=== PATIENT | female | born 1950 | race Asian ===

== ENCOUNTER 2016-03-28 21:19 | Inpatient (IN) | payer OTHER ==
[~2016-03-28] VITALS: Ht 162.6 cm; Wt 64.9 kg
[~2016-03-28 21:19] MED LIST: CIPR1TAB10 PO; LOSA1TAB38 PO; METO25TA3 PO; PHEN-876 PO
--- NOTE | 2016-03-28 23:07 | EMERGENCY ROOM VISIT NOTE ---
History Report prepared by Vasyl: Stefanie Elaine Under the Supervision of: Dr. Vel Bagley M.D. First contact with patient: 22:51 Chief Complaint: GI ASSESSMENT Stated Complaint: VOMITING,DIZZY,FEVER,WEAK,LOSS APPETITE Nursing Triage Summary: Patient with chills, high fever, nausea and vomitting, decreased appetite and dizziness. Patient was given Motrin at 1700. Patient was seen here earlier this week and was unable to get a follow up appointment. History of Present Illness The patient is a 65 year old female who presents to the Emergency Room with complaints of a worsening fever and weakness that started earlier this week.The patient states that her last recorded temperature was "107." Associated symptoms include nausea, vomiting, and a decreased appetite. Per the patient, she was evaluated in this ED a few days ago where she was diagnosed with a kidney infection. She was prescribed Cipro at this time. The patient denies chest pain or any additional associated symptoms. Source of History: patient Onset: Earlier this week Position: other (Global ) Timing: worsening Modifying Factors (Relieving): other (None ) Associated Symptoms: + nausea, + vomiting, No chest pain Review of Systems See HPI for pertinent positives & negatives. A total of 10 systems reviewed and were otherwise negative. Family History Unobtainable Social History Smoking Status: Never Smoker Alcohol Use: none Drug Use: none Marital Status: Housing Status: lives with family Occupation Status: employed Current/Historical Medications Scheduled Ciprofloxacin Hcl (Cipro), 500 MG PO BID Losartan Potassium (Cozaar), 100 MG PO DAILY Metoprolol Succ (Toprol Xl) (Toprol-Xl), 25 MG PO DAILY Allergies Coded Allergies: Enalapril (Unverified Adverse Reaction, Mild, H/A, 03/25/16) Physical Exam Vital Signs Date Time Temp Pulse Resp B/P Pulse Ox O2 Delivery O2 Flow Rate FiO2 03/28/16 23:37 149/86 136/82 135/83 03/28/16 21:26 37.3 87 16 143/82 96 Room Air Physical Exam CONSTITUTIONAL: Mild to moderate distress but non toxic. HEENT: No icterus, moist mucous membranes. TMs clear bilaterally. Oropharynx clear. NECK: No meningismus, trachea is midline. CARDIOVASCULAR: Regular rate, normal perfusion RESPIRATORY: Unlabored breathing. Clear to auscultation. GASTROINTESTINAL: Non-tender GENITOURINARY: No flank tenderness MUSCULOSKELETAL: Full range of motion NEUROLOGIC: No acute gross focal deficits. PSYCHIATRIC: Normal affect SKIN: Normal for ethnicity. Medical Decision & Procedures ER Provider Diagnostic Interpretation: Chest X-Ray as interpreted by me reveals a preliminary read of: no acute disease. Laboratory Results 03/28/16 23:30 Red Blood Count 3.99, Mean Corpuscular Volume 85.0, Mean Corpuscular Hemoglobin 30.6, Mean Corpuscular Hemoglobin Concent 36.0, Mean Platelet Volume 9.4, Neutrophils (%) (Auto) 81.1, Lymphocytes (%) (Auto) 7.0, Monocytes (%) (Auto) 11.0, Eosinophils (%) (Auto) 0.1, Basophils (%) (Auto) 0.1, Neutrophils # (Auto ) 11.74, Lymphocytes # (Auto) 1.02, Monocytes # (Auto) 1.59, Eosinophils # (Auto ) 0.01, Basophils # (Auto) 0.02 03/28/16 23:30 Test 03/28/16 23:30 03/28/16 23:35 03/28/16 23:38 03/28/16 23:45 White Blood Count 14.48 K/uL (4.8-10.8) Red Blood Count 3.99 M/uL (4.2-5.4) Hemoglobin 12.2 g/dL (12.0-16.0) Hematocrit 33.9 % (37-47) Mean Corpuscular Volume 85.0 fL (80-100) Mean Corpuscular Hemoglobin 30.6 pg (25-34) Mean Corpuscular Hemoglobin Concent 36.0 g/dl (32-36) Platelet Count 231 K/uL (130-400) Mean Platelet Volume 9.4 fL (7.4-10.4) Neutrophils (%) (Auto) 81.1 % Lymphocytes (%) (Auto) 7.0 % Monocytes (%) (Auto) 11.0 % Eosinophils (%) (Auto) 0.1 % Basophils (%) (Auto) 0.1 % Neutrophils # (Auto) 11.74 K/uL (1.4-6.5) Lymphocytes # (Auto) 1.02 K/uL (1.2-3.4) Monocytes # (Auto) 1.59 K/uL (0.11-0.59) Eosinophils # (Auto) 0.01 K/uL (0-0.5) Basophils # (Auto) 0.02 K/uL (0-0.2) RDW Standard Deviation 39.7 fL (36.4-46.3) RDW Coefficient of Variation 12.9 % (11.5-14.5) Immature Granulocyte % (Auto) 0.7 % Immature Granulocyte # (Auto) 0.10 K/uL (0.00-0.02) Anion Gap 13.0 mmol/L (3-11) Est Creatinine Clear Calc Drug Dose 27.0 ml/min Estimated GFR () 30.0 Estimated GFR (Non- 25.9 BUN/Creatinine Ratio 10.4 (10-20) Calcium Level 9.0 mg/dl (8.5-10.1) Phosphorus Level 2.3 mg/dl (2.5-4.9) Magnesium Level 2.3 mg/dl (1.8-2.4) Total Bilirubin 2.1 mg/dl (0.2-1) Direct Bilirubin 1.4 mg/dl (0-0.2) Aspartate Amino Transf (AST/SGOT) 85 U/L (15-37) Alanine Aminotransferase (ALT/SGPT) 93 U/L (12-78) Alkaline Phosphatase 184 U/L (45-117) Total Protein 7.9 gm/dl (6.4-8.2) Albumin 2.6 gm/dl (3.4-5.0) Lipase 249 U/L (73-393) Bedside Lactic Acid Venous 0.94 mmol/L (0.90-1.70) Influenza Type A Antigen Neg for Influ A (NEG) Influenza Type B Antigen Neg for Influ B (NEG) Test 03/28/16 23:55 Urine Color DK YELLOW Urine Appearance CLEAR (CLEAR) Urine pH 6.5 (4.5-7.5) Urine Specific [place] 1.003 (1.000-1.030) Urine Protein TRACE (NEG) Urine Glucose (UA) NEG (NEG) Urine Ketones NEG (NEG) Urine Occult Blood 1+ (NEG) Urine Nitrite POS (NEG) Urine Bilirubin NEG (NEG) Urine Urobilinogen NEG (NEG) Urine Leukocyte Esterase MODERATE (NEG) Urine WBC (Auto) 5-10 /hpf (0-5) Urine RBC (Auto) 0-4 /hpf (0-4) Urine Hyaline Casts (Auto) 1-5 /lpf (0-5) Urine Epithelial Cells (Auto) >30 /lpf (0-5) Urine Bacteria (Auto) 1+ (NEG) Urine Renal Epithelial Cells >30 /lpf (0-5) Labs reviewed by ED physician. Medications Administered Medications (Trade) Dose Ordered Sig/Rubio Route Start Time Stop Time Status Last Admin Dose Admin Sodium Chloride (Nss 1000ml) 1,000 ml @ 0 mls/hr Q0M STAT IV 03/28/16 23:10 03/28/16 23:13 DC 03/28/16 23:39 0 MLS/HR Ondansetron HCl (Zofran Inj) 4 mg NOW STAT IV 03/28/16 23:10 03/28/16 23:13 DC 03/28/16 23:40 4 MG Ketorolac Tromethamine (Toradol Inj) 15 mg NOW STAT IV 03/28/16 23:10 03/28/16 23:13 DC 03/28/16 23:39 15 MG Acetaminophen (Tylenol Tab) 1,000 mg NOW STAT PO 03/28/16 23:10 03/28/16 23:13 DC 03/28/16 23:39 1,000 MG Piperacillin Sod/ Tazobactam Sod (Zosyn Iv) 4.5 gm NOW STAT IV 03/28/16 23:10 03/28/16 23:13 DC 03/28/16 23:40 4.5 GM ED Course 2258: Past medical records reviewed. The patient was evaluated in room C9. A complete history and physical examination was performed. 2310: Ordered Zosyn IV 4.5 gm IV, Tylenol Tablet 1,000 mg PO, Toradol Injection 15 mg IV, Zofran Injection 4 mg IV, Sodium Chloride 1,000 ml @ 0 mls/hr Wide Open .Q0M STAT IV. 2315: I reviewed the patient's past CT performed on 03/25/2016. 0055: Ordered Sodium Chloride 1,000 ml @ 0 mls/hr Wide Open IV, Potassium Chloride 20 meq PO, Potassium Chloride 20 meq IV. 0100: Discussed the patient's case with Dr. Perdomo ([facility]). The patient will be evaluated for further management. Medical Decision Differential diagnosis: Etiologies such as viral syndrome, otitis, pharyngitis, pneumonia, influenza, meningitis, urinary tract infection, sepsis, bacteremia, as well as others were entertained. 65-year-old returns to the emergency room for evaluation of generalized weakness and reportedly a temperature of 107 at home. She notes she was recently here treated for a urinary tract infection with Cipro. She denies any flank tenderness nor GI complaints. Zosyn IV and IV fluids ordered. Hypokalemia noted in the context of acute kidney injury. 2 L normal saline ordered as well as potassium supplementation. Case discussed with Dr. Juarez of the [facility] hospitalist service for admission. Consults Time Called: 57 Consulting Physician: Dr. Perdomo ([facility]) Returned Call: 0100 Discussed the patient's case with Dr. Perdomo ([facility]). The patient will be evaluated for further management. Impression Primary Impression: UTI (urinary tract infection) Additional Impressions: Failure of outpatient treatment, Hypokalemia, Acute kidney injury Scribe Attestation The scribe's documentation has been prepared under my direction and personally reviewed by me in its entirety. I confirm that the note above accurately reflects all work, treatment, procedures, and medical decision making performed by me. Departure Information Dispostion Being Evaluated By Hospitalist Referrals Freeman Elena M.D.([facility]) (PCP) Patient Instructions A Signature Page, My [facility]
[2016-03-28] MEDS ORDERED: ONDANSETRON INJ 2 MG/ML 2 ML VIAL IV STA (23:10)
[2016-03-28] MEDS ORDERED: ACETAMINOPHEN 500 MG TAB PO STA (23:10)
[2016-03-28] MEDS ORDERED: PIPERACILLIN/TAZOBACTAM 4.5 GM/100ML D5W IV STA (23:10)
[2016-03-28] MEDS ORDERED: SODIUM CHLORIDE 0.9% 1000ML 1,000 ML IV STA (23:10)
[2016-03-28] MEDS ORDERED: KETOROLAC TROMETHAMINE 30 MG/ML VIAL IV STA (23:10)
[2016-03-28 23:41] LABS: BASO % 0.1 %; BASO ABS # 0.02 K/uL (0-0.2); COMPLETE YES; EOS % 0.1 %; HEMATOCRIT 33.9 % (37-47); IG% 0.7 %; LYMPH ABS # 1.02 K/uL (1.2-3.4); MEAN CORPUSCULAR HEMOGLOBIN 30.6 pg (25-34); MEAN PLATELET VOLUME 9.4 fL (7.4-10.4); NEUT % 81.1 %; PLATELET COUNT 231 K/uL (130-400); RED BLOOD COUNT 3.99 M/uL (4.2-5.4); WHITE BLOOD COUNT 14.48 K/uL (4.8-10.8)
[2016-03-29] VITALS (9 sets, daily range): BP systolic 131–168; BP diastolic 73–96; PULSE 70–83; TEMP 36.7–38; O2SAT 95–98; Ht 162.6 cm; Wt 64.9 kg
[2016-03-29 00:02] LABS: BUN/CREATININE RATIO 10.4 (10-20); POTASSIUM 2.6 mmol/L (3.5-5.1)
[2016-03-29 00:37] LABS: URINE APPEARANCE CLEAR (CLEAR); URINE BILIRUBIN NEG (NEG); URINE COLOR DK YELLOW; URINE EPITHELIAL CELL AUTO >30 /lpf (0-5); URINE NITRITE POS (NEG); URINE PH 6.5 (4.5-7.5); URINE SPECIFIC GRAVITY 1.003 (1.000-1.030); UROBILINOGEN NEG (NEG); ZZUR CULT IF INDIC CLEAN CATCH NO
[2016-03-29 00:41] LABS: MANUAL MICROSCOPIC REQUIRED? NO; REVIEW REQ? YES
[2016-03-29] MEDS ORDERED: POTASSIUM CHLORIDE 10 MEQ / 100ML WTR IV STA (00:55)
[2016-03-29] MEDS ORDERED: SODIUM CHLORIDE 0.9% 1000ML 1,000 ML IV STA (00:55)
[2016-03-29] MEDS ORDERED: POTASSIUM CHLORIDE 10 MEQ TABCR PO STA ×2 (00:55→02:58)
[2016-03-29 01:07] LABS: MAGNESIUM 2.3 mg/dl (1.8-2.4)
[2016-03-29 01:10] LABS: PHOSPHORUS 2.3 mg/dl (2.5-4.9)
[2016-03-29 01:36] LABS: THYROID STIMULATING HORMONE 2.14 uIu/ml (0.300-4.500)
[2016-03-29] MEDS ORDERED: PROMETHAZINE HCL INJ 12.5 MG in SODIUM CHLORIDE 0.9% 50ML 50 ML IV PRN (02:15)
[2016-03-29] MEDS ORDERED: TRAMADOL HCL 50 MG TAB PO PRN (02:15)
[2016-03-29] MEDS ORDERED: NITROGLYCERIN 0.4 MG SL PER TAB CHARGE SL PRN (02:15)
[2016-03-29] MEDS ORDERED: LORAZEPAM 2 MG/ML 1 ML VIAL IV PRN (02:15)
[2016-03-29] MEDS ORDERED: NSS + 20MEQ KCL 1000ML 1,000 ML IV SCH (03:00)
[2016-03-29] MEDS ORDERED: METRONIDAZOLE / NSS 500 MG in PREMIXED NSS 100 ML IV SCH (03:00)
[2016-03-29] MEDS ORDERED: NSS + 20MEQ KCL 1000ML 1,000 ML IV ONE ×2 (03:15→22:30)
--- NOTE | 2016-03-29 03:41 | HISTORY & PHYSICAL EXAMINATION ---
DATE OF ADMISSION: 03/29/2016 PRIMARY CARE DOCTOR: Dr. Elena Hx obtained from px and records. CHIEF COMPLAINT: Abdominal pain, nausea, vomiting and diarrhea. HISTORY OF PRESENT ILLNESS: Medical history is significant for hypertension, chronic LBBB, history of L renal cysts. Five days ago, the patient noted left lower quadrant pain symptoms. Seen at the Emergency Room. CAT scan showed cholelithiasis, complex left kidney cyst, 9.8 x 6.3 x 6.0. UA was nitrite positive. Final cultures, no growth. Patient was discharged on Cipro for possible pyelonephritis. Patient had worsening of abdominal pain, achy, more on the left with diarrhea symptoms. About 6 times a day, nonbloody. Px also had nausea, vomiting and some chills. No chest pain, no shortness of breath. Patient was lightheaded. At the Emergency Room, the patient received Zosyn for possible UTI. MEDICAL HISTORY: As above. 2D echo in December 2015 done as an outpatient for shortness of breath, chest tightness symptoms. Related to reflux as per [facility] (Dr. Keith) (EF 60%, mild AR, LVH) Used to see [facility] (Dr. Galvan) for L kidney cysts. Renal ultrasound 2010 L kidney Two adjacent simple cysts versus one cyst with a thin internal septation measuring 38 x 37 x 61 mm (was 52 x 44 x [address] 01/29/07) slightly larger. No internal vascularity is seen and this is otherwise anechoic with enhanced through transmission. SURGERIES: Hysterectomy, bladder sling procedure. HOME MEDICATIONS: Include; losartan, Toprol-XL. ALLERGIES: TO ENALAPRIL. FAMILY HISTORY: Heart disease. PERSONAL AND SOCIAL HISTORY: Nonsmoker. No chronic intake of alcoholic beverages. custodial employee. originally from the [facility]. REVIEW OF SYSTEMS: As per HPI, all other ROS negative. PHYSICAL EXAMINATION: VITAL SIGNS: Blood pressure was noted to be 140/82, pulse 57, RR 16, temperature 37 O2sats 96 on room air. GENERAL: Noted to be slightly uncomfortable, in no respiratory distress, looks younger for stated age. HEENT: [place] palpebral conjunctivae. Dry mucosa. SKIN: Normal color. NECK: No JVD. Supple. CHEST: Clear to auscultation. HEART: Regular rate and rhythm. ABDOMEN: Minimal epigastric tenderness, some distention. EXTREMITIES: No edema. No tenderness. NEUROLOGIC: No gross focality. LABORATORIES: Hemoglobin was noted to be 12.2, white cell count 14, platelets 231. Sodium 136, K 2.6, chloride 97, CO2 25, BUN 21, creatinine 2, glucose 151. AST 85, ALT 93 and alkaline phosphatase 184. Troponin was 0.046. UA, nitrite positive urine. ASSESSMENT: 1. Abdominal pain multifactorial : UTI, no sepsis, failed outpatient treatment diarrhea rule out Cdif (recent Cipro rx, [place] employment) Ro cholecystitis/cholangitis (abn LFTs, cholelithiasis on recent CT) 2. hypokalemia, acute renal failure secondary illness 3. Hypertension, stable. 4. Chronic LBBB 5. Troponinemia secondary to abnormal kidney function. Doubt acute coronary syndrome. 6. complex L renal cyst, some enlargement from recent outpx imaging 7. hyperglycemia ro DM PLAN: PCU mainly for hypokalemia, troponinemia. baseline EKG Follow urine cultures, IV Cefepime for now. stool dif, Flagyl for presumptive C. dif in light of leukocytosis. dc Flagyl if stool cdif negative (unless gallbladder US shows cholecystitis) Gallbladder ultrasound. Further management pending ultrasound results. Monitor creatinine response to IV fluids. Hold home ARB until creatinine at baseline. Replace potassium. Follow troponin. Outpatient Urology consult RE L renal cysts. check HgA1C DVT prophylaxis. Heparin subQ. Full code. MTDD
[2016-03-29] MEDS ORDERED: CEFEPIME IV 2,000 MG in DEXTROSE 5% 100ML 100 ML IV ONE (04:00)
[2016-03-29] MEDS: METOPROLOL SUCC 25MG EXT REL TAB PO SCH (07:03)
--- NOTE | 2016-03-29 07:03 | DIAGNOSTIC IMAGING REPORT ---
BILIARY ULTRASOUND CLINICAL HISTORY: Right upper quadrant abdominal pain COMPARISON STUDY: CT scan dated 03/25/2016 FINDINGS: The pancreas appears sonographically unremarkable. There is a 39 mm cyst within the left hepatic lobe. There is no ductal dilatation. The common bile duct measures 4 mm. There is no right-sided hydronephrosis. The gallbladder wall is thickened. There is comet tail reverberation artifact consistent with adenomyomatosis. The gallbladder wall measures up to 6 mm in diameter. There is a suspected small gallstone. IMPRESSION: 1. Suspected gallstone 2. Gallbladder wall thickening and areas of reverberation artifact consistent with adenomyomatosis. A masslike appearance of the gallbladder fundus, likely represents more focal adenomyomatosis. No ductal dilatation. Electronically signed by: Tim Elmore M.D. 03/29/2016 7:01 AM
--- NOTE | 2016-03-29 07:07 | DIAGNOSTIC IMAGING REPORT ---
CHEST 2 VIEWS ROUTINE CLINICAL HISTORY: fever VOMITING, DIZZINESS, WEAKNESS, LOSS OF APPETITE. COMPARISON STUDY: No previous studies for comparison. FINDINGS: The heart is mildly enlarged. There is no failure. There is no focal pulmonary consolidation. No pleural effusions are visualized.[ IMPRESSION: No active disease in the chest. Electronically signed by: Tim Elmore M.D. 03/29/2016 7:05 AM
[2016-03-29 07:21] LABS: BASO % 0.2 %; BASO ABS # 0.02 K/uL (0-0.2); COMPLETE YES; EOS % 0.3 %; HEMATOCRIT 30.9 % (37-47); IG% 0.9 %; LYMPH % 7.3 %; LYMPH ABS # 0.94 K/uL (1.2-3.4); MEAN CELL VOLUME 85.4 fL (80-100); MEAN CORPUSCULAR HEMOGLOBIN 30.4 pg (25-34); MEAN CORPUSCULAR HGB CONC 35.6 g/dl (32-36); MEAN PLATELET VOLUME 9.3 fL (7.4-10.4); MONO % 12.5 %; NEUT % 78.8 %; PLATELET COUNT 215 K/uL (130-400); RED BLOOD COUNT 3.62 M/uL (4.2-5.4); WHITE BLOOD COUNT 12.92 K/uL (4.8-10.8)
[2016-03-29 07:35] LABS: PROTHROMBIN TIME (PATIENT) 10.2 SECONDS (9.0-12.0)
[2016-03-29 07:56] LABS: ALB/GLOB RATIO 0.5 (0.9-2); CREATININE 1.9 mg/dl (0.60-1.20); POTASSIUM 3.3 mmol/L (3.5-5.1)
[2016-03-29] MEDS ORDERED: CEFEPIME CONSULT ACTIVE PRN ×2 (08:15)
[2016-03-29] MEDS: HEPARIN SOD 5000 UNIT/0.5 ML CARP SQ SCH ×2 (09:14→14:30)
[2016-03-29 09:18] LABS: ESTIMATED AVERAGE GLUCOSE 117 mg/dl; HA1C FLAG Normal (Normal)
[2016-03-29] MEDS ORDERED: POTASSIUM CHLORIDE 20 MEQ TABCR PO STA (13:56)
--- NOTE | 2016-03-29 15:22 | Progress Note ---
Progress Note ATTENDING NOTE : 65 yo f presented with Nausea , vomiting , diarrhea , abdominal pain , NARCISA hx of recent UTI Stool c diff negative possible viral gastroenteritis clinically improved NARCISA due to above renal function improved with IV hydration Low K : due to GI loss , diarrhea, nausea , vomiting replaced mild elevation of troponin due to NARCISA no complain of chest pain , no EKG change -chronic LBBB at baseline pt is very active , no complain of AARON repeat troponin level normalized ok to D/c tele Complex Left renal cyst follow with Urology as out pt
[2016-03-29] MEDS: NSS + 20MEQ KCL 1000ML 1,000 ML IV SCH (15:44)
[2016-03-29] MEDS: ACETAMINOPHEN 325 MG TAB PO PRN ×2 (15:49→20:55)
--- NOTE | 2016-03-29 17:47 | Discharge Instructions ---
Discharge Instructions Admission Reason for Admission: Elevated Troponin, Hypokalemia Discharge Discharge Diagnosis / Problem: VIRAL GASTROENTERITIS /ACUTE RENAL FAILURE / RENAL CYST Discharge Goals Goal(s): Improve disease control, Diagnostic testing, Therapeutic intervention Activity Recommendations Activity Limitations: per Instructions/Follow-up section . Instructions / Follow-Up Instructions / Follow-Up HOSPITAL FOLLOW UP WITH DR MAY FOLLOW UP WITH UROLOGY DR PRADHAN FOR RT SIDED COMPLEX RENAL CYST , PLEASE CALL OFFICE FOR APPOINTMENT Current Hospital Diet Patient's current hospital diet: AHA Diet (Heart Healthy), Low Lactose Diet Discharge Diet Recommended Diet: Regular Diet Pending Studies Studies pending at discharge: yes List of pending studies: LAB WORK : BASIC METABOLIC PANEL Laboratory Results Hemoglobin A1c Test 03/28/16 23:35 Range/Units Estimated Average Glucose 117 mg/dl Hemoglobin A1c 5.7 H 4.5-5.6 % Medical Emergencies . Who to Call and When: Medical Emergencies: If at any time you feel your situation is an emergency, please call 911 immediately. . Non-Emergent Contact Non-Emergency issues call your: Primary Care Provider . . "Provider Documentation" section prepared by Sylvia Mercer. VTE Core Measure Inpt VTE Proph given/why not?: Odilon Arias, SCD's [place] Drug Monitoring Program Search Results: no issues identified
[2016-03-29] MEDS ORDERED: LOPERAMIDE HCL 2 MG CAP PO PRN (22:30)
[2016-03-29 23:34] LABS: BUN/CREATININE RATIO 9.4 (10-20); CALCIUM 8.3 mg/dl (8.5-10.1); CREATININE 1.8 mg/dl (0.60-1.20); MAGNESIUM 2.1 mg/dl (1.8-2.4); POTASSIUM 3.5 mmol/L (3.5-5.1)
[2016-03-29 23:48] LABS: ALB/GLOB RATIO 0.5 (0.9-2)
[2016-03-30] VITALS (11 sets, daily range): BP systolic 124–160; BP diastolic 70–82; PULSE 71–78; TEMP 36.6–39.1; O2SAT 95–100
[2016-03-30] MEDS: LORAZEPAM INJ 0.5 MG in SYRINGE 0.75 ML IV PRN ×2 (00:10→18:38)
[2016-03-30] MEDS: NSS + 20MEQ KCL 1000ML 1,000 ML IV SCH ×3 (03:26→16:33)
[2016-03-30] MEDS: ACETAMINOPHEN 325 MG TAB PO PRN ×2 (03:33→18:01)
[2016-03-30] MEDS ORDERED: CEFEPIME IV 1,000 MG in DEXTROSE 5% 100ML 100 ML IV SCH (04:00)
[2016-03-30 06:02] LABS: BASO % 0.2 %; BASO ABS # 0.02 K/uL (0-0.2); COMPLETE YES; EOS % 0.1 %; HEMATOCRIT 29.9 % (37-47); IG% 1.2 %; LYMPH % 9.9 %; LYMPH ABS # 1.25 K/uL (1.2-3.4); MEAN CELL VOLUME 87.2 fL (80-100); MEAN CORPUSCULAR HEMOGLOBIN 30.9 pg (25-34); MEAN CORPUSCULAR HGB CONC 35.5 g/dl (32-36); MEAN PLATELET VOLUME 9.2 fL (7.4-10.4); MONO % 9.1 %; NEUT % 79.5 %; PLATELET COUNT 284 K/uL (130-400); RED BLOOD COUNT 3.43 M/uL (4.2-5.4); WHITE BLOOD COUNT 12.65 K/uL (4.8-10.8)
[2016-03-30 06:31] LABS: BUN/CREATININE RATIO 8.2 (10-20); CALCIUM 8.2 mg/dl (8.5-10.1); CREATININE 1.8 mg/dl (0.60-1.20); MAGNESIUM 2.1 mg/dl (1.8-2.4); POTASSIUM 3.4 mmol/L (3.5-5.1)
[2016-03-30] MEDS ORDERED: POTASSIUM CHLORIDE 20 MEQ TABCR PO ONE (08:00)
[2016-03-30] MEDS: METOPROLOL SUCC 25MG EXT REL TAB PO SCH (09:01)
--- NOTE | 2016-03-30 17:52 | Progress Note ---
Internal Med Progress Note Date of Service: Mar 30, 2016. Provider Documentation: SUBJECTIVE: pt continues to spike temp T max 39.1 associated with chills and rigor has ongoing diarrhea associated with nausea , abdominal cramps very worried as still no feeling well multiple family members present at bedside OBJECTIVE: Vital Signs-as noted below Exam: General-no apparent distress , anxious Eyes-sclera non icteric, PERRLA/EOMI ENT-moist oral mucosa, normal lip , normal oropharynx Neck-trachea midline , no thyromegaly Lungs-CTA, no wheeze or rhonchi Heart-regular Abdomen-soft, tenderness on epigastrium , bowel sound active Extremities-no rash or deformity ,no lower ext edema Neuro-no focal neurological deficit Lab data as noted below. ASSESSMENT & PLAN: 65 yo f presented with Nausea , vomiting , diarrhea , abdominal pain , NARCISA hx of recent UTI ABDOMINAL PAIN /NAUSEA /DIARRHEA : Stool c diff negative possible viral gastroenteritis CT abdomen /pelvis done on ER visit : 1. No evidence of bowel obstruction , no evidence of free air, colonic diverticulum , no evidence of acute diverticulitis . normal appendix, cholelithiasis suspected adenomyomatosis pt is continued with bowel rest ordered for stool culture FEVER : due to viral illness ? CT abdomen /pelvis shows no acute inflammation of infection has mild leukocytosis CXray no infiltrate , urine culture negative ( had recent UTI ) ordered for blood culture for repeated Temp spike cont IV hydration pt was started on empiric Abx with Cefepime -will cont till Cultures negative , pt becomes afebrile ID eval requested MILD ELEVATION OF LIVER FUNCTION : due to dehydration /viral illness USG of liver : 1. Suspected gallstone 2. Gallbladder wall thickening and areas of reverberation artifact consistent with adenomyomatosis. A masslike appearance of the gallbladder fundus, likely represents more focal adenomyomatosis. No ductal dilatation. LFT's continues to improve with IV hydration ordered for hepatitis panel NARCISA : due to above diarrhea /fever /dehydration presented with Cr > 2 ( was 1.0 on 03/25/16 ) had CT abdomen with contrast study on 03/25/16 cont IV hydration increased to 150 ml /hr follow PRP avoid NSAID's , nephrotoxins nephrology consult requested Low K : due to GI loss , diarrhea, nausea , vomiting replaced follow PRP mild elevation of troponin due to NARCISA no complain of chest pain , no EKG change -chronic LBBB at baseline pt is very active , no complain of AARON repeat troponin level normalized Complex Left renal cyst follow with Urology as out pt no report of hematuria DVT PROPHYLAXIS low risk scd and teds DISPOSITION Discharge home when medially stable Vital Signs: Date Time Temp Pulse Resp B/P Pulse Ox O2 Delivery O2 Flow Rate FiO2 03/30/16 17:45 38.0 77 20 151/74 97 Room Air 03/30/16 15:24 36.6 77 16 151/82 97 Room Air 03/30/16 07:26 Room Air 03/30/16 07:06 36.7 78 16 124/70 95 Room Air 03/30/16 05:20 36.9 03/30/16 03:58 37.2 03/30/16 03:34 39.1 03/30/16 02:10 37.6 03/29/16 23:39 Room Air 03/29/16 23:02 37.0 74 20 154/81 97 Room Air 03/29/16 19:44 38.0 83 22 148/84 95 Room Air Lab Results: Results Past 24 Hours Test 03/29/16 22:50 03/30/16 05:25 Range/Units Sodium Level 142 141 136-145 mmol/L Potassium Level 3.5 3.4 3.5-5.1 mmol/L Chloride Level 110 112 98-107 mmol/L Carbon Dioxide Level 20 20 21-32 mmol/L Anion Gap 12.0 9.0 3-11 mmol/L Blood Urea Nitrogen 17 15 7-18 mg/dl Creatinine 1.80 1.80 0.60-1.20 mg/dl Est Creatinine Clear Calc Drug Dose 30.3 30.3 ml/min Estimated GFR () 34.1 34.1 Estimated GFR (Non- 29.4 29.4 BUN/Creatinine Ratio 9.4 8.2 10-20 Random Glucose 99 137 70-99 mg/dl Lactic Acid Level 0.7 0.4-2.0 mmol/L Calcium Level 8.3 8.2 8.5-10.1 mg/dl Magnesium Level 2.1 2.1 1.8-2.4 mg/dl Total Bilirubin 0.8 0.8 0.2-1 mg/dl Aspartate Amino Transf (AST/SGOT) 65 41 15-37 U/L Alanine Aminotransferase (ALT/SGPT) 92 77 12-78 U/L Alkaline Phosphatase 178 166 45-117 U/L Total Protein 6.9 6.4 6.4-8.2 gm/dl Albumin 2.2 2.1 3.4-5.0 gm/dl Globulin 4.7 2.5-4.0 gm/dl Albumin/Globulin Ratio 0.5 0.9-2 White Blood Count 12.65 4.8-10.8 K/uL Red Blood Count 3.43 4.2-5.4 M/uL Hemoglobin 10.6 12.0-16.0 g/dL Hematocrit 29.9 37-47 % Mean Corpuscular Volume 87.2 80-100 fL Mean Corpuscular Hemoglobin 30.9 25-34 pg Mean Corpuscular Hemoglobin Concent 35.5 32-36 g/dl Platelet Count 284 130-400 K/uL Mean Platelet Volume 9.2 7.4-10.4 fL Neutrophils (%) (Auto) 79.5 % Lymphocytes (%) (Auto) 9.9 % Monocytes (%) (Auto) 9.1 % Eosinophils (%) (Auto) 0.1 % Basophils (%) (Auto) 0.2 % Neutrophils # (Auto) 10.07 1.4-6.5 K/uL Lymphocytes # (Auto) 1.25 1.2-3.4 K/uL Monocytes # (Auto) 1.15 0.11-0.59 K/uL Eosinophils # (Auto) 0.01 0-0.5 K/uL Basophils # (Auto) 0.02 0-0.2 K/uL RDW Standard Deviation 43.7 36.4-46.3 fL RDW Coefficient of Variation 13.6 11.5-14.5 % Immature Granulocyte % (Auto) 1.2 % Immature Granulocyte # (Auto) 0.15 0.00-0.02 K/uL Direct Bilirubin 0.4 0-0.2 mg/dl Microbiology Results 03/29/16 Blood Culture, Received Pending 03/29/16 Blood Culture, Received Pending
[2016-03-30] MEDS: ONDANSETRON INJ 2 MG/ML 2 ML VIAL IV PRN (18:02)
[2016-03-30] MEDS ORDERED: ACETAMINOPHEN IV 650 MG in EMPTY BAG 0 ML IV PRN (18:15)
[2016-03-30] MEDS ORDERED: NURSING VERBAL MED ORDER ONE (19:00)
--- NOTE | 2016-03-30 19:05 | Progress Note ---
Progress Note ATTENDING NOTE : pt continues to spike temp complains of SOB , difficulty breathing , found to be tachypneic spo2 96 % in room air very anxious Bed side eval : gen; anxious complains of abdominal bloating, feeling like she can not breath no cough HT : regular Tachy Lungs; CTA, no wheeze or rales auscultated Abdomen: soft, mild tenderness on epigastric area , mentions of feeling bloated bowel sound active EXt; no edema noted in lower ext, no calf tenderness -ongoing fever with tachycardia , tachypnea ordered for D dimer ( could be false positive given acute illness ) bilat lower ext Doppler to R/O DVT CTA of chest not ordered for NARCISA ( Cr 1.8 ) transfer pt to PCU for close monitoring of hemodynamics Daughter given update at bedside
--- NOTE | 2016-03-30 19:12 | Progress Note ---
Progress Note ATTENDING NOTE : d DIMER ELEVATED 2560 LOWER EXT DOPPLER ORDERED -WILL FOLLOW REPORT NO CONTRAINDICATION FOR ANTICOAGULATION IN SETTING OF THROMBOTIC EVENT ECHO ORDERED TO ASSESS CARDIAC STRAIN FOR CONCERN FOR PE V /Q SCAN ORDERED CONT TELE MONITORING EKG DAILY LACTIC ACID ELEVATED 2.2 CONT IVF @ 150 ML /HR REPEAT LACTIC ACID IN 4 HRS ( 2200 ) AND IN AM WILL ADD VANCOMYCIN FOR ADDED COVERAGE /ON CEFEPIME ID CONSULT REQUESTED
[2016-03-30] MEDS ORDERED: VANCOMYCIN INJ 1,700 MG in SODIUM CHLORIDE 0.9% 500ML 500 ML IV STA (19:41)
[2016-03-30] MEDS ORDERED: VANCOMYCIN CONSULT ACTIVE PRN (19:45)
--- NOTE | 2016-03-30 20:31 | Pharmacy Progress Note ---
Pharmacy Antibiotic Consult Date of Service: Mar 30, 2016. Pharmacy Dosing Scope Pharmacy is consulted to initiate Vancomycin IV dosing therapy, order appropriate labs and adjust drug dose/frequency. Subjective The patient is a 65 year old female admitted on Mar 29, 2016 at 01:37. Objective Height (Feet): 5 Height (Inches): 4.00 Weight (Kilograms): 67.800 Lab Results (24hrs): Laboratory Tests Test 03/29/16 22:50 03/30/16 05:25 BUN/Creatinine Ratio 9.4 8.2 Blood Urea Nitrogen 17 mg/dl 15 mg/dl Creatinine 1.80 mg/dl 1.80 mg/dl White Blood Count 12.65 K/uL Red Blood Count 3.43 M/uL Hemoglobin 10.6 g/dL Hematocrit 29.9 % Mean Corpuscular Volume 87.2 fL Mean Corpuscular Hemoglobin 30.9 pg Mean Corpuscular Hemoglobin Concent 35.5 g/dl Platelet Count 284 K/uL Mean Platelet Volume 9.2 fL Neutrophils (%) (Auto) 79.5 % Lymphocytes (%) (Auto) 9.9 % Monocytes (%) (Auto) 9.1 % Eosinophils (%) (Auto) 0.1 % Basophils (%) (Auto) 0.2 % Neutrophils # (Auto) 10.07 K/uL Lymphocytes # (Auto) 1.25 K/uL Monocytes # (Auto) 1.15 K/uL Eosinophils # (Auto) 0.01 K/uL Basophils # (Auto) 0.02 K/uL Micro Results: Item Value Date Time Urine Culture - Preliminary Resulted 03/28/16 2355 Urine , Clean Catch NO GROWTH - LESS THAN 1,000 COLONIES/... C.difficile Toxin B Gene (PCR) - Final Complete 03/29/16 0000 Stool No C. difficile toxin B gene detected Blood Culture Received 03/29/16 2250 Blood Pending Blood Culture Received 03/29/16 2300 Blood Pending Shiga Toxin Test Received 03/30/16 1950 Stool Pending Assessment & Plan Assessment * 65 y/o F on empiric IV Vancomycin for UTI. She was already on Cefepime ( Pharmacy also consulted for dosing), but is now febrile with elevated lactic acid, therefore Vancomycin has been added to broaden coverage. ID has been consulted. * Patient is in acute renal failure, but appears to be slowly improving. Her baseline sCr is around 1 mg/dL. Upon admission, sCr = 1.9 mg/dL and is down to 1.8 mg/dL today. Given unstable renal function, cannot safely initiate a maintenance regimen at this time. Will dose patient empirically based on random levels. Plan VANCOMYCIN * Give Vancomycin 1700mg (~25mg/kg) IV x 1 as a loading dose * Goal Vancomycin "trough" level 15-20 mcg/mL * Random level ordered for 1/2 with AM labs * Subsequent dosing to be determined based on levels CEFEPIME * Continue Cefepime 1g IV q24 (adjusted for current renal function) Pharmacy will continue to follow and will adjust dose/frequency as necessary. Thank you
--- NOTE | 2016-03-30 21:16 | DIAGNOSTIC IMAGING REPORT ---
SINGLE VIEW CHEST CLINICAL HISTORY: Dyspnea. FINDINGS: An AP, portable, upright chest radiograph is compared to study dated 03/29/2016. The examination is degraded by portable technique and patient rotation. The heart is mildly enlarged. The pulmonary vasculature is noncongested. There is developing patchy airspace consolidation at the left lung base. A small left pleural effusion is suspected. The right lung appears clear. No pneumothorax is seen. The skeletal structures are osteopenic. The bony thorax is grossly intact. IMPRESSION: 1. Cardiac enlargement. There is no radiographic evidence of congestive failure. 2. There is developed patchy airspace consolidation at the left lung base. A small left pleural effusion is suspected. Correlate clinically for evidence of pneumonia. Electronically signed by: Barney Dover M.D. 03/30/2016 9:15 PM
[2016-03-30] MEDS ORDERED: PIPERACILLIN/TAZOBACTAM 4.5 GM/100ML D5W IV STA (21:53)
--- NOTE | 2016-03-30 21:55 | Progress Note ---
Internal Med Progress Note Date of Service: Mar 30, 2016. Provider Documentation: CXR pneumonia L px admits to cough sx prod of yellow sputum AP Sepsis 2 to HAP/possible aspiration ff emesis episodes at home Change Cefepime to Zosyn Vital Signs: Date Time Temp Pulse Resp B/P Pulse Ox O2 Delivery O2 Flow Rate FiO2 03/31/16 04:00 Nasal Cannula 2.0 03/31/16 03:43 36.6 73 26 147/62 98 Nasal Cannula 2.0 03/31/16 00:01 Nasal Cannula 2.0 03/30/16 23:20 37.2 71 26 160/81 100 Nasal Cannula 2.0 03/30/16 20:00 Nasal Cannula 2.0 03/30/16 19:25 38.3 74 38 145/72 98 Nasal Cannula 2.0 03/30/16 19:00 38.0 77 40 97 03/30/16 17:45 38.0 77 20 151/74 97 Room Air 03/30/16 15:30 97 Room Air 03/30/16 15:24 36.6 77 16 151/82 97 Room Air 03/30/16 07:26 Room Air Lab Results: Results Past 24 Hours Test 03/30/16 18:40 03/31/16 00:15 03/31/16 06:12 Range/Units D-Dimer 2560 0-500 ug/L FEU Lactic Acid Level 2.2 0.8 0.6 0.4-2.0 mmol/L Hepatitis B Surface Antigen NEG NEG Hepatitis C Antibody NEG NEG White Blood Count 14.60 4.8-10.8 K/uL Red Blood Count 3.35 4.2-5.4 M/uL Hemoglobin 10.2 12.0-16.0 g/dL Hematocrit 29.5 37-47 % Mean Corpuscular Volume 88.1 80-100 fL Mean Corpuscular Hemoglobin 30.4 25-34 pg Mean Corpuscular Hemoglobin Concent 34.6 32-36 g/dl Platelet Count 317 130-400 K/uL Mean Platelet Volume 8.9 7.4-10.4 fL Neutrophils (%) (Auto) 78.1 % Lymphocytes (%) (Auto) 13.8 % Monocytes (%) (Auto) 5.6 % Eosinophils (%) (Auto) 0.3 % Basophils (%) (Auto) 0.1 % Neutrophils # (Auto) 11.39 1.4-6.5 K/uL Lymphocytes # (Auto) 2.02 1.2-3.4 K/uL Monocytes # (Auto) 0.82 0.11-0.59 K/uL Eosinophils # (Auto) 0.04 0-0.5 K/uL Basophils # (Auto) 0.02 0-0.2 K/uL RDW Standard Deviation 45.1 36.4-46.3 fL RDW Coefficient of Variation 13.9 11.5-14.5 % Immature Granulocyte % (Auto) 2.1 % Immature Granulocyte # (Auto) 0.31 0.00-0.02 K/uL Sodium Level 141 136-145 mmol/L Potassium Level 4.0 3.5-5.1 mmol/L Chloride Level 112 98-107 mmol/L Carbon Dioxide Level 20 21-32 mmol/L Anion Gap 9.0 3-11 mmol/L Blood Urea Nitrogen 11 7-18 mg/dl Creatinine 1.50 0.60-1.20 mg/dl Est Creatinine Clear Calc Drug Dose 38.1 ml/min Estimated GFR () 42.5 Estimated GFR (Non- 36.7 BUN/Creatinine Ratio 7.0 10-20 Random Glucose 109 70-99 mg/dl Calcium Level 8.3 8.5-10.1 mg/dl Magnesium Level 1.8 1.8-2.4 mg/dl Total Bilirubin 1.2 0.2-1 mg/dl Direct Bilirubin 0.9 0-0.2 mg/dl Aspartate Amino Transf (AST/SGOT) 37 15-37 U/L Alanine Aminotransferase (ALT/SGPT) 65 12-78 U/L Alkaline Phosphatase 161 45-117 U/L Total Protein 6.5 6.4-8.2 gm/dl Albumin 2.0 3.4-5.0 gm/dl Random Vancomycin Level 17.2 mcg/ml Microbiology Results 03/30/16 Shiga Toxin Test, Received Pending 03/30/16 Stool Culture, Received Pending
[2016-03-30] MEDS ORDERED: ALBUT/IPRATROP 3MG/0.5MG NEB 3 ML VIAL INH STA (21:57)
[2016-03-30] MEDS ORDERED: ALBUT/IPRATROP 3MG/0.5MG NEB 3 ML VIAL INH PRN (22:00)
[2016-03-30] MEDS ORDERED: PIPERACILL/TAZOBAC IV 3.375 GM in DEXTROSE 5% 100ML IV ONE (22:00)
--- NOTE | 2016-03-30 22:30 | DIAGNOSTIC IMAGING REPORT ---
NUCLEAR PULMONARY VENTILATION/PERFUSION SCAN CLINICAL HISTORY: Dyspnea. COMPARISON STUDY: Chest x-ray dated 03/30/2016. TECHNIQUE: Initially, ventilation images of both lungs are obtained following the inhalation of 32.8 mCi of aerosolized technetium 99m DTPA. Subsequently, perfusion images of both lungs were obtained following the IV administration of 5.5 mCi of technetium 99m MAA. Ventilation and perfusion images were acquired in the anterior, posterior, and oblique projections. FINDINGS: A chest x-ray performed same-day 03/30/2016 showed cardiomegaly with developing airspace consolidation at the left lung base and a possible left pleural effusion. The ventilation of both lungs is slightly heterogeneous. No significant ventilatory defects are identified. Inhaled tracer is noted in the stomach. No perfusion defects are identified on the perfusion imaging. IMPRESSION: Findings are considered low probability for pulmonary embolus. Electronically signed by: Barney Dover M.D. 03/30/2016 10:28 PM
[2016-03-31] VITALS (7 sets, daily range): BP systolic 132–163; BP diastolic 62–80; PULSE 73–89; TEMP 36.6–39.3; O2SAT 97–99
[2016-03-31] MEDS: NSS + 20MEQ KCL 1000ML 1,000 ML IV SCH ×3 (02:00→19:56)
[2016-03-31] MEDS: HYDROmorphone INJ 1 MG/ML SYR IV PRN ×3 (04:06→11:55)
[2016-03-31] MEDS: PIPERACILL/TAZOBAC IV 3.375 GM in DEXTROSE 5% 100ML IV SCH ×3 (04:06→19:55)
[2016-03-31] MEDS: ONDANSETRON INJ 2 MG/ML 2 ML VIAL IV PRN (04:06)
[2016-03-31 06:23] LABS: HEMATOCRIT 29.5 % (37-47); MEAN CELL VOLUME 88.1 fL (80-100); MEAN CORPUSCULAR HEMOGLOBIN 30.4 pg (25-34); MEAN CORPUSCULAR HGB CONC 34.6 g/dl (32-36); MEAN PLATELET VOLUME 8.9 fL (7.4-10.4); PLATELET COUNT 317 K/uL (130-400); RED BLOOD COUNT 3.35 M/uL (4.2-5.4)
[2016-03-31 06:43] LABS: BASO % 0.1 %; BASO ABS # 0.02 K/uL (0-0.2); COMPLETE YES; EOS % 0.3 %; IG% 2.1 %; LYMPH % 13.8 %; LYMPH ABS # 2.02 K/uL (1.2-3.4); MONO % 5.6 %; NEUT % 78.1 %
[2016-03-31 06:53] LABS: CALCIUM 8.3 mg/dl (8.5-10.1); CREATININE 1.5 mg/dl (0.60-1.20); MAGNESIUM 1.8 mg/dl (1.8-2.4)
--- NOTE | 2016-03-31 07:13 | DIAGNOSTIC IMAGING REPORT ---
BILATERAL LOWER EXTREMITY VENOUS DOPPLER HISTORY: Leg swelling. COMPARISON STUDY: None. FINDINGS: There is normal compressibility, flow, and augmentation within the bilateral lower extremity deep venous systems. IMPRESSION: No DVT within the right or left lower extremity. Electronically signed by: Clarence Disla M.D. 03/31/2016 7:11 AM
[2016-03-31] MEDS: METOPROLOL SUCC 25MG EXT REL TAB PO SCH (08:00)
--- NOTE | 2016-03-31 08:46 | ECHOCARDIOGRAM REPORT ---
*NOTICE TO RECEIVING DEMOCRAT AGENCY This information is strictly Confidential and protected under [place] law. [place] law prohibits you from making any further disclosure of this information unless further disclosure is expressly permitted by the written consent of the person to whom it pertains or is authorized by law. A general authorization for the release of medical or other information is not sufficient for this purpose. Hospital accepts no responsibility if the information is made available to any other person, INCLUDING THE PATIENT. Interpretation Summary * Name: LESLEY GARCIA Study Date: 03/31/2016 07:00 AM BP: 136/72 mmHg * Patient Location: C.2E\S\E205\S\1 HR: 76 * : 1950 (M/d/yyyy) Gender: Female Height: 64 in * Age: 65 yrs Ethnicity: Weight: 149 lb * Ordering Physician: Sylvia Mercer * Referring Physician: Self, Referred * Performed By: Vanessa Sharma RCS * * Reason For Study: Pulm. HTN, Eval for PE/RV Strain * BSA: 1.7 m2 * -- Conclusions -- * Normal LV chamber size with mild concentric LVH. * Normal LV systolic function, EF 55-60%. * Abnormal septal wall motion consistent with LBBB pattern, otherwise, normal wall motion. * Grade I diastolic dysfunction. * The right ventricular cavity size is normal (basal dimension <4.2 cm in right ventricular apical 4-chamber view). * The right ventricular systolic function is normal as assessed by tricuspid annular plane systolic excursion (TAPSE) (normal >1.5 cm). * Grade I diastolic dysfunction. * Mild aortic regurgitation. Procedure Details * A complete two-dimensional transthoracic echocardiogram was performed (2D, M-mode, Doppler and color flow Doppler). Left Ventricle * The left ventricle is normal in size. * There is mild concentric left ventricular hypertrophy. * Ejection Fraction = 55-60%. * The left ventricular wall motion is normal. * Septal motion is consistent with conduction abnormality. Right Ventricle * The right ventricular cavity size is normal (basal dimension <4.2 cm in right ventricular apical 4-chamber view). * The right ventricular systolic function is normal as assessed by tricuspid annular plane systolic excursion (TAPSE) (normal >1.5 cm). Atria * The left atrium is mildly dilated. * Right atrial size is normal. * No ASD detected; PFO is not assessed. Mitral Valve * The mitral valve is normal in structure and function. Tricuspid Valve * The tricuspid valve is normal in structure and function. Aortic Valve * The aortic valve is trileaflet. * No hemodynamically significant valvular aortic stenosis. * Mild aortic regurgitation. Pulmonic Valve * The pulmonary valve is not well seen, but the Doppler examination is normal without significant regurgitation or stenosis. Great Vessels * The aortic root and proximal ascending aorta are normal sized. Pericardium/Pleural * There is no pericardial effusion. Left Ventricular Diastolic Function * Grade I diastolic dysfunction, (abnormal relaxation pattern). MMode 2D Measurements and Calculations IVSd 1.1 cm IVSs 1.6 cm LVIDd 4.9 cm LVIDs 3.3 cm LVPWd 1.1 cm LVPWs 1.7 cm IVS/LVPW 0.98 FS 33.5 % EDV(Teich) 113.4 ml ESV(Teich) 43.0 ml EF(Teich) 62.1 % EDV(cubed) 118.5 ml ESV(cubed) 34.8 ml EF(cubed) 70.6 % % IVS thick 52.0 % % LVPW thick 54.8 % LV mass(C)d 199.4 grams LV mass(C)dI 115.5 grams/m\S\2 LV mass(C)s 212.6 grams LV mass(C)sI 123.1 grams/m\S\2 CO(Teich) 5.3 l/min CI(Teich) 3.1 l/min/m\S\2 SV(Teich) 70.5 ml SI(Teich) 40.8 ml/m\S\2 CO(cubed) 6.3 l/min CI(cubed) 3.6 l/min/m\S\2 SV(cubed) 83.7 ml SI(cubed) 48.5 ml/m\S\2 Ao root diam 3.0 cm Ao root area 7.0 cm\S\2 ACS 1.5 cm LA dimension 4.1 cm LA/Ao 1.4 LVOT diam 1.9 cm LVOT area 2.7 cm\S\2 LVAd ap4 37.5 cm\S\2 LVLd ap4 9.2 cm EDV(MOD-sp4) 127.0 ml LVAs ap4 19.4 cm\S\2 LVLs ap4 7.2 cm ESV(MOD-sp4) 45.0 ml EF(MOD-sp4) 64.6 % LVAd ap2 35.6 cm\S\2 LVLd ap2 9.3 cm EDV(MOD-sp2) 115.0 ml LVAs ap2 15.2 cm\S\2 LVLs ap2 6.8 cm ESV(MOD-sp2) 28.0 ml EF(MOD-sp2) 75.7 % CO(MOD-sp4) 6.2 l/min CI(MOD-sp4) 3.6 l/min/m\S\2 SV(MOD-sp4) 82.0 ml SI(MOD-sp4) 47.5 ml/m\S\2 CO(MOD-sp2) 6.5 l/min CI(MOD-sp2) 3.8 l/min/m\S\2 SV(MOD-sp2) 87.0 ml SI(MOD-sp2) 50.4 ml/m\S\2 Doppler Measurements and Calculations MV E max scooby 131.9 cm/sec MV A max scooby 135.0 cm/sec MV E/A 0.98 MV P1/2t max scooby 173.0 cm/sec MV P1/2t 69.6 msec MVA(P1/2t) 3.2 cm\S\2 MV dec slope 727.6 cm/sec\S\2 MV dec time 0.23 sec Ao V2 max 257.7 cm/sec Ao max PG 26.6 mmHg Ao max PG (full) 17.6 mmHg Ao V2 mean 163.5 cm/sec Ao mean PG 12.7 mmHg Ao mean PG (full) 7.8 mmHg Ao V2 VTI 47.0 cm FERNANDA(I,A) 1.6 cm\S\2 FERNANDA(I,D) 1.6 cm\S\2 FERNANDA(V,A) 1.6 cm\S\2 FERNANDA(V,D) 1.6 cm\S\2 AI max scooby 454.3 cm/sec AI max PG 82.6 mmHg AI dec slope 276.7 cm/sec\S\2 AI P1/2t 481.0 msec LV V1 max PG 9.0 mmHg LV V1 mean PG 4.9 mmHg LV V1 max 149.7 cm/sec LV V1 mean 104.4 cm/sec LV V1 VTI 27.6 cm SV(Ao) 329.1 ml SI(Ao) 190.7 ml/m\S\2 SV(LVOT) 74.2 ml SI(LVOT) 43.0 ml/m\S\2 PA V2 max 163.6 cm/sec PA max PG 10.7 mmHg PI max scooby 194.1 cm/sec PI max PG 15.1 mmHg PI dec slope 179.0 cm/sec\S\2 PI P1/2t 317.6 msec TR max scooby 272.5 cm/sec
[2016-03-31] MEDS ORDERED: PIPERACILL/TAZOBAC CONSULT ACTIVE PRN (09:00)
--- NOTE | 2016-03-31 09:36 | DIAGNOSTIC IMAGING REPORT ---
CT SCAN OF THE ABDOMEN AND PELVIS WITHOUT CONTRAST CLINICAL HISTORY: worsening L sided abd pain COMPARISON STUDY: 03/25/2016 TECHNIQUE: CT scan of the abdomen and pelvis was performed from the lung bases to the proximal femurs. Images are reviewed in the axial, sagittal, and coronal planes. IV contrast was not administered for this examination. CT DOSE: 548.30 mGycm FINDINGS: Lower chest: There are small bilateral pleural effusions with bibasilar atelectasis. Liver: The 5 mm fat-containing nodule within the right hepatic lobe. There is 36 mm left lobe hepatic cyst. Gallbladder: Cholelithiasis. There is a fundal nodule, likely representing adenomyomatosis. Spleen: Normal in size and attenuation. Pancreas: No pancreatic masses are visualized. The duct is at the upper limits of normal in size. Adrenal glands: Unremarkable. 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 There is an 9 cm septated cystic mass within the upper pole the left kidney. This contains foci of increased attenuation consistent with hemorrhage. No renal or ureteral calculi are visualized. Bowel: There are scattered colonic diverticula. There are no transition zones indicate bowel obstruction. There is no evidence of acute diverticulitis. There are no findings to indicate acute appendicitis. Peritoneum: There is trace free fluid in the pelvis. There is no free air. Vasculature: The abdominal aorta is normal in course and caliber. Adenopathy: None. Pelvic viscera: The uterus is surgically absent. Skeletal structures: No destructive osseous lesions are seen. IMPRESSION: 1. Complex 9 cm cystic lesion within the left kidney with areas of acute/subacute hemorrhage. Urological consultation is recommended. 2. Cholelithiasis 3. No evidence of bowel obstruction. No evidence of free air. Electronically signed by: Tim Elmore M.D. 03/31/2016 9:34 AM
--- NOTE | 2016-03-31 09:43 | Pharmacy Progress Note ---
Pharmacy Antibiotic Prog Note Date of Service: Mar 31, 2016. Subjective: The patient received VANCOMYCIN 1700mg IV x 1 dose empirically last evening. The patient is currently on day # 2 of VANCOMYCIN / ZOSYN IV therapy. Objective: Height (Feet): 5 Height (Inches): 4.00 Weight (Kilograms): 75.000 Levels: Item Value Date Time Random Vancomycin Level 17.2 mcg/ml 03/31/16 0612 Lab Results (24hrs): Laboratory Tests Test 03/31/16 06:12 BUN/Creatinine Ratio 7.0 Blood Urea Nitrogen 11 mg/dl Creatinine 1.50 mg/dl White Blood Count 14.60 K/uL Red Blood Count 3.35 M/uL Hemoglobin 10.2 g/dL Hematocrit 29.5 % Mean Corpuscular Volume 88.1 fL Mean Corpuscular Hemoglobin 30.4 pg Mean Corpuscular Hemoglobin Concent 34.6 g/dl Platelet Count 317 K/uL Mean Platelet Volume 8.9 fL Neutrophils (%) (Auto) 78.1 % Lymphocytes (%) (Auto) 13.8 % Monocytes (%) (Auto) 5.6 % Eosinophils (%) (Auto) 0.3 % Basophils (%) (Auto) 0.1 % Neutrophils # (Auto) 11.39 K/uL Lymphocytes # (Auto) 2.02 K/uL Monocytes # (Auto) 0.82 K/uL Eosinophils # (Auto) 0.04 K/uL Basophils # (Auto) 0.02 K/uL Micro Results: see emr Recent Pertinent Medications: Item Value Date Time Piperacillin Sod/ 115 ml @ 28.75 mls/hr 03/31/16 0330 Tazobactam Sod Q8H/IV 03/31/16 0406 3.375 gm/Dextrose Vancomycin HCl 534 ml @ 200 mls/hr 03/30/16 1941 1700 mg/Sodium NOW STAT/IV 03/30/16 202 Chloride one time dose Cefepime HCl 1000 111.3 ml @ 200 mls/hr 03/30/16 0400 mg/Dextrose Q24H/IV DISCONTINUED 03/30/16 0326 Assessment & Plan: 65yo female initially ordered CEFEPIME for sepsis secondary to UTI, therapy changed yesterday to VANCOMYCIN and ZOSYN. Renal function is improving (baseline ~1, was 2.0 -> 1.9 -> 1.8 -> 1.5 today). VANCOMYCIN: * Patient received VANCOMYCIN 1700mg (~23 mg/kg) IV x 1 dose empirically last evening. * Random level drawn this am (~8 hours after dose) = 17.2 mcg/mL. * This drug level is: Therapeutic. * Will start VANCOMYCIN 1100mg (~15mg/kg) IV q18h, based on estimated baseline renal function. * Will hold 0600 dose tomorrow morning until renal function is evaluated to ensure it continues to improve. * Goal trough level estimate: between 15 - 20 mcg/mL. * Trough level has been ordered for: @ 0000, assuming renal function continues to trend down. ZOSYN: * Continue ZOSYN 3.375gm CI IV q8h for CrCl > 20 ml/min. Pharmacy will continue to follow and will adjust dose/frequency as necessary. Thank you
--- NOTE | 2016-03-31 10:18 | Medical Consult ---
Consultation Date of Consultation: Mar 31, 2016. Attending Physician: Sylvia Mercer M.D. Reason for Consultation: viral illness, fever History of Present Illness 65-year-old female with history of hypertension and left bundle-branch block, more than 1 week history abdominal pain, mostly left-sided, associated with nausea, vomiting, and diarrhea. Was seen in the emergency department and found to have complex left renal cyst, and was sent home with a diagnosis pyelonephritis on ciprofloxacin. Cultures from that visit negative. Patient was admitted with progressively worsening abdominal pain. Started initially on vancomycin and and now changed vancomycin and Zosyn because worry of possible aspiration pneumonia. Chest x-ray, read by me, shows possible lower lobe early consolidative changes. Patient has remained febrile, and CT scan today shows probable hemorrhage into the left renal cyst. All cultures from this visit are negative date. Pain still severe mostly left flank. Past Medical/Surgical History Medical Problems: (1) Acute kidney injury Status: Acute (2) Failure of outpatient treatment Status: Acute (3) Hypokalemia Status: Acute (4) Pyelonephritis Status: Acute (5) UTI (urinary tract infection) Status: Acute Medical Problems: (1) Benign neoplasm of colon (2) Elevated troponin (3) HTN (hypertension) (4) LBBB (left bundle branch block) (5) Renal cyst Surgical Problems: (1) H/O colonoscopy (2) H/O esophagogastroduodenoscopy (3) H/O total hysterectomy (4) S/p bladder sling Family History Cardiac disorder FATHER SISTER Diabetes mellitus SISTER FH: cancer SISTER (breast CA) Hypertension FATHER Social History Smoking Status: Unknown if Ever Smoked Drug Use: none Marital Status: Housing Status: lives with family Occupation Status: employed Allergies Coded Allergies: Enalapril (Unverified Adverse Reaction, Mild, H/A, 03/25/16) Current Inpatient Medications Current Inpatient Medications Medications (Trade) Dose Ordered Sig/Rubio Route Start Time Stop Time Status Last Admin Dose Admin Acetaminophen (Tylenol Tab) 325 mg Q6H PRN PO 03/29/16 02:15 04/28/16 02:14 03/30/16 18:01 325 MG Nitroglycerin (Nitrostat Tab) 0.4 mg UD PRN SL 03/29/16 02:15 04/28/16 02:14 Hydromorphone HCl (Dilaudid Inj) 0.5 mg Q3H PRN IV 03/29/16 02:15 04/12/16 02:14 03/31/16 07:59 0.5 MG Tramadol HCl (Ultram Tab) 25 mg Q6H PRN PO 03/29/16 02:15 04/28/16 02:14 03/31/16 03:51 25 MG Ondansetron HCl 4 mg 4 mg Q6H PRN IV 03/29/16 02:15 04/28/16 02:14 03/31/16 04:06 4 MG Promethazine HCl/ Sodium Chloride (Phenergan Inj/ Nss 50ml) 50.5 ml @ 204 mls/hr Q6H PRN IV 03/29/16 02:15 04/28/16 02:14 Lorazepam (Ativan Inj) 0.5 mg Q4H PRN IV 03/29/16 02:15 04/28/16 02:14 Metoprolol Succinate 25 mg 25 mg DAILY PO 03/29/16 09:00 04/28/16 08:59 03/31/16 08:00 25 MG Potassium Chloride/Sodium Chloride 1,000 ml @ 150 mls/hr Q6H40M IV 03/29/16 15:00 04/29/16 14:59 03/31/16 08:00 150 MLS/HR Lorazepam 0.5 mg/ Syringe 1 ml @ 1 mls/min Q4H PRN IV 03/29/16 23:45 04/28/16 23:44 03/30/16 18:38 1 MLS/MIN Acetaminophen/ Empty Bag (Ofirmev IV/ Empty Iv Bag 100ml) 65 ml @ 260 mls/hr Q6H PRN IV 03/30/16 18:15 04/29/16 18:14 Vancomycin HCl (Consult) 1 ea UD PRN N/A 03/30/16 19:45 04/29/16 19:44 Piperacillin Sod/ Tazobactam Sod (Consult) 1 ea UD PRN N/A 03/31/16 09:00 04/30/16 08:59 Albuterol/ Ipratropium 3 ml 3 ml Q2H PRN INH 03/30/16 22:00 04/29/16 21:59 Piperacillin Sod/ Tazobactam Sod 3.375 gm/Dextrose 115 ml @ 28.75 mls/ hr Q8H IV 03/31/16 03:30 04/10/16 03:29 03/31/16 04:06 28.75 MLS/HR Vancomycin HCl/ Sodium Chloride (Vancomycin Inj/ Nss 250ml) 272 ml @ 125 mls/hr Q18H IV 03/31/16 12:00 04/10/16 11:59 Review of Systems Constitutional: + chills, + fatigue, + fever, + sweats, + weakness Eyes: No problem reported ENT: No problem reported Respiratory: + cough, + sputum, No hemoptysis Cardiovascular: No problem reported Abdomen: + diarrhea, + nausea, + pain, + vomiting, No GI bleeding Musculoskeletal: No problem reported Genitourinary - Female: + urinary frequency Neurologic: No problem reported Psychiatric: No problem reported Hematologic / Lymphatic: No problem reported Integumentary: No problem reported Allergic / Immunologic: No problem reported Physical Exam Date Time Temp Pulse Resp B/P Pulse Ox O2 Delivery O2 Flow Rate FiO2 03/31/16 08:00 Nasal Cannula 3.0 03/31/16 07:17 38.0 78 26 136/72 98 Nasal Cannula 3.0 03/31/16 04:00 Nasal Cannula 2.0 03/31/16 03:43 36.6 73 26 147/62 98 Nasal Cannula 2.0 03/31/16 00:01 Nasal Cannula 2.0 03/30/16 23:20 37.2 71 26 160/81 100 Nasal Cannula 2.0 03/30/16 20:00 Nasal Cannula 2.0 03/30/16 19:25 38.3 74 38 145/72 98 Nasal Cannula 2.0 03/30/16 19:00 38.0 77 40 97 03/30/16 17:45 38.0 77 20 151/74 97 Room Air 03/30/16 15:30 97 Room Air 03/30/16 15:24 36.6 77 16 151/82 97 Room Air General Appearance: WD/WN, + mild distress Head: normocephalic, atraumatic Eyes: normal inspection, EOMI, sclerae normal ENT: normal ENT inspection, hearing grossly normal, pharynx normal Neck: supple, no adenopathy, thyroid normal, trachea midline Respiratory/Chest: chest non-tender, no respiratory distress, + rales (Both bases) Cardiovascular: regular rate, rhythm, no gallop, no murmur Abdomen/GI: normal bowel sounds, soft, no organomegaly, + tenderness (Left flank) Back: normal inspection, + left CVA tenderness Extremities/Musculoskelatal: no calf tenderness, non-tender Neurologic/Psych: alert, oriented x 3 Skin: normal color, warm/dry, no rash Lymphatic: no adenopathy Laboratory Results RUN DATE: 03/31/16 [facility] PAGE 1 RUN TIME: 07 Specimen Inquiry PATIENT: LESLEY GARCIA LOC: [place] U # : [id number] AGE/SX: 65/F ROOM: [facility] REG : 03/29/[address]: Sylvia Mercer M.D. : 1950 BED: 1 DIS : STATUS: ADM IN TLOC: SPEC #: [id number] OZZIE: 03/29/16 STATUS: RES REQ #: [id number] RECD: 03/29/[address]: Tristen Perdomo M.D. SOURCE: BLOOD ENTR: 03/29/16 [facility] [place] DR: Sylvia Mercer M.D. [facility]: Freeman Elena M.D.(ADRIANA) ORDERED: BLOOD CULTURE Procedure Result Verified Site BLD CULT Preliminary 03/31/16-702 NO GROWTH TO DATE. Last 24 Hours Test 03/30/16 18:40 03/31/16 00:15 03/31/16 06:12 D-Dimer 2560 ug/L FEU Lactic Acid Level 2.2 mmol/L 0.8 mmol/L 0.6 mmol/L Hepatitis B Surface Antigen NEG Hepatitis C Antibody NEG White Blood Count 14.60 K/uL Red Blood Count 3.35 M/uL Hemoglobin 10.2 g/dL Hematocrit 29.5 % Mean Corpuscular Volume 88.1 fL Mean Corpuscular Hemoglobin 30.4 pg Mean Corpuscular Hemoglobin Concent 34.6 g/dl Platelet Count 317 K/uL Mean Platelet Volume 8.9 fL Neutrophils (%) (Auto) 78.1 % Lymphocytes (%) (Auto) 13.8 % Monocytes (%) (Auto) 5.6 % Eosinophils (%) (Auto) 0.3 % Basophils (%) (Auto) 0.1 % Neutrophils # (Auto) 11.39 K/uL Lymphocytes # (Auto) 2.02 K/uL Monocytes # (Auto) 0.82 K/uL Eosinophils # (Auto) 0.04 K/uL Basophils # (Auto) 0.02 K/uL RDW Standard Deviation 45.1 fL RDW Coefficient of Variation 13.9 % Immature Granulocyte % (Auto) 2.1 % Immature Granulocyte # (Auto) 0.31 K/uL Sodium Level 141 mmol/L Potassium Level 4.0 mmol/L Chloride Level 112 mmol/L Carbon Dioxide Level 20 mmol/L Anion Gap 9.0 mmol/L Blood Urea Nitrogen 11 mg/dl Creatinine 1.50 mg/dl Est Creatinine Clear Calc Drug Dose 38.1 ml/min Estimated GFR () 42.5 Estimated GFR (Non- 36.7 BUN/Creatinine Ratio 7.0 Random Glucose 109 mg/dl Calcium Level 8.3 mg/dl Magnesium Level 1.8 mg/dl Total Bilirubin 1.2 mg/dl Direct Bilirubin 0.9 mg/dl Aspartate Amino Transf (AST/SGOT) 37 U/L Alanine Aminotransferase (ALT/SGPT) 65 U/L Alkaline Phosphatase 161 U/L Total Protein 6.5 gm/dl Albumin 2.0 gm/dl Random Vancomycin Level 17.2 mcg/ml CT SCAN OF THE ABDOMEN AND PELVIS WITHOUT CONTRAST CLINICAL HISTORY: worsening L sided abd pain COMPARISON STUDY: 03/25/2016 TECHNIQUE: CT scan of the abdomen and pelvis was performed from the lung bases to the proximal femurs. Images are reviewed in the axial, sagittal, and coronal planes. IV contrast was not administered for this examination. CT DOSE: 548.30 mGycm FINDINGS: Lower chest: There are small bilateral pleural effusions with bibasilar atelectasis. Liver: The 5 mm fat-containing nodule within the right hepatic lobe. There is 36 mm left lobe hepatic cyst. Gallbladder: Cholelithiasis. There is a fundal nodule, likely representing adenomyomatosis. Spleen: Normal in size and attenuation. Pancreas: No pancreatic masses are visualized. The duct is at the upper limits of normal in size. Adrenal glands: Unremarkable. 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 There is an 9 cm septated cystic mass within the upper pole the left kidney. This contains foci of increased attenuation consistent with hemorrhage. No renal or ureteral calculi are visualized. Bowel: There are scattered colonic diverticula. There are no transition zones indicate bowel obstruction. There is no evidence of acute diverticulitis. There are no findings to indicate acute appendicitis. Peritoneum: There is trace free fluid in the pelvis. There is no free air. Vasculature: The abdominal aorta is normal in course and caliber. Adenopathy: None. Pelvic viscera: The uterus is surgically absent. Skeletal structures: No destructive osseous lesions are seen. IMPRESSION: 1. Complex 9 cm cystic lesion within the left kidney with areas of acute/subacute hemorrhage. Urological consultation is recommended. 2. Cholelithiasis 3. No evidence of bowel obstruction. No evidence of free air. Electronically signed by: Tim Elmore M.D. 03/31/2016 9:34 AM The status of this report is Signed. Draft = Not yet reviewed or approved by Radiologist. Signed = Reviewed and approved by Radiologist. <AttendingPhy>Sylvia Mercer M.D.</AttendingPhy> <FamilyPhy>Freeman Elena M.D.(ADRIANA)</FamilyPhy> <PrimaryPhy>Freeman Elena M.D.(ADRIANA)</ PrimaryPhy> <UnitNumber>[id number]</UnitNumber> <VisitNumber>[id number]</ VisitNumber> <PatientName>LESLEY GARCIA</PatientName> <DateOfBirth>1950 Assessment & Plan Fever and abdominal pain in 65-year-old female, with what appears to be possible lower lobe pneumonia as well complex left renal cyst with probable hemorrhage, which could also explain persistent fever. For now, vancomycin and Zosyn will provide adequate coverage with length to be determined by clinical response. Recommend urologic consultation regarding the left renal cyst. Will follow.
--- NOTE | 2016-03-31 11:12 | Progress Note ---
Progress Note ATTENDING NOTE : CT ABDOMEN /PELVIS SHOWS : IMPRESSION: 1. Complex 9 cm cystic lesion within the left kidney with areas of acute/subacute hemorrhage. Urological consultation is recommended. 2. Cholelithiasis 3. No evidence of bowel obstruction. No evidence of free air. Hb 12-> 10 ; pt received IVF Coags wnl follow H&H q 12 hrs cont pain management ordered for diet avoid all antiplatelets , anticoagulation renal USG ordered Urology consulted with dr pritchard , case D/w her recommends supportive care with pain control monitor H&H avoid anticoagulants pt will be evaluated by Urology today
[2016-03-31] MEDS ORDERED: VANCOMYCIN INJ 1,100 MG in SODIUM CHLORIDE 0.9% 250ML 250 ML IV SCH (12:00)
--- NOTE | 2016-03-31 13:45 | DIAGNOSTIC IMAGING REPORT ---
RENAL ULTRASOUND CLINICAL HISTORY: Complex 9 cm left sided renal cyst with hemorrhage COMPARISON STUDY: CT of the abdomen and pelvis May 09, 2010, March 25, 2016 and March 31, 2016. TECHNIQUE: Sonography of the kidneys and the urinary bladder was performed. FINDINGS: The right kidney measures 13.5 x 5.9 x 5.7 cm and the left kidney measures 13.6 x 7.5 x 6.3 cm. There is no hydronephrosis. Note is again made of a complex cystic lesion with several thin septations arising from the mid to upper pole of the left kidney, involving the renal sinus that measures 9.4 x 7.6 x 9 cm. Material within this lesion may reflect blood clot as shown on CT. This contains no color flow. Both ureteral jets were identified. IMPRESSION: 1. Redemonstration of the 9.4 cm complex cystic lesion within the mid to upper pole of the left kidney which extends into the renal sinus. This contains several thin septations and suspected blood clot, as shown on prior CT. The imaging appearance favors a benign lesion but imaging follow up is recommended. 2. No hydronephrosis. Electronically signed by: Roosevelt Munoz M.D. 03/31/2016 1:43 PM
--- NOTE | 2016-03-31 13:48 | DIAGNOSTIC IMAGING REPORT ---
SINGLE VIEW CHEST CLINICAL HISTORY: Pneumonia. FINDINGS: An AP, portable, upright chest radiograph is compared to study dated 03/30/2016. Correlation is made with abdominal CT dated 03/31/2016. The examination is degraded by portable technique and patient rotation. The heart is mildly enlarged. There is mild pulmonary vascular congestion. There are small pleural effusions and bibasilar airspace opacities. There is improved aeration at the left lung base as compared to yesterday. No pneumothorax is seen. The skeletal structures are osteopenic. The bony thorax is grossly intact. IMPRESSION: 1. Cardiac enlargement with mild pulmonary vascular congestion. 2. There are small pleural effusions and bibasilar airspace opacities. There is improved aeration at the left base as compared to yesterday. Electronically signed by: Barney Dover M.D. 03/31/2016 1:46 PM
--- NOTE | 2016-03-31 13:52 | NEPHROLOGY CONSULTATION ---
DATE OF CONSULTATION: 03/31/2016 REASON FOR CONSULT: Acute renal failure and hypokalemia. HISTORY OF PRESENT ILLNESS: The patient is a 65-year-old female who was admitted 2 days ago with a chief complaint of abdominal pain, nausea, vomiting and diarrhea. The symptoms have been there for almost a week now. She was having as many as 7 episodes of diarrhea per day. It also appears she was not taking any of her blood pressure medications because of the nausea. She has been progressively weak. Her appetite has been very poor. As an outpatient, she does take losartan and Toprol-XL for her blood pressure. At the time of her admission, her blood pressure was 143/82 and it is still reasonably well. She is making urine. She is getting IV fluid. She was found to have a renal mass which appears a complex cyst for which urology has been consulted. Creatinine at the time of admission was 2.0. It has come down since admission and is down to 1.50 now with the use of IV fluid. At baseline, she has normal kidney function. PAST MEDICAL AND SURGICAL HISTORY: Hypertension, chronic left bundle branch block, history of left renal cyst for which she was seen by Dr. Galvan in the past, hysterectomy and bladder sling procedure. HOME MEDICATIONS: Included losartan and Toprol-XL. ALLERGIES: ENALAPRIL. FAMILY HISTORY: Positive for heart disease. No renal disease or dialysis in the family. PERSONAL AND SOCIAL HISTORY: Nonsmoker. No alcoholic beverage. She is an employee of a [employer] and originally from the [facility]. REVIEW OF SYSTEMS: As per the HPI. All the pertinent positives and negatives has been detailed in HPI, total of 12 systems reviewed. PHYSICAL EXAMINATION: GENERAL: Middle-aged female who appears very sleepy and weak. She could barely keep her eyes open. VITAL SIGNS: Most recent vital signs show a blood pressure 151/77, 99% on 2 liter nasal cannula, temperature 37.5, pulse 77 per minute. HEENT: Mucous membrane is moist. NECK: Supple. No jugular venous distention. CHEST: Bilateral clear to auscultation. CARDIOVASCULAR: Regular rate and rhythm. ABDOMEN: Soft, nontender. EXTREMITIES: Shows no edema, no tenderness. NEUROLOGIC: She is awake, alert, oriented x3, but she is very sleepy, moving all 4 extremities. Normal speech. LABORATORY TESTS: From this morning shows sodium 141, potassium 4.0, chloride 112, carbon dioxide 20, BUN 11, creatinine 1.5. At the time of her admission, her blood work was significantly worse. She had sodium 135, potassium was very low at 2.6, creatinine was 2.0, and BUN 20. ASSESSMENT AND PLAN: All the labs are significantly improved since admission with the current management. 1. Acute renal failure. This was prerenal in etiology secondary to nausea, vomiting, diarrhea, poor appetite for almost a week. Creatinine is coming down nicely. She has a good urine output. Continue with IV fluid as she still has very poor appetite. Currently getting normal saline with potassium at 150 mL per hour. That can be continued. 2. Hypokalemia. This has already been corrected. Hypokalemia was from a true gastrointestinal loss and at this time it is normal. Continue with the normal saline with potassium containing fluid. No further workup is needed. 3. Renal mass. Urology was following the patient a while ago. She would benefit with the urology consult again as an inpatient. MARCELL
--- NOTE | 2016-03-31 14:10 | Urology Consultation ---
History General Date of Service: Mar 31, 2016. Chief Complaint: left renal cyst with hemorhage Primary Care Physician: Freeman Elena M.D.(ADRIANA) Pt seen a urologist before?: Yes If yes, why?: left renal cyst History of Present Illness I am asked by Dr Mercer to evaluate and treat patient for left renal cyst with hemorrhage. She has known about the cyst for several years. It was simple on multiple imaging episodes. She presented to ER 03/25/16 with left LOWER abdominal pain and was found to be afebrile but with a high white count. Her urine was not suggestive of infection with no white cells. She had no Left FLANK pain. SHe had a CT showing the simple cyst with no inflammation of either kidney. She was given a diagnosis of pyelonephritis and sent home on cipro. At home she developed nausea emesis and diarrhea which she blamed on the cipro. Of note she works at an [employer] and has many sick contacts. She is readmitted with weakness chest pain, dehydration and severe abdominal pain. Her new CT done this admission shows the large left central renal cyst has bled. Her hemoglobin is safe so far. SHe has also been diagnosed with a pneumonia. She is fevering to 38 daily. Her pain is well managed with iv pain meds. Imaging Imaging: CT Laboratory Results Past 24 Hours Test 03/30/16 18:40 03/31/16 00:15 03/31/16 06:12 Range/Units D-Dimer 2560 0-500 ug/L FEU Lactic Acid Level 2.2 0.8 0.6 0.4-2.0 mmol/L Hepatitis B Surface Antigen NEG NEG Hepatitis C Antibody NEG NEG White Blood Count 14.60 4.8-10.8 K/uL Red Blood Count 3.35 4.2-5.4 M/uL Hemoglobin 10.2 12.0-16.0 g/dL Hematocrit 29.5 37-47 % Mean Corpuscular Volume 88.1 80-100 fL Mean Corpuscular Hemoglobin 30.4 25-34 pg Mean Corpuscular Hemoglobin Concent 34.6 32-36 g/dl Platelet Count 317 130-400 K/uL Mean Platelet Volume 8.9 7.4-10.4 fL Neutrophils (%) (Auto) 78.1 % Lymphocytes (%) (Auto) 13.8 % Monocytes (%) (Auto) 5.6 % Eosinophils (%) (Auto) 0.3 % Basophils (%) (Auto) 0.1 % Neutrophils # (Auto) 11.39 1.4-6.5 K/uL Lymphocytes # (Auto) 2.02 1.2-3.4 K/uL Monocytes # (Auto) 0.82 0.11-0.59 K/uL Eosinophils # (Auto) 0.04 0-0.5 K/uL Basophils # (Auto) 0.02 0-0.2 K/uL RDW Standard Deviation 45.1 36.4-46.3 fL RDW Coefficient of Variation 13.9 11.5-14.5 % Immature Granulocyte % (Auto) 2.1 % Immature Granulocyte # (Auto) 0.31 0.00-0.02 K/uL Sodium Level 141 136-145 mmol/L Potassium Level 4.0 3.5-5.1 mmol/L Chloride Level 112 98-107 mmol/L Carbon Dioxide Level 20 21-32 mmol/L Anion Gap 9.0 3-11 mmol/L Blood Urea Nitrogen 11 7-18 mg/dl Creatinine 1.50 0.60-1.20 mg/dl Est Creatinine Clear Calc Drug Dose 38.1 ml/min Estimated GFR () 42.5 Estimated GFR (Non- 36.7 BUN/Creatinine Ratio 7.0 10-20 Random Glucose 109 70-99 mg/dl Calcium Level 8.3 8.5-10.1 mg/dl Magnesium Level 1.8 1.8-2.4 mg/dl Total Bilirubin 1.2 0.2-1 mg/dl Direct Bilirubin 0.9 0-0.2 mg/dl Aspartate Amino Transf (AST/SGOT) 37 15-37 U/L Alanine Aminotransferase (ALT/SGPT) 65 12-78 U/L Alkaline Phosphatase 161 45-117 U/L Total Protein 6.5 6.4-8.2 gm/dl Albumin 2.0 3.4-5.0 gm/dl Random Vancomycin Level 17.2 mcg/ml Microbiology Results 03/30/16 Shiga Toxin Test - Preliminary, Resulted 03/30/16 Stool Culture - Preliminary, Resulted NO SALMONELLA ISOLATED TO DATE,... Labs were reviewed and are within normal limits unless listed below. Labs are available in the chart and at [facility] Problem List Medical Problems: (1) Acute kidney injury Status: Acute (2) Failure of outpatient treatment Status: Acute (3) Hypokalemia Status: Acute (4) Pyelonephritis Status: Acute (5) UTI (urinary tract infection) Status: Acute Past History pneumonia, renal disease Family History Cardiac disorder FATHER SISTER Diabetes mellitus SISTER FH: cancer SISTER (breast CA) Hypertension FATHER Social History Hx Tobacco Use In Past Year?: No Smoking: non-smoker Alcohol: never Drug use: none Marital status: Occupation status: employed History of MDRO No Allergies Coded Allergies: Enalapril (Unverified Adverse Reaction, Mild, H/A, 03/25/16) Medications Home Medications: Home Meds and Scripts Medications Dose Route/Sig Max Daily Dose Days Date Category Cipro (Ciprofloxacin Hcl) 500 Mg Tab 500 Mg PO BID 6 03/25/16 Rx Toprol-Xl (Metoprolol Succinate) 25 Mg Tabcr 25 Mg PO DAILY 03/25/16 Reported Cozaar (Losartan Potassium) 100 Mg Tab 100 Mg PO DAILY 03/25/16 Reported Inpatient Medications: Current Inpatient Medications Medications (Trade) Dose Ordered Sig/Rubio Route Start Time Stop Time Status Last Admin Dose Admin Acetaminophen (Tylenol Tab) 325 mg Q6H PRN PO 03/29/16 02:15 04/28/16 02:14 03/30/16 18:01 325 MG Nitroglycerin (Nitrostat Tab) 0.4 mg UD PRN SL 03/29/16 02:15 04/28/16 02:14 Ondansetron HCl 4 mg 4 mg Q6H PRN IV 03/29/16 02:15 04/28/16 02:14 03/31/16 04:06 4 MG Promethazine HCl/ Sodium Chloride (Phenergan Inj/ Nss 50ml) 50.5 ml @ 204 mls/hr Q6H PRN IV 03/29/16 02:15 04/28/16 02:14 Lorazepam (Ativan Inj) 0.5 mg Q4H PRN IV 03/29/16 02:15 04/28/16 02:14 Metoprolol Succinate 25 mg 25 mg DAILY PO 03/29/16 09:00 04/28/16 08:59 03/31/16 08:00 25 MG Potassium Chloride/Sodium Chloride 1,000 ml @ 150 mls/hr Q6H40M IV 03/29/16 15:00 04/29/16 14:59 03/31/16 08:00 150 MLS/HR Lorazepam 0.5 mg/ Syringe 1 ml @ 1 mls/min Q4H PRN IV 03/29/16 23:45 04/28/16 23:44 03/30/16 18:38 1 MLS/MIN Acetaminophen/ Empty Bag (Ofirmev IV/ Empty Iv Bag 100ml) 65 ml @ 260 mls/hr Q6H PRN IV 03/30/16 18:15 04/29/16 18:14 Vancomycin HCl (Consult) 1 ea UD PRN N/A 03/30/16 19:45 04/29/16 19:44 Piperacillin Sod/ Tazobactam Sod (Consult) 1 ea UD PRN N/A 03/31/16 09:00 04/30/16 08:59 Albuterol/ Ipratropium 3 ml 3 ml Q2H PRN INH 03/30/16 22:00 04/29/16 21:59 Piperacillin Sod/ Tazobactam Sod 3.375 gm/Dextrose 115 ml @ 28.75 mls/ hr Q8H IV 03/31/16 03:30 04/10/16 03:29 03/31/16 11:49 28.75 MLS/HR Vancomycin HCl/ Sodium Chloride (Vancomycin Inj/ Nss 250ml) 272 ml @ 125 mls/hr Q18H IV 03/31/16 12:00 04/10/16 11:59 Future Hold 03/31/16 12:50 125 MLS/HR Hydromorphone HCl (Dilaudid Inj) 1 mg Q3H PRN IV 03/31/16 11:15 04/14/16 11:14 03/31/16 11:55 1 MG Tramadol HCl (Ultram Tab) 50 mg Q6H PRN PO 03/31/16 14:15 04/30/16 14:14 Review of Systems Review of Systems Constitutional: + fever, No chills Neurological: + dizzy, No passing out Gastrointestinal: + abdominal pain, + diarrhea, + nausea, + vomiting Cardiovascular: + chest pain, No angina, No irregular heartbeat, No palpitations, No swelling ankles/feet Respiratory: No chronic cough, No shortness of breath Female : No blood in urine, No frequent urination, No infections, No painful urination, No urinary retention Physical Exam Vital Signs: Vital Signs Past 12 Hours Date Time Temp Pulse Resp B/P Pulse Ox O2 Delivery O2 Flow Rate FiO2 03/31/16 12:00 Nasal Cannula 2.0 03/31/16 11:48 37.5 77 16 151/77 99 Nasal Cannula 2.0 03/31/16 08:00 Nasal Cannula 3.0 03/31/16 07:17 38.0 78 26 136/72 98 Nasal Cannula 3.0 03/31/16 04:00 Nasal Cannula 2.0 03/31/16 03:43 36.6 73 26 147/62 98 Nasal Cannula 2.0 Physical Exam: General Appearance: WD/WN, no apparent distress, + mild distress, + obese Eyes: bilateral eyes normal inspection ENT: hearing grossly normal Neck: no adenopathy, no JVD, trachea midline Respiratory/Chest: no respiratory distress, no accessory muscle use Gastrointestinal: Abdomen: normal abdomen Bladder: normal bladder Renal: pertinent finding (tender in the left lower and upper quadrants anteriorly) Hernia: absent hernia Liver: normal liver Spleen: normal spleen Extremities: non-tender, normal inspection, no pedal edema, no calf tenderness Neurologic/Psychiatric: alert, normal mood/affect, oriented x 3, + pertinent finding (looks fatigued) Skin: normal color, warm/dry, no rash Assessment & Plan Assessment & Plan left simple central renal cyst with spontaneous hemorrhage. I suspect it bled due to severe vomiting I believe this renal bleed can be managed with conservative measures. check h /h daily and in addition for any hemodynamic instability If needed transfuse if hgb approaches 8. I plan to re-image in about 6 weeks to monitor the resorption of the bleed. I do not think this is a cancerous process in the left kidney. I do not think she had a cystitis or a pyelonephritis on 03/25/16. SHe seems to have had a GI type illness in 03/25 and most of her current issues stem from it. She seems to be improving.
[2016-03-31] MEDS ORDERED: POLYETHYLENE (MIRALAX) 17 GM PACK PO PRN (17:45)
[2016-03-31] MEDS ORDERED: DOCUSATE SODIUM 100 MG CAP PO PRN (17:45)
[2016-03-31 19:39] LABS: HEMATOCRIT 29.7 % (37-47)
[2016-03-31] MEDS: ACETAMINOPHEN 325 MG TAB PO PRN (19:55)
[2016-03-31] MEDS ORDERED: VANCOMYCIN INJ 800 MG in SODIUM CHLORIDE 0.9% 250ML 250 ML IV SCH (20:00)
--- NOTE | 2016-03-31 20:23 | Progress Note ---
Internal Med Progress Note Date of Service: Mar 31, 2016. Provider Documentation: SUBJECTIVE: feels very uncomfortable for ongoing pain in left flank spiking temp denies of SOB , appetite remains very poor , no diarrhea OBJECTIVE: Vital Signs-as noted below Exam: General-ill appearing Eyes-sclera non icteric, PERRLA/EOMI ENT-moist oral mucosa, normal lip , normal oropharynx Neck-trachea midline , no thyromegaly Lungs-CTA, no wheeze or rhonchi Heart-regular Abdomen-+ tenderness in left lower quadrant , no rebound Extremities-no rash or deformity ,no lower ext edema Neuro-no focal neurological deficit Lab data as noted below. ASSESSMENT & PLAN: 65 yo f presented with Nausea , vomiting , diarrhea , abdominal pain , NARCISA hx of recent UTI BLEEDING IN RENAL CYST spontaneous bleed in left renal cyst continues to have pain in left lower quadrant with radiation to back CT abdomen /pelvis done on ER visit : 1. No evidence of bowel obstruction , no evidence of free air, colonic diverticulum , no evidence of acute diverticulitis . normal appendix, cholelithiasis suspected adenomyomatosis repeat CT ABDOMEN /PELVIS yesterday for ongoing abdominal pain - IMPRESSION: 1. Complex 9 cm cystic lesion within the left kidney with areas of acute/subacute hemorrhage. Urological consultation is recommended. 2. Cholelithiasis 3. No evidence of bowel obstruction. No evidence of free air. Hb 12-> 10 ; pt received IVF Coags wnl follow H&H q 12 hrs ; transfuse for Hb < 8 or any symptom of hemodynamic instability cont pain management avoid all antiplatelets , anticoagulation renal USG ordered : 1. Re demonstration of the 9.4 cm complex cystic lesion within the mid to upper pole of the left kidney which extends into the renal sinus. This contains several thin septations and suspected blood clot, as shown on prior CT. The imaging appearance favors a benign lesion but imaging follow up is recommended. 2. No hydronephrosis. Urology consulted with dr Gordon appreciate input conservative management , no Urologic intervention needed avoid Aspirin antiplatelets out pt follow up with Urology re-image in about 6 weeks to monitor the resorption of the bleed. FEVER : possible due to above ? CXray shows new left lower lobe infiltrate Abx changed to Zosyn , vanco blood /urine culture negative Stool C diff negative ID eval requested -appreciate input will cont Abx till febrile episode subsides MILD ELEVATION OF LIVER FUNCTION : due to dehydration /viral illness USG of liver : 1. Suspected gallstone 2. Gallbladder wall thickening and areas of reverberation artifact consistent with adenomyomatosis. A masslike appearance of the gallbladder fundus, likely represents more focal adenomyomatosis. No ductal dilatation. LFT's continues to improve with IV hydration hepatitis panel -negative NARCISA : due to above diarrhea /fever /dehydration presented with Cr > 2 ( was 1.0 on 03/25/16 ) improved Cr 1.[address] abdomen with contrast study on 03/25/16 cont IV hydration increased to 150 ml /hr follow PRP avoid NSAID's , nephrotoxins nephrology consulted appreciate input Low K : due to GI loss , diarrhea, nausea , vomiting replaced follow PRP mild elevation of troponin due to NARCISA no complain of chest pain , no EKG change -chronic LBBB at baseline pt is very active , no complain of AARON repeat troponin level normalized ECHO: Normal LV chamber size with mild concentric LVH. * Normal LV systolic function, EF 55-60%. * Abnormal septal wall motion consistent with LBBB pattern, otherwise, normal wall motion. * Grade I diastolic dysfunction. * The right ventricular cavity size is normal (basal dimension <4.2 cm in right ventricular apical 4-chamber view). * The right ventricular systolic function is normal as assessed by tricuspid annular plane systolic excursion (TAPSE) (normal >1.5 cm). * Grade I diastolic dysfunction. * Mild aortic regurgitation. v/q scan shows no evidence of PE lower ext Doppler negative for DVT DVT PROPHYLAXIS low risk scd and teds avoid anticoagulation due to bleeding in left renal cyst DISPOSITION Discharge home when medially stable Medicine follow up with Dr Elena will need out pt follow up with Urology Dr Gordon Vital Signs: Date Time Temp Pulse Resp B/P Pulse Ox O2 Delivery O2 Flow Rate FiO2 03/31/16 19:26 39.3 89 24 153/75 97 Nasal Cannula 2.0 03/31/16 16:07 37.0 89 28 163/80 99 Nasal Cannula 2.0 03/31/16 16:00 Nasal Cannula 2.0 03/31/16 12:00 Nasal Cannula 2.0 03/31/16 11:48 37.5 77 16 151/77 99 Nasal Cannula 2.0 03/31/16 08:00 Nasal Cannula 3.0 03/31/16 07:17 38.0 78 26 136/72 98 Nasal Cannula 3.0 03/31/16 04:00 Nasal Cannula 2.0 03/31/16 03:43 36.6 73 26 147/62 98 Nasal Cannula 2.0 03/31/16 00:01 Nasal Cannula 2.0 03/30/16 23:20 37.2 71 26 160/81 100 Nasal Cannula 2.0 Lab Results: Results Past 24 Hours Test 03/31/16 00:15 03/31/16 06:12 03/31/16 19:11 Range/Units Lactic Acid Level 0.8 0.6 0.4-2.0 mmol/L White Blood Count 14.60 4.8-10.8 K/uL Red Blood Count 3.35 4.2-5.4 M/uL Hemoglobin 10.2 10.5 12.0-16.0 g/dL Hematocrit 29.5 29.7 37-47 % Mean Corpuscular Volume 88.1 80-100 fL Mean Corpuscular Hemoglobin 30.4 25-34 pg Mean Corpuscular Hemoglobin Concent 34.6 32-36 g/dl Platelet Count 317 130-400 K/uL Mean Platelet Volume 8.9 7.4-10.4 fL Neutrophils (%) (Auto) 78.1 % Lymphocytes (%) (Auto) 13.8 % Monocytes (%) (Auto) 5.6 % Eosinophils (%) (Auto) 0.3 % Basophils (%) (Auto) 0.1 % Neutrophils # (Auto) 11.39 1.4-6.5 K/uL Lymphocytes # (Auto) 2.02 1.2-3.4 K/uL Monocytes # (Auto) 0.82 0.11-0.59 K/uL Eosinophils # (Auto) 0.04 0-0.5 K/uL Basophils # (Auto) 0.02 0-0.2 K/uL RDW Standard Deviation 45.1 36.4-46.3 fL RDW Coefficient of Variation 13.9 11.5-14.5 % Immature Granulocyte % (Auto) 2.1 % Immature Granulocyte # (Auto) 0.31 0.00-0.02 K/uL Sodium Level 141 136-145 mmol/L Potassium Level 4.0 3.5-5.1 mmol/L Chloride Level 112 98-107 mmol/L Carbon Dioxide Level 20 21-32 mmol/L Anion Gap 9.0 3-11 mmol/L Blood Urea Nitrogen 11 7-18 mg/dl Creatinine 1.50 0.60-1.20 mg/dl Est Creatinine Clear Calc Drug Dose 38.1 ml/min Estimated GFR () 42.5 Estimated GFR (Non- 36.7 BUN/Creatinine Ratio 7.0 10-20 Random Glucose 109 70-99 mg/dl Calcium Level 8.3 8.5-10.1 mg/dl Magnesium Level 1.8 1.8-2.4 mg/dl Total Bilirubin 1.2 0.2-1 mg/dl Direct Bilirubin 0.9 0-0.2 mg/dl Aspartate Amino Transf (AST/SGOT) 37 15-37 U/L Alanine Aminotransferase (ALT/SGPT) 65 12-78 U/L Alkaline Phosphatase 161 45-117 U/L Total Protein 6.5 6.4-8.2 gm/dl Albumin 2.0 3.4-5.0 gm/dl Random Vancomycin Level 17.2 mcg/ml
[2016-03-31] MEDS ORDERED: ACETAMINOPHEN 325 MG TAB PO SCH (21:30)
[2016-04-01] VITALS (8 sets, daily range): BP systolic 125–160; BP diastolic 65–71; PULSE 66–79; TEMP 36.8–38.4; O2SAT 97–99
[2016-04-01] MEDS: PIPERACILL/TAZOBAC IV 3.375 GM in DEXTROSE 5% 100ML IV SCH ×3 (03:50→19:32)
[2016-04-01] MEDS: ACETAMINOPHEN 325 MG TAB PO PRN ×3 (03:57→23:22)
[2016-04-01 07:01] LABS: HEMATOCRIT 29.2 % (37-47); MEAN CELL VOLUME 87.2 fL (80-100); MEAN CORPUSCULAR HEMOGLOBIN 30.4 pg (25-34); MEAN CORPUSCULAR HGB CONC 34.9 g/dl (32-36); MEAN PLATELET VOLUME 8.7 fL (7.4-10.4); PLATELET COUNT 352 K/uL (130-400); RED BLOOD COUNT 3.35 M/uL (4.2-5.4); WHITE BLOOD COUNT 15.83 K/uL (4.8-10.8)
[2016-04-01] MEDS: METOPROLOL SUCC 25MG EXT REL TAB PO SCH (07:36)
[2016-04-01 07:39] LABS: BUN/CREATININE RATIO 7.6 (10-20); CALCIUM 8.1 mg/dl (8.5-10.1); CREATININE 1.3 mg/dl (0.60-1.20); MAGNESIUM 1.8 mg/dl (1.8-2.4); POTASSIUM 3.7 mmol/L (3.5-5.1)
[2016-04-01 07:46] LABS: BASO % 0.1 %; BASO ABS # 0.02 K/uL (0-0.2); COMPLETE YES; EOS % 0.3 %; LYMPH % 16.1 %; LYMPH ABS # 2.55 K/uL (1.2-3.4); MONO % 6.3 %; NEUT % 75.2 %
[2016-04-01] MEDS: VANCOMYCIN INJ 1,100 MG in SODIUM CHLORIDE 0.9% 250ML 250 ML IV SCH (09:04)
[2016-04-01] MEDS ORDERED: ALUMINUM/MAGNESIUM SUSP 30 ML UDC PO PRN (12:30)
--- NOTE | 2016-04-01 12:40 | Progress Note ---
Medicine Progress Note Date & Time of Visit: Apr 01, 2016 at 12:27. Subjective seen resting in bed, alert states she still feels weak no dyspnea, (+) occasional productive cough still has diarrhea- non bloody, with bloating; no pain left flank pain better, no dysuria, hematuria denies RUQ pain no other symptoms Objective Last 8 Hrs Date Time Temp Pulse Resp B/P Pulse Ox O2 Delivery O2 Flow Rate FiO2 04/01/16 12:00 Room Air 04/01/16 11:53 37.0 76 18 125/66 99 04/01/16 08:47 36.9 72 16 130/67 98 04/01/16 08:00 Nasal Cannula 2.0 04/01/16 05:33 36.9 04/01/16 04:55 38.4 Physical Exam: General- oriented x 3, not in distress, speaks in sentences with no effort Head- atraumatic Eyes- EOMI, anicteric ENT- oropharynx clear Neck- supple, no JVD, no adenopathy Lungs- clear to auscultation bilaterally Heart- normal rate, regular rhythm; no murmur, no gallop, no rub appreciated Abdomen- normal bowel sounds, soft, mild LLQ tenderness, no masses or hepatosplenomegaly, no Decker's sign Extremities- no pretibial edema, no calf tenderness; peripheral pulses intact Neuro- alert, oriented x 3; no gross focal deficits Skin- warm & dry Laboratory Results: Last 24 Hours Test 03/31/16 19:11 04/01/16 06:51 Hemoglobin 10.5 g/dL 10.2 g/dL Hematocrit 29.7 % 29.2 % White Blood Count 15.83 K/uL Red Blood Count 3.35 M/uL Mean Corpuscular Volume 87.2 fL Mean Corpuscular Hemoglobin 30.4 pg Mean Corpuscular Hemoglobin Concent 34.9 g/dl Platelet Count 352 K/uL Mean Platelet Volume 8.7 fL Neutrophils (%) (Auto) 75.2 % Lymphocytes (%) (Auto) 16.1 % Monocytes (%) (Auto) 6.3 % Eosinophils (%) (Auto) 0.3 % Basophils (%) (Auto) 0.1 % Neutrophils # (Auto) 11.91 K/uL Lymphocytes # (Auto) 2.55 K/uL Monocytes # (Auto) 0.99 K/uL Eosinophils # (Auto) 0.05 K/uL Basophils # (Auto) 0.02 K/uL RDW Standard Deviation 43.4 fL RDW Coefficient of Variation 13.5 % Immature Granulocyte % (Auto) 2.0 % Immature Granulocyte # (Auto) 0.31 K/uL Sodium Level 139 mmol/L Potassium Level 3.7 mmol/L Chloride Level 107 mmol/L Carbon Dioxide Level 23 mmol/L Anion Gap 9.0 mmol/L Blood Urea Nitrogen 10 mg/dl Creatinine 1.30 mg/dl Est Creatinine Clear Calc Drug Dose 42.3 ml/min Estimated GFR () 50.6 Estimated GFR (Non- 43.6 BUN/Creatinine Ratio 7.6 Random Glucose 112 mg/dl Calcium Level 8.1 mg/dl Magnesium Level 1.8 mg/dl Total Bilirubin 1.3 mg/dl Direct Bilirubin 0.8 mg/dl Aspartate Amino Transf (AST/SGOT) 33 U/L Alanine Aminotransferase (ALT/SGPT) 55 U/L Alkaline Phosphatase 171 U/L Total Protein 6.4 gm/dl Albumin 1.9 gm/dl Assessment & Plan 65 yo female with history of hypertension, chronic LBBB, Renal cysts presented with Nausea , vomiting , diarrhea , abdominal pain LEFT KIDNEY CYST WITH BLEEDING - CT abdomen /pelvis done on ER visit : No evidence of bowel obstruction , no evidence of free air, colonic diverticulum , no evidence of acute diverticulitis . normal appendix, cholelithiasis suspected adenomyomatosis - repeat CT ABDOMEN /PELVIS for ongoing abdominal pain - IMPRESSION: 1. Complex 9 cm cystic lesion within the left kidney with areas of acute/subacute hemorrhage. Urological consultation is recommended. 2. Cholelithiasis 3. No evidence of bowel obstruction. No evidence of free air. renal USG ordered : 1. Re demonstration of the 9.4 cm complex cystic lesion within the mid to upper pole of the left kidney which extends into the renal sinus. This contains several thin septations and suspected blood clot, as shown on prior CT. The imaging appearance favors a benign lesion but imaging follow up is recommended. 2. No hydronephrosis. Urology consulted with dr Gordon appreciate input - evaluated by Dr. Gordon conservative management, repeat imaging in 6 weeks - no antiplatelets, NSAIDs, anticoagulants Hg stable FEVER from Aspiration Pneumonia? CXray shows new left lower lobe infiltrate check sputum culture blood cultures negative continue Vanco and Zosyn Partially Treated UTI? urine cultures negative Dehydration from Diarrhea? C diff and Stool cultures negative Loperamide PRN continue IV fluids Influenza? check Flu PCR MILD DIRECT BILIRUBINEMIA, ELEVATED ALK PHOS due to dehydration /viral illness USG of liver : 1. Suspected gallstone 2. Gallbladder wall thickening and areas of reverberation artifact consistent with adenomyomatosis. A masslike appearance of the gallbladder fundus, likely epresents more focal adenomyomatosis. No ductal dilatation. - improving hepatitis panel -negative - monitor, if persistent, work up for choledocholithiasis ACUTE RENAL FAILURE due to above diarrhea /fever /dehydration presented with Cr > 2 ( was 1.0 on 03/25/16 ) had CT abdomen with contrast study on 03/25/16 - crea improved to 1.3 - continue D5 NSS appreciate Nephro consult HYPOKALEMIA due to GI loss , diarrhea, nausea , vomiting replaced follow PRP mild elevation of troponin due to NARCISA no complain of chest pain , no EKG change -chronic LBBB at baseline pt is very active , no complain of AARON repeat troponin level normalized ECHO: Normal LV chamber size with mild concentric LVH. * Normal LV systolic function, EF 55-60%. * Abnormal septal wall motion consistent with LBBB pattern, otherwise, normal wall motion. * Grade I diastolic dysfunction. * The right ventricular cavity size is normal (basal dimension <4.2 cm in right ventricular apical 4-chamber view). * The right ventricular systolic function is normal as assessed by tricuspid annular plane systolic excursion (TAPSE) (normal >1.5 cm). * Grade I diastolic dysfunction. * Mild aortic regurgitation. v/q scan shows no evidence of PE lower ext Doppler negative for DVT DVT PROPHYLAXIS low risk scd and teds avoid anticoagulation due to bleeding in left renal cyst DISPOSITION Discharge home when medially stable Medicine follow up with Dr Elena will need out pt follow up with Urology Dr Gordno Current Inpatient Medications: Current Inpatient Medications Medications (Trade) Dose Ordered Sig/Rubio Route Start Time Stop Time Status Last Admin Dose Admin Nitroglycerin (Nitrostat Tab) 0.4 mg UD PRN SL 03/29/16 02:15 04/28/16 02:14 Ondansetron HCl 4 mg 4 mg Q6H PRN IV 03/29/16 02:15 04/28/16 02:14 1/2/17 04:06 4 MG Promethazine HCl/ Sodium Chloride (Phenergan Inj/ Nss 50ml) 50.5 ml @ 204 mls/hr Q6H PRN IV 03/29/16 02:15 04/28/16 02:14 Lorazepam (Ativan Inj) 0.5 mg Q4H PRN IV 03/29/16 02:15 04/28/16 02:14 Metoprolol Succinate 25 mg 25 mg DAILY PO 03/29/16 09:00 04/28/16 08:59 04/01/16 07:36 25 MG Lorazepam 0.5 mg/ Syringe 1 ml @ 1 mls/min Q4H PRN IV 03/29/16 23:45 04/28/16 23:44 03/30/16 18:38 1 MLS/MIN Acetaminophen/ Empty Bag (Ofirmev IV/ Empty Iv Bag 100ml) 65 ml @ 260 mls/hr Q6H PRN IV 03/30/16 18:15 04/29/16 18:14 Vancomycin HCl (Consult) 1 ea UD PRN N/A 03/30/16 19:45 04/29/16 19:44 Piperacillin Sod/ Tazobactam Sod (Consult) 1 ea UD PRN N/A 03/31/16 09:00 04/30/16 08:59 Albuterol/ Ipratropium 3 ml 3 ml Q2H PRN INH 03/30/16 22:00 04/29/16 21:59 Piperacillin Sod/ Tazobactam Sod/ Dextrose (Zosyn Iv/D5 100ml) 115 ml @ 28.75 mls/ hr Q8H IV 03/31/16 03:30 04/10/16 03:29 04/01/16 11:15 28.75 MLS/HR Hydromorphone HCl (Dilaudid Inj) 1 mg Q3H PRN IV 03/31/16 11:15 04/14/16 11:14 03/31/16 11:55 1 MG Tramadol HCl (Ultram Tab) 50 mg Q6H PRN PO 03/31/16 14:15 04/30/16 14:14 Hydralazine HCl (HydrALAZINE INJ) 10 mg Q8H PRN IV. 03/31/16 17:45 04/30/16 17:44 Docusate Sodium (coLACE CAP) 100 mg BID PRN PO 03/31/16 17:45 04/30/16 17:44 Polyethylene (Miralax Powder Packet) 17 gm DAILY PRN PO 03/31/16 17:45 04/30/16 17:44 Acetaminophen 650 mg 650 mg Q6H PRN PO 04/01/16 02:15 05/01/16 02:14 04/01/16 03:57 650 MG Vancomycin HCl/ Sodium Chloride (Vancomycin Inj/ Nss 250ml) 272 ml @ 125 mls/hr Q18H IV 04/01/16 08:00 04/10/16 11:59 04/01/16 09:04 125 MLS/HR
[2016-04-01] MEDS ORDERED: PANTOprazole INJ 40 MG in SYRINGE 0 ML IV ONE (12:45)
[2016-04-01] MEDS: D5W AND NSS 1,000 ML IV SCH ×2 (13:52→20:36)
--- NOTE | 2016-04-01 14:50 | Infectious Disease Progress Nt ---
Progress Note Date of Service Apr 01, 2016. Subjective Pt evaluation today including: conversation w/ patient, conversation w/ family , physical exam, chart review, lab review, review of studies, conversation w/ law firm consultant, review of inpatient medication list Slight improvement in left-sided abdominal pain. had fever at 4 a.m., none since. Urology consult noted. Cultures remain negative to date. All Other Systems: Reviewed and Negative Medications Current Inpatient Medications Medications (Trade) Dose Ordered Sig/Rubio Route Start Time Stop Time Status Last Admin Dose Admin Nitroglycerin (Nitrostat Tab) 0.4 mg UD PRN SL 03/29/16 02:15 04/28/16 02:14 Ondansetron HCl 4 mg 4 mg Q6H PRN IV 03/29/16 02:15 04/28/16 02:14 03/31/16 04:06 4 MG Promethazine HCl/ Sodium Chloride (Phenergan Inj/ Nss 50ml) 50.5 ml @ 204 mls/hr Q6H PRN IV 03/29/16 02:15 04/28/16 02:14 Lorazepam (Ativan Inj) 0.5 mg Q4H PRN IV 03/29/16 02:15 04/28/16 02:14 Metoprolol Succinate 25 mg 25 mg DAILY PO 03/29/16 09:00 04/28/16 08:59 04/01/16 07:36 25 MG Lorazepam 0.5 mg/ Syringe 1 ml @ 1 mls/min Q4H PRN IV 03/29/16 23:45 04/28/16 23:44 03/30/16 18:38 1 MLS/MIN Acetaminophen/ Empty Bag (Ofirmev IV/ Empty Iv Bag 100ml) 65 ml @ 260 mls/hr Q6H PRN IV 03/30/16 18:15 04/29/16 18:14 Vancomycin HCl (Consult) 1 ea UD PRN N/A 03/30/16 19:45 04/29/16 19:44 Piperacillin Sod/ Tazobactam Sod (Consult) 1 ea UD PRN N/A 03/31/16 09:00 04/30/16 08:59 Albuterol/ Ipratropium 3 ml 3 ml Q2H PRN INH 03/30/16 22:00 04/29/16 21:59 Piperacillin Sod/ Tazobactam Sod/ Dextrose (Zosyn Iv/D5 100ml) 115 ml @ 28.75 mls/ hr Q8H IV 03/31/16 03:30 04/10/16 03:29 04/01/16 11:15 28.75 MLS/HR Hydromorphone HCl (Dilaudid Inj) 1 mg Q3H PRN IV 03/31/16 11:15 04/14/16 11:14 03/31/16 11:55 1 MG Tramadol HCl (Ultram Tab) 50 mg Q6H PRN PO 03/31/16 14:15 04/30/16 14:14 Hydralazine HCl (HydrALAZINE INJ) 10 mg Q8H PRN IV. 03/31/16 17:45 04/30/16 17:44 Docusate Sodium (coLACE CAP) 100 mg BID PRN PO 03/31/16 17:45 04/30/16 17:44 Polyethylene (Miralax Powder Packet) 17 gm DAILY PRN PO 03/31/16 17:45 04/30/16 17:44 Acetaminophen 650 mg 650 mg Q6H PRN PO 04/01/16 02:15 05/01/16 02:14 04/01/16 03:57 650 MG Vancomycin HCl/ Sodium Chloride (Vancomycin Inj/ Nss 250ml) 272 ml @ 125 mls/hr Q18H IV 04/01/16 08:00 04/10/16 11:59 04/01/16 09:04 125 MLS/HR Loperamide HCl 2 mg 2 mg UD PRN PO 04/01/16 12:30 05/01/16 12:29 Pantoprazole Sodium/Syringe (Protonix Inj/ Syringe) 10 ml @ 5 mls/min DAILY@11 IV 04/02/16 11:00 05/02/16 10:59 Al Hydroxide/Mg Hydroxide 30 ml 30 ml Q6H PRN PO 04/01/16 12:30 05/01/16 12:29 Dextrose/Sodium Chloride (D5W And Nss) 1,000 ml @ 125 mls/hr Q8H IV 04/01/16 12:30 05/01/16 12:29 04/01/16 13:52 125 MLS/HR Objective Vital Signs Date Time Temp Pulse Resp B/P Pulse Ox O2 Delivery O2 Flow Rate FiO2 04/01/16 12:00 Room Air 04/01/16 11:53 37.0 76 18 125/66 99 04/01/16 08:47 36.9 72 16 130/67 98 04/01/16 08:00 Nasal Cannula 2.0 04/01/16 05:33 36.9 04/01/16 04:55 38.4 04/01/16 04:00 Nasal Cannula 2.0 04/01/16 03:52 38.1 79 18 151/65 99 Nasal Cannula 2.0 04/01/16 00:00 Nasal Cannula 2.0 03/31/16 22:49 37.9 79 18 132/77 98 Nasal Cannula 2.0 03/31/16 21:06 39.3 03/31/16 20:00 Nasal Cannula 2.0 03/31/16 19:26 39.3 89 24 153/75 97 Nasal Cannula 2.0 03/31/16 16:07 37.0 89 28 163/80 99 Nasal Cannula 2.0 03/31/16 16:00 Nasal Cannula 2.0 Physical Exam General Appearance: WD/WN, no apparent distress Eyes: normal inspection, sclerae normal ENT: normal ENT inspection, pharynx normal Neck: supple, no adenopathy, trachea midline Respiratory/Chest: chest non-tender, no respiratory distress, + rales (At bases ) Cardiovascular: regular rate, rhythm, no gallop, no murmur Abdomen: normal bowel sounds, soft, no organomegaly, + tenderness (Left-sided) Extremities: non-tender, no calf tenderness Neurologic/Psychiatric: alert, oriented x 3 Skin: normal color, no rash Lymphatic: no adenopathy Laboratory Results Last 24 Hours Test 03/31/16 19:11 04/01/16 00:00 04/01/16 06:51 Hemoglobin 10.5 g/dL 10.2 g/dL Hematocrit 29.7 % 29.2 % White Blood Count 15.83 K/uL Red Blood Count 3.35 M/uL Mean Corpuscular Volume 87.2 fL Mean Corpuscular Hemoglobin 30.4 pg Mean Corpuscular Hemoglobin Concent 34.9 g/dl Platelet Count 352 K/uL Mean Platelet Volume 8.7 fL Neutrophils (%) (Auto) 75.2 % Lymphocytes (%) (Auto) 16.1 % Monocytes (%) (Auto) 6.3 % Eosinophils (%) (Auto) 0.3 % Basophils (%) (Auto) 0.1 % Neutrophils # (Auto) 11.91 K/uL Lymphocytes # (Auto) 2.55 K/uL Monocytes # (Auto) 0.99 K/uL Eosinophils # (Auto) 0.05 K/uL Basophils # (Auto) 0.02 K/uL RDW Standard Deviation 43.4 fL RDW Coefficient of Variation 13.5 % Immature Granulocyte % (Auto) 2.0 % Immature Granulocyte # (Auto) 0.31 K/uL Sodium Level 139 mmol/L Potassium Level 3.7 mmol/L Chloride Level 107 mmol/L Carbon Dioxide Level 23 mmol/L Anion Gap 9.0 mmol/L Blood Urea Nitrogen 10 mg/dl Creatinine 1.30 mg/dl Est Creatinine Clear Calc Drug Dose 42.3 ml/min Estimated GFR () 50.6 Estimated GFR (Non- 43.6 BUN/Creatinine Ratio 7.6 Random Glucose 112 mg/dl Calcium Level 8.1 mg/dl Magnesium Level 1.8 mg/dl Total Bilirubin 1.3 mg/dl Direct Bilirubin 0.8 mg/dl Aspartate Amino Transf (AST/SGOT) 33 U/L Alanine Aminotransferase (ALT/SGPT) 55 U/L Alkaline Phosphatase 171 U/L Total Protein 6.4 gm/dl Albumin 1.9 gm/dl Assessment and Plan Fever and abdominal pain in 65-year-old female, with what appears to be possible lower lobe pneumonia as well complex left renal cyst with probable hemorrhage, which could also explain persistent fever. For now, vancomycin and Zosyn will provide adequate coverage with length to be determined by clinical response. We will continue to follow patient.
[2016-04-01 17:42] LABS: INFLUENZA A PCR Neg for Influ A (NEG); INFLUENZA B PCR Neg for Influ B (NEG)
[2016-04-01 19:00] LABS: HEMATOCRIT 27.2 % (37-47)
[2016-04-01] MEDS ORDERED: VANCOMYCIN TROUGH ONE (19:30)
[2016-04-02] MEDS: VANCOMYCIN INJ 1,100 MG in SODIUM CHLORIDE 0.9% 250ML 250 ML IV SCH ×2 (01:41→20:26)
[2016-04-02 04:02] VITALS: BP 136/64; PULSE 69; TEMP 36.9; O2SAT 96
[2016-04-02] MEDS: PIPERACILL/TAZOBAC IV 3.375 GM in DEXTROSE 5% 100ML IV SCH ×3 (04:04→20:25)
[2016-04-02] MEDS: D5W AND NSS 1,000 ML IV SCH ×2 (04:08→11:36)
[2016-04-02 05:56] LABS: BASO % 0.2 %; BASO ABS # 0.02 K/uL (0-0.2); COMPLETE YES; EOS % 0.7 %; HEMATOCRIT 28.2 % (37-47); LYMPH % 12.1 %; LYMPH ABS # 1.47 K/uL (1.2-3.4); MEAN CELL VOLUME 88.1 fL (80-100); MEAN CORPUSCULAR HEMOGLOBIN 30.3 pg (25-34); MEAN CORPUSCULAR HGB CONC 34.4 g/dl (32-36); MEAN PLATELET VOLUME 8.8 fL (7.4-10.4); MONO % 11.6 %; NEUT % 71.4 %; PLATELET COUNT 442 K/uL (130-400); WHITE BLOOD COUNT 12.12 K/uL (4.8-10.8)
[2016-04-02 06:32] LABS: BUN/CREATININE RATIO 5.2 (10-20); CALCIUM 7.9 mg/dl (8.5-10.1); CREATININE 1.2 mg/dl (0.60-1.20); MAGNESIUM 1.7 mg/dl (1.8-2.4); POTASSIUM 3.2 mmol/L (3.5-5.1)
[2016-04-02 07:35] VITALS: BP 170/79; PULSE 70; TEMP 38.1; O2SAT 97
[2016-04-02] MEDS: POTASSIUM CHLORIDE 20 MEQ TABCR PO SCH ×3 (09:00→19:39)
[2016-04-02] MEDS: MAGNESIUM OXIDE 400 MG TAB PO SCH ×2 (09:09→19:38)
[2016-04-02] MEDS: METOPROLOL SUCC 25MG EXT REL TAB PO SCH (09:10)
[2016-04-02] MEDS: PANTOprazole INJ 40 MG in SYRINGE 0 ML IV SCH (09:10)
[2016-04-02 12:07] VITALS: BP 175/86; PULSE 70; TEMP 37; O2SAT 99
[2016-04-02] MEDS: LOPERAMIDE HCL 2 MG CAP PO PRN ×2 (13:37→19:38)
[2016-04-02] MEDS: TRAMADOL HCL 50 MG TAB PO PRN (14:27)
--- NOTE | 2016-04-02 14:30 | Progress Note ---
Medicine Progress Note Date & Time of Visit: Apr 02, 2016 at 14:22. Subjective patient seen resting in bed, and sons at the bedside states she feels about the same left flank pain is about 6/10, no hematuria has occasional cough, no dyspnea still has diarrhea, loose, non bloody, some abdominal bloating, requesting diet to be advanced Objective Last 8 Hrs Date Time Temp Pulse Resp B/P Pulse Ox O2 Delivery O2 Flow Rate FiO2 04/02/16 12:07 37.0 70 16 175/86 99 Room Air 04/02/16 12:00 Room Air 04/02/16 08:00 Room Air 04/02/16 07:35 38.1 70 20 170/79 97 Room Air Physical Exam: General- oriented x 3, not in distress, speaks in sentences with no effort Eyes- anicteric Neck- no JVD Lungs- clear breath sounds bilaterally, no rales/wheezes Heart- normal rate, regular rhythm; no murmurs Abdomen- normal bowel sounds, soft, mild LLQ tenderness, no masses , no Decker' s sign Extremities- no pretibial edema, no calf tenderness; peripheral pulses intact Neuro- alert, oriented x 3; no gross focal deficits Skin- warm & dry Laboratory Results: Last 24 Hours Test 04/01/16 18:52 04/02/16 05:11 Hemoglobin 9.3 g/dL 9.7 g/dL Hematocrit 27.2 % 28.2 % White Blood Count 12.12 K/uL Red Blood Count 3.20 M/uL Mean Corpuscular Volume 88.1 fL Mean Corpuscular Hemoglobin 30.3 pg Mean Corpuscular Hemoglobin Concent 34.4 g/dl Platelet Count 442 K/uL Mean Platelet Volume 8.8 fL Neutrophils (%) (Auto) 71.4 % Lymphocytes (%) (Auto) 12.1 % Monocytes (%) (Auto) 11.6 % Eosinophils (%) (Auto) 0.7 % Basophils (%) (Auto) 0.2 % Neutrophils # (Auto) 8.66 K/uL Lymphocytes # (Auto) 1.47 K/uL Monocytes # (Auto) 1.40 K/uL Eosinophils # (Auto) 0.08 K/uL Basophils # (Auto) 0.02 K/uL RDW Standard Deviation 44.2 fL RDW Coefficient of Variation 13.6 % Immature Granulocyte % (Auto) 4.0 % Immature Granulocyte # (Auto) 0.49 K/uL Sodium Level 146 mmol/L Potassium Level 3.2 mmol/L Chloride Level 111 mmol/L Carbon Dioxide Level 24 mmol/L Anion Gap 11.0 mmol/L Blood Urea Nitrogen 6 mg/dl Creatinine 1.20 mg/dl Est Creatinine Clear Calc Drug Dose 47.0 ml/min Estimated GFR () 55.7 Estimated GFR (Non- 48.1 BUN/Creatinine Ratio 5.2 Random Glucose 97 mg/dl Calcium Level 7.9 mg/dl Magnesium Level 1.7 mg/dl Total Bilirubin 0.7 mg/dl Direct Bilirubin 0.3 mg/dl Aspartate Amino Transf (AST/SGOT) 21 U/L Alanine Aminotransferase (ALT/SGPT) 42 U/L Alkaline Phosphatase 138 U/L Total Protein 6.3 gm/dl Albumin 1.9 gm/dl Assessment & Plan 65 yo female with history of hypertension, chronic LBBB, Renal cysts presented with Nausea , vomiting , diarrhea , abdominal pain LEFT KIDNEY CYST WITH BLEEDING - CT abdomen /pelvis done on ER visit : No evidence of bowel obstruction , no evidence of free air, colonic diverticulum , no evidence of acute diverticulitis . normal appendix, cholelithiasis suspected adenomyomatosis - repeat CT ABDOMEN /PELVIS for ongoing abdominal pain - IMPRESSION: 1. Complex 9 cm cystic lesion within the left kidney with areas of acute/subacute hemorrhage. Urological consultation is recommended. 2. Cholelithiasis 3. No evidence of bowel obstruction. No evidence of free air. renal USG ordered : 1. Re demonstration of the 9.4 cm complex cystic lesion within the mid to upper pole of the left kidney which extends into the renal sinus. This contains several thin septations and suspected blood clot, as shown on prior CT. The imaging appearance favors a benign lesion but imaging follow up is recommended. 2. No hydronephrosis. Urology consulted with dr Gordon appreciate input - evaluated by Dr. Gordon conservative management, repeat imaging in 6 weeks - no antiplatelets, NSAIDs, anticoagulants Hg stable -- still has 6/10 left flank pain discussed with Dr. Gordon since Hg remains stable, no indication to repeat imaging at this time repeat imaging in 6 weeks FEVER -- had a fever spike this morning with recurrence of fever spike, will re-order blood, urine cultures, C diff from Hemorrhagic renal cyst? Partially Treated UTI? initial urine cultures negative repeat urine cultures from Aspiration Pneumonia? CXray shows new left lower lobe infiltrate sputum culture: normal sudhir initial blood cultures negative continue Vanco and Zosyn Day 6 Dehydration from Diarrhea? initial C diff and Stool cultures negative repeat C diff Loperamide PRN continue IV fluids MILD DIRECT BILIRUBINEMIA, ELEVATED ALK PHOS due to dehydration /viral illness USG of liver : 1. Suspected gallstone 2. Gallbladder wall thickening and areas of reverberation artifact consistent with adenomyomatosis. A masslike appearance of the gallbladder fundus, likely epresents more focal adenomyomatosis. No ductal dilatation. - improving hepatitis panel -negative ACUTE RENAL FAILURE due to above diarrhea /fever /dehydration presented with Cr > 2 ( was 1.0 on 03/25/16 ) had CT abdomen with contrast study on 03/25/16 - crea improved to 1.2 - continue D5 NSS appreciate Nephro consult HYPOKALEMIA, HYPOMAGNESEMIA due to GI loss , diarrhea, nausea , vomiting -- replace and monitor HYPERTENSION -- continue Metoprolol hold Losartan PRN Clonidine mild elevation of troponin due to NARCISA no complain of chest pain , no EKG change -chronic LBBB at baseline pt is very active , no complain of AARON repeat troponin level normalized ECHO: Normal LV chamber size with mild concentric LVH. * Normal LV systolic function, EF 55-60%. * Abnormal septal wall motion consistent with LBBB pattern, otherwise, normal wall motion. * Grade I diastolic dysfunction. * The right ventricular cavity size is normal (basal dimension <4.2 cm in right ventricular apical 4-chamber view). * The right ventricular systolic function is normal as assessed by tricuspid annular plane systolic excursion (TAPSE) (normal >1.5 cm). * Grade I diastolic dysfunction. * Mild aortic regurgitation. v/q scan shows no evidence of PE lower ext Doppler negative for DVT DVT PROPHYLAXIS low risk scd and teds avoid anticoagulation due to bleeding in left renal cyst DISPOSITION Discharge home when medically stable Medicine follow up with Dr Elena will need out pt follow up with Urology Dr Gordon Current Inpatient Medications: Current Inpatient Medications Medications (Trade) Dose Ordered Sig/Rubio Route Start Time Stop Time Status Last Admin Dose Admin Nitroglycerin (Nitrostat Tab) 0.4 mg UD PRN SL 03/29/16 02:15 04/28/16 02:14 Ondansetron HCl 4 mg 4 mg Q6H PRN IV 03/29/16 02:15 04/28/16 02:14 03/31/16 04:06 4 MG Promethazine HCl/ Sodium Chloride (Phenergan Inj/ Nss 50ml) 50.5 ml @ 204 mls/hr Q6H PRN IV 03/29/16 02:15 04/28/16 02:14 Lorazepam (Ativan Inj) 0.5 mg Q4H PRN IV 03/29/16 02:15 04/28/16 02:14 04/02/16 04:04 0.5 MG Metoprolol Succinate 25 mg 25 mg DAILY PO 03/29/16 09:00 04/28/16 08:59 04/02/16 09:10 25 MG Lorazepam 0.5 mg/ Syringe 1 ml @ 1 mls/min Q4H PRN IV 03/29/16 23:45 04/28/16 23:44 03/30/16 18:38 1 MLS/MIN Acetaminophen/ Empty Bag (Ofirmev IV/ Empty Iv Bag 100ml) 65 ml @ 260 mls/hr Q6H PRN IV 03/30/16 18:15 04/29/16 18:14 Vancomycin HCl (Consult) 1 ea UD PRN N/A 03/30/16 19:45 04/29/16 19:44 Piperacillin Sod/ Tazobactam Sod (Consult) 1 ea UD PRN N/A 03/31/16 09:00 04/30/16 08:59 Albuterol/ Ipratropium 3 ml 3 ml Q2H PRN INH 03/30/16 22:00 04/29/16 21:59 Piperacillin Sod/ Tazobactam Sod/ Dextrose (Zosyn Iv/D5 100ml) 115 ml @ 28.75 mls/ hr Q8H IV 03/31/16 03:30 04/10/16 03:29 04/02/16 11:35 28.75 MLS/HR Hydromorphone HCl (Dilaudid Inj) 1 mg Q3H PRN IV 03/31/16 11:15 04/14/16 11:14 03/31/16 11:55 1 MG Tramadol HCl (Ultram Tab) 50 mg Q6H PRN PO 03/31/16 14:15 2/1/17 14:14 Hydralazine HCl (HydrALAZINE INJ) 10 mg Q8H PRN IV. 03/31/16 17:45 04/30/16 17:44 Docusate Sodium (coLACE CAP) 100 mg BID PRN PO 03/31/16 17:45 04/30/16 17:44 Polyethylene (Miralax Powder Packet) 17 gm DAILY PRN PO 03/31/16 17:45 04/30/16 17:44 Acetaminophen 650 mg 650 mg Q6H PRN PO 04/01/16 02:15 05/01/16 02:14 04/01/16 23:22 650 MG Vancomycin HCl/ Sodium Chloride (Vancomycin Inj/ Nss 250ml) 272 ml @ 125 mls/hr Q18H IV 04/01/16 08:00 04/10/16 11:59 04/02/16 01:41 125 MLS/HR Loperamide HCl 2 mg 2 mg UD PRN PO 04/01/16 12:30 05/01/16 12:29 04/02/16 13:37 2 MG Pantoprazole Sodium/Syringe (Protonix Inj/ Syringe) 10 ml @ 5 mls/min DAILY@11 IV 04/02/16 11:00 05/02/16 10:59 04/02/16 09:10 5 MLS/MIN Al Hydroxide/Mg Hydroxide 30 ml 30 ml Q6H PRN PO 04/01/16 12:30 05/01/16 12:29 Dextrose/Sodium Chloride (D5W And Nss) 1,000 ml @ 125 mls/hr Q8H IV 04/01/16 12:30 05/01/16 12:29 04/02/16 11:36 125 MLS/HR Potassium Chloride (Klor-Con Tab) 40 meq BID PO 04/02/16 08:00 05/02/16 07:59 04/02/16 09:10 40 MEQ Magnesium Oxide (Mag-Ox Tab) 400 mg BID PO 04/02/16 09:00 05/02/16 08:59 04/02/16 09:09 400 MG
[2016-04-02] MEDS ORDERED: CLONIDINE HCL 0.1 MG TAB PO PRN (14:45)
[2016-04-02] MEDS: D5NSS + 20MEQ KCL 1,000 ML IV SCH (15:36)
[2016-04-02 16:22] VITALS: BP 143/83; PULSE 70; TEMP 37; O2SAT 98
[2016-04-02 16:35] LABS: BUN/CREATININE RATIO 4.5 (10-20); CALCIUM 8.3 mg/dl (8.5-10.1); CREATININE 1.2 mg/dl (0.60-1.20); MAGNESIUM 1.7 mg/dl (1.8-2.4); POTASSIUM 3.4 mmol/L (3.5-5.1)
[2016-04-02] MEDS ORDERED: VANCOMYCIN TROUGH SCH ×2 (17:30)
--- NOTE | 2016-04-02 19:54 | Infectious Disease Progress Nt ---
Progress Note Date of Service Apr 02, 2016. Subjective Pt evaluation today including: conversation w/ patient, physical exam, chart review, lab review, review of studies, conversation w/ information technology consultant, review of inpatient medication list Patient still with severe left-sided pain, currently 5 to 6/10 in intensity. Intermittent fever persist. Cultures remain negative to date. All Other Systems: Reviewed and Negative Medications Current Inpatient Medications Medications (Trade) Dose Ordered Sig/Rubio Route Start Time Stop Time Status Last Admin Dose Admin Nitroglycerin (Nitrostat Tab) 0.4 mg UD PRN SL 03/29/16 02:15 04/28/16 02:14 Ondansetron HCl 4 mg 4 mg Q6H PRN IV 03/29/16 02:15 04/28/16 02:14 03/31/16 04:06 4 MG Promethazine HCl/ Sodium Chloride (Phenergan Inj/ Nss 50ml) 50.5 ml @ 204 mls/hr Q6H PRN IV 03/29/16 02:15 04/28/16 02:14 Lorazepam (Ativan Inj) 0.5 mg Q4H PRN IV 03/29/16 02:15 04/28/16 02:14 04/02/16 04:04 0.5 MG Metoprolol Succinate 25 mg 25 mg DAILY PO 03/29/16 09:00 04/28/16 08:59 04/02/16 09:10 25 MG Lorazepam 0.5 mg/ Syringe 1 ml @ 1 mls/min Q4H PRN IV 03/29/16 23:45 04/28/16 23:44 03/30/16 18:38 1 MLS/MIN Acetaminophen/ Empty Bag (Ofirmev IV/ Empty Iv Bag 100ml) 65 ml @ 260 mls/hr Q6H PRN IV 03/30/16 18:15 04/29/16 18:14 Vancomycin HCl (Consult) 1 ea UD PRN N/A 03/30/16 19:45 04/29/16 19:44 Piperacillin Sod/ Tazobactam Sod (Consult) 1 ea UD PRN N/A 03/31/16 09:00 04/30/16 08:59 Albuterol/ Ipratropium 3 ml 3 ml Q2H PRN INH 03/30/16 22:00 04/29/16 21:59 Piperacillin Sod/ Tazobactam Sod/ Dextrose (Zosyn Iv/D5 100ml) 115 ml @ 28.75 mls/ hr Q8H IV 03/31/16 03:30 04/10/16 03:29 04/02/16 11:35 28.75 MLS/HR Hydromorphone HCl (Dilaudid Inj) 1 mg Q3H PRN IV 03/31/16 11:15 04/14/16 11:14 03/31/16 11:55 1 MG Tramadol HCl (Ultram Tab) 50 mg Q6H PRN PO 03/31/16 14:15 04/30/16 14:14 04/02/16 14:27 50 MG Hydralazine HCl (HydrALAZINE INJ) 10 mg Q8H PRN IV. 03/31/16 17:45 04/30/16 17:44 Docusate Sodium (coLACE CAP) 100 mg BID PRN PO 03/31/16 17:45 04/30/16 17:44 Polyethylene (Miralax Powder Packet) 17 gm DAILY PRN PO 03/31/16 17:45 04/30/16 17:44 Acetaminophen 650 mg 650 mg Q6H PRN PO 04/01/16 02:15 05/01/16 02:14 04/01/16 23:22 650 MG Vancomycin HCl/ Sodium Chloride (Vancomycin Inj/ Nss 250ml) 272 ml @ 125 mls/hr Q18H IV 04/01/16 08:00 04/10/16 11:59 04/02/16 01:41 125 MLS/HR Loperamide HCl 2 mg 2 mg UD PRN PO 04/01/16 12:30 05/01/16 12:29 04/02/16 19:38 2 MG Pantoprazole Sodium/Syringe (Protonix Inj/ Syringe) 10 ml @ 5 mls/min DAILY@11 IV 04/02/16 11:00 05/02/16 10:59 04/02/16 09:10 5 MLS/MIN Al Hydroxide/Mg Hydroxide (Maalox Susp) 30 ml Q6H PRN PO 04/01/16 12:30 05/01/16 12:29 Potassium Chloride (Klor-Con Tab) 40 meq BID PO 04/02/16 08:00 05/02/16 07:59 04/02/16 19:39 40 MEQ Magnesium Oxide 400 mg 400 mg BID PO 04/02/16 09:00 05/02/16 08:59 04/02/16 19:38 400 MG Potassium Chloride/Dextrose/ Sod Cl (D5nss + 20meq KCl) 1,000 ml @ 100 mls/hr Q10H IV 04/02/16 15:00 05/02/16 14:59 04/02/16 15:36 100 MLS/HR Clonidine HCl (Catapres Tab) 0.1 mg Q6H PRN PO 04/02/16 14:45 05/02/16 14:44 Objective Vital Signs Date Time Temp Pulse Resp B/P Pulse Ox O2 Delivery O2 Flow Rate FiO2 04/02/16 16:22 37.0 70 16 143/83 98 Room Air 04/02/16 16:00 Room Air 04/02/16 12:07 37.0 70 16 175/86 99 Room Air 04/02/16 12:00 Room Air 04/02/16 08:00 Room Air 04/02/16 07:35 38.1 70 20 170/79 97 Room Air 04/02/16 04:05 Room Air 04/02/16 04:02 36.9 69 16 136/64 96 Room Air 04/02/16 00:00 Room Air 04/01/16 23:17 37.6 69 16 160/66 97 Room Air 04/01/16 20:00 Room Air Physical Exam General Appearance: WD/WN, + mild distress Eyes: normal inspection, sclerae normal ENT: normal ENT inspection, pharynx normal Neck: supple, no adenopathy, trachea midline Respiratory/Chest: chest non-tender, lungs clear, normal breath sounds, no respiratory distress Cardiovascular: regular rate, rhythm, no gallop, no murmur Abdomen: normal bowel sounds, soft, no organomegaly, + tenderness Extremities: non-tender, no calf tenderness Neurologic/Psychiatric: alert, oriented x 3 Skin: normal color, no rash Lymphatic: no adenopathy Laboratory Results Last 24 Hours Test 04/02/16 05:11 04/02/16 15:37 04/02/16 17:43 White Blood Count 12.12 K/uL Red Blood Count 3.20 M/uL Hemoglobin 9.7 g/dL Hematocrit 28.2 % Mean Corpuscular Volume 88.1 fL Mean Corpuscular Hemoglobin 30.3 pg Mean Corpuscular Hemoglobin Concent 34.4 g/dl Platelet Count 442 K/uL Mean Platelet Volume 8.8 fL Neutrophils (%) (Auto) 71.4 % Lymphocytes (%) (Auto) 12.1 % Monocytes (%) (Auto) 11.6 % Eosinophils (%) (Auto) 0.7 % Basophils (%) (Auto) 0.2 % Neutrophils # (Auto) 8.66 K/uL Lymphocytes # (Auto) 1.47 K/uL Monocytes # (Auto) 1.40 K/uL Eosinophils # (Auto) 0.08 K/uL Basophils # (Auto) 0.02 K/uL RDW Standard Deviation 44.2 fL RDW Coefficient of Variation 13.6 % Immature Granulocyte % (Auto) 4.0 % Immature Granulocyte # (Auto) 0.49 K/uL Sodium Level 146 mmol/L 140 mmol/L Potassium Level 3.2 mmol/L 3.4 mmol/L Chloride Level 111 mmol/L 107 mmol/L Carbon Dioxide Level 24 mmol/L 23 mmol/L Anion Gap 11.0 mmol/L 10.0 mmol/L Blood Urea Nitrogen 6 mg/dl 5 mg/dl Creatinine 1.20 mg/dl 1.20 mg/dl Est Creatinine Clear Calc Drug Dose 47.0 ml/min 47.0 ml/min Estimated GFR () 55.7 55.7 Estimated GFR (Non- 48.1 48.1 BUN/Creatinine Ratio 5.2 4.5 Random Glucose 97 mg/dl 110 mg/dl Calcium Level 7.9 mg/dl 8.3 mg/dl Magnesium Level 1.7 mg/dl 1.7 mg/dl Total Bilirubin 0.7 mg/dl Direct Bilirubin 0.3 mg/dl Aspartate Amino Transf (AST/SGOT) 21 U/L Alanine Aminotransferase (ALT/SGPT) 42 U/L Alkaline Phosphatase 138 U/L Total Protein 6.3 gm/dl Albumin 1.9 gm/dl Vancomycin Level Trough 9.6 mcg/ml Assessment and Plan Fever and abdominal pain in 65-year-old female, with what appears to be possible lower lobe pneumonia as well complex left renal cyst with probable hemorrhage, which could also explain persistent fever. For now, vancomycin and Zosyn will provide adequate coverage with length to be determined by clinical response. We will continue to follow patient.
[2016-04-02 20:00] VITALS: BP 154/78; PULSE 72; TEMP 36.7; O2SAT 97
--- NOTE | 2016-04-02 20:58 | Pharmacy Progress Note ---
Pharmacy Antibiotic Prog Note Date of Service: Apr 02, 2016. Subjective: The patient is currently receiving VANC 1100mg (15mg/kg) IV every 18 hours. * The patient is currently on day # 4 of IV therapy for sepsis/LLL PNX. The patient is currently receiving ZOSYN 3.375 grams IV CI every 8 hours. * The patient is currently on day # 3 of IV therapy for sepsis/LLL PNX. Objective: Height (Feet): 5 Height (Inches): 4.00 Weight (Kilograms): 73.000 Levels: Item Value Date Time Vancomycin Level Trough 9.6 mcg/ml 04/02/16 1743 Lab Results (24hrs): Laboratory Tests Test 04/02/16 05:11 04/02/16 15:37 BUN/Creatinine Ratio 5.2 4.5 Blood Urea Nitrogen 6 mg/dl 5 mg/dl Creatinine 1.20 mg/dl 1.20 mg/dl White Blood Count 12.12 K/uL Red Blood Count 3.20 M/uL Hemoglobin 9.7 g/dL Hematocrit 28.2 % Mean Corpuscular Volume 88.1 fL Mean Corpuscular Hemoglobin 30.3 pg Mean Corpuscular Hemoglobin Concent 34.4 g/dl Platelet Count 442 K/uL Mean Platelet Volume 8.8 fL Neutrophils (%) (Auto) 71.4 % Lymphocytes (%) (Auto) 12.1 % Monocytes (%) (Auto) 11.6 % Eosinophils (%) (Auto) 0.7 % Basophils (%) (Auto) 0.2 % Neutrophils # (Auto) 8.66 K/uL Lymphocytes # (Auto) 1.47 K/uL Monocytes # (Auto) 1.40 K/uL Eosinophils # (Auto) 0.08 K/uL Basophils # (Auto) 0.02 K/uL Item Value Date Time Creatinine 1.20 mg/dl 04/02/16 1537 Creatinine 1.20 mg/dl 04/02/16 0511 Creatinine 1.30 mg/dl H 04/01/16 0651 Creatinine 1.50 mg/dl H 03/31/16 0612 Creatinine 1.80 mg/dl H 03/30/16 0525 Assessment & Plan: PLAN: patient's renal function continues to improve from admission, increasing the drug elimination of Vanc. Will maintain dose BUT shorten dosing interval. Will also continue to monitor renal function closely on Zosyn/Vanc combo. VANC-IV: * This drug level is: Subtherapeutic. * Change to VANC 1100 mg (~15mg/kg) IV every 12 hours. * Goal trough level estimate: between 15 - 20 mcg/mL. * VANC trough level has been ordered @ [facility] prior to 04/04/16 0800 dose. ZOSYN-IV: COntinue 3.375 grams IV CI every 8 hours Pharmacy will continue to follow and will adjust dose/frequency as necessary. Thank you
[2016-04-02] MEDS: ACETAMINOPHEN 325 MG TAB PO PRN (23:04)
[2016-04-02 23:50] VITALS: BP 168/76; PULSE 75; TEMP 37.5; O2SAT 95
[2016-04-03] VITALS (11 sets, daily range): BP systolic 140–172; BP diastolic 65–90; PULSE 65–73; TEMP 36.5–37; O2SAT 95–98
[2016-04-03] MEDS: D5NSS + 20MEQ KCL 1,000 ML IV SCH ×3 (01:00→21:29)
[2016-04-03] MEDS: PIPERACILL/TAZOBAC IV 3.375 GM in DEXTROSE 5% 100ML IV SCH ×3 (03:47→20:36)
[2016-04-03 06:18] LABS: BASO % 0.2 %; BASO ABS # 0.02 K/uL (0-0.2); COMPLETE YES; EOS % 0.4 %; HEMATOCRIT 28.6 % (37-47); IG% 3.8 %; LYMPH % 12.7 %; LYMPH ABS # 1.42 K/uL (1.2-3.4); MEAN CELL VOLUME 88.5 fL (80-100); MEAN CORPUSCULAR HGB CONC 33.9 g/dl (32-36); MEAN PLATELET VOLUME 8.5 fL (7.4-10.4); MONO % 8.9 %; PLATELET COUNT 513 K/uL (130-400); RED BLOOD COUNT 3.23 M/uL (4.2-5.4)
[2016-04-03 06:47] LABS: CREATININE 1.2 mg/dl (0.60-1.20)
[2016-04-03] MEDS: VANCOMYCIN INJ 1,100 MG in SODIUM CHLORIDE 0.9% 250ML 250 ML IV SCH ×2 (08:38→20:15)
[2016-04-03] MEDS: METOPROLOL SUCC 25MG EXT REL TAB PO SCH (08:39)
[2016-04-03] MEDS: MAGNESIUM OXIDE 400 MG TAB PO SCH (08:39)
[2016-04-03] MEDS: POTASSIUM CHLORIDE 20 MEQ TABCR PO SCH ×2 (08:39→20:44)
[2016-04-03] MEDS: PANTOprazole INJ 40 MG in SYRINGE 0 ML IV SCH (11:25)
[2016-04-03] MEDS ORDERED: DIPHENOXYLATE/ATROPINE 2.5/0.025MG TAB PO PRN (11:45)
--- NOTE | 2016-04-03 11:46 | Progress Note ---
Medicine Progress Note Date & Time of Visit: Apr 03, 2016 at 11:42. Subjective patient states she feels slightly better today her diarrhea is about the same left flank pain slightly better denies other symptoms Objective Last 8 Hrs Date Time Temp Pulse Resp B/P Pulse Ox O2 Delivery O2 Flow Rate FiO2 04/03/16 08:28 36.7 72 18 154/65 96 04/03/16 08:00 97 Room Air 04/03/16 04:06 36.5 65 16 140/69 97 Room Air 04/03/16 04:00 Room Air Physical Exam: General- oriented x 3, not in distress, speaks in sentences with no effort Eyes- anicteric Neck- no JVD Lungs- clear bs, bl,. no rales/wheezes Heart- normal rate, regular rhythm; no murmurs Abdomen- normal bowel sounds, soft, mild LLQ tenderness, no masses , no Decker' s sign Extremities- no pretibial edema, no calf tenderness Neuro- alert, oriented x 3; no gross focal deficits Skin- warm & dry Laboratory Results: Last 24 Hours Test 04/02/16 15:37 04/02/16 17:43 04/03/16 05:34 04/03/16 10:52 Sodium Level 140 mmol/L Potassium Level 3.4 mmol/L Chloride Level 107 mmol/L Carbon Dioxide Level 23 mmol/L Anion Gap 10.0 mmol/L Blood Urea Nitrogen 5 mg/dl Creatinine 1.20 mg/dl 1.20 mg/dl Est Creatinine Clear Calc Drug Dose 47.0 ml/min 46.1 ml/min Estimated GFR () 55.7 55.7 Estimated GFR (Non- 48.1 48.1 BUN/Creatinine Ratio 4.5 Random Glucose 110 mg/dl Calcium Level 8.3 mg/dl Magnesium Level 1.7 mg/dl Vancomycin Level Trough 9.6 mcg/ml White Blood Count 11.20 K/uL Red Blood Count 3.23 M/uL Hemoglobin 9.7 g/dL Hematocrit 28.6 % Mean Corpuscular Volume 88.5 fL Mean Corpuscular Hemoglobin 30.0 pg Mean Corpuscular Hemoglobin Concent 33.9 g/dl Platelet Count 513 K/uL Mean Platelet Volume 8.5 fL Neutrophils (%) (Auto) 74.0 % Lymphocytes (%) (Auto) 12.7 % Monocytes (%) (Auto) 8.9 % Eosinophils (%) (Auto) 0.4 % Basophils (%) (Auto) 0.2 % Neutrophils # (Auto) 8.29 K/uL Lymphocytes # (Auto) 1.42 K/uL Monocytes # (Auto) 1.00 K/uL Eosinophils # (Auto) 0.04 K/uL Basophils # (Auto) 0.02 K/uL RDW Standard Deviation 44.0 fL RDW Coefficient of Variation 13.5 % Immature Granulocyte % (Auto) 3.8 % Immature Granulocyte # (Auto) 0.43 K/uL Total Bilirubin 0.6 mg/dl Direct Bilirubin 0.3 mg/dl Aspartate Amino Transf (AST/SGOT) 27 U/L Alanine Aminotransferase (ALT/SGPT) 44 U/L Alkaline Phosphatase 148 U/L Total Protein 6.4 gm/dl Albumin 1.9 gm/dl Date/Time Source Procedure Growth Status 04/02/16 15:37 Blood Blood Culture Pending Received 04/02/16 15:30 Blood Blood Culture Pending Received 04/03/16 00:00 Stool C.difficile Toxin B Gene (PCR) Pending Received 04/02/16 23:00 Urine , Clean Catch Urine Culture Pending Received Assessment & Plan 65 yo female with history of hypertension, chronic LBBB, Renal cysts presented with Nausea , vomiting , diarrhea , abdominal pain LEFT KIDNEY CYST WITH BLEEDING - CT abdomen /pelvis done on ER visit : No evidence of bowel obstruction , no evidence of free air, colonic diverticulum , no evidence of acute diverticulitis . normal appendix, cholelithiasis suspected adenomyomatosis - repeat CT ABDOMEN /PELVIS for ongoing abdominal pain - IMPRESSION: 1. Complex 9 cm cystic lesion within the left kidney with areas of acute/subacute hemorrhage. Urological consultation is recommended. 2. Cholelithiasis 3. No evidence of bowel obstruction. No evidence of free air. renal USG ordered : 1. Re demonstration of the 9.4 cm complex cystic lesion within the mid to upper pole of the left kidney which extends into the renal sinus. This contains several thin septations and suspected blood clot, as shown on prior CT. The imaging appearance favors a benign lesion but imaging follow up is recommended. 2. No hydronephrosis. Urology consulted with dr Gordon appreciate input - evaluated by Dr. Gordon conservative management, repeat imaging in 6 weeks - no antiplatelets, NSAIDs, anticoagulants Hg stable -- still has 6/10 left flank pain discussed with Dr. Gordon since Hg remains stable, no indication to repeat imaging at this time repeat imaging in 6 weeks -- improving, Hg stable FEVER -- no fever since last night repeat blood, urine cultures, C diff pending from Hemorrhagic renal cyst? Partially Treated UTI? initial urine cultures negative repeat urine cultures pending from Aspiration Pneumonia? CXray shows new left lower lobe infiltrate sputum culture: normal sudhir initial blood cultures negative continue Vanco and Zosyn Day 7 Dehydration from Diarrhea? initial C diff and Stool cultures negative repeat C diff Loperamide PRN, added Lomotil continue IV fluids mechanical soft diet MILD DIRECT BILIRUBINEMIA, ELEVATED ALK PHOS due to dehydration /viral illness USG of liver : 1. Suspected gallstone 2. Gallbladder wall thickening and areas of reverberation artifact consistent with adenomyomatosis. A masslike appearance of the gallbladder fundus, likely epresents more focal adenomyomatosis. No ductal dilatation. - improving hepatitis panel -negative ACUTE RENAL FAILURE due to above diarrhea /fever /dehydration presented with Cr > 2 ( was 1.0 on 03/25/16 ) had CT abdomen with contrast study on 03/25/16 - crea improved to 1.2 - continue D5 NSS appreciate Nephro consult HYPOKALEMIA, HYPOMAGNESEMIA due to GI loss , diarrhea, nausea , vomiting -- replace and monitor HYPERTENSION -- continue Metoprolol hold Losartan PRN Clonidine mild elevation of troponin due to NARCISA no complain of chest pain , no EKG change -chronic LBBB at baseline pt is very active , no complain of AARON repeat troponin level normalized ECHO: Normal LV chamber size with mild concentric LVH. * Normal LV systolic function, EF 55-60%. * Abnormal septal wall motion consistent with LBBB pattern, otherwise, normal wall motion. * Grade I diastolic dysfunction. * The right ventricular cavity size is normal (basal dimension <4.2 cm in right ventricular apical 4-chamber view). * The right ventricular systolic function is normal as assessed by tricuspid annular plane systolic excursion (TAPSE) (normal >1.5 cm). * Grade I diastolic dysfunction. * Mild aortic regurgitation. v/q scan shows no evidence of PE lower ext Doppler negative for DVT DVT PROPHYLAXIS low risk scd and teds avoid anticoagulation due to bleeding in left renal cyst ambulation DISPOSITION Discharge home when medically stable Medicine follow up with Dr Elena will need out pt follow up with Urology Dr Gordon Current Inpatient Medications: Current Inpatient Medications Medications (Trade) Dose Ordered Sig/Rubio Route Start Time Stop Time Status Last Admin Dose Admin Nitroglycerin (Nitrostat Tab) 0.4 mg UD PRN SL 03/29/16 02:15 04/28/16 02:14 Ondansetron HCl 4 mg 4 mg Q6H PRN IV 03/29/16 02:15 04/28/16 02:14 03/31/16 04:06 4 MG Promethazine HCl/ Sodium Chloride (Phenergan Inj/ Nss 50ml) 50.5 ml @ 204 mls/hr Q6H PRN IV 03/29/16 02:15 04/28/16 02:14 Lorazepam (Ativan Inj) 0.5 mg Q4H PRN IV 03/29/16 02:15 04/28/16 02:14 04/02/16 04:04 0.5 MG Metoprolol Succinate 25 mg 25 mg DAILY PO 03/29/16 09:00 04/28/16 08:59 04/03/16 08:39 25 MG Lorazepam 0.5 mg/ Syringe 1 ml @ 1 mls/min Q4H PRN IV 03/29/16 23:45 04/28/16 23:44 03/30/16 18:38 1 MLS/MIN Acetaminophen/ Empty Bag (Ofirmev IV/ Empty Iv Bag 100ml) 65 ml @ 260 mls/hr Q6H PRN IV 03/30/16 18:15 04/29/16 18:14 Vancomycin HCl (Consult) 1 ea UD PRN N/A 03/30/16 19:45 04/29/16 19:44 Piperacillin Sod/ Tazobactam Sod (Consult) 1 ea UD PRN N/A 03/31/16 09:00 04/30/16 08:59 Albuterol/ Ipratropium 3 ml 3 ml Q2H PRN INH 03/30/16 22:00 04/29/16 21:59 Piperacillin Sod/ Tazobactam Sod/ Dextrose (Zosyn Iv/D5 100ml) 115 ml @ 28.75 mls/ hr Q8H IV 03/31/16 03:30 04/10/16 03:29 04/03/16 11:24 28.75 MLS/HR Hydromorphone HCl (Dilaudid Inj) 1 mg Q3H PRN IV 03/31/16 11:15 04/14/16 11:14 03/31/16 11:55 1 MG Tramadol HCl (Ultram Tab) 50 mg Q6H PRN PO 03/31/16 14:15 04/30/16 14:14 04/02/16 14:27 50 MG Hydralazine HCl (HydrALAZINE INJ) 10 mg Q8H PRN IV. 03/31/16 17:45 04/30/16 17:44 Docusate Sodium (coLACE CAP) 100 mg BID PRN PO 03/31/16 17:45 04/30/16 17:44 Polyethylene (Miralax Powder Packet) 17 gm DAILY PRN PO 03/31/16 17:45 04/30/16 17:44 Acetaminophen (Tylenol Tab) 650 mg Q6H PRN PO 04/01/16 02:15 05/01/16 02:14 04/02/16 23:04 650 MG Loperamide HCl 2 mg 2 mg UD PRN PO 04/01/16 12:30 05/01/16 12:29 04/02/16 19:38 2 MG Pantoprazole Sodium/Syringe (Protonix Inj/ Syringe) 10 ml @ 5 mls/min DAILY@11 IV 04/02/16 11:00 05/02/16 10:59 04/03/16 11:25 5 MLS/MIN Al Hydroxide/Mg Hydroxide (Maalox Susp) 30 ml Q6H PRN PO 04/01/16 12:30 05/01/16 12:29 Potassium Chloride (Klor-Con Tab) 40 meq BID PO 04/02/16 08:00 05/02/16 07:59 04/03/16 08:39 40 MEQ Magnesium Oxide 400 mg 400 mg BID PO 04/02/16 09:00 05/02/16 08:59 04/03/16 08:39 400 MG Potassium Chloride/Dextrose/ Sod Cl (D5nss + 20meq KCl) 1,000 ml @ 100 mls/hr Q10H IV 04/02/16 15:00 05/02/16 14:59 04/03/16 11:25 100 MLS/HR Clonidine HCl 0.1 mg 0.1 mg Q6H PRN PO 04/02/16 14:45 05/02/16 14:44 Vancomycin HCl/ Sodium Chloride (Vancomycin Inj/ Nss 250ml) 272 ml @ 125 mls/hr Q12@0800,1999 IV 04/03/16 08:00 04/08/16 23:59 04/03/16 08:38 125 MLS/HR
[2016-04-03 11:57] LABS: BUN/CREATININE RATIO 4.3 (10-20); CALCIUM 8.3 mg/dl (8.5-10.1); CREATININE 1.2 mg/dl (0.60-1.20); MAGNESIUM 1.6 mg/dl (1.8-2.4); POTASSIUM 3.5 mmol/L (3.5-5.1)
[2016-04-03 11:58] LABS: PHOSPHORUS 2.9 mg/dl (2.5-4.9)
[2016-04-03] MEDS: LOPERAMIDE HCL 2 MG CAP PO PRN ×2 (17:05→19:54)
[2016-04-03] MEDS ORDERED: CLONIDINE HCL 0.1 MG TAB PO PRN (17:15)
[2016-04-03] MEDS: HydrALAZINE HCL 20 MG/ML VIAL IV. PRN (17:57)
[2016-04-03] MEDS: ACETAMINOPHEN 325 MG TAB PO PRN (19:19)
[2016-04-03] MEDS ORDERED: MAGNESIUM SULFATE 1GM / D5W 1 GM in PREMIXED IN D5W 100 ML IV ONE (23:00)
[2016-04-04 00:21] VITALS: BP 161/85; PULSE 64; TEMP 36.6; O2SAT 98
[2016-04-04] MEDS: PIPERACILL/TAZOBAC IV 3.375 GM in DEXTROSE 5% 100ML IV SCH ×3 (03:46→21:15)
[2016-04-04] MEDS ORDERED: VANCOMYCIN TROUGH ONE (07:30)
[2016-04-04] MEDS: VANCOMYCIN INJ 1,100 MG in SODIUM CHLORIDE 0.9% 250ML 250 ML IV SCH ×2 (07:41→21:15)
[2016-04-04] MEDS: POTASSIUM CHLORIDE 20 MEQ TABCR PO SCH ×2 (07:43→21:14)
[2016-04-04] MEDS: METOPROLOL SUCC 25MG EXT REL TAB PO SCH (07:43)
[2016-04-04 07:47] VITALS: BP 149/69; PULSE 62; TEMP 37.1; O2SAT 96
[2016-04-04 07:59] LABS: BASO % 0.2 %; BASO ABS # 0.02 K/uL (0-0.2); COMPLETE YES; EOS % 0.2 %; HEMATOCRIT 27.3 % (37-47); IG% 2.1 %; LYMPH % 10.6 %; MEAN CELL VOLUME 88.6 fL (80-100); MEAN CORPUSCULAR HEMOGLOBIN 30.5 pg (25-34); MEAN CORPUSCULAR HGB CONC 34.4 g/dl (32-36); MEAN PLATELET VOLUME 8.3 fL (7.4-10.4); MONO % 5.5 %; NEUT % 81.4 %; PLATELET COUNT 556 K/uL (130-400); RED BLOOD COUNT 3.08 M/uL (4.2-5.4); WHITE BLOOD COUNT 11.36 K/uL (4.8-10.8)
[2016-04-04] MEDS: D5NSS + 20MEQ KCL 1,000 ML IV SCH ×2 (07:59→17:26)
[2016-04-04 08:24] LABS: BUN/CREATININE RATIO 3.8 (10-20); CALCIUM 8.7 mg/dl (8.5-10.1); CREATININE 1.3 mg/dl (0.60-1.20); MAGNESIUM 1.8 mg/dl (1.8-2.4); POTASSIUM 3.8 mmol/L (3.5-5.1)
[2016-04-04 08:26] LABS: PHOSPHORUS 2.9 mg/dl (2.5-4.9)
--- NOTE | 2016-04-04 09:23 | Pharmacy Progress Note ---
Pharmacy Antibiotic Prog Note Date of Service: Apr 04, 2016. Subjective: The patient is currently receiving vancomycin 1100mg IV q12h and pip/tazo 3.375g IV q8h. The patient is currently on day #6 of vancomycin IV and pip/tazo IV therapies. Objective: Height (Feet): 5 Height (Inches): 4.00 Weight (Kilograms): 70.000 Levels: Item Value Date Time Random Vancomycin Level 17.2 mcg/ml 03/31/16 0612 Vancomycin Level Trough 9.6 mcg/ml 04/02/16 1743 Vancomycin Level Trough 16.7 mcg/ml 04/04/16 0735 Lab Results (24hrs): Laboratory Tests Test 04/04/16 07:35 BUN/Creatinine Ratio 3.8 Blood Urea Nitrogen 5 mg/dl Creatinine 1.30 mg/dl White Blood Count 11.36 K/uL Red Blood Count 3.08 M/uL Hemoglobin 9.4 g/dL Hematocrit 27.3 % Mean Corpuscular Volume 88.6 fL Mean Corpuscular Hemoglobin 30.5 pg Mean Corpuscular Hemoglobin Concent 34.4 g/dl Platelet Count 556 K/uL Mean Platelet Volume 8.3 fL Neutrophils (%) (Auto) 81.4 % Lymphocytes (%) (Auto) 10.6 % Monocytes (%) (Auto) 5.5 % Eosinophils (%) (Auto) 0.2 % Basophils (%) (Auto) 0.2 % Neutrophils # (Auto) 9.26 K/uL Lymphocytes # (Auto) 1.20 K/uL Monocytes # (Auto) 0.62 K/uL Eosinophils # (Auto) 0.02 K/uL Basophils # (Auto) 0.02 K/uL Micro Results: Item Value Date Time Urine Culture - Final Complete 03/28/16 2355 Urine , Clean Catch NO GROWTH - LESS THAN 1,000 COLONIES/ML C.difficile Toxin B Gene (PCR) - Final Complete 03/29/16 0000 Stool No C. difficile toxin B gene detected Blood Culture - Final Complete 03/29/16 2250 Blood NO GROWTH Blood Culture - Final Complete 03/29/16 2300 Blood NO GROWTH Shiga Toxin Test - Final Complete 03/30/16 1950 Stool Gram Stain - Final Complete 04/01/16 0000 Sputum Expectorated Sputum Blood Culture - Preliminary Resulted 04/02/16 1530 Blood NO GROWTH TO DATE. Blood Culture - Preliminary Resulted 04/02/16 1537 Blood NO GROWTH TO DATE. Urine Culture Received 04/02/16 2300 Urine , Clean Catch Pending C.difficile Toxin B Gene (PCR) - Final Complete 04/03/16 0000 Stool No C. difficile toxin B gene detected Assessment & Plan: ASSESSMENT: * Patient is a 65 year-old female admitted with possible LLL pneumonia, sepsis, and UTI. * Noted patient has a left renal cyst and a slight increase in SCr noted today. * Pharmacy was consulted to dose the vancomycin IV and pip/tazo IV therapy. * Patient is on vancomycin 1100mg IV q12h. * Goal trough of 15-20mcg/ml. * Trough level came back at 16.7mcg/ml, which is therapeutic. * ID was consulted on the patient. * Cultures did not reveal any growing organisms thus far. PLAN: * Will continue patient on vancomycin 1100mg IV q12h and on pip/tazo 3.375g IV q8h. * Will watch for trend in renal function in patient. Thus will order another vancomcyin trough level on 04/05 @0730. Pharmacy will continue to follow and will adjust dose/frequency as necessary. Thank you
[2016-04-04] MEDS: PANTOprazole INJ 40 MG in SYRINGE 0 ML IV SCH (11:20)
[2016-04-04 15:21] VITALS: BP 138/70; PULSE 69; TEMP 37.4; O2SAT 100
[2016-04-04] MEDS ORDERED: AMLODIPINE BESYLATE 5 MG TAB PO ONE (15:45)
--- NOTE | 2016-04-04 18:49 | Infectious Disease Progress Nt ---
Progress Note Date of Service Apr 04, 2016. Subjective patient continues with mild left-sided abdominal pain. hemodynamically stable overnight. No further fever. No new systemic complaints. All Other Systems: Reviewed and Negative Medications Current Inpatient Medications Medications (Trade) Dose Ordered Sig/Rubio Route Start Time Stop Time Status Last Admin Dose Admin Nitroglycerin (Nitrostat Tab) 0.4 mg UD PRN SL 03/29/16 02:15 04/28/16 02:14 Ondansetron HCl 4 mg 4 mg Q6H PRN IV 03/29/16 02:15 04/28/16 02:14 03/31/16 04:06 4 MG Promethazine HCl/ Sodium Chloride (Phenergan Inj/ Nss 50ml) 50.5 ml @ 204 mls/hr Q6H PRN IV 03/29/16 02:15 04/28/16 02:14 Lorazepam (Ativan Inj) 0.5 mg Q4H PRN IV 03/29/16 02:15 04/28/16 02:14 04/02/16 04:04 0.5 MG Metoprolol Succinate 25 mg 25 mg DAILY PO 03/29/16 09:00 04/28/16 08:59 04/04/16 07:43 25 MG Lorazepam 0.5 mg/ Syringe 1 ml @ 1 mls/min Q4H PRN IV 03/29/16 23:45 04/28/16 23:44 03/30/16 18:38 1 MLS/MIN Acetaminophen/ Empty Bag (Ofirmev IV/ Empty Iv Bag 100ml) 65 ml @ 260 mls/hr Q6H PRN IV 03/30/16 18:15 04/29/16 18:14 Vancomycin HCl (Consult) 1 ea UD PRN N/A 03/30/16 19:45 04/29/16 19:44 Piperacillin Sod/ Tazobactam Sod (Consult) 1 ea UD PRN N/A 03/31/16 09:00 04/30/16 08:59 Albuterol/ Ipratropium 3 ml 3 ml Q2H PRN INH 03/30/16 22:00 04/29/16 21:59 Piperacillin Sod/ Tazobactam Sod/ Dextrose (Zosyn Iv/D5 100ml) 115 ml @ 28.75 mls/ hr Q8H IV 03/31/16 03:30 04/10/16 03:29 04/04/16 11:21 28.75 MLS/HR Hydromorphone HCl (Dilaudid Inj) 1 mg Q3H PRN IV 03/31/16 11:15 04/14/16 11:14 03/31/16 11:55 1 MG Tramadol HCl (Ultram Tab) 50 mg Q6H PRN PO 03/31/16 14:15 04/30/16 14:14 04/02/16 14:27 50 MG Hydralazine HCl (HydrALAZINE INJ) 10 mg Q8H PRN IV. 03/31/16 17:45 04/30/16 17:44 04/03/16 17:57 10 MG Polyethylene (Miralax Powder Packet) 17 gm DAILY PRN PO 03/31/16 17:45 04/30/16 17:44 Acetaminophen (Tylenol Tab) 650 mg Q6H PRN PO 04/01/16 02:15 05/01/16 02:14 04/03/16 19:19 650 MG Loperamide HCl (Imodium Cap) 2 mg UD PRN PO 04/01/16 12:30 05/01/16 12:29 04/03/16 19:54 2 MG Al Hydroxide/Mg Hydroxide (Maalox Susp) 30 ml Q6H PRN PO 04/01/16 12:30 05/01/16 12:29 Potassium Chloride 40 meq 40 meq BID PO 04/02/16 08:00 05/02/16 07:59 04/04/16 07:43 40 MEQ Potassium Chloride/Dextrose/ Sod Cl 1,000 ml @ 100 mls/hr Q10H IV 04/02/16 15:00 05/02/16 14:59 04/04/16 17:26 100 MLS/HR Vancomycin HCl/ Sodium Chloride (Vancomycin Inj/ Nss 250ml) 272 ml @ 125 mls/hr Q12@0800,2000 IV 04/03/16 08:00 04/08/16 23:59 04/04/16 07:41 125 MLS/HR Diphenoxylate HCl/ Atropine (Lomotil Tab) 1 tab QID PRN PO 04/03/16 11:45 05/03/16 11:44 Clonidine HCl (Catapres Tab) 0.1 mg Q6 PRN PO 04/03/16 17:15 05/03/16 17:14 04/03/16 23:13 0.1 MG Amlodipine Besylate (Norvasc Tab) 5 mg QAM PO 04/05/16 09:00 05/05/16 08:59 Pantoprazole Sodium (Protonix Tab) 40 mg QAM PO 04/05/16 09:00 05/05/16 08:59 Objective Vital Signs Date Time Temp Pulse Resp B/P Pulse Ox O2 Delivery O2 Flow Rate FiO2 04/04/16 15:25 Room Air 04/04/16 15:21 37.4 69 18 138/70 100 04/04/16 08:00 Room Air 04/04/16 07:47 37.1 62 20 149/69 96 Room Air 04/04/16 00:21 36.6 64 18 161/85 98 Room Air 04/04/16 00:00 Room Air 04/03/16 23:13 67 161/86 04/03/16 20:00 Room Air 04/03/16 19:01 157/70 Physical Exam General Appearance: WD/WN, no apparent distress Eyes: normal inspection, sclerae normal ENT: normal ENT inspection, pharynx normal Neck: supple, no adenopathy, trachea midline Respiratory/Chest: chest non-tender, lungs clear, normal breath sounds, no respiratory distress Cardiovascular: regular rate, rhythm, no gallop, no murmur Abdomen: normal bowel sounds, soft, no organomegaly, + tenderness ( Left side) Extremities: non-tender, no calf tenderness Neurologic/Psychiatric: alert, oriented x 3 Skin: normal color, warm/dry, no rash Lymphatic: no adenopathy Laboratory Results Last 24 Hours Test 04/04/16 07:35 04/04/16 15:37 White Blood Count 11.36 K/uL Red Blood Count 3.08 M/uL Hemoglobin 9.4 g/dL Hematocrit 27.3 % Mean Corpuscular Volume 88.6 fL Mean Corpuscular Hemoglobin 30.5 pg Mean Corpuscular Hemoglobin Concent 34.4 g/dl Platelet Count 556 K/uL Mean Platelet Volume 8.3 fL Neutrophils (%) (Auto) 81.4 % Lymphocytes (%) (Auto) 10.6 % Monocytes (%) (Auto) 5.5 % Eosinophils (%) (Auto) 0.2 % Basophils (%) (Auto) 0.2 % Neutrophils # (Auto) 9.26 K/uL Lymphocytes # (Auto) 1.20 K/uL Monocytes # (Auto) 0.62 K/uL Eosinophils # (Auto) 0.02 K/uL Basophils # (Auto) 0.02 K/uL RDW Standard Deviation 43.8 fL RDW Coefficient of Variation 13.6 % Immature Granulocyte % (Auto) 2.1 % Immature Granulocyte # (Auto) 0.24 K/uL Sodium Level 142 mmol/L Potassium Level 3.8 mmol/L Chloride Level 109 mmol/L Carbon Dioxide Level 21 mmol/L Anion Gap 12.0 mmol/L Blood Urea Nitrogen 5 mg/dl Creatinine 1.30 mg/dl Est Creatinine Clear Calc Drug Dose 42.5 ml/min Estimated GFR () 50.6 Estimated GFR (Non- 43.6 BUN/Creatinine Ratio 3.8 Random Glucose 146 mg/dl Calcium Level 8.7 mg/dl Phosphorus Level 2.9 mg/dl Magnesium Level 1.8 mg/dl Vancomycin Level Trough 16.7 mcg/ml Procalcitonin 0.13 ng/mL Assessment and Plan Fever and abdominal pain in 65-year-old female, with what appears to be possible lower lobe pneumonia as well complex left renal cyst with probable hemorrhage, which could also explain persistent fever. For now, vancomycin and Zosyn will provide adequate coverage, hopefully to transition to oral Rx in next day or so.
--- NOTE | 2016-04-04 21:26 | Progress Note ---
Medicine Progress Note Date & Time of Visit: Apr 04, 2016 at 21:20. Subjective patient evaluated with her at the bedside states she is feeling somewhat better today appetite improving, less weak less diarrhea less left flank pain denies other symptoms Objective Last 8 Hrs Date Time Temp Pulse Resp B/P Pulse Ox O2 Delivery O2 Flow Rate FiO2 04/04/16 15:25 Room Air 04/04/16 15:21 37.4 69 18 138/70 100 Physical Exam: General- oriented x 3, not in distress, speaks in sentences with no effort Eyes- anicteric Neck- no JVD Lungs- no rales/wheezes; clear breath sounds bilaterally Heart- normal rate, regular rhythm; no murmurs Abdomen- normal bowel sounds, soft, mild LUQ tenderness, no masses , no Decker' s sign Extremities- no pretibial edema, no calf tenderness Neuro- alert, oriented x 3; no gross focal deficits Skin- warm & dry Laboratory Results: Last 24 Hours Test 04/04/16 07:35 04/04/16 15:37 White Blood Count 11.36 K/uL Red Blood Count 3.08 M/uL Hemoglobin 9.4 g/dL Hematocrit 27.3 % Mean Corpuscular Volume 88.6 fL Mean Corpuscular Hemoglobin 30.5 pg Mean Corpuscular Hemoglobin Concent 34.4 g/dl Platelet Count 556 K/uL Mean Platelet Volume 8.3 fL Neutrophils (%) (Auto) 81.4 % Lymphocytes (%) (Auto) 10.6 % Monocytes (%) (Auto) 5.5 % Eosinophils (%) (Auto) 0.2 % Basophils (%) (Auto) 0.2 % Neutrophils # (Auto) 9.26 K/uL Lymphocytes # (Auto) 1.20 K/uL Monocytes # (Auto) 0.62 K/uL Eosinophils # (Auto) 0.02 K/uL Basophils # (Auto) 0.02 K/uL RDW Standard Deviation 43.8 fL RDW Coefficient of Variation 13.6 % Immature Granulocyte % (Auto) 2.1 % Immature Granulocyte # (Auto) 0.24 K/uL Sodium Level 142 mmol/L Potassium Level 3.8 mmol/L Chloride Level 109 mmol/L Carbon Dioxide Level 21 mmol/L Anion Gap 12.0 mmol/L Blood Urea Nitrogen 5 mg/dl Creatinine 1.30 mg/dl Est Creatinine Clear Calc Drug Dose 42.5 ml/min Estimated GFR () 50.6 Estimated GFR (Non- 43.6 BUN/Creatinine Ratio 3.8 Random Glucose 146 mg/dl Calcium Level 8.7 mg/dl Phosphorus Level 2.9 mg/dl Magnesium Level 1.8 mg/dl Vancomycin Level Trough 16.7 mcg/ml Procalcitonin 0.13 ng/mL Assessment & Plan 65 yo female with history of hypertension, chronic LBBB, Renal cysts presented with Nausea , vomiting , diarrhea , abdominal pain LEFT KIDNEY CYST WITH BLEEDING - CT abdomen /pelvis done on ER visit : No evidence of bowel obstruction , no evidence of free air, colonic diverticulum , no evidence of acute diverticulitis . normal appendix, cholelithiasis suspected adenomyomatosis - repeat CT ABDOMEN /PELVIS for ongoing abdominal pain - IMPRESSION: 1. Complex 9 cm cystic lesion within the left kidney with areas of acute/subacute hemorrhage. Urological consultation is recommended. 2. Cholelithiasis 3. No evidence of bowel obstruction. No evidence of free air. renal USG ordered : 1. Re demonstration of the 9.4 cm complex cystic lesion within the mid to upper pole of the left kidney which extends into the renal sinus. This contains several thin septations and suspected blood clot, as shown on prior CT. The imaging appearance favors a benign lesion but imaging follow up is recommended. 2. No hydronephrosis. Urology consulted with dr Gordon appreciate input - evaluated by Dr. Gordon conservative management, repeat imaging in 6 weeks - no antiplatelets, NSAIDs, anticoagulants Hg stable -- left flank pain improving, Hg stable repeat imaging in 6 weeks FEVER -- no fever x 2 days repeat blood, urine cultures, C diff: negative from Hemorrhagic renal cyst? Partially Treated UTI? initial urine cultures negative repeat urine cultures negative on Zosyn from Aspiration Pneumonia? CXray shows new left lower lobe infiltrate sputum culture: normal sudhir initial blood cultures negative continue Vanco and Zosyn Dehydration from Diarrhea? initial C diff and Stool cultures negative repeat C diff: negative Loperamide PRN, added Lomotil continue IV fluids mechanical soft diet MILD DIRECT BILIRUBINEMIA, ELEVATED ALK PHOS due to dehydration /viral illness USG of liver : 1. Suspected gallstone 2. Gallbladder wall thickening and areas of reverberation artifact consistent with adenomyomatosis. A masslike appearance of the gallbladder fundus, likely epresents more focal adenomyomatosis. No ductal dilatation. - improving hepatitis panel -negative ACUTE RENAL FAILURE due to above diarrhea /fever /dehydration presented with Cr > 2 ( was 1.0 on 03/25/16 ) had CT abdomen with contrast study on 03/25/16 - crea improved to 1.3 - continue D5 NSS appreciate Nephro consult HYPOKALEMIA, HYPOMAGNESEMIA due to GI loss , diarrhea, nausea , vomiting -- replace and monitor HYPERTENSION -- continue Metoprolol hold Losartan add Amlodipine PRN Clonidine mild elevation of troponin due to NARCISA no complain of chest pain , no EKG change -chronic LBBB at baseline pt is very active , no complain of AARON repeat troponin level normalized ECHO: Normal LV chamber size with mild concentric LVH. * Normal LV systolic function, EF 55-60%. * Abnormal septal wall motion consistent with LBBB pattern, otherwise, normal wall motion. * Grade I diastolic dysfunction. * The right ventricular cavity size is normal (basal dimension <4.2 cm in right ventricular apical 4-chamber view). * The right ventricular systolic function is normal as assessed by tricuspid annular plane systolic excursion (TAPSE) (normal >1.5 cm). * Grade I diastolic dysfunction. * Mild aortic regurgitation. v/q scan shows no evidence of PE lower ext Doppler negative for DVT DVT PROPHYLAXIS low risk scd and teds avoid anticoagulation due to bleeding in left renal cyst ambulation DISPOSITION possible d/c home tomorrow Medicine follow up with Dr Elena will need out pt follow up with Urology Dr Gordon Current Inpatient Medications: Current Inpatient Medications Medications (Trade) Dose Ordered Sig/Rubio Route Start Time Stop Time Status Last Admin Dose Admin Nitroglycerin (Nitrostat Tab) 0.4 mg UD PRN SL 03/29/16 02:15 04/28/16 02:14 Ondansetron HCl 4 mg 4 mg Q6H PRN IV 03/29/16 02:15 04/28/16 02:14 03/31/16 04:06 4 MG Promethazine HCl/ Sodium Chloride (Phenergan Inj/ Nss 50ml) 50.5 ml @ 204 mls/hr Q6H PRN IV 03/29/16 02:15 04/28/16 02:14 Lorazepam (Ativan Inj) 0.5 mg Q4H PRN IV 03/29/16 02:15 04/28/16 02:14 04/02/16 04:04 0.5 MG Metoprolol Succinate 25 mg 25 mg DAILY PO 03/29/16 09:00 04/28/16 08:59 04/04/16 07:43 25 MG Lorazepam 0.5 mg/ Syringe 1 ml @ 1 mls/min Q4H PRN IV 03/29/16 23:45 04/28/16 23:44 03/30/16 18:38 1 MLS/MIN Acetaminophen/ Empty Bag (Ofirmev IV/ Empty Iv Bag 100ml) 65 ml @ 260 mls/hr Q6H PRN IV 03/30/16 18:15 04/29/16 18:14 Vancomycin HCl (Consult) 1 ea UD PRN N/A 03/30/16 19:45 04/29/16 19:44 Piperacillin Sod/ Tazobactam Sod (Consult) 1 ea UD PRN N/A 03/31/16 09:00 04/30/16 08:59 Albuterol/ Ipratropium 3 ml 3 ml Q2H PRN INH 03/30/16 22:00 04/29/16 21:59 Piperacillin Sod/ Tazobactam Sod/ Dextrose (Zosyn Iv/D5 100ml) 115 ml @ 28.75 mls/ hr Q8H IV 03/31/16 03:30 04/10/16 03:29 04/04/16 21:15 28.75 MLS/HR Hydromorphone HCl (Dilaudid Inj) 1 mg Q3H PRN IV 03/31/16 11:15 04/14/16 11:14 03/31/16 11:55 1 MG Tramadol HCl (Ultram Tab) 50 mg Q6H PRN PO 03/31/16 14:15 04/30/16 14:14 04/02/16 14:27 50 MG Hydralazine HCl (HydrALAZINE INJ) 10 mg Q8H PRN IV. 03/31/16 17:45 04/30/16 17:44 04/03/16 17:57 10 MG Polyethylene (Miralax Powder Packet) 17 gm DAILY PRN PO 03/31/16 17:45 04/30/16 17:44 Acetaminophen (Tylenol Tab) 650 mg Q6H PRN PO 04/01/16 02:15 05/01/16 02:14 04/03/16 19:19 650 MG Loperamide HCl (Imodium Cap) 2 mg UD PRN PO 04/01/16 12:30 05/01/16 12:29 04/03/16 19:54 2 MG Al Hydroxide/Mg Hydroxide (Maalox Susp) 30 ml Q6H PRN PO 04/01/16 12:30 05/01/16 12:29 Potassium Chloride 40 meq 40 meq BID PO 04/02/16 08:00 05/02/16 07:59 04/04/16 21:14 40 MEQ Potassium Chloride/Dextrose/ Sod Cl 1,000 ml @ 100 mls/hr Q10H IV 04/02/16 15:00 05/02/16 14:59 04/04/16 17:26 100 MLS/HR Vancomycin HCl/ Sodium Chloride (Vancomycin Inj/ Nss 250ml) 272 ml @ 125 mls/hr Q12@0800,2000 IV 04/03/16 08:00 04/08/16 23:59 04/04/16 21:15 125 MLS/HR Diphenoxylate HCl/ Atropine (Lomotil Tab) 1 tab QID PRN PO 04/03/16 11:45 05/03/16 11:44 Clonidine HCl (Catapres Tab) 0.1 mg Q6 PRN PO 04/03/16 17:15 05/03/16 17:14 04/03/16 23:13 0.1 MG Amlodipine Besylate (Norvasc Tab) 5 mg QAM PO 04/05/16 09:00 05/05/16 08:59 Pantoprazole Sodium (Protonix Tab) 40 mg QAM PO 04/05/16 09:00 05/05/16 08:59
[2016-04-04 23:58] VITALS: BP 154/75; PULSE 76; TEMP 37.8; O2SAT 96
[2016-04-05] MEDS: ACETAMINOPHEN 325 MG TAB PO PRN (00:23)
[2016-04-05] MEDS: D5NSS + 20MEQ KCL 1,000 ML IV SCH ×2 (04:04→22:24)
[2016-04-05 04:53] VITALS: BP 163/84; PULSE 64
[2016-04-05] MEDS: PIPERACILL/TAZOBAC IV 3.375 GM in DEXTROSE 5% 100ML IV SCH ×2 (05:07→11:02)
[2016-04-05] MEDS: HydrALAZINE HCL 20 MG/ML VIAL IV. PRN (05:08)
[2016-04-05 06:42] VITALS: BP 140/69; PULSE 72; TEMP 36.5; O2SAT 97
[2016-04-05] MEDS ORDERED: VANCOMYCIN TROUGH ONE (07:30)
[2016-04-05 07:36] LABS: BASO % 0.2 %; BASO ABS # 0.02 K/uL (0-0.2); COMPLETE YES; EOS % 0.2 %; HEMATOCRIT 31.5 % (37-47); IG% 1.5 %; LYMPH % 12.2 %; MEAN CELL VOLUME 88.5 fL (80-100); MEAN CORPUSCULAR HEMOGLOBIN 30.1 pg (25-34); MEAN PLATELET VOLUME 8.4 fL (7.4-10.4); MONO % 4.6 %; NEUT % 81.3 %; PLATELET COUNT 629 K/uL (130-400); RED BLOOD COUNT 3.56 M/uL (4.2-5.4); WHITE BLOOD COUNT 12.34 K/uL (4.8-10.8)
[2016-04-05] MEDS: TRAMADOL HCL 50 MG TAB PO PRN (07:55)
[2016-04-05] MEDS: VANCOMYCIN INJ 1,100 MG in SODIUM CHLORIDE 0.9% 250ML 250 ML IV SCH (07:55)
[2016-04-05] MEDS: POTASSIUM CHLORIDE 20 MEQ TABCR PO SCH ×2 (07:56→21:12)
[2016-04-05] MEDS: PANTOprazole SOD 40 MG TAB PO SCH (07:56)
[2016-04-05] MEDS: AMLODIPINE BESYLATE 5 MG TAB PO SCH (07:56)
[2016-04-05] MEDS: METOPROLOL SUCC 25MG EXT REL TAB PO SCH (07:57)
[2016-04-05 08:12] LABS: BUN/CREATININE RATIO 3.7 (10-20); CALCIUM 9.5 mg/dl (8.5-10.1); CREATININE 1.2 mg/dl (0.60-1.20); POTASSIUM 3.6 mmol/L (3.5-5.1)
[2016-04-05 08:13] LABS: MAGNESIUM 1.8 mg/dl (1.8-2.4); PHOSPHORUS 3.4 mg/dl (2.5-4.9)
[2016-04-05] MEDS ORDERED: MoRPHine SULFATE 4 MG/ML 1 ML CARP\\VIAL IV STA (10:18)
[2016-04-05] MEDS ORDERED: IBUPROFEN 200 MG TAB PO PRN (13:30)
[2016-04-05] MEDS ORDERED: CYCLOBENZAPRINE HCL 5 MG TAB PO ONE (13:34)
[2016-04-05] MEDS ORDERED: AMLODIPINE BESYLATE 5 MG TAB PO PRN (13:45)
[2016-04-05] MEDS ORDERED: CYCLOBENZAPRINE HCL 5 MG TAB PO PRN (13:45)
--- NOTE | 2016-04-05 13:50 | Progress Note ---
Medicine Progress Note Date & Time of Visit: Apr 05, 2016 at 13:38. Subjective since last night, has been having headache- pounding, neck pain worse with movement patient states she was not able to sleep well last night appetite fair no fever/chills denies cough, dyspnea no abdominal pain, diarrhea has resolved hoping to go home soon Objective Last 8 Hrs Date Time Temp Pulse Resp B/P Pulse Ox O2 Delivery O2 Flow Rate FiO2 04/05/16 07:40 Room Air 04/05/16 06:42 36.5 72 18 140/69 97 Room Air Physical Exam: General- oriented x 3, mildly uncomfortable due to pain, speaks in sentences with no effort Eyes- anicteric Neck- no JVD Lungs- clear breath sounds bilaterally Heart- normal rate, regular rhythm; no murmurs Abdomen- normal bowel sounds, soft, no tenderness, no masses , no Decker's sign Extremities- no pretibial edema, no calf tenderness Neuro- alert, oriented x 3; no gross focal deficits Skin- warm & dry Laboratory Results: Last 24 Hours Test 04/04/16 15:37 04/05/16 07:21 Procalcitonin 0.13 ng/mL White Blood Count 12.34 K/uL Red Blood Count 3.56 M/uL Hemoglobin 10.7 g/dL Hematocrit 31.5 % Mean Corpuscular Volume 88.5 fL Mean Corpuscular Hemoglobin 30.1 pg Mean Corpuscular Hemoglobin Concent 34.0 g/dl Platelet Count 629 K/uL Mean Platelet Volume 8.4 fL Neutrophils (%) (Auto) 81.3 % Lymphocytes (%) (Auto) 12.2 % Monocytes (%) (Auto) 4.6 % Eosinophils (%) (Auto) 0.2 % Basophils (%) (Auto) 0.2 % Neutrophils # (Auto) 10.04 K/uL Lymphocytes # (Auto) 1.50 K/uL Monocytes # (Auto) 0.57 K/uL Eosinophils # (Auto) 0.02 K/uL Basophils # (Auto) 0.02 K/uL RDW Standard Deviation 43.1 fL RDW Coefficient of Variation 13.4 % Immature Granulocyte % (Auto) 1.5 % Immature Granulocyte # (Auto) 0.19 K/uL Sodium Level 144 mmol/L Potassium Level 3.6 mmol/L Chloride Level 110 mmol/L Carbon Dioxide Level 23 mmol/L Anion Gap 11.0 mmol/L Blood Urea Nitrogen 4 mg/dl Creatinine 1.20 mg/dl Est Creatinine Clear Calc Drug Dose 45.5 ml/min Estimated GFR () 55.7 Estimated GFR (Non- 48.1 BUN/Creatinine Ratio 3.7 Random Glucose 112 mg/dl Calcium Level 9.5 mg/dl Phosphorus Level 3.4 mg/dl Magnesium Level 1.8 mg/dl Vancomycin Level Trough 20.6 mcg/ml Assessment & Plan 65 yo female with history of hypertension, chronic LBBB, Renal cysts presented with Nausea , vomiting , diarrhea , abdominal pain LEFT KIDNEY CYST WITH BLEEDING - CT abdomen /pelvis done on ER visit : No evidence of bowel obstruction , no evidence of free air, colonic diverticulum , no evidence of acute diverticulitis . normal appendix, cholelithiasis suspected adenomyomatosis - repeat CT ABDOMEN /PELVIS for ongoing abdominal pain - IMPRESSION: 1. Complex 9 cm cystic lesion within the left kidney with areas of acute/subacute hemorrhage. Urological consultation is recommended. 2. Cholelithiasis 3. No evidence of bowel obstruction. No evidence of free air. renal USG ordered : 1. Re demonstration of the 9.4 cm complex cystic lesion within the mid to upper pole of the left kidney which extends into the renal sinus. This contains several thin septations and suspected blood clot, as shown on prior CT. The imaging appearance favors a benign lesion but imaging follow up is recommended. 2. No hydronephrosis. Urology consulted with dr Gordon appreciate input - evaluated by Dr. Gordon conservative management, repeat imaging in 6 weeks - no antiplatelets, NSAIDs, anticoagulants Hg stable -- left flank pain improving, Hg stable repeat imaging in 6 weeks FEVER -- no fever x 3 days repeat blood, urine cultures, C diff: negative from Hemorrhagic renal cyst? Partially Treated UTI? initial urine cultures negative repeat urine cultures negative on Zosyn from Aspiration Pneumonia? CXray shows new left lower lobe infiltrate sputum culture: normal sudhir initial blood cultures negative continue Vanco and Zosyn Dehydration from Diarrhea? Diarrhea RESOLVED initial C diff and Stool cultures negative repeat C diff: negative Loperamide PRN, added Lomotil continue IV fluids mechanical soft diet MILD DIRECT BILIRUBINEMIA, ELEVATED ALK PHOS due to dehydration /viral illness USG of liver : 1. Suspected gallstone 2. Gallbladder wall thickening and areas of reverberation artifact consistent with adenomyomatosis. A masslike appearance of the gallbladder fundus, likely epresents more focal adenomyomatosis. No ductal dilatation. - improving hepatitis panel -negative ACUTE RENAL FAILURE due to above diarrhea /fever /dehydration presented with Cr > 2 ( was 1.0 on 03/25/16 ) had CT abdomen with contrast study on 03/25/16 - crea improved to 1.2 - continue D5 NSS appreciate Nephro consult HYPOKALEMIA, HYPOMAGNESEMIA due to GI loss , diarrhea, nausea , vomiting -- replace and monitor HYPERTENSION -- continue Metoprolol hold Losartan add Amlodipine PRN Clonidine -- improving mild elevation of troponin due to NARCISA no complain of chest pain , no EKG change -chronic LBBB at baseline pt is very active , no complain of AARON repeat troponin level normalized ECHO: Normal LV chamber size with mild concentric LVH. * Normal LV systolic function, EF 55-60%. * Abnormal septal wall motion consistent with LBBB pattern, otherwise, normal wall motion. * Grade I diastolic dysfunction. * The right ventricular cavity size is normal (basal dimension <4.2 cm in right ventricular apical 4-chamber view). * The right ventricular systolic function is normal as assessed by tricuspid annular plane systolic excursion (TAPSE) (normal >1.5 cm). * Grade I diastolic dysfunction. * Mild aortic regurgitation. - v/q scan shows no evidence of PE lower ext Doppler negative for DVT DVT PROPHYLAXIS low risk scd and teds avoid anticoagulation due to bleeding in left renal cyst ambulation DISPOSITION possible d/c home tomorrow Medicine follow up with Dr Elena will need out pt follow up with Urology Dr Gordon Current Inpatient Medications: Current Inpatient Medications Medications (Trade) Dose Ordered Sig/Rubio Route Start Time Stop Time Status Last Admin Dose Admin Nitroglycerin (Nitrostat Tab) 0.4 mg UD PRN SL 03/29/16 02:15 04/28/16 02:14 Ondansetron HCl 4 mg 4 mg Q6H PRN IV 03/29/16 02:15 04/28/16 02:14 03/31/16 04:06 4 MG Promethazine HCl/ Sodium Chloride (Phenergan Inj/ Nss 50ml) 50.5 ml @ 204 mls/hr Q6H PRN IV 03/29/16 02:15 04/28/16 02:14 Lorazepam (Ativan Inj) 0.5 mg Q4H PRN IV 03/29/16 02:15 04/28/16 02:14 04/02/16 04:04 0.5 MG Metoprolol Succinate 25 mg 25 mg DAILY PO 03/29/16 09:00 04/28/16 08:59 04/05/16 07:57 25 MG Lorazepam 0.5 mg/ Syringe 1 ml @ 1 mls/min Q4H PRN IV 03/29/16 23:45 04/28/16 23:44 03/30/16 18:38 1 MLS/MIN Acetaminophen/ Empty Bag (Ofirmev IV/ Empty Iv Bag 100ml) 65 ml @ 260 mls/hr Q6H PRN IV 03/30/16 18:15 04/29/16 18:14 Vancomycin HCl (Consult) 1 ea UD PRN N/A 03/30/16 19:45 04/29/16 19:44 Piperacillin Sod/ Tazobactam Sod (Consult) 1 ea UD PRN N/A 03/31/16 09:00 04/30/16 08:59 Albuterol/ Ipratropium 3 ml 3 ml Q2H PRN INH 03/30/16 22:00 04/29/16 21:59 Piperacillin Sod/ Tazobactam Sod/ Dextrose (Zosyn Iv/D5 100ml) 115 ml @ 28.75 mls/ hr Q8H IV 03/31/16 03:30 04/10/16 03:29 04/05/16 11:02 28.75 MLS/HR Hydromorphone HCl (Dilaudid Inj) 1 mg Q3H PRN IV 03/31/16 11:15 04/14/16 11:14 03/31/16 11:55 1 MG Tramadol HCl (Ultram Tab) 50 mg Q6H PRN PO 03/31/16 14:15 04/30/16 14:14 04/05/16 07:55 50 MG Hydralazine HCl (HydrALAZINE INJ) 10 mg Q8H PRN IV. 03/31/16 17:45 04/30/16 17:44 04/05/16 05:08 10 MG Polyethylene (Miralax Powder Packet) 17 gm DAILY PRN PO 03/31/16 17:45 2/1/17 17:44 Acetaminophen (Tylenol Tab) 650 mg Q6H PRN PO 04/01/16 02:15 05/01/16 02:14 04/05/16 00:23 650 MG Al Hydroxide/Mg Hydroxide (Maalox Susp) 30 ml Q6H PRN PO 04/01/16 12:30 05/01/16 12:29 Potassium Chloride 40 meq 40 meq BID PO 04/02/16 08:00 05/02/16 07:59 04/05/16 07:56 40 MEQ Potassium Chloride/Dextrose/ Sod Cl 1,000 ml @ 60 mls/hr [id number] IV 04/02/16 15:00 05/02/16 14:59 04/05/16 04:04 60 MLS/HR Vancomycin HCl/ Sodium Chloride (Vancomycin Inj/ Nss 250ml) 272 ml @ 125 mls/hr Q12@0800,2000 IV 04/03/16 08:00 04/08/16 23:59 04/05/16 07:55 125 MLS/HR Diphenoxylate HCl/ Atropine (Lomotil Tab) 1 tab QID PRN PO 04/03/16 11:45 05/03/16 11:44 Clonidine HCl (Catapres Tab) 0.1 mg Q6 PRN PO 04/03/16 17:15 05/03/16 17:14 04/03/16 23:13 0.1 MG Amlodipine Besylate (Norvasc Tab) 5 mg QAM PO 04/05/16 09:00 05/05/16 08:59 04/05/16 07:56 5 MG Pantoprazole Sodium (Protonix Tab) 40 mg QAM PO 04/05/16 09:00 05/05/16 08:59 04/05/16 07:56 40 MG Ibuprofen (Advil Tab) 400 mg QID PRN PO 04/05/16 13:30 05/05/16 13:29
[2016-04-05] MEDS: HYDROmorphone INJ 1 MG/ML SYR IV PRN (13:55)
[2016-04-05 14:36] VITALS: BP 138/73; PULSE 73; TEMP 36.8; O2SAT 95
[2016-04-05] MEDS: BOOST VANILLA PO SCH ×4 (15:04→21:00)
[2016-04-05] MEDS: ONDANSETRON INJ 2 MG/ML 2 ML VIAL IV PRN (15:31)
--- NOTE | 2016-04-05 16:35 | Infectious Disease Progress Nt ---
Progress Note Date of Service Apr 05, 2016. Subjective Pt evaluation today including: conversation w/ patient, physical exam, chart review, lab review, review of studies, conversation w/ bi consultant, review of inpatient medication list abdominal pain has improved. Has some headache and neck stiffness. Procalcitonin not significantly elevated. Cultures remain negative. Patient remains afebrile. All Other Systems: Reviewed and Negative Medications Current Inpatient Medications Medications (Trade) Dose Ordered Sig/Rubio Route Start Time Stop Time Status Last Admin Dose Admin Nitroglycerin (Nitrostat Tab) 0.4 mg UD PRN SL 03/29/16 02:15 04/28/16 02:14 Ondansetron HCl 4 mg 4 mg Q6H PRN IV 03/29/16 02:15 04/28/16 02:14 04/05/16 15:31 4 MG Promethazine HCl/ Sodium Chloride (Phenergan Inj/ Nss 50ml) 50.5 ml @ 204 mls/hr Q6H PRN IV 03/29/16 02:15 04/28/16 02:14 Lorazepam (Ativan Inj) 0.5 mg Q4H PRN IV 03/29/16 02:15 04/28/16 02:14 04/02/16 04:04 0.5 MG Metoprolol Succinate 25 mg 25 mg DAILY PO 03/29/16 09:00 04/28/16 08:59 04/05/16 07:57 25 MG Lorazepam 0.5 mg/ Syringe 1 ml @ 1 mls/min Q4H PRN IV 03/29/16 23:45 04/28/16 23:44 03/30/16 18:38 1 MLS/MIN Acetaminophen/ Empty Bag (Ofirmev IV/ Empty Iv Bag 100ml) 65 ml @ 260 mls/hr Q6H PRN IV 03/30/16 18:15 04/29/16 18:14 Albuterol/ Ipratropium (Duoneb) 3 ml Q2H PRN INH 03/30/16 22:00 04/29/16 21:59 Hydromorphone HCl (Dilaudid Inj) 1 mg Q3H PRN IV 03/31/16 11:15 04/14/16 11:14 04/05/16 13:55 1 MG Tramadol HCl (Ultram Tab) 50 mg Q6H PRN PO 03/31/16 14:15 04/30/16 14:14 04/05/16 07:55 50 MG Polyethylene (Miralax Powder Packet) 17 gm DAILY PRN PO 03/31/16 17:45 04/30/16 17:44 Acetaminophen (Tylenol Tab) 650 mg Q6H PRN PO 04/01/16 02:15 05/01/16 02:14 04/05/16 00:23 650 MG Al Hydroxide/Mg Hydroxide (Maalox Susp) 30 ml Q6H PRN PO 04/01/16 12:30 05/01/16 12:29 Potassium Chloride 40 meq 40 meq BID PO 04/02/16 08:00 05/02/16 07:59 04/05/16 07:56 40 MEQ Potassium Chloride/Dextrose/ Sod Cl (D5nss + 20meq KCl) 1,000 ml @ 75 mls/hr [id number] IV 04/02/16 15:00 05/02/16 14:59 04/05/16 04:04 60 MLS/HR Diphenoxylate HCl/ Atropine (Lomotil Tab) 1 tab QID PRN PO 04/03/16 11:45 05/03/16 11:44 Amlodipine Besylate (Norvasc Tab) 5 mg QAM PO 04/05/16 09:00 05/05/16 08:59 04/05/16 07:56 5 MG Pantoprazole Sodium (Protonix Tab) 40 mg QAM PO 04/05/16 09:00 05/05/16 08:59 04/05/16 07:56 40 MG Cyclobenzaprine HCl (Flexeril Tab) 5 mg TID PRN PO 04/05/16 13:45 05/05/16 13:44 Enteral Nutritional Formula (Boost) 1 can TID PO 04/05/16 14:00 05/05/16 13:59 04/05/16 15:04 1 CAN Amlodipine Besylate (Norvasc Tab) 2.5 mg BID PRN PO 04/05/16 13:45 05/05/16 13:44 Objective Vital Signs Date Time Temp Pulse Resp B/P Pulse Ox O2 Delivery O2 Flow Rate FiO2 04/05/16 15:30 Room Air 04/05/16 14:36 36.8 73 18 138/73 95 04/05/16 07:40 Room Air 04/05/16 06:42 36.5 72 18 140/69 97 Room Air 04/05/16 04:53 64 163/84 04/05/16 00:00 Room Air 04/04/16 23:58 37.8 76 18 154/75 96 Room Air Physical Exam General Appearance: WD/WN, no apparent distress Eyes: normal inspection, sclerae normal ENT: normal ENT inspection, pharynx normal Neck: supple, no adenopathy, trachea midline Respiratory/Chest: chest non-tender, lungs clear, normal breath sounds, no respiratory distress Cardiovascular: regular rate, rhythm, no gallop, no murmur Abdomen: normal bowel sounds, soft, no organomegaly, + tenderness ( Mild left- sided) Extremities: non-tender, no calf tenderness Neurologic/Psychiatric: alert, oriented x 3 Skin: normal color, warm/dry, no rash Lymphatic: no adenopathy Laboratory Results Last 24 Hours Test 04/05/16 07:21 White Blood Count 12.34 K/uL Red Blood Count 3.56 M/uL Hemoglobin 10.7 g/dL Hematocrit 31.5 % Mean Corpuscular Volume 88.5 fL Mean Corpuscular Hemoglobin 30.1 pg Mean Corpuscular Hemoglobin Concent 34.0 g/dl Platelet Count 629 K/uL Mean Platelet Volume 8.4 fL Neutrophils (%) (Auto) 81.3 % Lymphocytes (%) (Auto) 12.2 % Monocytes (%) (Auto) 4.6 % Eosinophils (%) (Auto) 0.2 % Basophils (%) (Auto) 0.2 % Neutrophils # (Auto) 10.04 K/uL Lymphocytes # (Auto) 1.50 K/uL Monocytes # (Auto) 0.57 K/uL Eosinophils # (Auto) 0.02 K/uL Basophils # (Auto) 0.02 K/uL RDW Standard Deviation 43.1 fL RDW Coefficient of Variation 13.4 % Immature Granulocyte % (Auto) 1.5 % Immature Granulocyte # (Auto) 0.19 K/uL Sodium Level 144 mmol/L Potassium Level 3.6 mmol/L Chloride Level 110 mmol/L Carbon Dioxide Level 23 mmol/L Anion Gap 11.0 mmol/L Blood Urea Nitrogen 4 mg/dl Creatinine 1.20 mg/dl Est Creatinine Clear Calc Drug Dose 45.5 ml/min Estimated GFR () 55.7 Estimated GFR (Non- 48.1 BUN/Creatinine Ratio 3.7 Random Glucose 112 mg/dl Calcium Level 9.5 mg/dl Phosphorus Level 3.4 mg/dl Magnesium Level 1.8 mg/dl Vancomycin Level Trough 20.6 mcg/ml Assessment and Plan Fever and abdominal pain in 65-year-old female, admitted with fever and signs of sepsis, with negative cultures, and evidence of hemorrhage into complex left renal cyst. Also with question of possible developing left lower lobe pneumonia. Patient has remained afebrile, cultures are negative, and procalcitonin low. Would recommend discontinuation of antibiotics and follow clinical response. Discussed with hospitalist service.
[2016-04-05 23:57] VITALS: BP 149/80; PULSE 72; TEMP 37.2; O2SAT 98
[2016-04-06] MEDS ORDERED: METOPROLOL SUCC 25MG EXT REL TAB PO SCH
[2016-04-06 06:59] LABS: BUN/CREATININE RATIO 3.1 (10-20); CALCIUM 9.2 mg/dl (8.5-10.1); CREATININE 1.2 mg/dl (0.60-1.20); MAGNESIUM 1.9 mg/dl (1.8-2.4); PHOSPHORUS 3.6 mg/dl (2.5-4.9); POTASSIUM 4.1 mmol/L (3.5-5.1)
[2016-04-06 07:20] VITALS: BP 157/83; PULSE 69; TEMP 36.7; O2SAT 96
[2016-04-06] MEDS: AMLODIPINE BESYLATE 5 MG TAB PO SCH (07:47)
[2016-04-06] MEDS: POTASSIUM CHLORIDE 20 MEQ TABCR PO SCH (07:47)
[2016-04-06] MEDS: PANTOprazole SOD 40 MG TAB PO SCH (07:47)
[2016-04-06] MEDS: BOOST VANILLA PO SCH ×2 (07:48)
[2016-04-06] MEDS: METOPROLOL SUCC 25MG EXT REL TAB PO SCH (07:48)
[2016-04-06 08:15] LABS: BASO % 0.2 %; BASO ABS # 0.03 K/uL (0-0.2); COMPLETE YES; EOS % 0.1 %; IG% 1.4 %; LYMPH % 12.1 %; MEAN CELL VOLUME 88.8 fL (80-100); MEAN CORPUSCULAR HEMOGLOBIN 29.8 pg (25-34); MEAN CORPUSCULAR HGB CONC 33.5 g/dl (32-36); MEAN PLATELET VOLUME 8.6 fL (7.4-10.4); MONO % 6.2 %; PLATELET COUNT 758 K/uL (130-400); RED BLOOD COUNT 3.49 M/uL (4.2-5.4); WHITE BLOOD COUNT 13.17 K/uL (4.8-10.8)
[2016-04-06] MEDS: D5NSS + 20MEQ KCL 1,000 ML IV SCH (10:38)
[2016-04-06 14:36] VITALS: BP 149/81; PULSE 70; TEMP 36.6; O2SAT 99
--- NOTE | 2016-04-06 16:03 | Progress Note ---
Medicine Progress Note Date & Time of Visit: Apr 06, 2016 at 15:59. Subjective patient states she feels much better today feels stronger, ambulating better appetite also improved denies flank pain, hematuria no chills states she is ready and would like to be discharged today Objective Last 8 Hrs Date Time Temp Pulse Resp B/P Pulse Ox O2 Delivery O2 Flow Rate FiO2 04/06/16 14:36 36.6 70 18 149/81 99 04/06/16 08:00 Room Air Physical Exam: General- oriented x 3, mildly uncomfortable due to pain, speaks in sentences with no effort Eyes- anicteric Neck- no JVD Lungs- clear breath sounds bilaterally, no rales Heart- normal rate, regular rhythm; no murmurs Abdomen- normal bowel sounds, soft, no tenderness Extremities- no pretibial edema, no calf tenderness Neuro- alert, oriented x 3; no gross focal deficits Skin- warm & dry Laboratory Results: Last 24 Hours Test 04/06/16 06:04 White Blood Count 13.17 K/uL Red Blood Count 3.49 M/uL Hemoglobin 10.4 g/dL Hematocrit 31.0 % Mean Corpuscular Volume 88.8 fL Mean Corpuscular Hemoglobin 29.8 pg Mean Corpuscular Hemoglobin Concent 33.5 g/dl Platelet Count 758 K/uL Mean Platelet Volume 8.6 fL Neutrophils (%) (Auto) 80.0 % Lymphocytes (%) (Auto) 12.1 % Monocytes (%) (Auto) 6.2 % Eosinophils (%) (Auto) 0.1 % Basophils (%) (Auto) 0.2 % Neutrophils # (Auto) 10.53 K/uL Lymphocytes # (Auto) 1.60 K/uL Monocytes # (Auto) 0.82 K/uL Eosinophils # (Auto) 0.01 K/uL Basophils # (Auto) 0.03 K/uL RDW Standard Deviation 43.9 fL RDW Coefficient of Variation 13.5 % Immature Granulocyte % (Auto) 1.4 % Immature Granulocyte # (Auto) 0.18 K/uL Sodium Level 141 mmol/L Potassium Level 4.1 mmol/L Chloride Level 107 mmol/L Carbon Dioxide Level 24 mmol/L Anion Gap 10.0 mmol/L Blood Urea Nitrogen 4 mg/dl Creatinine 1.20 mg/dl Est Creatinine Clear Calc Drug Dose 41.5 ml/min Estimated GFR () 55.7 Estimated GFR (Non- 48.1 BUN/Creatinine Ratio 3.1 Random Glucose 100 mg/dl Calcium Level 9.2 mg/dl Phosphorus Level 3.6 mg/dl Magnesium Level 1.9 mg/dl Assessment & Plan 65 yo female with history of hypertension, chronic LBBB, Renal cysts presented with Nausea , vomiting , diarrhea , abdominal pain LEFT KIDNEY CYST WITH BLEEDING - CT abdomen /pelvis done on ER visit : No evidence of bowel obstruction , no evidence of free air, colonic diverticulum , no evidence of acute diverticulitis . normal appendix, cholelithiasis suspected adenomyomatosis - repeat CT ABDOMEN /PELVIS for ongoing abdominal pain - IMPRESSION: 1. Complex 9 cm cystic lesion within the left kidney with areas of acute/subacute hemorrhage. Urological consultation is recommended. 2. Cholelithiasis 3. No evidence of bowel obstruction. No evidence of free air. renal USG ordered : 1. Re demonstration of the 9.4 cm complex cystic lesion within the mid to upper pole of the left kidney which extends into the renal sinus. This contains several thin septations and suspected blood clot, as shown on prior CT. The imaging appearance favors a benign lesion but imaging follow up is recommended. 2. No hydronephrosis. Urology consulted with dr Gordon appreciate input - evaluated by Dr. Gordon conservative management, repeat imaging in 6 weeks - no antiplatelets, NSAIDs, anticoagulants Hg stable -- left flank pain improving, Hg stable repeat imaging in 6 weeks FEVER -- no fever x 3 days repeat blood, urine cultures, C diff: negative from Hemorrhagic renal cyst? Partially Treated UTI? initial urine cultures negative repeat urine cultures negative was given Zosyn from Aspiration Pneumonia? CXray shows new left lower lobe infiltrate sputum culture: normal sudhir initial blood cultures negative given Vanco and Zosyn Dehydration from Diarrhea? Diarrhea RESOLVED initial C diff and Stool cultures negative repeat C diff: negative Loperamide PRN, added Lomotil continue IV fluids mechanical soft diet MILD DIRECT BILIRUBINEMIA, ELEVATED ALK PHOS due to dehydration /viral illness USG of liver : 1. Suspected gallstone 2. Gallbladder wall thickening and areas of reverberation artifact consistent with adenomyomatosis. A masslike appearance of the gallbladder fundus, likely epresents more focal adenomyomatosis. No ductal dilatation. - improving hepatitis panel -negative ACUTE RENAL FAILURE due to above diarrhea /fever /dehydration presented with Cr > 2 ( was 1.0 on 03/25/16 ) had CT abdomen with contrast study on 03/25/16 - crea improved to 1.2 -given D5 NSS appreciate Nephro consult HYPOKALEMIA, HYPOMAGNESEMIA due to GI loss , diarrhea, nausea , vomiting -- replaced -- monitor HYPERTENSION -- continue Metoprolol hold Losartan/HCTZ until renal function stable resume Amlodipine PRN Clonidine -- improved mild elevation of troponin due to NARCISA no complain of chest pain , no EKG change -chronic LBBB at baseline pt is very active , no complain of AARON repeat troponin level normalized ECHO: Normal LV chamber size with mild concentric LVH. * Normal LV systolic function, EF 55-60%. * Abnormal septal wall motion consistent with LBBB pattern, otherwise, normal wall motion. * Grade I diastolic dysfunction. * The right ventricular cavity size is normal (basal dimension <4.2 cm in right ventricular apical 4-chamber view). * The right ventricular systolic function is normal as assessed by tricuspid annular plane systolic excursion (TAPSE) (normal >1.5 cm). * Grade I diastolic dysfunction. * Mild aortic regurgitation. - v/q scan shows no evidence of PE lower ext Doppler negative for DVT DVT PROPHYLAXIS low risk scd and teds avoided anticoagulation due to bleeding in left renal cyst ambulation DISPOSITION d/c home today ff up with PCP in 3-5 days ff up with Dr. Gordon in 1-2 weeks Current Inpatient Medications: Current Inpatient Medications Medications (Trade) Dose Ordered Sig/Rubio Route Start Time Stop Time Status Last Admin Dose Admin Nitroglycerin (Nitrostat Tab) 0.4 mg UD PRN SL 03/29/16 02:15 04/28/16 02:14 Ondansetron HCl 4 mg 4 mg Q6H PRN IV 03/29/16 02:15 04/28/16 02:14 04/05/16 15:31 4 MG Promethazine HCl/ Sodium Chloride (Phenergan Inj/ Nss 50ml) 50.5 ml @ 204 mls/hr Q6H PRN IV 03/29/16 02:15 04/28/16 02:14 Lorazepam (Ativan Inj) 0.5 mg Q4H PRN IV 03/29/16 02:15 04/28/16 02:14 04/02/16 04:04 0.5 MG Metoprolol Succinate 25 mg 25 mg DAILY PO 03/29/16 09:00 04/28/16 08:59 04/06/16 07:48 25 MG Lorazepam 0.5 mg/ Syringe 1 ml @ 1 mls/min Q4H PRN IV 03/29/16 23:45 04/28/16 23:44 03/30/16 18:38 1 MLS/MIN Acetaminophen/ Empty Bag (Ofirmev IV/ Empty Iv Bag 100ml) 65 ml @ 260 mls/hr Q6H PRN IV 03/30/16 18:15 04/29/16 18:14 Albuterol/ Ipratropium (Duoneb) 3 ml Q2H PRN INH 03/30/16 22:00 04/29/16 21:59 Hydromorphone HCl (Dilaudid Inj) 1 mg Q3H PRN IV 03/31/16 11:15 04/14/16 11:14 04/05/16 13:55 1 MG Tramadol HCl (Ultram Tab) 50 mg Q6H PRN PO 03/31/16 14:15 04/30/16 14:14 04/05/16 07:55 50 MG Polyethylene (Miralax Powder Packet) 17 gm DAILY PRN PO 03/31/16 17:45 04/30/16 17:44 Acetaminophen (Tylenol Tab) 650 mg Q6H PRN PO 04/01/16 02:15 05/01/16 02:14 04/05/16 00:23 650 MG Al Hydroxide/Mg Hydroxide (Maalox Susp) 30 ml Q6H PRN PO 04/01/16 12:30 05/01/16 12:29 Potassium Chloride 40 meq 40 meq BID PO 04/02/16 08:00 05/02/16 07:59 04/06/16 07:47 40 MEQ Potassium Chloride/Dextrose/ Sod Cl (D5nss + 20meq KCl) 1,000 ml @ 75 mls/hr [id number] IV 04/02/16 15:00 05/02/16 14:59 04/06/16 10:38 75 MLS/HR Diphenoxylate HCl/ Atropine (Lomotil Tab) 1 tab QID PRN PO 04/03/16 11:45 05/03/16 11:44 Amlodipine Besylate (Norvasc Tab) 5 mg QAM PO 04/05/16 09:00 05/05/16 08:59 04/06/16 07:47 5 MG Pantoprazole Sodium (Protonix Tab) 40 mg QAM PO 04/05/16 09:00 05/05/16 08:59 04/06/16 07:47 40 MG Cyclobenzaprine HCl (Flexeril Tab) 5 mg TID PRN PO 04/05/16 13:45 05/05/16 13:44 Amlodipine Besylate (Norvasc Tab) 2.5 mg BID PRN PO 04/05/16 13:45 05/05/16 13:44 Enteral Nutritional Formula (Boost Breeze Nutritional Drink) 1 box BID PO 04/06/16 21:00 05/06/16 20:59
[2016-04-06] MEDS ORDERED: METO25TA3 PO (16:05)
[2016-04-06 16:08] VITALS: BP 149/81; PULSE 70; TEMP 36.6; O2SAT 99
[2016-04-06] MEDS ORDERED: NRV5 PO (16:09)
[2016-04-06] MEDS ORDERED: ULT50X PO (16:09)
[2016-04-06] MEDS ORDERED: LMTHP PO (16:09)
--- NOTE | 2016-04-06 16:18 | Discharge Instructions ---
Discharge Instructions Admission Reason for Admission: Elevated Troponin, Hypokalemia Discharge Discharge Diagnosis / Problem: Hemorrhagic Renal Cyst Discharge Goals Goal(s): Diagnostic testing, Therapeutic intervention Activity Recommendations Activity Limitations: as noted below (no heavy exertion until re-evaluated by Primary Care Physician) No driving while taking Tramadol. . Instructions / Follow-Up Instructions / Follow-Up PLEASE CALL PRIMARY CARE PHYSICIAN OR RETURN TO ER IMMEDIATELY IF WITH RECURRENCE OF SYMPTOMS, INCREASING FLANK PAIN, PERSISTENT BLOOD IN THE URINE, FEVER/CHILLS, NAUSEA/VOMITING. DRINK PLENTY OF FLUIDS. FOLLOW UP WITH PRIMARY CARE PHYSICIAN IN 3-5 DAYS (CLINIC TO CALL PATIENT WITH THE APPOINTMENT). FOLLOW UP WITH DR. PRADHAN (UROLOGIST) IN 1-2 WEEKS. TEL.NO. Current Hospital Diet Patient's current hospital diet: AHA Diet (Heart Healthy) Discharge Diet Recommended Diet: AHA Diet (Heart Healthy), Low Sodium Diet (2gm Na), Low Fiber Diet, Low Fat Diet Pending Studies Studies pending at discharge: yes List of pending studies: Blood work - CBC and PRP on follow up with Primary Care Physician. Repeat Ultrasound of the Kidneys in 5 weeks. Laboratory Results Hemoglobin A1c Test 03/28/16 23:35 Range/Units Estimated Average Glucose 117 mg/dl Hemoglobin A1c 5.7 H 4.5-5.6 % Medical Emergencies . Who to Call and When: Medical Emergencies: If at any time you feel your situation is an emergency, please call 911 immediately. . Non-Emergent Contact Non-Emergency issues call your: Primary Care Provider Call Non-Emergent contact if: you have a fever, your pain is not controlled, your pain is worsening, your pain is unusual for you . Past History Medical & Surgical History: (1) Renal cyst (2) LBBB (left bundle branch block) (3) HTN (hypertension) (4) Benign neoplasm of colon (5) H/O total hysterectomy (6) H/O colonoscopy (7) H/O esophagogastroduodenoscopy (8) S/p bladder sling . "Provider Documentation" section prepared by Elbert Man. VTE Core Measure Inpt VTE Proph given/why not?: TDenia Stockings, SCD's
--- NOTE | 2016-04-06 16:38 | Discharge Summary ---
Discharge Summary Admission Date: Mar 29, 2016 at 01:37 Discharge Date: Apr 06, 2016 Discharge Disposition: Home Principal Diagnosis: LEFT KIDNEY CYST WITH BLEEDING Secondary Diagnoses/Problems: Please refer to hospital course below. Procedures: Ct abdomen/pelvis 03/31/16: 1. Complex 9 cm cystic lesion within the left kidney with areas of acute/subacute hemorrhage. 2. Cholelithiasis 3. No evidence of bowel obstruction. No evidence of free air. Renal US: 1. Redemonstration of the 9.4 cm complex cystic lesion within the mid to upper pole of the left kidney which extends into the renal sinus. This contains several thin septations and suspected blood clot, as shown on prior CT. The imaging appearance favors a benign lesion but imaging follow up is recommended. 2. No hydronephrosis. Consultations: Urologist Dr. Pradhan, [place] [employer] Dr. Tejeda, [place] Dr. Kelly Pending Studies/Follow-Up: Repeat CBC and PRP, Mg on follow up with PCP; Repeat US of the kidneys in 5 weeks; Follow up with Dr. Pradhan in 1-2 weeks Medication Reconciliation New Medications: Amlodipine Besylate (Amlodipine Besylate) 5 Mg Tab 5 MG PO QAM for 30 Days, #30 TAB 2 Refills Diphenoxylate/Atropine (Diphenoxylate/Atropine 2.5-0.025 mg) 1 Tab Tab 1 TAB PO QID PRN for Diarrhea, #20 TAB 1 Refill Tramadol HCl (Tramadol HCl) 50 Mg Tab 50 MG PO Q6H PRN for Pain, #10 TAB 0 Refills Continued Medications: Metoprolol Succ (Toprol Xl) (Toprol-Xl) 25 Mg Tabcr 25 MG PO DAILY for 30 Days, #30 TABS 2 Refills (This prescription has been renewed) Discontinued Medications: Ciprofloxacin Hcl (Cipro) 500 Mg Tab 500 MG PO BID for 6 Days, #12 TAB Losartan Potassium (Cozaar) 100 Mg Tab 100 MG PO DAILY Admission Information HPI (per Admitting provider): PRIMARY CARE DOCTOR: Dr. Elena Hx obtained from px and records. CHIEF COMPLAINT: Abdominal pain, nausea, vomiting and diarrhea. HISTORY OF PRESENT ILLNESS: Medical history is significant for hypertension, chronic LBBB, history of L renal cysts. Five days ago, the patient noted left lower quadrant pain symptoms. Seen at the Emergency Room. CAT scan showed cholelithiasis, complex left kidney cyst, 9.8 x 6.3 x 6.0. UA was nitrite positive. Final cultures, no growth. Patient was discharged on Cipro for possible pyelonephritis. Patient had worsening of abdominal pain, achy, more on the left with diarrhea symptoms. About 6 times a day, nonbloody. Px also had nausea, vomiting and some chills. No chest pain, no shortness of breath. Patient was lightheaded. At the Emergency Room, the patient received Zosyn for possible UTI. Physical Exam (per Admitting): VITAL SIGNS: Blood pressure was noted to be 140/82, pulse 57, RR 16, temperature 37 O2sats 96 on room air. GENERAL: Noted to be slightly uncomfortable, in no respiratory distress, looks younger for stated age. HEENT: [place] Clear palpebral conjunctivae. Dry mucosa. SKIN: Normal color. NECK: No JVD. Supple. CHEST: Clear to auscultation. HEART: Regular rate and rhythm. ABDOMEN: Minimal epigastric tenderness, some distention. EXTREMITIES: No edema. No tenderness. NEUROLOGIC: No gross focality. Hospital Course 65 yo female with history of hypertension, chronic LBBB, Renal cysts presented with Nausea , vomiting , diarrhea , abdominal pain LEFT KIDNEY CYST WITH BLEEDING - CT abdomen /pelvis done on ER visit : No evidence of bowel obstruction , no evidence of free air, colonic diverticulum , no evidence of acute diverticulitis . normal appendix, cholelithiasis suspected adenomyomatosis - then, patient presented again to the ER for worsening abdominal pain - repeat CT ABDOMEN /PELVIS IMPRESSION: 1. Complex 9 cm cystic lesion within the left kidney with areas of acute/subacute hemorrhage. Urological consultation is recommended. 2. Cholelithiasis 3. No evidence of bowel obstruction. No evidence of free air. Renal US: 1. Re demonstration of the 9.4 cm complex cystic lesion within the mid to upper pole of the left kidney which extends into the renal sinus. This contains several thin septations and suspected blood clot, as shown on prior CT. The imaging appearance favors a benign lesion but imaging follow up is recommended. 2. No hydronephrosis. Urology consulted with dr Pradhan appreciate input - evaluated by Dr. Pradhan conservative management, no Aspirin, NSAIDs, etc, repeat imaging in 6 weeks - pain improved gradually had 1 episode of mild hematuria 04/05/15, none since discussed with Dr. Pradhan, patient may experience intermittent hematuria at this time patient advised to return to ER if with worsening flank pain, hematuria repeat Renal US in ~5 weeks FEVER - patient developed fever spikes during admission ID consulted- Dr. Kelly was placed on Vanco + Zosyn IV x 7 days, IV fluids fever improved blood, urine and stool cultures: negative x 2 C diff: negative x 2 - possible etiologies of fever include: from Hemorrhagic renal cyst Partially Treated UTI from Aspiration Pneumonia CXray shows new left lower lobe infiltrate Dehydration from Profuse Diarrhea DIARRHEA, Resolved - C diff and cultures negative - given supportive care ACUTE RENAL FAILURE, Resolved due to above diarrhea /fever /dehydration presented with Cr > [address] abdomen with contrast study on 03/25/16 - crea improved to 1.2 after IV fluids was given - Losartan and HCTZ held for now monitor crea HYPOKALEMIA, HYPOMAGNESEMIA, Resolved due to GI loss , diarrhea, nausea , vomiting -- replaced -- monitor HYPERTENSION hold Losartan/HCTZ until renal function stable started on Metoprolol 25mg daily resumed Amlodipine PRN Clonidine -- improved -- monitor MILD DIRECT BILIRUBINEMIA, ELEVATED ALK PHOS likely due to dehydration /viral illness USG of liver : 1. Suspected gallstone 2. Gallbladder wall thickening and areas of reverberation artifact consistent with adenomyomatosis. A masslike appearance of the gallbladder fundus, likely epresents more focal adenomyomatosis. No ductal dilatation. hepatitis panel -negative - improved Mild elevation of Troponin due to NARCISA no complain of chest pain , no EKG change -chronic LBBB at baseline pt is very active , no complain of AARON repeat troponin level normalized ECHO: Normal LV chamber size with mild concentric LVH. * Normal LV systolic function, EF 55-60%. * Abnormal septal wall motion consistent with LBBB pattern, otherwise, normal wall motion. * Grade I diastolic dysfunction. * The right ventricular cavity size is normal (basal dimension <4.2 cm in right ventricular apical 4-chamber view). * The right ventricular systolic function is normal as assessed by tricuspid annular plane systolic excursion (TAPSE) (normal >1.5 cm). * Grade I diastolic dysfunction. * Mild aortic regurgitation. - V/Q scan shows no evidence of PE Lower ext Doppler negative for DVT DISPOSITION d/c home ff up with PCP in 3-5 days ff up with Dr. Pradhan in 1-2 weeks Total time spent on discharge = 45 minutes This includes examination of the patient, discharge planning, medication reconciliation, and communication with other providers. Discharge Instructions Discharge Instructions Admission Reason for Admission: Elevated Troponin, Hypokalemia Discharge Discharge Diagnosis / Problem: Hemorrhagic Renal Cyst Discharge Goals Goal(s): Diagnostic testing, Therapeutic intervention Activity Recommendations Activity Limitations: as noted below (no heavy exertion until re-evaluated by Primary Care Physician) No driving while taking Tramadol. . Instructions / Follow-Up Instructions / Follow-Up PLEASE CALL PRIMARY CARE PHYSICIAN OR RETURN TO ER IMMEDIATELY IF WITH RECURRENCE OF SYMPTOMS, INCREASING FLANK PAIN, PERSISTENT BLOOD IN THE URINE, FEVER/CHILLS, NAUSEA/VOMITING. DRINK PLENTY OF FLUIDS. FOLLOW UP WITH PRIMARY CARE PHYSICIAN IN 3-5 DAYS (CLINIC TO CALL PATIENT WITH THE APPOINTMENT). FOLLOW UP WITH DR. PRADHAN (UROLOGIST) IN 1-2 WEEKS. TEL.NO. Current Hospital Diet Patient's current hospital diet: AHA Diet (Heart Healthy) Discharge Diet Recommended Diet: AHA Diet (Heart Healthy), Low Sodium Diet (2gm Na), Low Fiber Diet, Low Fat Diet Pending Studies Studies pending at discharge: yes List of pending studies: Blood work - CBC and PRP on follow up with Primary Care Physician. Repeat Ultrasound of the Kidneys in 5 weeks. Laboratory Results Hemoglobin A1c Test 03/28/16 23:35 Range/Units Estimated Average Glucose 117 mg/dl Hemoglobin A1c 5.7 H 4.5-5.6 % Medical Emergencies . Who to Call and When: Medical Emergencies: If at any time you feel your situation is an emergency, please call 911 immediately. . Non-Emergent Contact Non-Emergency issues call your: Primary Care Provider Call Non-Emergent contact if: you have a fever, your pain is not controlled, your pain is worsening, your pain is unusual for you . Past History Medical & Surgical History: (1) Renal cyst (2) LBBB (left bundle branch block) (3) HTN (hypertension) (4) Benign neoplasm of colon (5) H/O total hysterectomy (6) H/O colonoscopy (7) H/O esophagogastroduodenoscopy (8) S/p bladder sling . "Provider Documentation" section prepared by Elbert Man. VTE Core Measure Inpt VTE Proph given/why not?: Odilon Arias, BRIANA's
[2016-04-06] MEDS ORDERED: BOOST BREEZE NUTRITION DRINK 1 BOX PO SCH (21:00)
[2016-12-25] MEDS ORDERED: AMLO10TA2 PO (12:36)
[2016-12-25] MEDS ORDERED: CEFD300C2 PO (12:36)
[2016-12-25] MEDS ORDERED: VNCS125 PO (12:36)
== END 2016-04-06 17:40 | disposition home or self-care (01) | DRG 698 ==
LOC: ENRESERVTM → ENRESERVDT → C.EDB 21:20 → C.2T 03-29 01:37 → C.MSW 03-29 15:01 → C.2E 03-30 18:24 → C.MS2W 04-03 13:49
PROVIDERS: ADMIT Internal Medicine; ATTEND Internal Medicine
DX: N28.1 Cyst of kidney, acquired (principal); D30.02 Benign neoplasm of left kidney; J69.0 Pneumonitis due to inhalation of food and vomit; N17.9 Acute kidney failure, unspecified; K57.31 Diverticulosis of large intestine without perforation or abscess with bleeding; N39.0 Urinary tract infection, site not specified; E87.6 Hypokalemia; I10 Essential (primary) hypertension; K80.20 Calculus of gallbladder without cholecystitis without obstruction; I44.7 Left bundle-branch block, unspecified; N28.89 Other specified disorders of kidney and ureter; E86.0 Dehydration; B34.9 Viral infection, unspecified; R19.7 Diarrhea, unspecified

== ENCOUNTER → 2016-05-28 | Outpatient (CLI) | payer OTHER ==
[~2016-05-28] MED LIST changes: +ACET-1256 PO; +AMLO10TA2 PO; +CEFD300C2 PO; +CHOL1000 PO; -CIPR1TAB10 PO; +COEN30CA8 PO; +FERR1TAB13 PO; +FEXO1TAB49 PO; +FLUT0.15 NAE; +FRRS300 PO; +GLUCTAB7 PO; +HYZ/50125 PO; +LEVO-459 PO; +LMTHP PO; -LOSA1TAB38 PO; +MULT-513 PO; +NRV5 PO; +OLOP0.1S2 OP; +OMEG10007 PO; +OMEP40CA41 PO; +ONDA4TAB65 PO; +POTA1TAB PO; +SULF800T23 PO; +ULT50X PO; +VNCS125 PO
--- NOTE | 2016-05-28 13:21 | DIAGNOSTIC IMAGING REPORT ---
ULTRASOUND KIDNEYS AND BLADDER CLINICAL HISTORY: Left renal hematoma. COMPARISON STUDY: Renal ultrasound dated 03/31/[address] dated 03/31/2016. TECHNIQUE: Real-time, grayscale, and color flow sonography of the kidneys and bladder is performed. Images are reviewed in the transverse and longitudinal planes. FINDINGS: Kidneys: The kidneys demonstrate mild cortical atrophy and are normal in echotexture. The right kidney measures left 0.7 x 4.5 x 5.3 cm and the left kidney measures 10.4 x 4.8 x 5.3 cm. There is no hydronephrosis. No shadowing renal calculi are identified. A complex fluid collection is again seen involving the left upper pole. This measures approximately 4.5 x 3 x 3 cm, and likely corresponds to the hematoma seen on 03/31/2016. This is decreased in size from previous when it measured approximately 9.5 x 7.5 x 9.0 cm. No perinephric fluid is identified. Bladder: The bladder is normal in appearance. Bilateral ureteral jets were seen. Upper abdomen: The liver appears steatotic. IMPRESSION: 1. The kidneys demonstrate mild cortical atrophy and are without hydronephrosis. 2. A complex collection involving the upper pole of left kidney has decreased in size when compared to 03/31/2016 as detailed above. The appearance is typical for a renal hematoma. Continued follow-up to complete resolution is recommended. 3. Hepatic steatosis. 4. The bladder is normal as visualized. Electronically signed by: Barney Dover M.D. 05/28/2016 1:19 PM Dictated Date/Time: 05/28/2016 1:16 PM
== END | disposition home or self-care (01) ==
LOC: C.ULTR 12:31
PROVIDERS: ATTEND Urology
DX: N28.89 Other specified disorders of kidney and ureter (principal); N28.1 Cyst of kidney, acquired; K76.0 Fatty (change of) liver, not elsewhere classified

== ENCOUNTER 2016-12-13 21:04 | Emergency (ER) | payer OTHER ==
[~2016-12-13] VITALS: Ht 163.8 cm; Wt 73.7 kg
[~2016-12-13 21:04] MED LIST changes: -ACET-1256 PO; -AMLO10TA2 PO; -CEFD300C2 PO; -CHOL1000 PO; -COEN30CA8 PO; -FERR1TAB13 PO; -FEXO1TAB49 PO; -FLUT0.15 NAE; -FRRS300 PO; -GLUCTAB7 PO; -HYZ/50125 PO; -LEVO-459 PO; -MULT-513 PO; -OLOP0.1S2 OP; -OMEG10007 PO; -OMEP40CA41 PO; -ONDA4TAB65 PO; -PHEN-876 PO; -POTA1TAB PO; -SULF800T23 PO; -VNCS125 PO
[2016-12-13 21:06] VITALS: TEMP 37.1; Ht 163.8 cm; Wt 73.7 kg
[2016-12-13] MEDS ORDERED: ONDANSETRON INJ 2 MG/ML 2 ML VIAL IV STA (21:33)
[2016-12-13] MEDS ORDERED: SODIUM CHLORIDE 0.9% 500ML 500 ML IV STA (21:33)
[2016-12-13] MEDS ORDERED: SODIUM CHLORIDE 0.9% 1000ML 1,000 ML IV STA (21:33)
[2016-12-13 21:44] LABS: BASO % 0.2 %; BASO ABS # 0.02 K/uL (0-0.2); COMPLETE YES; EOS % 0.5 %; HEMATOCRIT 41.9 % (37-47); IG% 0.4 %; LYMPH % 17.8 %; LYMPH ABS # 2.35 K/uL (1.2-3.4); MEAN CELL VOLUME 89.7 fL (80-100); MEAN CORPUSCULAR HEMOGLOBIN 30.4 pg (25-34); MEAN CORPUSCULAR HGB CONC 33.9 g/dl (32-36); MEAN PLATELET VOLUME 9.4 fL (7.4-10.4); MONO % 8.5 %; NEUT % 72.6 %; PLATELET COUNT 274 K/uL (130-400); RED BLOOD COUNT 4.67 M/uL (4.2-5.4); WHITE BLOOD COUNT 13.21 K/uL (4.8-10.8)
[2016-12-13 22:01] LABS: URINE APPEARANCE CLEAR (CLEAR); URINE BILIRUBIN NEG (NEG); URINE COLOR YELLOW; URINE NITRITE NEG (NEG); URINE PH 6.5 (4.5-7.5); URINE SPECIFIC GRAVITY 1.007 (1.000-1.030); UROBILINOGEN NEG (NEG)
--- NOTE | 2016-12-13 22:01 | DIAGNOSTIC IMAGING REPORT ---
CHEST ONE VIEW PORTABLE CLINICAL HISTORY: Fever, chest pain, headache. COMPARISON STUDY: March 31, 2016 FINDINGS: The heart is the upper limits of normal in size. There is mild central vascular prominence without evidence of overt failure. There is no focal pulmonary consolidation. There are no pleural effusions.[ IMPRESSION: AP portable study. No acute findings. Electronically signed by: Tim Elmore M.D. 12/13/2016 10:00 PM Dictated Date/Time: 12/13/2016 9:59 PM
[2016-12-13 22:02] LABS: MANUAL MICROSCOPIC REQUIRED? YES; REVIEW REQ? NO
[2016-12-13] MEDS ORDERED: FERR1TAB13 PO (22:17)
[2016-12-13 22:18] LABS: URINE BACTERIA 3+ (NEG); URINE RBC 0-4 /hpf (0-4); URINE WBC >30 /hpf (0-5)
[2016-12-13 22:19] LABS: ZZUR CULT IF INDIC CLEAN CATCH YES
[2016-12-13] MEDS ORDERED: CEFTRIAXONE SOD INJ 1 GM ADDVIAL IV STA (22:27)
[2016-12-13 22:30] LABS: INR 0.9 (0.9-1.1); PARTIAL THROMBOPLASTIN RATIO 0.9; PROTHROMBIN TIME (PATIENT) 9.7 SECONDS (9.0-12.0)
[2016-12-13 22:31] LABS: ALB/GLOB RATIO 0.7 (0.9-2); BUN/CREATININE RATIO 25.1 (10-20); CALCIUM 9.3 mg/dl (8.5-10.1)
[2016-12-13 22:42] LABS: CKMB/CK RATIO 0.7 (0-3.0)
[2016-12-13] MEDS ORDERED: POTASSIUM CHLORIDE 10 MEQ TABCR PO STA (22:58)
[2016-12-14] MEDS ORDERED: PHEN-876 PO (00:42)
[2016-12-14] MEDS ORDERED: SULF800T23 PO (00:42)
[2016-12-14] MEDS ORDERED: ONDANSETRON HOME PACK 4MG OD TAB PO ONE (00:45)
[2016-12-14] MEDS ORDERED: PHENAZOPYRIDINE HOME PACK 200 MG VIAL PO ONE (00:45)
[2016-12-14] MEDS ORDERED: SEPTRA DS HOME PACK 1 EA VIAL PO ONE (00:45)
--- NOTE | 2016-12-14 01:07 | EMERGENCY ROOM VISIT NOTE ---
History First contact with patient: 21:23 Chief Complaint: FLANK PAIN Stated Complaint: HEADACHE,FEVER,SEVERE BACK PAIN History of Present Illness The patient is a 66 year old female who presents to the Emergency Room with complaints of fever, chills, right flank pain, urinary symptoms with nausea and vomiting for the past several days. Tmax 100.3. Patient states she's had bladder infections before and this feels worse. No recent antibiotics. Patient also complains of some chest discomfort for the past day and a half. No prior heart disease. Patient denies dyspnea, neck stiffness, lethargy. She is tolerate by mouth fluids and food. Review of Systems See HPI for pertinent positives & negatives. A total of 10 systems reviewed and were otherwise negative. Past Medical/Surgical History Medical Problems: (1) Benign neoplasm of colon (2) Elevated troponin (3) HTN (hypertension) (4) LBBB (left bundle branch block) (5) Renal cyst Surgical Problems: (1) H/O colonoscopy (2) H/O esophagogastroduodenoscopy (3) H/O total hysterectomy (4) S/p bladder sling Family History Cardiac disorder FATHER SISTER Diabetes mellitus SISTER FH: cancer SISTER (breast CA) Hypertension FATHER Social History Smoking Status: Never Smoker Alcohol Use: none Drug Use: none Marital Status: Housing Status: lives with family Occupation Status: employed Current/Historical Medications Scheduled Acetaminophen (Tylenol), 1,000 MG PO PRN UD Cholecalciferol (Vitamin D3), 1 TAB PO DAILY Coenzyme Q10 (Ubidecarenone) (Coq-10), 1 MG PO DAILY Fish Oil ([place]-3), 1 CAP PO DAILY Fluticasone Propionate (Nasal) (Flonase Allergy Relief), 2 SPRAYS RAJESH DAILY Hctz/Losartan (Hyzaar 12.5MG/50MG), 1 TAB PO DAILY Metoprolol Succinate (Toprol Xl), 25 MG PO DAILY Multivitamins/Minerals (Mvi With Minerals), 1 TAB PO DAILY Omeprazole (Prilosec), 40 MG PO DAILY Phenazopyridine HCl (Pyridium), 200 MG PO TID Potassium Gluconate (Potassium Gluconate), 1 TAB PO DAILY Sulfa/Trimethoprim (Bactrim Ds 800MG/160MG), 1 TAB PO BID Scheduled PRN Fexofenadine Hcl (Rosa Allergy), 1 TAB PO DAILY PRN for Seasonal Allergies Physical Exam Vital Signs Date Time Temp Pulse Resp B/P (MAP) Pulse Ox O2 Delivery O2 Flow Rate FiO2 12/14/16 00:39 77 24 153/74 96 Room Air 12/13/16 22:52 75 18 166/87 97 Room Air 12/13/16 22:04 79 12/13/16 21:06 37.1 82 18 159/83 97 Room Air Physical Exam VITALS: Vitals are noted on the nurse's note and reviewed by myself. Vital signs hypertensive GENERAL: Pleasant female, in no acute distress, nondiaphoretic, well-developed well-nourished. SKIN: The skin was without rashes, erythema, edema, or bruising. There is no tenting of the skin. Capillary reflex less than 2 seconds. HEAD: Normocephalic atraumatic. EARS: External auditory canals clear, tympanic membranes pearly chamberlain without erythema or effusion bilaterally. EYES: Pupils equal round and reactive to light and accommodation. Conjunctivae without injection, sclerae without icterus. Extraocular movements intact. NOSE: Patent, turbinates without inflammation or discharge. No sinus tenderness. MOUTH: Mucous membranes moist. Pharynx without erythema or exudate. Uvula midline. Airway patent. Tongue does not deviate. NECK: Supple without nuchal rigidity. No lymphadenopathy. No thyromegaly. Cervical spine is nontender. No JVD. HEART: Regular rate and rhythm LUNGS: Clear to auscultation bilaterally without wheezes, rales or rhonchi. No dullness to percussion. No retractions or accessory muscle use. ABDOMEN: Positive bowel sounds x 4. Normal tympanic percussion. Soft, nontender, without masses or organomegaly. Decker sign negative. No guarding or rebound tenderness. Right CVA tenderness MUSCULOSKELETAL: No muscle atrophy, erythema, or edema noted. NEURO: Patient was alert and oriented to person place and time. Normal sensation to light and sharp touch. No focal neurological deficits. Medical Decision & Procedures Laboratory Results 12/13/16 21:25 Red Blood Count 4.67, Mean Corpuscular Volume 89.7, Mean Corpuscular Hemoglobin 30.4, Mean Corpuscular Hemoglobin Concent 33.9, Mean Platelet Volume 9.4, Neutrophils (%) (Auto) 72.6, Lymphocytes (%) (Auto) 17.8, Monocytes (%) (Auto) 8.5, Eosinophils (%) (Auto) 0.5, Basophils (%) (Auto) 0.2, Neutrophils # (Auto) 9.61, Lymphocytes # (Auto) 2.35, Monocytes # (Auto) 1.12, Eosinophils # (Auto) 0.06, Basophils # (Auto) 0.02 12/13/16 21:25 Test 12/13/16 21:25 12/13/16 21:35 12/13/16 21:55 12/13/16 22:09 White Blood Count 13.21 K/uL (4.8-10.8) Red Blood Count 4.67 M/uL (4.2-5.4) Hemoglobin 14.2 g/dL (12.0-16.0) Hematocrit 41.9 % (37-47) Mean Corpuscular Volume 89.7 fL (80-100) Mean Corpuscular Hemoglobin 30.4 pg (25-34) Mean Corpuscular Hemoglobin Concent 33.9 g/dl (32-36) Platelet Count 274 K/uL (130-400) Mean Platelet Volume 9.4 fL (7.4-10.4) Neutrophils (%) (Auto) 72.6 % Lymphocytes (%) (Auto) 17.8 % Monocytes (%) (Auto) 8.5 % Eosinophils (%) (Auto) 0.5 % Basophils (%) (Auto) 0.2 % Neutrophils # (Auto) 9.61 K/uL (1.4-6.5) Lymphocytes # (Auto) 2.35 K/uL (1.2-3.4) Monocytes # (Auto) 1.12 K/uL (0.11-0.59) Eosinophils # (Auto) 0.06 K/uL (0-0.5) Basophils # (Auto) 0.02 K/uL (0-0.2) RDW Standard Deviation 40.8 fL (36.4-46.3) RDW Coefficient of Variation 12.6 % (11.5-14.5) Immature Granulocyte % (Auto) 0.4 % Immature Granulocyte # (Auto) 0.05 K/uL (0.00-0.02) Anion Gap 12.0 mmol/L (3-11) Est Creatinine Clear Calc Drug Dose 56.5 ml/min Estimated GFR () 69.0 Estimated GFR (Non- 59.5 BUN/Creatinine Ratio 25.1 (10-20) Calcium Level 9.3 mg/dl (8.5-10.1) Total Bilirubin 0.6 mg/dl (0.2-1) Aspartate Amino Transf (AST/SGOT) 42 U/L (15-37) Alanine Aminotransferase (ALT/SGPT) 75 U/L (12-78) Alkaline Phosphatase 84 U/L (45-117) Total Creatine Kinase 90 U/L (26-192) Creatine Kinase MB 0.6 ng/ml (0.5-3.6) Creatine Kinase MB Ratio 0.7 (0-3.0) Total Protein 8.7 gm/dl (6.4-8.2) Albumin 3.6 gm/dl (3.4-5.0) Globulin 5.1 gm/dl (2.5-4.0) Albumin/Globulin Ratio 0.7 (0.9-2) Urine Color YELLOW Urine Appearance CLEAR (CLEAR) Urine pH 6.5 (4.5-7.5) Urine Specific [place] 1.007 (1.000-1.030) Urine Protein NEG (NEG) Urine Glucose (UA) NEG (NEG) Urine Ketones NEG (NEG) Urine Occult Blood 1+ (NEG) Urine Nitrite NEG (NEG) Urine Bilirubin NEG (NEG) Urine Urobilinogen NEG (NEG) Urine Leukocyte Esterase LARGE (NEG) Urine WBC (Auto) /hpf (0-5) Urine RBC (Auto) /hpf (0-4) Urine Hyaline Casts (Auto) /lpf (0-5) Urine Epithelial Cells (Auto) /lpf (0-5) Urine Bacteria (Auto) (NEG) Urine RBC 0-4 /hpf (0-4) Urine WBC >30 /hpf (0-5) Urine Epithelial Cells >30 /lpf (0-5) Urine Bacteria 3+ (NEG) Prothrombin Time 9.7 SECONDS (9.0-12.0) Prothromb Time International Ratio 0.9 (0.9-1.1) Activated Partial Thromboplast Time 23.7 SECONDS (21.0-31.0) Partial Thromboplastin Ratio 0.9 Bedside Lactic Acid Venous 0.82 mmol/L (0.90-1.70) Test 12/14/16 00:29 Bedside Troponin I < 0.030 ng/ml (0-0.045) Medications Administered Medications (Trade) Dose Ordered Sig/Rubio Route Start Time Stop Time Status Last Admin Dose Admin Sodium Chloride 1,000 ml @ 125 mls/hr Q8H STAT IV 12/13/16 21:33 12/14/16 05:32 12/13/16 22:12 125 MLS/HR Sodium Chloride 500 ml @ 999 mls/hr Q31M STAT IV 12/13/16 21:33 12/13/16 22:03 DC 12/13/16 21:33 999 MLS/HR Ondansetron HCl (Zofran Inj) 4 mg NOW STAT IV 12/13/16 21:33 12/13/16 21:35 DC 12/13/16 21:33 4 MG Ceftriaxone Sodium (Rocephin Inj) 1 gm NOW STAT IV 12/13/16 22:27 12/13/16 22:28 DC 12/13/16 22:42 1 GM Potassium Chloride (Klor-Con M10) 40 meq NOW STAT PO 12/13/16 22:58 12/13/16 22:59 DC 12/13/16 23:23 40 MEQ Trimethoprim/ Sulfamethoxazole (Sulfameth/ Trimeth Ds 800/ 160MG Home Pack) 1 homepack UD ONCE PO 12/14/16 00:45 12/14/16 00:46 DC 12/14/16 01:04 1 HOMEPACK Ondansetron HCl (ZOFRAN ODT 4MG Home Pack) 1 homepack UD ONCE PO 12/14/16 00:45 12/14/16 00:46 DC 12/14/16 01:04 1 HOMEPACK Phenazopyridine HCl (Phenazopyridine HCl 200MG Home Pack) 1 homepack UD ONCE PO 12/14/16 00:45 12/14/16 00:46 DC 12/14/16 01:05 1 HOMEPACK ED Course Prior records/ancillary studies reviewed and summarized above. Nursing notes reviewed. Additional history obtained from family. The patient's history was concerning for fever, flank pain, urinary symptoms, chest pain Differential diagnosis: Etiologies such as metabolic, infection, hypo/hyperglycemia, electrolyte abnormalities, cardiac sources, intracerebral event, toxicologic, neurologic, as well as others were entertained. Physical examination: As above. ER treatment provided: IV Lock Rocephin, IV fluids On reassessment the patient felt better. Diagnostics interpretation by me: ECG: Left bundle-branch block unchanged from prior, no acute ST-T wave changes. Impression chronic left bundle branch block interpreted by myself The labs revealed urine concerning for infection and sent for culture. Leukocytosis. Negative troponin. Negative lactic acid Imaging studies: CHEST ONE VIEW PORTABLE CLINICAL HISTORY: Fever, chest pain, headache. COMPARISON STUDY: March 31, 2016 FINDINGS: The heart is the upper limits of normal in size. There is mild central vascular prominence without evidence of overt failure. There is no focal pulmonary consolidation. There are no pleural effusions.[ IMPRESSION: AP portable study. No acute findings. Electronically signed by: Tim Elmore M.D. Exam and history seem consistent with pyelonephritis. Patient felt better after she was medicated as above. Negative lactic acid. Blood cultures are pending. Urine cultures pending. She is tolerating fluids. She is advised to take medications as directed and to follow-up with family care in a few days or here in the ER sooner for high fevers, lethargy, vomiting, worsening signs or symptoms or as needed. By the evaluation outlined above emergent etiologies such as electrolyte abnormalities, cardiac sources, intracerebral event, toxologic, neurologic, abnormalities blood glucose, metabolic, as well as others were deemed relatively unlikely. The pt informed about the findings as listed above. All questions were answered and pleased with the treatment. Return instructions were outlined and the patient was discharged in stable condition. Outpatient prescription management: Bactrim, Pyridium, Zofran Referral: The patient was referred back to primary care physician for follow-up in 2 to 3 days for a recheck of the current condition. Case reviewed with my attending. Medical Decision As above Medication Reconcilliation Current Medication List: was personally reviewed by me Blood Pressure Screening Blood pressure disposition: Elevated BP felt to be situational Impression Primary Impression: Pyelonephritis Departure Information Prescriptions Phenazopyridine HCl (Pyridium) 200 Mg Tab 200 MG PO TID for 2 Days, #6 TAB Prov: Tonya Robb .JAYA 12/14/16 Sulfa/Trimethoprim (Bactrim Ds 800MG/160MG) Tab 1 TAB PO BID for 6 Days, #12 TAB Prov: Tonya Robb PA-C 12/14/16 Referrals Freeman Elena M.D.(ADRIANA) (PCP) Patient Instructions [facility]
[2016-12-14 01:18] VITALS: BP 159/84; PULSE 71; O2SAT 95
[2016-12-15] MEDS ORDERED: METO25TA3 PO (22:17)
[2016-12-15] MEDS ORDERED: FLUT0.15 NAE (22:17)
[2016-12-15] MEDS ORDERED: FEXO1TAB49 PO (22:17)
[2016-12-15] MEDS ORDERED: ACET-1256 PO (22:17)
[2016-12-15] MEDS ORDERED: POTA1TAB PO (22:17)
[2016-12-15] MEDS ORDERED: HYZ/50125 PO (22:17)
[2016-12-15] MEDS ORDERED: CHOL1000 PO (22:17)
[2016-12-15] MEDS ORDERED: MULT-513 PO (22:17)
[2016-12-15] MEDS ORDERED: OMEG10007 PO (22:17)
[2016-12-15] MEDS ORDERED: OMEP40CA41 PO (22:17)
[2016-12-15] MEDS ORDERED: ONDA4TAB65 PO (22:51)
[2016-12-15] MEDS ORDERED: SULF800T23 PO (22:51)
[2016-12-15] MEDS ORDERED: COEN30CA8 PO (22:53)
[2016-12-25] MEDS ORDERED: VNCS125 PO (12:36)
[2016-12-25] MEDS ORDERED: CEFD300C2 PO (12:36)
[2016-12-25] MEDS ORDERED: AMLO10TA2 PO (12:36)
== END 2016-12-14 01:20 | disposition home or self-care (01) ==
LOC: C.EDB 21:05
DX: N12 Tubulo-interstitial nephritis, not specified as acute or chronic (principal); C18.9 Malignant neoplasm of colon, unspecified; I10 Essential (primary) hypertension; I44.7 Left bundle-branch block, unspecified; Z83.3 Family history of diabetes mellitus; Z82.49 Family history of ischemic heart disease and other diseases of the circulatory system

== ENCOUNTER 2016-12-15 17:58 | Emergency (ER) | payer OTHER ==
[~2016-12-15] VITALS: Ht 162.6 cm; Wt 72.6 kg
[~2016-12-15 17:58] MED LIST changes: -LMTHP PO; -METO25TA3 PO; -NRV5 PO; +PHEN-876 PO; +SULF800T23 PO; -ULT50X PO
[2016-12-15 18:20] VITALS: TEMP 37.8; Ht 162.6 cm; Wt 72.6 kg
[2016-12-15] MEDS ORDERED: ACETAMINOPHEN 500 MG TAB PO STA (18:40)
[2016-12-15] MEDS ORDERED: SODIUM CHLORIDE 0.9% 1000ML 1,000 ML IV STA (18:40)
[2016-12-15] MEDS ORDERED: CEFTRIAXONE SOD INJ 1 GM ADDVIAL IV STA (18:40)
--- NOTE | 2016-12-15 18:49 | EMERGENCY ROOM VISIT NOTE ---
History Report prepared by Matibe: Bonnie Laurent Under the Supervision of: Dr. Rosie Moeller D.O. First contact with patient: 18:29 Chief Complaint: FEVER Stated Complaint: FEVER,R EAR TINNITIS, KIDNEYS, BLADDER INFEC History of Present Illness The patient is a 66 year old female who presents to the Emergency Room with complaints of a constant fever starting a week ago. The patient was seen in the ED Thursday and was discharged with pyelonephritis. She notes lower abdominal pain, ear pain, and flank pain beginning . She denies having any discharge from her ears. Pt denies headache, change in vision, chest pain, shortness of breath, nausea, vomiting, diarrhea, pain with urination, and melena. The patient has a history of bladder and kidney infections. Source of History: patient Onset: a week ago Position: other (generalized) Timing: constant Associated Symptoms: + fevers, + abdominal pain, No chest pain, No SOB, No nausea, No vomiting, No urinary symptoms Note: Pt notes ear and flank pain. Review of Systems See HPI for pertinent positives & negatives. A total of 10 systems reviewed and were otherwise negative. Past Medical & Surgical Medical Problems: (1) Benign neoplasm of colon (2) Elevated troponin (3) HTN (hypertension) (4) LBBB (left bundle branch block) (5) Renal cyst Surgical Problems: (1) H/O colonoscopy (2) H/O esophagogastroduodenoscopy (3) H/O total hysterectomy (4) S/p bladder sling Family History Cardiac disorder FATHER SISTER Diabetes mellitus SISTER FH: cancer SISTER (breast CA) Hypertension FATHER Social History Smoking Status: Former Smoker Alcohol Use: none Drug Use: none Marital Status: Housing Status: lives with family Occupation Status: employed Current/Historical Medications Scheduled Cholecalciferol (Vitamin D3), 1,000 INTER.UNIT PO DAILY Coenzyme Q10 (Ubidecarenone) (Coq-10), 1 DOSE PO DAILY Fish Oil ([place]-3), 1 CAP PO DAILY Fluticasone Propionate (Nasal) (Flonase Allergy Relief), 2 SPRAYS RAJESH DAILY Hctz/Losartan (Hyzaar 12.5MG/50MG), 1 TAB PO DAILY Metoprolol Succinate (Toprol Xl), 25 MG PO DAILY Multivitamins/Minerals (Mvi With Minerals), 1 TAB PO DAILY Omeprazole (Prilosec), 40 MG PO DAILY Phenazopyridine HCl (Pyridium), 200 MG PO TID Potassium Gluconate (Potassium Gluconate), 1,595 MG PO DAILY Sulfa/Trimethoprim (Bactrim Ds 800MG/160MG), 1 TAB PO BID Sulfa/Trimethoprim (Bactrim Ds 800MG/160MG), 1 TAB PO BID Scheduled PRN Acetaminophen (Tylenol), 1,000 MG PO UD PRN for Pain or Fever Fexofenadine Hcl (Rosa Allergy), 180 MG PO DAILY PRN for Seasonal Allergies Ondansetron Hcl (Zofran), 4 MG PO TID PRN for Nausea Allergies Coded Allergies: Enalapril (Unverified Adverse Reaction, Mild, H/A, 03/25/16) Physical Exam Vital Signs Date Time Temp Pulse Resp B/P (MAP) Pulse Ox O2 Delivery O2 Flow Rate FiO2 12/15/16 23:05 64 18 144/78 96 12/15/16 21:59 65 18 136/67 96 Room Air 12/15/16 19:55 70 18 146/82 96 Room Air 12/15/16 18:20 37.8 87 20 127/89 96 Room Air Physical Exam GENERAL: Sitting up in bed, alert, well appearing, well nourished, no distress, non-toxic EYE EXAM: normal conjunctiva OROPHARYNX: no exudate, no erythema, lips, buccal mucosa, and tongue normal and mucous membranes are moist NECK: supple, no nuchal rigidity, no adenopathy, non-tender LUNGS: Clear to auscultation. Normal chest wall mechanics HEART: no murmurs, S1 normal and S2 normal ABDOMEN: abdomen soft, minimal tenderness in suprapubic area, normo-active bowel sounds, no masses, no rebound or guarding. BACK: Back is symmetrical on inspection and there is no deformity, no midline tenderness, no CVA tenderness. SKIN: no rashes and no bruising UPPER EXTREMITIES: upper extremities are grossly normal. LOWER EXTREMITIES: No pitting edema. NEURO EXAM: Normal sensorium, cranial nerves II-XII intact, normal speech, no weakness of arms, no weakness of legs. Medical Decision & Procedures ER Provider Diagnostic Interpretation: Radiology results as stated below per my review and the radiologist's interpretation: CT SCAN OF THE ABDOMEN AND PELVIS WITH IV CONTRAST FINDINGS: Lung bases: The heart is top normal in size and without pericardial effusion. The lung bases are clear noting dependent atelectasis. There is a tiny hiatal hernia. Liver: The contrast-enhanced liver is enlarged, measuring 22 cm in length. The liver demonstrates diffusely diminished attenuation consistent with severe hepatic steatosis. Fatty sparing is seen adjacent to gallbladder fossa. A 2.8 cm hypodensity in the left lobe likely represent cysts cyst and is been present dating back to 2010. There is no intrahepatic biliary ductal dilatation. The hepatic veins and portal veins are patent. Gallbladder: Adenomyomatosis is suggested in the fundal region and unchanged from 2011. No acute abnormality is seen. Spleen: Normal in size and attenuation. Pancreas: Unremarkable. Adrenal glands: Unremarkable. Kidneys: The contrast enhanced kidneys demonstrate mild cortical atrophy. The kidneys enhance symmetrically. There are multiple foci of cortical scarring identified in both kidneys. There is an approximate 6 x 5 x 5 complex cystic lesion in the upper pole of the left kidney. This has decreased in size from 03/31/2016. Additional subcentimeter cortical hypodensities in both kidneys likely represent cysts but are too small for definitive characterization. Abdominal vasculature: The abdominal aorta is normal in course and caliber noting moderate atherosclerotic calcification. Collateral vessels are noted in the left lateral abdomen. Bowel: The small bowel and colon are normal in course and caliber. There is mild to moderate diverticulosis of left colon without CT evidence of acute diverticulitis. The appendix is well-visualized and normal. Peritoneum: There is no intraperitoneal free air or abdominal ascites. Lymphadenopathy: None. Pelvic viscera: The bladder is normal as visualized. The uterus is surgically absent. No adnexal lesion is seen. Skeletal structures: The skeletal structures are osteopenic. No lytic or blastic lesions are seen. IMPRESSION: 1. No acute abnormality is clearly identified. 2. A complex cystic lesion is again seen in the left kidney. This has decreased in size as compared to 03/31/2016. Although there is no associated inflammatory change, superimposed infection would be impossible to exclude by imaging. Correlation with clinical findings and urinalysis will be required. Continued urological follow-up is recommended. 3. Foci of cortical scarring are again seen in both kidneys. 4. Hepatomegaly and severe hepatic steatosis. 5. Colonic diverticulosis without CT evidence of acute diverticulitis. 6. Additional findings as above. Electronically signed by: Barney Dover M.D. Laboratory Results 12/15/16 19:57 Red Blood Count 4.12, Mean Corpuscular Volume 89.8, Mean Corpuscular Hemoglobin 31.1, Mean Corpuscular Hemoglobin Concent 34.6, Mean Platelet Volume 9.0, Neutrophils (%) (Auto) 76.4, Lymphocytes (%) (Auto) 12.3, Monocytes (%) (Auto) 10.8, Eosinophils (%) (Auto) 0.0, Basophils (%) (Auto) 0.1, Neutrophils # (Auto ) 8.07, Lymphocytes # (Auto) 1.30, Monocytes # (Auto) 1.14, Eosinophils # (Auto ) 0.00, Basophils # (Auto) 0.01 12/15/16 19:57 Test 12/15/16 19:30 12/15/16 19:57 Urine Color ORANGE Urine Appearance CLOUDY (CLEAR) Urine pH (4.5-7.5) Urine Specific [place] 1.008 (1.000-1.030) Urine Protein NEG (NEG) Urine Glucose (UA) (NEG) Urine Ketones (NEG) Urine Occult Blood (NEG) Urine Nitrite (NEG) Urine Bilirubin (NEG) Urine Urobilinogen (NEG) Urine Leukocyte Esterase (NEG) Urine WBC (Auto) >30 /hpf (0-5) Urine RBC (Auto) 0-4 /hpf (0-4) Urine Hyaline Casts (Auto) 0 /lpf (0-5) Urine Epithelial Cells (Auto) 10-20 /lpf (0-5) Urine Bacteria (Auto) NEG (NEG) Urine Test NEG (NEG) White Blood Count 10.56 K/uL (4.8-10.8) Red Blood Count 4.12 M/uL (4.2-5.4) Hemoglobin 12.8 g/dL (12.0-16.0) Hematocrit 37.0 % (37-47) Mean Corpuscular Volume 89.8 fL (80-100) Mean Corpuscular Hemoglobin 31.1 pg (25-34) Mean Corpuscular Hemoglobin Concent 34.6 g/dl (32-36) Platelet Count 260 K/uL (130-400) Mean Platelet Volume 9.0 fL (7.4-10.4) Neutrophils (%) (Auto) 76.4 % Lymphocytes (%) (Auto) 12.3 % Monocytes (%) (Auto) 10.8 % Eosinophils (%) (Auto) 0.0 % Basophils (%) (Auto) 0.1 % Neutrophils # (Auto) 8.07 K/uL (1.4-6.5) Lymphocytes # (Auto) 1.30 K/uL (1.2-3.4) Monocytes # (Auto) 1.14 K/uL (0.11-0.59) Eosinophils # (Auto) 0.00 K/uL (0-0.5) Basophils # (Auto) 0.01 K/uL (0-0.2) RDW Standard Deviation 39.7 fL (36.4-46.3) RDW Coefficient of Variation 12.2 % (11.5-14.5) Immature Granulocyte % (Auto) 0.4 % Immature Granulocyte # (Auto) 0.04 K/uL (0.00-0.02) Anion Gap 9.0 mmol/L (3-11) Est Creatinine Clear Calc Drug Dose 50.5 ml/min Estimated GFR () 61.4 Estimated GFR (Non- 53.0 BUN/Creatinine Ratio 10.6 (10-20) Calcium Level 8.4 mg/dl (8.5-10.1) Total Bilirubin 0.4 mg/dl (0.2-1) Direct Bilirubin 0.2 mg/dl (0-0.2) Aspartate Amino Transf (AST/SGOT) 53 U/L (15-37) Alanine Aminotransferase (ALT/SGPT) 79 U/L (12-78) Alkaline Phosphatase 79 U/L (45-117) Total Protein 7.1 gm/dl (6.4-8.2) Albumin 2.9 gm/dl (3.4-5.0) Lipase 204 U/L (73-393) Laboratory results per my review. Medications Administered Medications (Trade) Dose Ordered Sig/Rubio Route Start Time Stop Time Status Last Admin Dose Admin Sodium Chloride 1,000 ml @ 999 mls/hr Q1H1M STAT IV 12/15/16 18:40 12/15/16 19:40 DC 12/15/16 18:40 999 MLS/HR Ceftriaxone Sodium (Rocephin Inj) 1 gm NOW STAT IV 12/15/16 18:40 12/15/16 18:42 DC 12/15/16 19:26 1 GM Acetaminophen (Tylenol Tab) 1,000 mg NOW STAT PO 12/15/16 18:40 12/15/16 18:42 DC 12/15/16 19:26 1,000 MG ED Course ED COURSE: Vital signs were reviewed and showed febrile and hypertensive The patients medical record was reviewed The above diagnostic studies were performed and reviewed. ED treatments and interventions as stated above. 1831: The patient was evaluated in room B6. A complete history and physical examination was performed. 1840: Tylenol Tab 1,000 mg PO, Rocephin Inj 1 gm IV, Sodium Chloride 1000 ml @ 999 mls/hr IV. 0: Ioversol 100 ml IV. 2057: The patient is on her way to CT, and is resting comfortably. 2221: I reevaluated the patient she ready to be discharged 2252: Upon reevaluation, the patient is resting.I discussed my findings with the patient and she understands and agrees with the treatment plan. Based on the patients age, coexisting illnesses, exam and lab findings the decision to treat as an outpatient was made. The patient remained stable while under my care. The patient appeared well at the time of discharge. Medical Decision Differential diagnoses includes but is not limited to gastritis, peptic ulcer disease, GERD, gallbladder disease, pancreatitis, small bowel obstruction, acute coronary syndrome, pericarditis, ischemic bowel, irritable bowel disease, irritable bowel syndrome, appendicitis, diverticulitis, malignancy, hernia, urinary tract infection, torsion, /ectopic , perforation, trauma, infectious. Patient is a 66-year-old female that presents to ER for fever associated with right flank pain which has been improving. She notes on her symptoms started this past Thursday with lower abdominal pain which radiated into the flank. Leukocytosis improved. CBC is otherwise unremarkable. BMP all with Bilirubin and lipase is negative. Mild transaminitis. was negative. CT abdomen and pelvis was benign without. Previous urine culture has greater than 100,000 Escherichia coli. No previous resistance on review. She was given another dose of IV Rocephin. She was feeling better. She was discharged with Zofran and an extra prescription for Bactrim for a total of 10 days. She was not tachycardic throughout her stay and is otherwise well appearing. Discussed with Pt concerning signs and symptoms to watch out for. Pt was instructed to follow up with their PCP and discussed with the patient their option to return to the ED at anytime for persistent or worsening symptoms. The appropriate anticipatory guidance and out-patient management, including indications for return to the emergency department, were explained at length to the patient and understood. Medication Reconcilliation Current Medication List: was personally reviewed by me Blood Pressure Screening Patient's blood pressure: Elevated blood pressure Blood pressure disposition: Elevated BP felt to be situational Impression Primary Impression: UTI (urinary tract infection) Additional Impression: Fever Scribe Attestation The scribe's documentation has been prepared under my direction and personally reviewed by me in its entirety. I confirm that the note above accurately reflects all work, treatment, procedures, and medical decision making performed by me. Departure Information Dispostion Home / Self-Care Prescriptions Ondansetron Hcl (ZOFRAN) 4 Mg Tab 4 MG PO TID Y for Nausea, #15 TAB Prov: Anish Byrne, DO 12/15/16 Sulfa/Trimethoprim (Bactrim Ds 800MG/160MG) Tab 1 TAB PO BID, #6 TAB Prov: Anish Byrne, DO 12/15/16 Referrals Freeman Elena M.D.([facility]) (PCP) Forms HOME CARE DOCUMENTATION FORM, IMPORTANT VISIT INFORMATION Patient Instructions ED UTI Cystitis Female, My [facility] Additional Instructions Please follow up with your primary care doctor with in the next 24 hours. Any worsening of your symptoms, please return to the ED immediately. This includes any fevers greater than 100.4, worsening pain, chest pain, shortness breath, persistent nausea, vomiting, unable to eat or drink, or any other concerning signs or symptoms from your standpoint. Please take Zofran as needed for nausea. Please take all your Bactrim for your urinary tract infection. Problem Qualifiers Primary Impression: UTI (urinary tract infection) Urinary tract infection type: site unspecified Hematuria presence: with hematuria Qualified Codes: N39.0 - Urinary tract infection, site not specified ; R31.9 - Hematuria, unspecified Additional Impression: Fever Fever type: unspecified Qualified Codes: R50.9 - Fever, unspecified
[2016-12-15] MEDS ORDERED: OPTIRAY 320 IV PRN (19:00)
[2016-12-15 20:00] LABS: MANUAL MICROSCOPIC REQUIRED? NO; REVIEW REQ? YES
[2016-12-15 20:01] LABS: URINE APPEARANCE CLOUDY (CLEAR); URINE COLOR ORANGE; URINE SPECIFIC GRAVITY 1.008 (1.000-1.030)
[2016-12-15 20:04] LABS: SULFASALICYLIC ACID NEG (NEG)
[2016-12-15 20:06] LABS: BASO % 0.1 %; BASO ABS # 0.01 K/uL (0-0.2); COMPLETE YES; IG% 0.4 %; LYMPH % 12.3 %; MEAN CELL VOLUME 89.8 fL (80-100); MEAN CORPUSCULAR HEMOGLOBIN 31.1 pg (25-34); MEAN CORPUSCULAR HGB CONC 34.6 g/dl (32-36); MONO % 10.8 %; NEUT % 76.4 %; PLATELET COUNT 260 K/uL (130-400); RED BLOOD COUNT 4.12 M/uL (4.2-5.4); WHITE BLOOD COUNT 10.56 K/uL (4.8-10.8)
[2016-12-15 20:25] LABS: BUN/CREATININE RATIO 10.6 (10-20); CALCIUM 8.4 mg/dl (8.5-10.1); CREATININE 1.1 mg/dl (0.60-1.20); POTASSIUM 3.3 mmol/L (3.5-5.1)
[2016-12-15 20:27] LABS: ZZUR CULT IF INDIC CLEAN CATCH YES
--- NOTE | 2016-12-15 21:55 | DIAGNOSTIC IMAGING REPORT ---
CT SCAN OF THE ABDOMEN AND PELVIS WITH IV CONTRAST CLINICAL HISTORY: Fever. Bladder infection. Right flank pain. COMPARISON STUDY: Abdominal CT scan dated 03/31/2016, 03/25/2016, and 05/09/2010. Renal ultrasound dated 05/28/2016. TECHNIQUE: Following the IV administration of 120 cc of Optiray 320, CT scan of the abdomen and pelvis is performed from the lung bases to the proximal femora. Images are reviewed in the axial, sagittal, and coronal planes. IV contrast was administered without complication. A dose lowering technique was utilized adhering to the principles of ALARA. CT DOSE: 421.30 mGy.cm FINDINGS: Lung bases: The heart is top normal in size and without pericardial effusion. The lung bases are clear noting dependent atelectasis. There is a tiny hiatal hernia. Liver: The contrast-enhanced liver is enlarged, measuring 22 cm in length. The liver demonstrates diffusely diminished attenuation consistent with severe hepatic steatosis. Fatty sparing is seen adjacent to gallbladder fossa. A 2.8 cm hypodensity in the left lobe likely represent cysts cyst and is been present dating back to 2010. There is no intrahepatic biliary ductal dilatation. The hepatic veins and portal veins are patent. Gallbladder: Adenomyomatosis is suggested in the fundal region and unchanged from 2010. No acute abnormality is seen. Spleen: Normal in size and attenuation. Pancreas: Unremarkable. Adrenal glands: Unremarkable. Kidneys: The contrast enhanced kidneys demonstrate mild cortical atrophy. The kidneys enhance symmetrically. There are multiple foci of cortical scarring identified in both kidneys. There is an approximate 6 x 5 x 5 complex cystic lesion in the upper pole of the left kidney. This has decreased in size from 03/31/2016. Additional subcentimeter cortical hypodensities in both kidneys likely represent cysts but are too small for definitive characterization. Abdominal vasculature: The abdominal aorta is normal in course and caliber noting moderate atherosclerotic calcification. Collateral vessels are noted in the left lateral abdomen. Bowel: The small bowel and colon are normal in course and caliber. There is mild to moderate diverticulosis of left colon without CT evidence of acute diverticulitis. The appendix is well-visualized and normal. Peritoneum: There is no intraperitoneal free air or abdominal ascites. Lymphadenopathy: None. Pelvic viscera: The bladder is normal as visualized. The uterus is surgically absent. No adnexal lesion is seen. Skeletal structures: The skeletal structures are osteopenic. No lytic or blastic lesions are seen. IMPRESSION: 1. No acute abnormality is clearly identified. 2. A complex cystic lesion is again seen in the left kidney. This has decreased in size as compared to 03/31/2016. Although there is no associated inflammatory change, superimposed infection would be impossible to exclude by imaging. Correlation with clinical findings and urinalysis will be required. Continued urological follow-up is recommended. 3. Foci of cortical scarring are again seen in both kidneys. 4. Hepatomegaly and severe hepatic steatosis. 5. Colonic diverticulosis without CT evidence of acute diverticulitis. 6. Additional findings as above. Electronically signed by: Barney Dover M.D. 12/15/2016 9:53 PM Dictated Date/Time: 12/15/2016 9:41 PM
[2016-12-15] MEDS ORDERED: CHOL1000 PO (22:17)
[2016-12-15] MEDS ORDERED: OMEG10007 PO (22:17)
[2016-12-15] MEDS ORDERED: FEXO1TAB49 PO (22:17)
[2016-12-15] MEDS ORDERED: METO25TA3 PO (22:17)
[2016-12-15] MEDS ORDERED: FLUT0.15 NAE (22:17)
[2016-12-15] MEDS ORDERED: ACET-1256 PO (22:17)
[2016-12-15] MEDS ORDERED: POTA1TAB PO (22:17)
[2016-12-15] MEDS ORDERED: MULT-513 PO (22:17)
[2016-12-15] MEDS ORDERED: HYZ/50125 PO (22:17)
[2016-12-15] MEDS ORDERED: OMEP40CA41 PO (22:17)
[2016-12-15] MEDS ORDERED: SULF800T23 PO (22:51)
[2016-12-15] MEDS ORDERED: ONDA4TAB65 PO (22:51)
[2016-12-15] MEDS ORDERED: COEN30CA8 PO (22:53)
[2016-12-15 23:05] VITALS: BP 144/78; PULSE 64; O2SAT 96
[2016-12-25] MEDS ORDERED: VNCS125 PO (12:36)
[2016-12-25] MEDS ORDERED: CEFD300C2 PO (12:36)
[2016-12-25] MEDS ORDERED: AMLO10TA2 PO (12:36)
== END 2016-12-15 23:06 | disposition home or self-care (01) ==
LOC: C.EDB 17:59
DX: N39.0 Urinary tract infection, site not specified (principal); I10 Essential (primary) hypertension; Z86.010 Personal history of colon polyps; Z90.710 Acquired absence of both cervix and uterus; Z98.890 Other specified postprocedural states; Z87.891 Personal history of nicotine dependence; Z79.899 Other long term (current) drug therapy; Z88.8 Allergy status to other drugs, medicaments and biological substances; Z82.49 Family history of ischemic heart disease and other diseases of the circulatory system; Z83.3 Family history of diabetes mellitus

== ENCOUNTER 2016-12-19 12:11 | Inpatient (IN) | payer OTHER ==
[~2016-12-19] VITALS: Ht 162.6 cm; Wt 72.0 kg
[~2016-12-19 12:11] MED LIST changes: +ACET-1256 PO; +CHOL1000 PO; +COEN30CA8 PO; +FEXO1TAB49 PO; +FLUT0.15 NAE; +HYZ/50125 PO; +METO25TA3 PO; +MULT-513 PO; +OMEG10007 PO; +OMEP40CA41 PO; +ONDA4TAB65 PO; -PHEN-876 PO; +POTA1TAB PO
[2016-12-19] MEDS ORDERED: CEFTRIAXONE SOD INJ 1 GM ADDVIAL IV STA (12:48)
--- NOTE | 2016-12-19 13:13 | EMERGENCY ROOM VISIT NOTE ---
History First contact with patient: 12:37 Chief Complaint: URINARY SYMPTOMS Stated Complaint: UTI/ANTIBIOTICS NOT WORKING Nursing Triage Summary: Pt was sent here by her PCP. Pt has been treated recently twice in the ED for UTI. Pt is now on her second antibiotic and states that she is not feeling any better. Pt states that she is having fevers, nausea and vomiting still. History of Present Illness The patient is a 66 year old female who presents to the Emergency Room via private vehicle referred by Dr. Walter with complaints of "UTI/antibiotics not working". The patient states that 8 days ago she developed vomiting, fever 103 F orally, and dysuria. She has decreased appetite. She notes she feels very weak. She also feels dizzy. She's also been coughing a lot. She states that the symptoms have persisted, despite her being on Bactrim, as well as starting a new antibiotic with the family doctor which was believed to be Levaquin. The patient states that she was seen here on the and 15 of December. She has had CT scan of the abdomen and pelvis as well as a chest x-ray. No acute processes were identified. She notes that her symptoms persist, and while at the clinic today she was found to have a tympanic membrane temperature of 37.8 C. This prompted then her to be sent here for further evaluation and management. Review of Systems A complete 10-point Review of Systems was discussed with the patient, with pertinent positives and negatives listed in the History of Present Illness. All remaining Review of Systems questions can be considered negative unless otherwise specified. Past Medical/Surgical History Medical Problems: (1) Benign neoplasm of colon (2) Elevated troponin (3) HTN (hypertension) (4) LBBB (left bundle branch block) (5) Renal cyst Surgical Problems: (1) H/O colonoscopy (2) H/O esophagogastroduodenoscopy (3) H/O total hysterectomy (4) S/p bladder sling Family History Cardiac disorder FATHER SISTER Diabetes mellitus SISTER FH: cancer SISTER (breast CA) Hypertension FATHER Social History Smoking Status: Never Smoker Alcohol Use: none Drug Use: none Marital Status: Housing Status: lives with family Occupation Status: employed Current/Historical Medications Scheduled Cholecalciferol (Vitamin D3), 1,000 INTER.UNIT PO DAILY Coenzyme Q10 (Ubidecarenone) (Coq-10), 1 DOSE PO DAILY Fish Oil ([place]-3), 1 CAP PO DAILY Fluticasone Propionate (Nasal) (Flonase Allergy Relief), 2 SPRAYS RAJESH DAILY Hctz/Losartan (Hyzaar 12.5MG/50MG), 1 TAB PO DAILY Metoprolol Succinate (Toprol Xl), 25 MG PO DAILY Multivitamins/Minerals (Mvi With Minerals), 1 TAB PO DAILY Omeprazole (Prilosec), 40 MG PO DAILY Potassium Gluconate (Potassium Gluconate), 1 TAB PO DAILY Sulfa/Trimethoprim (Bactrim Ds 800MG/160MG), 1 TAB PO BID Scheduled PRN Fexofenadine Hcl (Rosa Allergy), 180 MG PO DAILY PRN for Seasonal Allergies Ondansetron Hcl (Zofran), 4 MG PO TID PRN for Nausea Physical Exam Vital Signs Date Time Temp Pulse Resp B/P (MAP) Pulse Ox O2 Delivery O2 Flow Rate FiO2 12/19/16 12:13 37.3 77 16 158/99 97 Room Air Physical Exam VITAL SIGNS - Vital signs and nursing notes were reviewed. Stable. GENERAL - 66-year-old female appearing his stated age who is in no acute distress. Communicates well with provider and answers questions appropriately. SKIN - Without rashes. HEAD - NC/AT. EYES - PERRL with EOMI bilaterally. Sclera anicteric. EARS - No deformities of external structures noted on gross examination bilaterally. NOSE - Midline and without cyanosis. No epistaxis or purulent drainage noted. MOUTH/OROPHARYNX - Without perioral cyanosis. Buccal mucosa pink and moist and without leukoplakia. Tongue midline with equal elevation of palate bilaterally. No tonsillar hypertrophy, erythema, or exudates noted. NECK - No meningismus. LUNGS - Chest wall symmetric without accessory muscle use, intercostals retractions, or central cyanosis. Normal vesicular breath sounds CTA B/L. No wheezes, rales, or rhonchi appreciated. CARDIAC - RRR with S1/S2. No murmur, rubs, or gallops appreciated. ABDOMEN - Abdominal contour normal without pulsations or visible masses. BS normoactive all four quadrants. Right flank tenderness. No palpable masses, hepatosplenomegaly, or ascites noted. EXTREMITIES - No clubbing or peripheral cyanosis. No pretibial edema present. + 5/5 strength noted in UE/LE bilaterally. NEUROLOGIC - Cranial nerves II through XII grossly intact. Sensory intact to light touch throughout. PSYCH - A&O, and cooperates fully with examiner. Pt is very pleasant and interacts well with examiner. Medical Decision & Procedures Laboratory Results 12/19/16 12:58 Red Blood Count 4.09, Mean Corpuscular Volume 88.0, Mean Corpuscular Hemoglobin 31.8, Mean Corpuscular Hemoglobin Concent 36.1, Mean Platelet Volume 8.6, Neutrophils (%) (Auto) 73.5, Lymphocytes (%) (Auto) 15.2, Monocytes (%) (Auto) 10.1, Eosinophils (%) (Auto) 0.3, Basophils (%) (Auto) 0.2, Neutrophils # (Auto ) 9.06, Lymphocytes # (Auto) 1.88, Monocytes # (Auto) 1.24, Eosinophils # (Auto ) 0.04, Basophils # (Auto) 0.02 12/19/16 12:58 Test 12/19/16 12:29 12/19/16 12:58 Urine Color DK YELLOW Urine Appearance TURBID (CLEAR) Urine pH 6.5 (4.5-7.5) Urine Specific [place] 1.012 (1.000-1.030) Urine Protein 2+ (NEG) Urine Glucose (UA) NEG (NEG) Urine Ketones NEG (NEG) Urine Occult Blood 2+ (NEG) Urine Nitrite NEG (NEG) Urine Bilirubin NEG (NEG) Urine Urobilinogen NEG (NEG) Urine Leukocyte Esterase LARGE (NEG) Urine WBC (Auto) >30 /hpf (0-5) Urine RBC (Auto) 0-4 /hpf (0-4) Urine Hyaline Casts (Auto) 0 /lpf (0-5) Urine Epithelial Cells (Auto) 5-10 /lpf (0-5) Urine Bacteria (Auto) NEG (NEG) White Blood Count 12.33 K/uL (4.8-10.8) Red Blood Count 4.09 M/uL (4.2-5.4) Hemoglobin 13.0 g/dL (12.0-16.0) Hematocrit 36.0 % (37-47) Mean Corpuscular Volume 88.0 fL (80-100) Mean Corpuscular Hemoglobin 31.8 pg (25-34) Mean Corpuscular Hemoglobin Concent 36.1 g/dl (32-36) Platelet Count 370 K/uL (130-400) Mean Platelet Volume 8.6 fL (7.4-10.4) Neutrophils (%) (Auto) 73.5 % Lymphocytes (%) (Auto) 15.2 % Monocytes (%) (Auto) 10.1 % Eosinophils (%) (Auto) 0.3 % Basophils (%) (Auto) 0.2 % Neutrophils # (Auto) 9.06 K/uL (1.4-6.5) Lymphocytes # (Auto) 1.88 K/uL (1.2-3.4) Monocytes # (Auto) 1.24 K/uL (0.11-0.59) Eosinophils # (Auto) 0.04 K/uL (0-0.5) Basophils # (Auto) 0.02 K/uL (0-0.2) RDW Standard Deviation 39.6 fL (36.4-46.3) RDW Coefficient of Variation 12.4 % (11.5-14.5) Immature Granulocyte % (Auto) 0.7 % Immature Granulocyte # (Auto) 0.09 K/uL (0.00-0.02) Anion Gap 11.0 mmol/L (3-11) Est Creatinine Clear Calc Drug Dose 60.8 ml/min Estimated GFR () 77.3 Estimated GFR (Non- 66.7 BUN/Creatinine Ratio 10.4 (10-20) Lactic Acid Level 0.7 mmol/L (0.4-2.0) Calcium Level 9.1 mg/dl (8.5-10.1) Total Bilirubin 0.7 mg/dl (0.2-1) Aspartate Amino Transf (AST/SGOT) 30 U/L (15-37) Alanine Aminotransferase (ALT/SGPT) 68 U/L (12-78) Alkaline Phosphatase 112 U/L (45-117) Total Protein 8.3 gm/dl (6.4-8.2) Albumin 3.0 gm/dl (3.4-5.0) Globulin 5.3 gm/dl (2.5-4.0) Albumin/Globulin Ratio 0.6 (0.9-2) Medications Administered Medications (Trade) Dose Ordered Sig/Rubio Route Start Time Stop Time Status Last Admin Dose Admin Ceftriaxone Sodium (Rocephin Inj) 1 gm NOW STAT IV 12/19/16 12:48 12/19/16 12:50 DC 12/19/16 13:25 1 GM Medical Decision Patient was seen and evaluated as above. She presents to us today referred by her family doctor over concern for persistent fever, and urinary tract infection symptoms. Clinically there is concern for pyelonephritis. Vital signs are stable. There is slight leukocytosis, around 12,000. No significant anemia. No evidence of kidney or liver failure. Lactic is within normal limits. Despite her courses of Bactrim, and Levaquin I believe that perhaps inpatient management with IV antibiotics would be best as she is not been doing well in the outpatient setting with the 2 antibiotics. Case was discussed with the attending physician, who is in agreement. These were discussed with the hospitalist team, who will provide further evaluation and management. Please refer to further documentation regarding her stay. In evaluation treatment this patient following differential diagnoses were entertained: Pyelonephritis, UTI, sepsis, among others. Impression Primary Impression: Pyelonephritis Departure Information Dispostion Still a Patient Condition FAIR Referrals Amy WALTER M.D. (PCP) Patient Instructions My [facility]
[2016-12-19 13:27] LABS: URINE APPEARANCE TURBID (CLEAR); URINE BILIRUBIN NEG (NEG); URINE COLOR DK YELLOW; URINE NITRITE NEG (NEG); URINE PH 6.5 (4.5-7.5); URINE SPECIFIC GRAVITY 1.012 (1.000-1.030); UROBILINOGEN NEG (NEG); ZZUR CULT IF INDIC CLEAN CATCH YES
[2016-12-19 13:28] LABS: BASO % 0.2 %; BASO ABS # 0.02 K/uL (0-0.2); COMPLETE YES; EOS % 0.3 %; IG% 0.7 %; LYMPH % 15.2 %; LYMPH ABS # 1.88 K/uL (1.2-3.4); MEAN CORPUSCULAR HEMOGLOBIN 31.8 pg (25-34); MEAN CORPUSCULAR HGB CONC 36.1 g/dl (32-36); MEAN PLATELET VOLUME 8.6 fL (7.4-10.4); MONO % 10.1 %; NEUT % 73.5 %; PLATELET COUNT 370 K/uL (130-400); RED BLOOD COUNT 4.09 M/uL (4.2-5.4); WHITE BLOOD COUNT 12.33 K/uL (4.8-10.8)
[2016-12-19 13:35] LABS: MANUAL MICROSCOPIC REQUIRED? NO; REVIEW REQ? NO
[2016-12-19 13:51] LABS: BUN/CREATININE RATIO 10.4 (10-20); CALCIUM 9.1 mg/dl (8.5-10.1); CREATININE 0.91 mg/dl (0.60-1.20); POTASSIUM 3.5 mmol/L (3.5-5.1)
[2016-12-19 13:53] LABS: ALB/GLOB RATIO 0.6 (0.9-2)
[2016-12-19] MEDS ORDERED: ONDANSETRON INJ 2 MG/ML 2 ML VIAL IV PRN (15:00)
[2016-12-19] MEDS ORDERED: FRRS300 PO (15:06)
[2016-12-19] MEDS ORDERED: LEVO-459 PO (15:06)
[2016-12-19] MEDS ORDERED: POTA1TAB PO (15:06)
[2016-12-19] MEDS ORDERED: OLOP0.1S2 OP (15:06)
[2016-12-19] MEDS ORDERED: GLUCTAB7 PO (15:06)
[2016-12-19] MEDS ORDERED: PANTOprazole SOD 40 MG TAB PO PRN (15:15)
[2016-12-19] MEDS ORDERED: PHENAZOPYRIDINE HCL 200 MG TAB PO PRN (15:15)
[2016-12-19] MEDS ORDERED: FLUTICASONE PROPIONATE NA SPR 16 GM BTL NAE PRN (15:15)
--- NOTE | 2016-12-19 15:38 | DIAGNOSTIC IMAGING REPORT ---
CHEST ONE VIEW PORTABLE CLINICAL HISTORY: 66 years-old Female presenting with cough. TECHNIQUE: Portable upright AP view of the chest was obtained. COMPARISON: 12/13/2016. FINDINGS: Mild prominence of the cardiac silhouette, unchanged. Lungs and pleural spaces clear. Osseous structures normal. Upper abdomen normal. IMPRESSION: 1. No acute cardiopulmonary disease. Electronically signed by: Eugene Cardenas M.D. 12/19/2016 3:36 PM Dictated Date/Time: 12/19/2016 3:36 PM
[2016-12-19 15:52] VITALS: BP 142/81; PULSE 73; TEMP 37.9; O2SAT 95; Ht 162.6 cm; Wt 72.0 kg
[2016-12-19] MEDS: SODIUM CHLORIDE 0.9% 1000ML 1,000 ML IV SCH (16:26)
[2016-12-19] MEDS ORDERED: INFLUENZA VIRUS QUAD VACCINE 0.5 ML SYR IM. ONE (17:45)
[2016-12-19] MEDS ORDERED: INFLUENZA ADMINISTRATION CHARGE ONE (17:45)
[2016-12-19] MEDS: PANTOprazole SOD 40 MG TAB PO SCH (19:02)
--- NOTE | 2016-12-19 20:54 | History and Physical ---
History & Physical Date & Time of Service: Dec 19, 2016 at 15:18 Chief Complaint: Uti/Antibiotics Not Working Primary Care Physician: Amy MCCORMICK M.D. History of Present Illness Source: patient, clinic records, hospital records This is a 66 y/o female with PMH of hypertension, left renal cyst with spontaneous hemorrhage March [address] Gordon, history of bladder sling, asthma, allergic rhinitis, laryngopharyngeal reflux disease, and other problems listed below who was sent to the ED by Dr. Mccormick for pyelonephritis which failed outpatient treatment. Patient was initially seen in ER 12/13/16, diagnosed with pyelonephritis, treated with IV Rocephin and discharged on Bactrim. Urine culture from 12/13/16 grew howard sensitive E. coli. Blood cultures were negative. Seen in ER again on 12/15/17, CT a/p with contrast showed complex cystic lesion decreased in size from 03/31/16, foci of cortical scarring again seen in both kidneys, hepatomegaly and severe hepatic steatosis, colonic diverticulosis without diverticulitis. IV Rocephin was given and Bactrim was continued. Seen in clinic 12/17 by Tabitha Espinosa PA-C at which time antibiotics were changed to Levaquin. Seen today by Dr. Mccormick for persistent symptoms, was febrile to 100.1 F in clinic, and was sent to ER for further evaluation. Patient reports fever (Tmax approx 103- 104F at home per patient), chills, rigors at times, dysuria, suprapubic pressure, right sided flank pain, N/V, appetite loss, fatigue, generalized weakness, lightheadedness with standing. Ate minimal food yesterday. Has been drinking water and juice which she intermittently keeps down. Did not take meds this morning as she was vomiting. Took Zofran STRIPE MATCHER which relieved the nausea. Pain is controlled at present. She reports cough with white sputum which is intermittent for at least months which she attributes to allergic rhinitis. Has posttussive vomiting at times in addition to vomiting from nausea. Has not been on an inhaler recently. She denies chest pain, SOB/ wheezing, diarrhea, increased urinary frequency, hematuria, vaginal bleeding. Past Medical/Surgical History Medical Problems: (1) Benign neoplasm of colon Permanent Comment: hyperplastic polyps in 2007 Status: Chronic (2) Cyst of left kidney Status: Chronic (3) HTN (hypertension) Status: Chronic (4) LBBB (left bundle branch block) Status: Chronic Surgical Problems: (1) H/O colonoscopy Status: Chronic (2) H/O esophagogastroduodenoscopy Status: Chronic (3) H/O total hysterectomy Status: Chronic (4) S/p bladder sling Status: Chronic Family History Cardiac disorder FATHER SISTER Diabetes mellitus SISTER FH: cancer SISTER (breast CA) Hypertension FATHER Social History Smoking Status: Never Smoker Alcohol Use: none Marital Status: Housing status: lives with significant other Multi-Drug Resistant Organisms History of MDRO: No Allergies Coded Allergies: Enalapril (Unverified Adverse Reaction, Mild, H/A, 03/25/16) Home Medications Scheduled Cholecalciferol (Vitamin D3), 1,000 INTER.UNIT PO DAILY Coenzyme Q10 (Ubidecarenone) (Coq-10), 1 DOSE PO DAILY Ferrous Sulfate (Ferrous Sulfate), 325 MG PO BID Fish Oil ([place]-3), 1 CAP PO DAILY Tzijmgvfnde-Rpkejlurbfk-Cyq C- (Glucosamine Chondroitin), 1 TAB PO DAILY Hctz/Losartan (Hyzaar 12.5MG/50MG), 1 TAB PO HS Levofloxacin (Levaquin), 500 MG PO DAILY Metoprolol Succinate (Toprol Xl), 25 MG PO DAILY Multivitamins/Minerals (Mvi With Minerals), 1 TAB PO DAILY Potassium Gluconate (Potassium Gluconate), 1 TAB PO DAILY Scheduled PRN Fluticasone Propionate (Nasal) (Flonase Allergy Relief), 2 SPRAYS RAJESH DAILY PRN for ALLERGIES Olopatadine Hcl (Patanol 0.1% Oph), 1 DROP OP BID PRN for itching/ allergies Omeprazole (Prilosec), 40 MG PO DAILY PRN for reflux Ondansetron Hcl (Zofran), 4 MG PO TID PRN for Nausea Review of Systems Ten systems reviewed and negative except as noted in HPI. Physical Exam Vital Signs Date Time Temp Pulse Resp B/P (MAP) Pulse Ox O2 Delivery O2 Flow Rate FiO2 12/19/16 15:08 71 16 140/84 96 Room Air 12/19/16 12:13 37.3 77 16 158/99 97 Room Air General Appearance: WD/WN, no apparent distress Head: normocephalic, atraumatic Eyes: PERRL ENT: hearing grossly normal, pharynx normal Neck: supple, trachea midline Respiratory/Chest: lungs clear, normal breath sounds, no respiratory distress, no accessory muscle use Cardiovascular: regular rate, rhythm, no murmur Abdomen/GI: normal bowel sounds, soft, + pertinent finding (tender in suprapubic area and with deep palpation of right upper and lower quadrants. no guarding. no rebound tenderness. ) Back: no CVA tenderness Extremities/Musculoskelatal: no calf tenderness, no pedal edema Neurologic/Psych: alert, normal mood/affect, oriented x 3 Skin: normal color, warm/dry Diagnostics Laboratory Results Results Past 24 Hours Test 12/19/16 12:29 12/19/16 12:58 Range/Units Urine Color DK YELLOW Urine Appearance TURBID CLEAR Urine pH 6.5 4.5-7.5 Urine Specific [place] 1.012 1.000-1.030 Urine Protein 2+ NEG Urine Glucose (UA) NEG NEG Urine Ketones NEG NEG Urine Occult Blood 2+ NEG Urine Nitrite NEG NEG Urine Bilirubin NEG NEG Urine Urobilinogen NEG NEG Urine Leukocyte Esterase LARGE NEG Urine WBC (Auto) >30 0-5 /hpf Urine RBC (Auto) 0-4 0-4 /hpf Urine Hyaline Casts (Auto) 0 0-5 /lpf Urine Epithelial Cells (Auto) 5-10 0-5 /lpf Urine Bacteria (Auto) NEG NEG White Blood Count 12.33 4.8-10.8 K/uL Red Blood Count 4.09 4.2-5.4 M/uL Hemoglobin 13.0 12.0-16.0 g/dL Hematocrit 36.0 37-47 % Mean Corpuscular Volume 88.0 80-100 fL Mean Corpuscular Hemoglobin 31.8 25-34 pg Mean Corpuscular Hemoglobin Concent 36.1 32-36 g/dl Platelet Count 370 130-400 K/uL Mean Platelet Volume 8.6 7.4-10.4 fL Neutrophils (%) (Auto) 73.5 % Lymphocytes (%) (Auto) 15.2 % Monocytes (%) (Auto) 10.1 % Eosinophils (%) (Auto) 0.3 % Basophils (%) (Auto) 0.2 % Neutrophils # (Auto) 9.06 1.4-6.5 K/uL Lymphocytes # (Auto) 1.88 1.2-3.4 K/uL Monocytes # (Auto) 1.24 0.11-0.59 K/uL Eosinophils # (Auto) 0.04 0-0.5 K/uL Basophils # (Auto) 0.02 0-0.2 K/uL RDW Standard Deviation 39.6 36.4-46.3 fL RDW Coefficient of Variation 12.4 11.5-14.5 % Immature Granulocyte % (Auto) 0.7 % Immature Granulocyte # (Auto) 0.09 0.00-0.02 K/uL Sodium Level 136 136-145 mmol/L Potassium Level 3.5 3.5-5.1 mmol/L Chloride Level 103 98-107 mmol/L Carbon Dioxide Level 22 21-32 mmol/L Anion Gap 11.0 3-11 mmol/L Blood Urea Nitrogen 9 7-18 mg/dl Creatinine 0.91 0.60-1.20 mg/dl Est Creatinine Clear Calc Drug Dose 60.8 ml/min Estimated GFR () 77.3 Estimated GFR (Non- 66.7 BUN/Creatinine Ratio 10.4 10-20 Random Glucose 92 70-99 mg/dl Lactic Acid Level 0.7 0.4-2.0 mmol/L Calcium Level 9.1 8.5-10.1 mg/dl Total Bilirubin 0.7 0.2-1 mg/dl Aspartate Amino Transf (AST/SGOT) 30 15-37 U/L Alanine Aminotransferase (ALT/SGPT) 68 12-78 U/L Alkaline Phosphatase 112 45-117 U/L Total Protein 8.3 6.4-8.2 gm/dl Albumin 3.0 3.4-5.0 gm/dl Globulin 5.3 2.5-4.0 gm/dl Albumin/Globulin Ratio 0.6 0.9-2 Microbiology Results 12/19/16 Urine Culture, Received Pending Diagnostic Radiology CT SCAN OF THE ABDOMEN AND PELVIS WITH IV CONTRAST (Done in ER 12/15/16) IMPRESSION: 1. No acute abnormality is clearly identified. 2. A complex cystic lesion is again seen in the left kidney. This has decreased in size as compared to 03/31/2016. Although there is no associated inflammatory change, superimposed infection would be impossible to exclude by imaging. Correlation with clinical findings and urinalysis will be required. Continued urological follow-up is recommended. 3. Foci of cortical scarring are again seen in both kidneys. 4. Hepatomegaly and severe hepatic steatosis. 5. Colonic diverticulosis without CT evidence of acute diverticulitis. 6. Additional findings as above. CHEST ONE VIEW PORTABLE IMPRESSION: 1. No acute cardiopulmonary disease. EKG sinus rhythm with 1st degree AV block (present on prior EKG), 71 bpm, LBBB ( present on prior EKG) Impression Assessment and Plan RIGHT PYELONEPHRITIS Failed outpatient treatment with Bactrim and Levaquin Urine culture from 12/13/16 grew howard sensitive E. coli; blood cultures from neg x 2 CT a/p showed known left kidney cystic lesion which has decreased in size from (see full impression above) Has leukocytosis (WBC 12.3K with left shift), but no sepsis, mildly febrile to 37.9 after admission IV Rocephin given in ER Continue empiric Rocephin, repeat urine culture pending IVF's, clear liquid diet (with crackers OK), Pyridium TID, PRN antiemetics, pain control with Toradol Follows with Dr. Gordon for the left kidney cyst HYPERTENSION BP is stable Continue losartan and metoprolol Held HCTZ for dehydration CHRONIC COUGH CXR negative; likely secondary to laryngopharyngeal reflux disease vs allergic rhinitis Increased her PPI to daily rather than PRN Continue Flonase DVT PROPHYLAXIS Lovenox SQ FULL CODE DISPOSITION Med/ surg PCP is Dr. Elena Patient seen in collaboration with Dr. Squires. Please see her addendum. ADDENDUM: Record reviewed. Patient interviewed and examined. Care coordinated with Ana María Shipman PA-C. I agree with assessment and plan as stated above. Shaw, DO VTE Prophylaxis VTE Risk Assessment Done? Y/N: Yes Risk Level: Moderate Given or contraindicated: Enoxaparin (Lovenox)SQ
[2016-12-19] MEDS: ENOXAPARIN 40 MG/0.4 ML SYR SQ SCH (21:31)
[2016-12-19] MEDS: KETOROLAC TROMETHAMINE 30 MG/ML VIAL IV SCH (21:31)
[2016-12-20] VITALS: O2SAT 97
[2016-12-20] MEDS: SODIUM CHLORIDE 0.9% 1000ML 1,000 ML IV SCH (00:08)
[2016-12-20 00:10] VITALS: BP 130/85; PULSE 67; TEMP 36.5; O2SAT 97
[2016-12-20] MEDS: KETOROLAC TROMETHAMINE 30 MG/ML VIAL IV SCH ×2 (05:44→13:09)
[2016-12-20 05:57] VITALS: BP 155/92; PULSE 64; TEMP 36.8; O2SAT 92
[2016-12-20 06:26] LABS: HEMATOCRIT 32.9 % (37-47); MEAN CELL VOLUME 90.4 fL (80-100); MEAN CORPUSCULAR HEMOGLOBIN 31.9 pg (25-34); MEAN CORPUSCULAR HGB CONC 35.3 g/dl (32-36); MEAN PLATELET VOLUME 8.6 fL (7.4-10.4); PLATELET COUNT 345 K/uL (130-400); RED BLOOD COUNT 3.64 M/uL (4.2-5.4)
[2016-12-20 07:03] LABS: BUN/CREATININE RATIO 9.4 (10-20); CALCIUM 8.7 mg/dl (8.5-10.1); CREATININE 0.86 mg/dl (0.60-1.20); MAGNESIUM 2.2 mg/dl (1.8-2.4); POTASSIUM 3.5 mmol/L (3.5-5.1)
[2016-12-20] MEDS: METOPROLOL SUCC 25MG EXT REL TAB PO SCH (07:58)
[2016-12-20] MEDS: LOSARTAN POTASSIUM 50 MG TAB PO SCH (07:59)
[2016-12-20] MEDS ORDERED: NON-FORMULARY MEDICATION (Potassium Gluconate 1 TAB) PO SCH (08:00)
[2016-12-20] MEDS: PANTOprazole SOD 40 MG TAB PO SCH (08:16)
[2016-12-20] MEDS ORDERED: ALUMINUM/MAGNESIUM SUSP 30 ML UDC PO PRN (12:15)
[2016-12-20] MEDS ORDERED: ALUMINUM/MAGNESIUM SUSP 30 ML UDC ONE (12:27)
[2016-12-20] MEDS ORDERED: CEFTRIAXONE SOD INJ 1 GM in DEXTROSE 5% ADD-VANTAGE 50ML 50 ML IV SCH (13:00)
[2016-12-20] MEDS ORDERED: SIMETHICONE 80 MG CHEW PO PRN (14:30)
--- NOTE | 2016-12-20 14:54 | Progress Note ---
Medicine Progress Note Date & Time of Visit: Dec 20, 2016 at 14:49. Subjective patient seen resting in bed, sitting up states she feels somewhat better today less chills no abdominal pain, nausea, but reports bloating no flatus or BMs yet denies other symptoms Objective Last 8 Hrs Date Time Temp Pulse Resp B/P (MAP) Pulse Ox O2 Delivery O2 Flow Rate FiO2 12/20/16 08:00 Room Air Physical Exam: General- oriented x 3, not in distress, speaks in sentences with no effort Head- atraumatic Eyes- EOMI, anicteric ENT- oropharynx clear Neck- supple, no JVD, no adenopathy, no thyromegaly Lungs- clear breath sounds bilaterally Heart- regular rhythm; no murmur, normal rate Abdomen- normal bowel sounds, mild distention, tympanitic, soft, nontender Extremities- no pretibial edema, no calf tenderness; peripheral pulses intact Neuro- alert, oriented x 3; no gross focal deficits Skin- warm & dry Laboratory Results: Last 24 Hours Test 12/20/16 05:38 White Blood Count 8.00 K/uL Red Blood Count 3.64 M/uL Hemoglobin 11.6 g/dL Hematocrit 32.9 % Mean Corpuscular Volume 90.4 fL Mean Corpuscular Hemoglobin 31.9 pg Mean Corpuscular Hemoglobin Concent 35.3 g/dl RDW Standard Deviation 40.9 fL RDW Coefficient of Variation 12.3 % Platelet Count 345 K/uL Mean Platelet Volume 8.6 fL Sodium Level 140 mmol/L Potassium Level 3.5 mmol/L Chloride Level 107 mmol/L Carbon Dioxide Level 23 mmol/L Anion Gap 10.0 mmol/L Blood Urea Nitrogen 8 mg/dl Creatinine 0.86 mg/dl Est Creatinine Clear Calc Drug Dose 64.3 ml/min Estimated GFR () 82.7 Estimated GFR (Non- 71.4 BUN/Creatinine Ratio 9.4 Random Glucose 101 mg/dl Calcium Level 8.7 mg/dl Magnesium Level 2.2 mg/dl Assessment & Plan RIGHT PYELONEPHRITIS Failed outpatient treatment with Bactrim and Levaquin Urine culture from 12/13/16 grew howard sensitive E. coli; blood cultures from neg x 2 CT a/p showed known left kidney cystic lesion which has decreased in size from (see full impression above) on admission, Has leukocytosis (WBC 12.3K with left shift), but no sepsis, mildly febrile to 37.9 after admission repeat urine cultures: pending ff up blood and urine cultures from outpatient -- afebrile, WBC normalized -- continue Ceftriaxone 1g IV Day 2 start IV fluids advance diet BLOATING -- check KUB -- PRN Simethicone, and Maalox Protonix daily HYPERTENSION BP is stable Continue losartan and metoprolol Held HCTZ for dehydration CHRONIC COUGH CXR negative; likely secondary to laryngopharyngeal reflux disease vs allergic rhinitis Increased her PPI to daily rather than PRN Continue Flonase DVT PROPHYLAXIS Lovenox SQ FULL CODE DISPOSITION Med/ surg PCP is Dr. Elena Current Inpatient Medications: Current Inpatient Medications Medications (Trade) Dose Ordered Sig/Rubio Route Start Time Stop Time Status Last Admin Dose Admin Enoxaparin Sodium (Lovenox Inj) 40 mg Q24H SQ 12/19/16 21:00 01/18/17 20:59 12/19/16 21:31 40 MG Acetaminophen (Tylenol Tab) 650 mg Q4H PRN PO 12/19/16 15:00 01/18/17 14:59 Ondansetron HCl (Zofran Inj) 4 mg Q6H PRN IV 12/19/16 15:00 01/18/17 14:59 Ceftriaxone Sodium 1 gm/ Dextrose 50 ml @ 100 mls/hr DAILY@1300 IV 12/20/16 13:00 12/28/16 13:29 12/20/16 13:04 100 MLS/HR Fluticasone Propionate (Flonase Nasal [place]) 2 sprays DAILY PRN RAJESH 12/19/16 15:15 01/18/17 15:14 Metoprolol Succinate (Toprol Xl Tab) 25 mg DAILY PO 12/20/16 08:00 01/19/17 08:59 12/20/16 07:58 25 MG Miscellaneous Information (Order Awaiting Action) 1 ea QS N/A 12/19/16 16:00 01/18/17 15:59 Losartan Potassium (coZAAR TAB) 50 mg QAM PO 12/20/16 08:00 01/19/17 08:59 12/20/16 07:59 50 MG Phenazopyridine HCl (Pyridium Tab) 200 mg TID PRN PO 12/19/16 15:15 01/18/17 15:14 Pantoprazole Sodium (Protonix Tab) 40 mg DAILY PO 12/19/16 18:00 01/18/17 17:59 12/20/16 08:16 40 MG Al Hydroxide/Mg Hydroxide (Maalox Susp) 30 ml Q6H PRN PO 12/20/16 12:15 01/19/17 12:14
[2016-12-20] MEDS: NSS + 20MEQ KCL 1000ML 1,000 ML IV SCH (15:28)
[2016-12-20 15:51] VITALS: BP 162/83; PULSE 64; TEMP 36.7; O2SAT 98
--- NOTE | 2016-12-20 19:33 | DIAGNOSTIC IMAGING REPORT ---
KUB HISTORY: r/o ileus, obstruction COMPARISON: Abdomen and pelvis CT 12/15/2016. FINDINGS: A few mildly distended gas-filled loops of small bowel within the right side the abdomen. There is gas within the colon. No renal calculi. No ureteral calculi. No pneumoperitoneum or pneumatosis. IMPRESSION: A few mildly distended gas-filled loops of small bowel within the right side the abdomen. There remains gas within the nondistended colon. These findings favor mild ileus. A partial small bowel obstruction could also have a similar appearance. Electronically signed by: Clarence Disla M.D. 12/20/2016 7:32 PM Dictated Date/Time: 12/20/2016 7:30 PM
[2016-12-20] MEDS: ENOXAPARIN 40 MG/0.4 ML SYR SQ SCH (21:08)
[2016-12-20 23:05] VITALS: BP 169/83; PULSE 72; TEMP 37.9; O2SAT 100
[2016-12-20] MEDS: ACETAMINOPHEN 325 MG TAB PO PRN (23:19)
[2016-12-21] VITALS: O2SAT 97
[2016-12-21] MEDS: NSS + 20MEQ KCL 1000ML 1,000 ML IV SCH ×2 (04:35→17:48)
[2016-12-21 05:59] LABS: BASO % 0.1 %; BASO ABS # 0.01 K/uL (0-0.2); COMPLETE YES; EOS % 1.6 %; HEMATOCRIT 34.1 % (37-47); IG% 0.6 %; LYMPH % 21.7 %; MEAN CORPUSCULAR HEMOGLOBIN 30.5 pg (25-34); MEAN CORPUSCULAR HGB CONC 34.3 g/dl (32-36); MEAN PLATELET VOLUME 8.4 fL (7.4-10.4); MONO % 8.1 %; NEUT % 67.9 %; PLATELET COUNT 376 K/uL (130-400); RED BLOOD COUNT 3.83 M/uL (4.2-5.4); WHITE BLOOD COUNT 8.31 K/uL (4.8-10.8)
[2016-12-21 06:29] LABS: BUN/CREATININE RATIO 8.1 (10-20); CALCIUM 8.5 mg/dl (8.5-10.1); CREATININE 0.86 mg/dl (0.60-1.20); MAGNESIUM 2.1 mg/dl (1.8-2.4); POTASSIUM 3.8 mmol/L (3.5-5.1)
[2016-12-21 06:30] LABS: PHOSPHORUS 3.4 mg/dl (2.5-4.9)
[2016-12-21 07:23] VITALS: BP 168/81; PULSE 62; TEMP 36.9; O2SAT 98
[2016-12-21] MEDS: LOSARTAN POTASSIUM 50 MG TAB PO SCH (07:34)
[2016-12-21] MEDS: METOPROLOL SUCC 25MG EXT REL TAB PO SCH (07:34)
[2016-12-21] MEDS: PANTOprazole SOD 40 MG TAB PO SCH (07:34)
--- NOTE | 2016-12-21 09:59 | Progress Note ---
Medicine Progress Note Date & Time of Visit: Dec 21, 2016 at 09:56. Subjective seen resting in bed, alert, comfortable had low grade fever last night feels slightly better, still somewhat weak denies back/flank/abdominal pain, no nausea, has loose stools no headache, chest pain, dyspnea, dizziness no other symptoms Objective Last 8 Hrs Date Time Temp Pulse Resp B/P (MAP) Pulse Ox O2 Delivery O2 Flow Rate FiO2 12/21/16 08:30 Room Air 12/21/16 07:23 36.9 62 16 168/81 (110) 98 Room Air Physical Exam: General- oriented x 3, not in distress, speaks in sentences with no effort Eyes- anicteric Neck- supple, no JVD Lungs- clear breath sounds bilaterally, no rales/wheezes Heart- regular rhythm; no murmur, normal rate Abdomen- normal bowel sounds, less distention, less tympanitic, soft, nontender Extremities- no pretibial edema, no calf tenderness Neuro- alert, oriented x 3; no gross focal deficits Skin- warm & dry Laboratory Results: Last 24 Hours Test 12/21/16 05:39 White Blood Count 8.31 K/uL Red Blood Count 3.83 M/uL Hemoglobin 11.7 g/dL Hematocrit 34.1 % Mean Corpuscular Volume 89.0 fL Mean Corpuscular Hemoglobin 30.5 pg Mean Corpuscular Hemoglobin Concent 34.3 g/dl Platelet Count 376 K/uL Mean Platelet Volume 8.4 fL Neutrophils (%) (Auto) 67.9 % Lymphocytes (%) (Auto) 21.7 % Monocytes (%) (Auto) 8.1 % Eosinophils (%) (Auto) 1.6 % Basophils (%) (Auto) 0.1 % Neutrophils # (Auto) 5.65 K/uL Lymphocytes # (Auto) 1.80 K/uL Monocytes # (Auto) 0.67 K/uL Eosinophils # (Auto) 0.13 K/uL Basophils # (Auto) 0.01 K/uL RDW Standard Deviation 39.6 fL RDW Coefficient of Variation 12.2 % Immature Granulocyte % (Auto) 0.6 % Immature Granulocyte # (Auto) 0.05 K/uL Sodium Level 143 mmol/L Potassium Level 3.8 mmol/L Chloride Level 112 mmol/L Carbon Dioxide Level 22 mmol/L Anion Gap 9.0 mmol/L Blood Urea Nitrogen 7 mg/dl Creatinine 0.86 mg/dl Est Creatinine Clear Calc Drug Dose 64.3 ml/min Estimated GFR () 82.7 Estimated GFR (Non- 71.4 BUN/Creatinine Ratio 8.1 Random Glucose 95 mg/dl Calcium Level 8.5 mg/dl Phosphorus Level 3.4 mg/dl Magnesium Level 2.1 mg/dl Assessment & Plan RIGHT PYELONEPHRITIS Failed outpatient treatment with Bactrim and Levaquin Urine culture from 12/13/16 grew howard sensitive E. coli; blood cultures from neg x 2 CT a/p showed known left kidney cystic lesion which has decreased in size from (see full impression above) on admission, Has leukocytosis (WBC 12.3K with left shift), but no sepsis, mildly febrile to 37.9 after admission -- slowly improving clinically (+) low grade fever last night WBC normalized -- urine culture: negative so far -- continue Ceftriaxone but increase to 2g IV Day 3 IV fluids BLOATING, POSSIBLE MILD ILEUS -- check KUB: mild ileus patient denies nausea, has loose BMs -- check c diff -- resume clear liquids monitor closely -- PRN Simethicone, and Maalox Protonix daily HYPERTENSION BP elevated, asymptomatic HCTZ on hold add amlodipine 5mg po daily Continue losartan and metoprolol -- monitor CHRONIC COUGH CXR negative; likely secondary to laryngopharyngeal reflux disease vs allergic rhinitis Increased her PPI to daily rather than PRN Continue Flonase DVT PROPHYLAXIS Lovenox SQ FULL CODE DISPOSITION Med/ surg PCP is Dr. Elena Current Inpatient Medications: Current Inpatient Medications Medications (Trade) Dose Ordered Sig/Rubio Route Start Time Stop Time Status Last Admin Dose Admin Enoxaparin Sodium (Lovenox Inj) 40 mg Q24H SQ 12/19/16 21:00 01/18/17 20:59 12/20/16 21:08 40 MG Acetaminophen (Tylenol Tab) 650 mg Q4H PRN PO 12/19/16 15:00 01/18/17 14:59 12/20/16 23:19 650 MG Ondansetron HCl (Zofran Inj) 4 mg Q6H PRN IV 12/19/16 15:00 01/18/17 14:59 Fluticasone Propionate (Flonase Nasal [place]) 2 sprays DAILY PRN RAJESH 12/19/16 15:15 01/18/17 15:14 Metoprolol Succinate (Toprol Xl Tab) 25 mg DAILY PO 12/20/16 08:00 01/19/17 08:59 12/21/16 07:34 25 MG Miscellaneous Information (Order Awaiting Action) 1 ea QS N/A 12/19/16 16:00 01/18/17 15:59 Losartan Potassium (coZAAR TAB) 50 mg QAM PO 12/20/16 08:00 01/19/17 08:59 12/21/16 07:34 50 MG Phenazopyridine HCl (Pyridium Tab) 200 mg TID PRN PO 12/19/16 15:15 01/18/17 15:14 Pantoprazole Sodium (Protonix Tab) 40 mg DAILY PO 12/19/16 18:00 01/18/17 17:59 12/21/16 07:34 40 MG Al Hydroxide/Mg Hydroxide (Maalox Susp) 30 ml Q6H PRN PO 12/20/16 12:15 01/19/17 12:14 Potassium Chloride/Sodium Chloride 1,000 ml @ 80 mls/hr [id number] IV 12/20/16 16:00 01/19/17 15:59 12/21/16 04:35 80 MLS/HR Simethicone (Mylicon Chew Tab) 80 mg Q6H PRN PO 12/20/16 14:30 01/19/17 14:29 12/20/16 15:28 80 MG Ceftriaxone Sodium 2000 mg/ Dextrose 70 ml @ 100 mls/hr Q24H IV 12/21/16 09:30 12/31/16 09:29 UNV
[2016-12-21] MEDS ORDERED: AMLODIPINE BESYLATE 5 MG TAB PO ONE (10:30)
[2016-12-21] MEDS: CEFTRIAXONE SOD INJ 2,000 MG in DEXTROSE 5% 50ML 50 ML IV SCH (11:10)
[2016-12-21 15:35] VITALS: BP 153/74; PULSE 61; TEMP 37.1; O2SAT 96
[2016-12-21] MEDS: ACETAMINOPHEN 325 MG TAB PO PRN (17:36)
[2016-12-21] MEDS ORDERED: VANCOMYCIN HCL 125 MG/2.5ML SOLN PO ONE (20:29)
[2016-12-21] MEDS ORDERED: RASPBERRY SYRUP 5 ML UDP PO ONE (20:45)
[2016-12-21] MEDS: ENOXAPARIN 40 MG/0.4 ML SYR SQ SCH (21:10)
[2016-12-21 22:53] VITALS: BP 115/71; PULSE 63; TEMP 37.1; O2SAT 99
[2016-12-21] MEDS: ZOLPIDEM TARTRATE 5 MG TAB PO PRN (23:17)
[2016-12-22] VITALS: O2SAT 97
[2016-12-22] MEDS: NSS + 20MEQ KCL 1000ML 1,000 ML IV SCH ×2 (05:16→19:44)
[2016-12-22 06:26] LABS: BASO % 0.2 %; BASO ABS # 0.02 K/uL (0-0.2); COMPLETE YES; EOS % 1.1 %; HEMATOCRIT 36.3 % (37-47); IG% 0.8 %; LYMPH % 21.5 %; LYMPH ABS # 1.88 K/uL (1.2-3.4); MEAN CELL VOLUME 88.5 fL (80-100); MEAN PLATELET VOLUME 8.6 fL (7.4-10.4); MONO % 5.1 %; NEUT % 71.3 %; PLATELET COUNT 445 K/uL (130-400); WHITE BLOOD COUNT 8.76 K/uL (4.8-10.8)
[2016-12-22 06:52] LABS: BUN/CREATININE RATIO 4.8 (10-20); CALCIUM 9.2 mg/dl (8.5-10.1); CREATININE 0.85 mg/dl (0.60-1.20); MAGNESIUM 1.9 mg/dl (1.8-2.4); POTASSIUM 3.7 mmol/L (3.5-5.1)
[2016-12-22 06:53] LABS: PHOSPHORUS 3.5 mg/dl (2.5-4.9)
[2016-12-22 07:26] VITALS: BP 170/82; PULSE 62; TEMP 36.8; O2SAT 96
[2016-12-22] MEDS: VANCOMYCIN HCL 125 MG/2.5ML SOLN PO SCH ×4 (07:54→20:14)
[2016-12-22] MEDS: PANTOprazole SOD 40 MG TAB PO SCH (07:55)
[2016-12-22] MEDS: RASPBERRY SYRUP 5 ML UDP PO SCH ×4 (07:55→20:14)
[2016-12-22] MEDS: METOPROLOL SUCC 25MG EXT REL TAB PO SCH (07:55)
[2016-12-22] MEDS: LOSARTAN POTASSIUM 50 MG TAB PO SCH (07:55)
[2016-12-22] MEDS: CEFTRIAXONE SOD INJ 2,000 MG in DEXTROSE 5% 50ML 50 ML IV SCH (09:59)
[2016-12-22 10:50] VITALS: BP 137/73
--- NOTE | 2016-12-22 12:29 | Progress Note ---
Medicine Progress Note Date & Time of Visit: Dec 22, 2016 at 12:25. Subjective seen resting in bed, comfortable states she slept better last night feels improved still has diarrhea but less today, no blood, no abdominal pain or nausea, bloating has resolved no back or flank pain, chills, dysuria no other symptoms Objective Last 8 Hrs Date Time Temp Pulse Resp B/P (MAP) Pulse Ox O2 Delivery O2 Flow Rate FiO2 12/22/16 10:50 137/73 (94) 12/22/16 08:00 Room Air 12/22/16 07:26 36.8 62 18 170/82 (111) 96 Physical Exam: General- oriented x 3, not in distress, speaks in sentences with no effort Eyes- anicteric Neck- no JVD Lungs- clear BS bilaterally, no rales/wheezes Heart- regular rhythm; no murmur, normal rate Abdomen- hyperactive bowel sounds, no abdominal distention, less tympanitic, soft, nontender Extremities- no pretibial edema, no calf tenderness Neuro- alert, oriented x 3; no gross focal deficits Skin- warm & dry Laboratory Results: Last 24 Hours Test 12/22/16 05:42 White Blood Count 8.76 K/uL Red Blood Count 4.10 M/uL Hemoglobin 12.7 g/dL Hematocrit 36.3 % Mean Corpuscular Volume 88.5 fL Mean Corpuscular Hemoglobin 31.0 pg Mean Corpuscular Hemoglobin Concent 35.0 g/dl Platelet Count 445 K/uL Mean Platelet Volume 8.6 fL Neutrophils (%) (Auto) 71.3 % Lymphocytes (%) (Auto) 21.5 % Monocytes (%) (Auto) 5.1 % Eosinophils (%) (Auto) 1.1 % Basophils (%) (Auto) 0.2 % Neutrophils # (Auto) 6.24 K/uL Lymphocytes # (Auto) 1.88 K/uL Monocytes # (Auto) 0.45 K/uL Eosinophils # (Auto) 0.10 K/uL Basophils # (Auto) 0.02 K/uL RDW Standard Deviation 38.8 fL RDW Coefficient of Variation 12.1 % Immature Granulocyte % (Auto) 0.8 % Immature Granulocyte # (Auto) 0.07 K/uL Sodium Level 141 mmol/L Potassium Level 3.7 mmol/L Chloride Level 107 mmol/L Carbon Dioxide Level 23 mmol/L Anion Gap 11.0 mmol/L Blood Urea Nitrogen 4 mg/dl Creatinine 0.85 mg/dl Est Creatinine Clear Calc Drug Dose 65.1 ml/min Estimated GFR () 83.9 Estimated GFR (Non- 72.4 BUN/Creatinine Ratio 4.8 Random Glucose 89 mg/dl Calcium Level 9.2 mg/dl Phosphorus Level 3.5 mg/dl Magnesium Level 1.9 mg/dl Date/Time Source Procedure Growth Status 12/21/16 17:45 Stool C.difficile Toxin B Gene (PCR) - Final Positive for C. difficile toxin B gene Complete Assessment & Plan RIGHT PYELONEPHRITIS Failed outpatient treatment with Bactrim and Levaquin Urine culture from 12/13/16 grew howard sensitive E. coli; blood cultures from neg x 2 CT a/p showed known left kidney cystic lesion which has decreased in size from (see full impression above) on admission, Has leukocytosis (WBC 12.3K with left shift), but no sepsis, mildly febrile to 37.9 after admission -- now afebrile, no leukocytosis -- urine culture: negative so fa -- continue Ceftriaxone 2g IV Day 4 IV fluids C DIFF COLITIS -- check KUB: mild ileus - Vancomycin QID Day 2 IV fluids clear liquids -- improving HYPERTENSION BP elevated, asymptomatic HCTZ on hold add amlodipine 5mg po daily Continue losartan and metoprolol -- monitor CHRONIC COUGH CXR negative; likely secondary to laryngopharyngeal reflux disease vs allergic rhinitis Increased her PPI to daily rather than PRN Continue Flonase DVT PROPHYLAXIS hold Lovenox due to c diff colitis SCDs, ambulation encouraged FULL CODE DISPOSITION Med/ surg PCP is Dr. Elena Current Inpatient Medications: Current Inpatient Medications Medications (Trade) Dose Ordered Sig/Rubio Route Start Time Stop Time Status Last Admin Dose Admin Enoxaparin Sodium (Lovenox Inj) 40 mg Q24H SQ 12/19/16 21:00 01/18/17 20:59 12/21/16 21:10 40 MG Acetaminophen (Tylenol Tab) 650 mg Q4H PRN PO 12/19/16 15:00 01/18/17 14:59 12/21/16 17:36 650 MG Ondansetron HCl (Zofran Inj) 4 mg Q6H PRN IV 12/19/16 15:00 01/18/17 14:59 Fluticasone Propionate (Flonase Nasal [place]) 2 sprays DAILY PRN RAJESH 12/19/16 15:15 01/18/17 15:14 Metoprolol Succinate (Toprol Xl Tab) 25 mg DAILY PO 12/20/16 08:00 01/19/17 08:59 12/22/16 07:55 25 MG Miscellaneous Information (Order Awaiting Action) 1 ea QS N/A 12/19/16 16:00 01/18/17 15:59 Losartan Potassium (coZAAR TAB) 50 mg QAM PO 12/20/16 08:00 01/19/17 08:59 12/22/16 07:55 50 MG Phenazopyridine HCl (Pyridium Tab) 200 mg TID PRN PO 12/19/16 15:15 01/18/17 15:14 Pantoprazole Sodium (Protonix Tab) 40 mg DAILY PO 12/19/16 18:00 01/18/17 17:59 12/22/16 07:55 40 MG Al Hydroxide/Mg Hydroxide (Maalox Susp) 30 ml Q6H PRN PO 12/20/16 12:15 01/19/17 12:14 Potassium Chloride/Sodium Chloride 1,000 ml @ 80 mls/hr [id number] IV 12/20/16 16:00 01/19/17 15:59 12/22/16 05:16 80 MLS/HR Simethicone (Mylicon Chew Tab) 80 mg Q6H PRN PO 12/20/16 14:30 01/19/17 14:29 12/20/16 15:28 80 MG Ceftriaxone Sodium 2000 mg/ Dextrose 70 ml @ 100 mls/hr Q24H IV 12/21/16 10:30 12/31/16 10:29 12/22/16 09:59 100 MLS/HR Zolpidem Tartrate (Ambien Tab) 5 mg HS PRN PO 12/21/16 10:15 01/20/17 10:14 12/21/16 23:17 5 MG Vancomycin HCl (Vancomycin Oral Soln) 125 mg QID PO 12/22/16 08:00 01/05/17 07:59 12/22/16 12:10 125 MG Raspberry (Raspberry Syrup 5ml Cup) 5 ml QID PO 12/22/16 08:00 01/05/17 07:59 12/22/16 12:10 5 ML Amlodipine Besylate (Norvasc Tab) 5 mg QAM PO 12/23/16 08:00 01/22/17 07:59 UNV Amlodipine Besylate (Norvasc Tab) 5 mg NOW ONCE PO 12/22/16 12:30 12/22/16 12:31 UNV
[2016-12-22] MEDS ORDERED: AMLODIPINE BESYLATE 5 MG TAB PO ONE (12:45)
[2016-12-22 15:17] VITALS: BP 159/88; PULSE 59; TEMP 37.2; O2SAT 97
[2016-12-22] MEDS: ACETAMINOPHEN 325 MG TAB PO PRN (16:41)
[2016-12-22] MEDS: ZOLPIDEM TARTRATE 5 MG TAB PO PRN (22:50)
[2016-12-23] VITALS: BP 149/85; PULSE 62; TEMP 36.9; O2SAT 97
[2016-12-23 06:03] LABS: BASO % 0.1 %; BASO ABS # 0.01 K/uL (0-0.2); COMPLETE YES; EOS % 1.2 %; HEMATOCRIT 35.3 % (37-47); IG% 0.8 %; LYMPH % 15.6 %; LYMPH ABS # 1.18 K/uL (1.2-3.4); MEAN CELL VOLUME 88.7 fL (80-100); MEAN CORPUSCULAR HEMOGLOBIN 30.7 pg (25-34); MEAN CORPUSCULAR HGB CONC 34.6 g/dl (32-36); MEAN PLATELET VOLUME 8.3 fL (7.4-10.4); MONO % 8.4 %; NEUT % 73.9 %; PLATELET COUNT 404 K/uL (130-400); RED BLOOD COUNT 3.98 M/uL (4.2-5.4); WHITE BLOOD COUNT 7.54 K/uL (4.8-10.8)
[2016-12-23 06:38] LABS: BUN/CREATININE RATIO 6.1 (10-20); CALCIUM 8.9 mg/dl (8.5-10.1); CREATININE 0.77 mg/dl (0.60-1.20); PHOSPHORUS 3.6 mg/dl (2.5-4.9); POTASSIUM 3.6 mmol/L (3.5-5.1)
[2016-12-23 07:44] VITALS: BP 164/88; PULSE 61; TEMP 36.6; O2SAT 98
[2016-12-23] MEDS ORDERED: AMLODIPINE BESYLATE 5 MG TAB PO SCH (08:00)
[2016-12-23] MEDS: RASPBERRY SYRUP 5 ML UDP PO SCH ×4 (08:12→20:31)
[2016-12-23] MEDS: VANCOMYCIN HCL 125 MG/2.5ML SOLN PO SCH ×4 (08:12→20:30)
[2016-12-23] MEDS: LOSARTAN POTASSIUM 50 MG TAB PO SCH (08:12)
[2016-12-23] MEDS: METOPROLOL SUCC 25MG EXT REL TAB PO SCH (08:12)
[2016-12-23] MEDS: CEFTRIAXONE SOD INJ 2,000 MG in DEXTROSE 5% 50ML 50 ML IV SCH (10:21)
[2016-12-23] MEDS: NSS + 20MEQ KCL 1000ML 1,000 ML IV SCH (11:56)
[2016-12-23 15:19] VITALS: BP 154/80; PULSE 58; TEMP 36.9; O2SAT 97
--- NOTE | 2016-12-23 20:21 | Progress Note ---
Medicine Progress Note Date & Time of Visit: Dec 23, 2016 at 20:21. Subjective seen resting in bed states she feels somewhat better today having mild dysuria again but no flank pain, nausea, chills had about 5 loose BMs today, still on clear liquids no other symptoms Objective Last 8 Hrs Date Time Temp Pulse Resp B/P (MAP) Pulse Ox O2 Delivery O2 Flow Rate FiO2 12/23/16 16:34 Room Air 12/23/16 15:19 36.9 58 16 154/80 (104) 97 Room Air Physical Exam: General- oriented x 3, not in distress, speaks in sentences with no effort Eyes- anicteric Neck- no JVD Lungs- clear BS bilaterally, no rales/wheezes Heart- normal rate, regular rhythm; no murmur Abdomen- normoactive bowel sounds, no abdominal distention, soft, nontender Extremities- no pretibial edema, no calf tenderness Neuro- alert, oriented x 3; no gross focal deficits Skin- warm & dry Laboratory Results: Last 24 Hours Test 12/23/16 05:23 White Blood Count 7.54 K/uL Red Blood Count 3.98 M/uL Hemoglobin 12.2 g/dL Hematocrit 35.3 % Mean Corpuscular Volume 88.7 fL Mean Corpuscular Hemoglobin 30.7 pg Mean Corpuscular Hemoglobin Concent 34.6 g/dl Platelet Count 404 K/uL Mean Platelet Volume 8.3 fL Neutrophils (%) (Auto) 73.9 % Lymphocytes (%) (Auto) 15.6 % Monocytes (%) (Auto) 8.4 % Eosinophils (%) (Auto) 1.2 % Basophils (%) (Auto) 0.1 % Neutrophils # (Auto) 5.57 K/uL Lymphocytes # (Auto) 1.18 K/uL Monocytes # (Auto) 0.63 K/uL Eosinophils # (Auto) 0.09 K/uL Basophils # (Auto) 0.01 K/uL RDW Standard Deviation 39.0 fL RDW Coefficient of Variation 12.1 % Immature Granulocyte % (Auto) 0.8 % Immature Granulocyte # (Auto) 0.06 K/uL Sodium Level 142 mmol/L Potassium Level 3.6 mmol/L Chloride Level 109 mmol/L Carbon Dioxide Level 25 mmol/L Anion Gap 8.0 mmol/L Blood Urea Nitrogen 5 mg/dl Creatinine 0.77 mg/dl Est Creatinine Clear Calc Drug Dose 71.8 ml/min Estimated GFR () 94.6 Estimated GFR (Non- 81.6 BUN/Creatinine Ratio 6.1 Random Glucose 92 mg/dl Calcium Level 8.9 mg/dl Phosphorus Level 3.6 mg/dl Magnesium Level 2.0 mg/dl Assessment & Plan RIGHT PYELONEPHRITIS Failed outpatient treatment with Bactrim and Levaquin Urine culture from 12/13/16 grew howard sensitive E. coli; blood cultures from neg x 2 CT a/p showed known left kidney cystic lesion which has decreased in size from (see full impression above) on admission, Had leukocytosis (WBC 12.3K with left shift), but no sepsis, mildly febrile to 37.9 after admission -- remains afebrile, no leukocytosis -- urine culture: negative so far -- reports dysuria today UA: (+) leukocyte esterase, WBCs > 30 although epithelial cells > 30 will consult ID re: antibiotics for possible discharge -- continue Ceftriaxone 2g IV Day 5 IV fluids C DIFF COLITIS -- KUB: mild ileus - Vancomycin QID Day 3 IV fluids clear liquids -- loose BMs improving advance to [facility] soft diet HYPERTENSION BP elevated, asymptomatic HCTZ on hold added amlodipine 5mg po daily, increase to 10mg po daily Continue losartan and metoprolol -- monitor CHRONIC COUGH CXR negative; likely secondary to laryngopharyngeal reflux disease vs allergic rhinitis Increased her PPI to daily rather than PRN Continue Flonase DVT PROPHYLAXIS hold Lovenox due to c diff colitis SCDs, ambulation encouraged FULL CODE DISPOSITION Med/ surg PCP is Dr. Elena Current Inpatient Medications: Current Inpatient Medications Medications (Trade) Dose Ordered Sig/Rubio Route Start Time Stop Time Status Last Admin Dose Admin Acetaminophen (Tylenol Tab) 650 mg Q4H PRN PO 12/19/16 15:00 01/18/17 14:59 12/22/16 16:41 650 MG Ondansetron HCl (Zofran Inj) 4 mg Q6H PRN IV 12/19/16 15:00 01/18/17 14:59 Fluticasone Propionate (Flonase Nasal [place]) 2 sprays DAILY PRN RAJESH 12/19/16 15:15 01/18/17 15:14 Metoprolol Succinate (Toprol Xl Tab) 25 mg DAILY PO 12/20/16 08:00 01/19/17 08:59 12/23/16 08:12 25 MG Miscellaneous Information (Order Awaiting Action) 1 ea QS N/A 12/19/16 16:00 01/18/17 15:59 Losartan Potassium (coZAAR TAB) 50 mg QAM PO 12/20/16 08:00 01/19/17 08:59 12/23/16 08:12 50 MG Phenazopyridine HCl (Pyridium Tab) 200 mg TID PRN PO 12/19/16 15:15 01/18/17 15:14 Al Hydroxide/Mg Hydroxide (Maalox Susp) 30 ml Q6H PRN PO 12/20/16 12:15 01/19/17 12:14 Potassium Chloride/Sodium Chloride 1,000 ml @ 60 mls/hr [id number] IV 12/20/16 16:00 01/19/17 15:59 12/23/16 11:56 60 MLS/HR Simethicone (Mylicon Chew Tab) 80 mg Q6H PRN PO 12/20/16 14:30 01/19/17 14:29 12/20/16 15:28 80 MG Ceftriaxone Sodium 2000 mg/ Dextrose 70 ml @ 100 mls/hr Q24H IV 12/21/16 10:30 12/31/16 10:29 12/23/16 10:21 100 MLS/HR Zolpidem Tartrate (Ambien Tab) 5 mg HS PRN PO 12/21/16 10:15 01/20/17 10:14 12/22/16 22:50 5 MG Vancomycin HCl (Vancomycin Oral Soln) 125 mg QID PO 12/22/16 08:00 01/05/17 07:59 12/23/16 17:09 125 MG Raspberry (Raspberry Syrup 5ml Cup) 5 ml QID PO 12/22/16 08:00 01/05/17 07:59 12/23/16 17:09 5 ML Amlodipine Besylate (Norvasc Tab) 5 mg QAM PO 12/23/16 08:00 01/22/17 07:59 12/23/16 08:12 5 MG
[2016-12-23 22:13] LABS: URINE APPEARANCE CLEAR (CLEAR); URINE BILIRUBIN NEG (NEG); URINE COLOR YELLOW; URINE EPITHELIAL CELL AUTO >30 /lpf (0-5); URINE NITRITE NEG (NEG); URINE SPECIFIC GRAVITY 1.004 (1.000-1.030); UROBILINOGEN NEG (NEG)
[2016-12-23 22:14] LABS: MANUAL MICROSCOPIC REQUIRED? NO; REVIEW REQ? YES
[2016-12-24] MEDS: ACETAMINOPHEN 325 MG TAB PO PRN (00:09)
[2016-12-24] MEDS: ZOLPIDEM TARTRATE 5 MG TAB PO PRN ×2 (00:10→23:36)
[2016-12-24 00:44] VITALS: BP 151/78; PULSE 56; TEMP 37.1; O2SAT 97
[2016-12-24 00:45] VITALS: O2SAT 97
[2016-12-24] MEDS: NSS + 20MEQ KCL 1000ML 1,000 ML IV SCH ×2 (04:13→16:45)
[2016-12-24 05:48] LABS: BASO % 0.1 %; BASO ABS # 0.01 K/uL (0-0.2); COMPLETE YES; EOS % 1.6 %; HEMATOCRIT 36.6 % (37-47); IG% 0.7 %; LYMPH ABS # 1.28 K/uL (1.2-3.4); MEAN CELL VOLUME 89.7 fL (80-100); MEAN CORPUSCULAR HEMOGLOBIN 31.1 pg (25-34); MEAN CORPUSCULAR HGB CONC 34.7 g/dl (32-36); MEAN PLATELET VOLUME 8.3 fL (7.4-10.4); MONO % 5.5 %; NEUT % 73.1 %; PLATELET COUNT 408 K/uL (130-400); RED BLOOD COUNT 4.08 M/uL (4.2-5.4); WHITE BLOOD COUNT 6.73 K/uL (4.8-10.8)
[2016-12-24 06:21] LABS: BUN/CREATININE RATIO 5.1 (10-20); CREATININE 0.87 mg/dl (0.60-1.20); MAGNESIUM 1.9 mg/dl (1.8-2.4); PHOSPHORUS 3.7 mg/dl (2.5-4.9); POTASSIUM 3.3 mmol/L (3.5-5.1)
[2016-12-24 07:25] VITALS: BP 175/84; PULSE 54; TEMP 36.9; O2SAT 97
[2016-12-24] MEDS: LOSARTAN POTASSIUM 50 MG TAB PO SCH (08:44)
[2016-12-24] MEDS: AMLODIPINE BESYLATE 5 MG TAB PO SCH (08:44)
[2016-12-24] MEDS: METOPROLOL SUCC 25MG EXT REL TAB PO SCH (08:44)
[2016-12-24 08:45] VITALS: PULSE 65
[2016-12-24] MEDS: RASPBERRY SYRUP 5 ML UDP PO SCH ×4 (08:45→20:04)
[2016-12-24] MEDS: VANCOMYCIN HCL 125 MG/2.5ML SOLN PO SCH ×4 (08:47→20:04)
[2016-12-24] MEDS: CEFTRIAXONE SOD INJ 2,000 MG in DEXTROSE 5% 50ML 50 ML IV SCH (10:09)
--- NOTE | 2016-12-24 12:11 | Progress Note ---
Progress Note Date of Service Dec 24, 2016. Progress Note ID Consult Dictated #[id number] A/P: 1. Pyelo 2. C diff -Can continue ctx while in hospital, upon d/c would change to po omnicef to complete 14 days -Would continue po vanco x 21 days -Ok for d/c when otherwise stable, thank you
--- NOTE | 2016-12-24 12:35 | INFECT. DISEASE CONSULTATION ---
DATE OF CONSULTATION: 12/24/2016 REQUESTING PHYSICIAN: Dr. Man. HISTORY OF PRESENT ILLNESS: This is a 66-year-old female who was admitted after she had worsening pyelonephritis as an outpatient. She was initially seen in the Emergency Room with complaints of abdominal pain and dysuria. A urine culture was done on the and grew E. coli. She was initially given Rocephin and then transitioned to oral Bactrim. She did have blood cultures at that time and they are negative and final. She returned again on the 15 of December with worsening pain. A CAT scan was done and did show a complex cyst in the kidney. She again was continued on Bactrim and then discharged home from the ER. She followed up with her primary care physician, who then put her on Levaquin for 1-2 days prior to admission. She then developed fever low grade of 100.1 and she subsequently came to the Emergency Room and was placed on Rocephin. She remains on Rocephin and has been afebrile since admission to the hospital. Overall, she states her abdominal complaints are improved. She did have a urinalysis, which had greater than 30 WBCs, but no bacteria. Her cultures from the urine on this admission are negative. She did have a C. diff specimen sent due to diarrhea and c. diff positive. She was placed on oral vancomycin and is tolerating this well. She did not have any repeat abdominal imaging this admission with the exception of a KUB, which was unremarkable. Infectious diseases was asked for recommendations for discharge antibiotics. She currently denies chest pain, cough or shortness of breath. Overall, her abdominal complaints are improved. She is eating and tolerating her diet. All remaining review of systems is reviewed and are unremarkable. PAST MEDICAL HISTORY: Significant for benign neoplasm of colon, cystic kidney disease, hypertension, and left bundle branch block. PAST SURGICAL HISTORY: Significant for colonoscopy, EGD, hysterectomy and a bladder sling. FAMILY HISTORY: Noncontributory. SOCIAL HISTORY: Negative for tobacco use, alcohol use or drug use. ALLERGIES: SHE IS ALLERGIC TO ENALAPRIL. MEDICATIONS: Include Norvasc, oral vancomycin, Rocephin, Ambien, Maalox, Toprol-XL, Cozaar, Flonase, Pyridium, Tylenol and Zofran. PHYSICAL EXAMINATION: VITAL SIGNS: She is afebrile, pulse 54, respiratory rate 18, blood pressure 175/84, and oxygen saturation is 97% on room air. GENERAL: She is awake, alert and oriented x3. She is in no acute distress. HEENT: Mucous membranes are moist. Extraocular muscles are intact. HEART: Regular. LUNGS: Clear. ABDOMEN: Soft, nontender, and nondistended. There is no edema bilaterally. SKIN: Without rash. LABORATORY STUDIES: CBC today reveals a white blood cell count of 6.7, hemoglobin 12.7, and platelets are 408. Chemistry panel reveals a sodium of 141, potassium 3.3, chloride 107, bicarbonate 24, BUN 4, creatinine 0.7, and glucose is 114. Urinalysis is as above. A urine culture is negative. Previous urine culture from the grew pansensitive E. coli. C. diff was positive on the . ASSESSMENT AND PLAN: Pyelonephritis. She can continue on Rocephin intravenously while in the hospital. Upon transition to discharge, she can be placed on Omnicef to complete a total of 14 days. She will also continue on oral vancomycin. At the time of discharge, I would give a 21-day course for positive Clostridium difficile. I do not see any contraindications to discharge from infectious disease's standpoint. Thank you for this consultation. MARCELL
[2016-12-24] MEDS ORDERED: POTASSIUM CHLORIDE 10 MEQ TABCR PO SCH (14:30)
[2016-12-24 14:36] VITALS: BP 154/88; PULSE 62; TEMP 37; O2SAT 97
[2016-12-24 16:00] VITALS: O2SAT 97
[2016-12-25] VITALS: BP 136/72; PULSE 58; TEMP 37; O2SAT 97
[2016-12-25 06:13] LABS: BASO % 0.4 %; BASO ABS # 0.03 K/uL (0-0.2); COMPLETE YES; EOS % 1.9 %; HEMATOCRIT 37.7 % (37-47); IG% 0.8 %; LYMPH % 20.2 %; LYMPH ABS # 1.52 K/uL (1.2-3.4); MEAN CELL VOLUME 88.9 fL (80-100); MEAN CORPUSCULAR HEMOGLOBIN 30.2 pg (25-34); MEAN PLATELET VOLUME 8.3 fL (7.4-10.4); MONO % 7.6 %; NEUT % 69.1 %; PLATELET COUNT 434 K/uL (130-400); RED BLOOD COUNT 4.24 M/uL (4.2-5.4); WHITE BLOOD COUNT 7.54 K/uL (4.8-10.8)
[2016-12-25 06:38] LABS: BUN/CREATININE RATIO 7.5 (10-20); CALCIUM 9.3 mg/dl (8.5-10.1); CREATININE 0.87 mg/dl (0.60-1.20); PHOSPHORUS 3.9 mg/dl (2.5-4.9); POTASSIUM 4.2 mmol/L (3.5-5.1)
[2016-12-25 07:45] VITALS: BP 157/81; PULSE 58; TEMP 37; O2SAT 97
[2016-12-25] MEDS: METOPROLOL SUCC 25MG EXT REL TAB PO SCH (08:02)
[2016-12-25] MEDS: VANCOMYCIN HCL 125 MG/2.5ML SOLN PO SCH ×2 (08:03→11:42)
[2016-12-25] MEDS: LOSARTAN POTASSIUM 50 MG TAB PO SCH (08:03)
[2016-12-25] MEDS: AMLODIPINE BESYLATE 5 MG TAB PO SCH (08:03)
[2016-12-25] MEDS: RASPBERRY SYRUP 5 ML UDP PO SCH ×2 (08:03→11:42)
[2016-12-25] MEDS: NSS + 20MEQ KCL 1000ML 1,000 ML IV SCH (10:28)
[2016-12-25] MEDS: CEFTRIAXONE SOD INJ 2,000 MG in DEXTROSE 5% 50ML 50 ML IV SCH (10:28)
--- NOTE | 2016-12-25 12:30 | Progress Note ---
Subjective Date of Service: Dec 25, 2016. Subjective Pt evaluation today including: conversation w/ patient, physical exam, lab review, review of studies, review of inpatient medication list Saw/examined the patient in room 402 She is doing well - stools are more formed No fevers/chills No urinary issues or back pain - she is eager to go home Problem List Medical Problems: (1) Acute kidney injury Status: Acute (2) Failure of outpatient treatment Status: Acute (3) Fever Status: Acute (4) Hypokalemia Status: Acute (5) Pyelonephritis Status: Acute (6) Pyelonephritis Status: Acute (7) Pyelonephritis Status: Acute (8) UTI (urinary tract infection) Status: Acute (9) UTI (urinary tract infection) Status: Acute Review of Systems Constitutional: No fever, No chills Respiratory: No shortness of breath Cardiac: No chest pain Abdomen: + diarrhea (improving), No pain, No nausea, No vomiting Female : No dysuria, No urinary frequency, No hematuria Medications Current Inpatient Medications Medications (Trade) Dose Ordered Sig/Rubio Route Start Time Stop Time Status Last Admin Dose Admin Acetaminophen (Tylenol Tab) 650 mg Q4H PRN PO 12/19/16 15:00 01/18/17 14:59 12/24/16 00:09 650 MG Ondansetron HCl (Zofran Inj) 4 mg Q6H PRN IV 12/19/16 15:00 01/18/17 14:59 Fluticasone Propionate (Flonase Nasal [place]) 2 sprays DAILY PRN RAJESH 12/19/16 15:15 01/18/17 15:14 Metoprolol Succinate (Toprol Xl Tab) 25 mg DAILY PO 12/20/16 08:00 01/19/17 08:59 12/25/16 08:02 25 MG Miscellaneous Information (Order Awaiting Action) 1 ea QS N/A 12/19/16 16:00 01/18/17 15:59 Losartan Potassium (coZAAR TAB) 50 mg QAM PO 12/20/16 08:00 01/19/17 08:59 12/25/16 08:03 50 MG Phenazopyridine HCl (Pyridium Tab) 200 mg TID PRN PO 12/19/16 15:15 01/18/17 15:14 Al Hydroxide/Mg Hydroxide (Maalox Susp) 30 ml Q6H PRN PO 12/20/16 12:15 01/19/17 12:14 Potassium Chloride/Sodium Chloride 1,000 ml @ 60 mls/hr [id number] IV 12/20/16 16:00 01/19/17 15:59 12/25/16 10:28 60 MLS/HR Simethicone (Mylicon Chew Tab) 80 mg Q6H PRN PO 12/20/16 14:30 01/19/17 14:29 12/20/16 15:28 80 MG Ceftriaxone Sodium 2000 mg/ Dextrose 70 ml @ 100 mls/hr Q24H IV 12/21/16 10:30 12/31/16 10:29 12/25/16 10:28 100 MLS/HR Zolpidem Tartrate (Ambien Tab) 5 mg HS PRN PO 12/21/16 10:15 01/20/17 10:14 12/24/16 23:36 5 MG Vancomycin HCl (Vancomycin Oral Soln) 125 mg QID PO 12/22/16 08:00 01/05/17 07:59 12/25/16 11:42 125 MG Raspberry (Raspberry Syrup 5ml Cup) 5 ml QID PO 12/22/16 08:00 01/05/17 07:59 12/25/16 11:42 5 ML Amlodipine Besylate (Norvasc Tab) 10 mg QAM PO 12/24/16 08:00 01/22/17 07:59 12/25/16 08:03 10 MG Objective Vital Signs Date Time Temp Pulse Resp B/P (MAP) Pulse Ox O2 Delivery O2 Flow Rate FiO2 12/25/16 08:20 Room Air 12/25/16 07:45 37.0 58 16 157/81 (106) 97 Room Air 12/25/16 00:00 Room Air 12/25/16 00:00 37.0 58 16 136/72 (93) 97 Room Air 12/24/16 16:00 97 Room Air 12/24/16 14:36 37.0 62 18 154/88 (110) 97 Room Air Physical Exam General Appearance: no apparent distress Respiratory/Chest: lungs clear, normal breath sounds, no respiratory distress, no accessory muscle use Cardiovascular: regular rate, rhythm, no edema, no murmur Abdomen: normal bowel sounds, non tender, soft Extremities: normal inspection, no pedal edema Neurologic/Psychiatric: no motor/sensory deficits, alert, normal mood/affect Laboratory Results Last 24 Hours Test 12/25/16 05:28 White Blood Count 7.54 K/uL Red Blood Count 4.24 M/uL Hemoglobin 12.8 g/dL Hematocrit 37.7 % Mean Corpuscular Volume 88.9 fL Mean Corpuscular Hemoglobin 30.2 pg Mean Corpuscular Hemoglobin Concent 34.0 g/dl Platelet Count 434 K/uL Mean Platelet Volume 8.3 fL Neutrophils (%) (Auto) 69.1 % Lymphocytes (%) (Auto) 20.2 % Monocytes (%) (Auto) 7.6 % Eosinophils (%) (Auto) 1.9 % Basophils (%) (Auto) 0.4 % Neutrophils # (Auto) 5.22 K/uL Lymphocytes # (Auto) 1.52 K/uL Monocytes # (Auto) 0.57 K/uL Eosinophils # (Auto) 0.14 K/uL Basophils # (Auto) 0.03 K/uL RDW Standard Deviation 39.6 fL RDW Coefficient of Variation 12.4 % Immature Granulocyte % (Auto) 0.8 % Immature Granulocyte # (Auto) 0.06 K/uL Sodium Level 142 mmol/L Potassium Level 4.2 mmol/L Chloride Level 108 mmol/L Carbon Dioxide Level 27 mmol/L Anion Gap 7.0 mmol/L Blood Urea Nitrogen 7 mg/dl Creatinine 0.87 mg/dl Est Creatinine Clear Calc Drug Dose 63.5 ml/min Estimated GFR () 81.6 Estimated GFR (Non- 70.4 BUN/Creatinine Ratio 7.5 Random Glucose 87 mg/dl Calcium Level 9.3 mg/dl Phosphorus Level 3.9 mg/dl Magnesium Level 2.0 mg/dl Assessment and Plan RIGHT PYELONEPHRITIS 12/25 patient has had a mesh in for previous uterine prolapse? outpatient coke burner input would be recommended will d/c on Omnicef for a total of 14 days (8more days) Failed outpatient treatment with Bactrim and Levaquin Urine culture from 12/13/16 grew howard sensitive E. coli; blood cultures from neg x 2 CT a/p showed known left kidney cystic lesion which has decreased in size from (see full impression above) on admission, Had leukocytosis (WBC 12.3K with left shift), but no sepsis, mildly febrile to 37.9 after admission -- remains afebrile, no leukocytosis -- urine culture: negative so far -- reports dysuria today UA: (+) leukocyte esterase, WBCs > 30 although epithelial cells > 30 will consult ID re: antibiotics for possible discharge -- continue Ceftriaxone 2g IV Day 5 IV fluids C DIFF COLITIS 12/25 plan to d/c on Oral vanco for 21 more days -- KUB: mild ileus - Vancomycin QID Day 3 IV fluids clear liquids -- loose BMs improving advance to [facility] soft diet HYPERTENSION BP elevated, asymptomatic HCTZ on hold added amlodipine 5mg po daily, increase to 10mg po daily Continue losartan and metoprolol -- monitor CHRONIC COUGH CXR negative; likely secondary to laryngopharyngeal reflux disease vs allergic rhinitis Increased her PPI to daily rather than PRN Continue Flonase DVT PROPHYLAXIS hold Lovenox due to c diff colitis SCDs, ambulation encouraged FULL CODE DISPOSITION Med/ surg PCP is Dr. Elena
--- NOTE | 2016-12-25 12:31 | Progress Note ---
Medicine Progress Note Date & Time of Visit: Dec 25, 2016 at 12:26. delayed entry date of service 12/24/16 Subjective seen sitting up in bed, talking to friend, comfortable states she still had 5 loose BMs today, still somewhat weak no abdominal pain, nausea no dysuria, flank pain, chills no other symptoms Objective Last 8 Hrs Date Time Temp Pulse Resp B/P (MAP) Pulse Ox O2 Delivery O2 Flow Rate FiO2 12/25/16 08:20 Room Air 12/25/16 07:45 37.0 58 16 157/81 (106) 97 Room Air Physical Exam: General- oriented x 3, not in distress, speaks in sentences with no effort Eyes- anicteric Lungs- clear breath sounds bilaterally Heart- normal rate, regular rhythm; no murmur Abdomen- normoactive bowel sounds, no abdominal distention, soft, nontender Extremities- no pretibial edema, no calf tenderness Neuro- alert, oriented x 3; no gross focal deficits Skin- warm & dry Laboratory Results: Last 24 Hours Test 12/25/16 05:28 White Blood Count 7.54 K/uL Red Blood Count 4.24 M/uL Hemoglobin 12.8 g/dL Hematocrit 37.7 % Mean Corpuscular Volume 88.9 fL Mean Corpuscular Hemoglobin 30.2 pg Mean Corpuscular Hemoglobin Concent 34.0 g/dl Platelet Count 434 K/uL Mean Platelet Volume 8.3 fL Neutrophils (%) (Auto) 69.1 % Lymphocytes (%) (Auto) 20.2 % Monocytes (%) (Auto) 7.6 % Eosinophils (%) (Auto) 1.9 % Basophils (%) (Auto) 0.4 % Neutrophils # (Auto) 5.22 K/uL Lymphocytes # (Auto) 1.52 K/uL Monocytes # (Auto) 0.57 K/uL Eosinophils # (Auto) 0.14 K/uL Basophils # (Auto) 0.03 K/uL RDW Standard Deviation 39.6 fL RDW Coefficient of Variation 12.4 % Immature Granulocyte % (Auto) 0.8 % Immature Granulocyte # (Auto) 0.06 K/uL Sodium Level 142 mmol/L Potassium Level 4.2 mmol/L Chloride Level 108 mmol/L Carbon Dioxide Level 27 mmol/L Anion Gap 7.0 mmol/L Blood Urea Nitrogen 7 mg/dl Creatinine 0.87 mg/dl Est Creatinine Clear Calc Drug Dose 63.5 ml/min Estimated GFR () 81.6 Estimated GFR (Non- 70.4 BUN/Creatinine Ratio 7.5 Random Glucose 87 mg/dl Calcium Level 9.3 mg/dl Phosphorus Level 3.9 mg/dl Magnesium Level 2.0 mg/dl Assessment & Plan RIGHT PYELONEPHRITIS Failed outpatient treatment with Bactrim and Levaquin Urine culture from 12/13/16 grew howard sensitive E. coli; blood cultures from neg x 2 CT a/p showed known left kidney cystic lesion which has decreased in size from (see full impression above) on admission, Had leukocytosis (WBC 12.3K with left shift), but no sepsis, mildly febrile to 37.9 after admission -- remains afebrile, no leukocytosis -- urine culture: negative so far -- 12/23/16 was still reporting dysuria repeat UA: (+) leukocyte esterase, WBCs > 30 although epithelial cells > 30 ID consulted: recommend to continue Ceftri IV, then at discharge, transition to PO Ominicef to complete 14 days total -- continue Ceftriaxone 2g IV Day 6 IV fluids -- has history of hysterectomy, placement of vaginal sling, reports incontinence may need referral to Urologist as outpatient for urodynamic testing C DIFF COLITIS -- KUB: mild ileus -- diarrhea improving - Vancomycin QID Day 4 IV fluids clear liquids-- > advance diet as tolerated -- ID recommends to complete total of 21 days of Vancomycin HYPERTENSION BP elevated, asymptomatic HCTZ on hold added amlodipine 5mg po daily, increased to 10mg po daily Continue losartan and metoprolol -- monitor CHRONIC COUGH CXR negative; likely secondary to laryngopharyngeal reflux disease vs allergic rhinitis Increased her PPI to daily rather than PRN Continue Flonase DVT PROPHYLAXIS hold Lovenox due to c diff colitis SCDs, ambulation encouraged FULL CODE DISPOSITION anticipate d/c home in 1-[address] Elena Current Inpatient Medications: Current Inpatient Medications Medications (Trade) Dose Ordered Sig/Rubio Route Start Time Stop Time Status Last Admin Dose Admin Acetaminophen (Tylenol Tab) 650 mg Q4H PRN PO 12/19/16 15:00 01/18/17 14:59 12/24/16 00:09 650 MG Ondansetron HCl (Zofran Inj) 4 mg Q6H PRN IV 9/22/17 15:00 01/18/17 14:59 Fluticasone Propionate (Flonase Nasal [place]) 2 sprays DAILY PRN RAJESH 12/19/16 15:15 01/18/17 15:14 Metoprolol Succinate (Toprol Xl Tab) 25 mg DAILY PO 12/20/16 08:00 01/19/17 08:59 12/25/16 08:02 25 MG Miscellaneous Information (Order Awaiting Action) 1 ea QS N/A 12/19/16 16:00 01/18/17 15:59 Losartan Potassium (coZAAR TAB) 50 mg QAM PO 12/20/16 08:00 01/19/17 08:59 12/25/16 08:03 50 MG Phenazopyridine HCl (Pyridium Tab) 200 mg TID PRN PO 12/19/16 15:15 01/18/17 15:14 Al Hydroxide/Mg Hydroxide (Maalox Susp) 30 ml Q6H PRN PO 12/20/16 12:15 01/19/17 12:14 Potassium Chloride/Sodium Chloride 1,000 ml @ 60 mls/hr [id number] IV 12/20/16 16:00 01/19/17 15:59 12/25/16 10:28 60 MLS/HR Simethicone (Mylicon Chew Tab) 80 mg Q6H PRN PO 12/20/16 14:30 01/19/17 14:29 12/20/16 15:28 80 MG Ceftriaxone Sodium 2000 mg/ Dextrose 70 ml @ 100 mls/hr Q24H IV 12/21/16 10:30 12/31/16 10:29 12/25/16 10:28 100 MLS/HR Zolpidem Tartrate (Ambien Tab) 5 mg HS PRN PO 12/21/16 10:15 01/20/17 10:14 12/24/16 23:36 5 MG Vancomycin HCl (Vancomycin Oral Soln) 125 mg QID PO 12/22/16 08:00 01/05/17 07:59 12/25/16 11:42 125 MG Raspberry (Raspberry Syrup 5ml Cup) 5 ml QID PO 12/22/16 08:00 01/05/17 07:59 12/25/16 11:42 5 ML Amlodipine Besylate (Norvasc Tab) 10 mg QAM PO 12/24/16 08:00 01/22/17 07:59 12/25/16 08:03 10 MG
[2016-12-25] MEDS ORDERED: AMLO10TA2 PO (12:36)
[2016-12-25] MEDS ORDERED: CEFD300C2 PO (12:36)
[2016-12-25] MEDS ORDERED: VNCS125 PO (12:36)
--- NOTE | 2016-12-25 12:39 | Discharge Instructions ---
Discharge Instructions Date of Service Dec 25, 2016. Admission Reason for Admission: Failure Of Outpatient Treatment,Pyelonephritis Discharge Discharge Diagnosis / Problem: Pyelonephritis, c. diff Discharge Goals Goal(s): Decrease discomfort, Improve function, Diagnostic testing, Therapeutic intervention Activity Recommendations Activity Limitations: resume your previous activity . Instructions / Follow-Up Instructions / Follow-Up Please follow-up with Dr. Mccormick on December 29 at 12:45PM * Take Vancomycin solution as prescribed, for the next 21 days * You will be on Omnicef (antibiotic) for the pyelonephritis (kidney infection) * You may need an outpatient television journalist consultation to check the mesh that is in place for the past 20 years * We have added amlodipine for blood pressure, please take this as well as your other blood pressure pills and primary care should recheck blood pressure in the office Current Hospital Diet Patient's current hospital diet: AHA Diet (Heart Healthy) Discharge Diet Recommended Diet: AHA Diet (Heart Healthy) Pending Studies Studies pending at discharge: no Medical Emergencies . Who to Call and When: Medical Emergencies: If at any time you feel your situation is an emergency, please call 911 immediately. . Non-Emergent Contact Non-Emergency issues call your: Primary Care Provider . . "Provider Documentation" section prepared by Jacky Guan. . VTE Core Measure Inpt VTE Proph given/why not?: Enoxaparin (Lovenox)SQ
--- NOTE | 2016-12-25 12:41 | Discharge Summary ---
Discharge Summary Date of Service Dec 25, 2016. Discharge Summary Admission Date: Dec 19, 2016 at 14:58 Discharge Date: Dec 25, 2016 Discharge Disposition: Home Principal Diagnosis: Pyelonephritis C. Diff Diarrhea Medication Reconciliation New Medications: Cefdinir (Omnicef) 300 Mg Cap 300 MG PO Q12H for 8 Days, #16 CAP Amlodipine Besylate (Norvasc) 10 Mg Tab 1 TAB PO DAILY for 30 Days, #30 TAB 5 Refills Vancomycin HCl (Vancomycin HCl) 125 Mg/2.5 Ml Susp 125 MG PO QID for 21 Days, #210 ML Continued Medications: Cholecalciferol (Vitamin D3) 1,000 Unit Tab 1000 INTER.UNIT PO DAILY, TAB Coenzyme Q10 (Ubidecarenone) (Coq-10) Unknown Strength Cap 1 DOSE PO DAILY Ferrous Sulfate (Ferrous Sulfate) 325 Mg Tab 325 MG PO BID Fish Oil ([place]-3) 1 Ea Cap 1 CAP PO DAILY, CAP Fluticasone Propionate (Nasal) (Flonase Allergy Relief) 50 Mcg/Act Spr 2 SPRAYS RAJESH DAILY PRN for ALLERGIES Oyugzldbfgp-Twcxssjgmrv-Cyq C- (Glucosamine Chondroitin) 1 Tab Tab 1 TAB PO DAILY Hctz/Losartan (Hyzaar 12.5MG/50MG) Tab 1 TAB PO HS, TAB Metoprolol Succinate (Toprol Xl) 25 Mg Tabcr 25 MG PO DAILY, TAB Multivitamins/Minerals (Mvi With Minerals) Tab 1 TAB PO DAILY, TAB Olopatadine Hcl (Patanol 0.1% Oph) 0.1 % [place] 1 DROP OP BID PRN for itching/ allergies, BTL Omeprazole (Prilosec) 40 Mg Cap 40 MG PO DAILY PRN for reflux, CAP Ondansetron Hcl (Zofran) 4 Mg Tab 4 MG PO TID PRN for Nausea, #15 TAB Potassium Gluconate (Potassium Gluconate) 595 Mg Tab 1 TAB PO DAILY Discontinued Medications: Levofloxacin (Levaquin) 500 Mg Tab 500 MG PO DAILY Admission Information HPI (per Admitting provider): This is a 66 y/o female with PMH of hypertension, left renal cyst with spontaneous hemorrhage March [address] Gordon, history of bladder sling, asthma, allergic rhinitis, laryngopharyngeal reflux disease, and other problems listed below who was sent to the ED by Dr. Mccormick for pyelonephritis which failed outpatient treatment. Patient was initially seen in ER 12/13/16, diagnosed with pyelonephritis, treated with IV Rocephin and discharged on Bactrim. Urine culture from 12/13/16 grew howard sensitive E. coli. Blood cultures were negative. Seen in ER again on 12/15/17, CT a/p with contrast showed complex cystic lesion decreased in size from 03/31/16, foci of cortical scarring again seen in both kidneys, hepatomegaly and severe hepatic steatosis, colonic diverticulosis without diverticulitis. IV Rocephin was given and Bactrim was continued. Seen in clinic 12/17 by Tabitha Espinosa PA-C at which time antibiotics were changed to Levaquin. Seen today by Dr. Mccormick for persistent symptoms, was febrile to 100.1 F in clinic, and was sent to ER for further evaluation. Patient reports fever (Tmax approx 103- 104F at home per patient), chills, rigors at times, dysuria, suprapubic pressure, right sided flank pain, N/V, appetite loss, fatigue, generalized weakness, lightheadedness with standing. Ate minimal food yesterday. Has been drinking water and juice which she intermittently keeps down. Did not take meds this morning as she was vomiting. Took Zofran CERTIFIED CODER which relieved the nausea. Pain is controlled at present. She reports cough with white sputum which is intermittent for at least months which she attributes to allergic rhinitis. Has posttussive vomiting at times in addition to vomiting from nausea. Has not been on an inhaler recently. She denies chest pain, SOB/ wheezing, diarrhea, increased urinary frequency, hematuria, vaginal bleeding. Physical Exam (per Admitting): General Appearance: WD/WN, no apparent distress Head: normocephalic, atraumatic Eyes: PERRL ENT: hearing grossly normal, pharynx normal Neck: supple, trachea midline Respiratory/Chest: lungs clear, normal breath sounds, no respiratory distress, no accessory muscle use Cardiovascular: regular rate, rhythm, no murmur Abdomen/GI: normal bowel sounds, soft, + pertinent finding (tender in suprapubic area and with deep palpation of right upper and lower quadrants. no guarding. no rebound tenderness. ) Back: no CVA tenderness Extremities/Musculoskelatal: no calf tenderness, no pedal edema Neurologic/Psych: alert, normal mood/affect, oriented x 3 Skin: normal color, warm/dry Hospital Course RIGHT PYELONEPHRITIS 12/25 patient has had a mesh in for previous uterine prolapse? outpatient pad machine feeder input would be recommended will d/c on Omnicef for a total of 14 days (8more days) Failed outpatient treatment with Bactrim and Levaquin Urine culture from 12/13/16 grew howard sensitive E. coli; blood cultures from neg x 2 CT a/p showed known left kidney cystic lesion which has decreased in size from (see full impression above) on admission, Had leukocytosis (WBC 12.3K with left shift), but no sepsis, mildly febrile to 37.9 after admission -- remains afebrile, no leukocytosis -- urine culture: negative so far -- reports dysuria today UA: (+) leukocyte esterase, WBCs > 30 although epithelial cells > 30 will consult ID re: antibiotics for possible discharge -- continue Ceftriaxone 2g IV Day 5 IV fluids C DIFF COLITIS 12/25 plan to d/c on Oral vanco for 21 more days -- KUB: mild ileus - Vancomycin QID Day 3 IV fluids clear liquids -- loose BMs improving advance to [facility] soft diet HYPERTENSION BP elevated, asymptomatic HCTZ on hold added amlodipine 5mg po daily, increase to 10mg po daily Continue losartan and metoprolol -- monitor CHRONIC COUGH CXR negative; likely secondary to laryngopharyngeal reflux disease vs allergic rhinitis Increased her PPI to daily rather than PRN Continue Flonase DVT PROPHYLAXIS hold Lovenox due to c diff colitis SCDs, ambulation encouraged FULL CODE DISPOSITION Med/ surg PCP is Dr. Elena Total time spent on discharge = 45 minutes This includes examination of the patient, discharge planning, medication reconciliation, and communication with other providers. Discharge Instructions Please follow-up with Dr. Mccormick on December 29 at 12:45PM * Take Vancomycin solution as prescribed, for the next 21 days * You will be on Omnicef (antibiotic) for the pyelonephritis (kidney infection) * You may need an outpatient pad machine feeder consultation to check the mesh that is in place for the past 20 years * We have added amlodipine for blood pressure, please take this as well as your other blood pressure pills and primary care should recheck blood pressure in the office
[2016-12-25 12:47] VITALS: BP 157/81; PULSE 58; TEMP 37; O2SAT 97
[2016-12-25] MEDS ORDERED: BOOST BREEZE NUTRITION DRINK 1 BOX PO SCH (14:00)
== END 2016-12-25 13:41 | disposition home or self-care (01) | DRG 690 ==
LOC: C.EDB 12:13 → INTOOBSV 14:58 → C.4E 14:58 → OBSVTOIN 14:58 → ENRESERV 15:16
PROVIDERS: ADMIT Hospitalist; ATTEND Family Medicine
DX: N12 Tubulo-interstitial nephritis, not specified as acute or chronic (principal); A04.7 Enterocolitis due to Clostridium difficile; K56.7 Ileus, unspecified; I10 Essential (primary) hypertension; I44.7 Left bundle-branch block, unspecified; R05 Cough; D72.829 Elevated white blood cell count, unspecified; R14.0 Abdominal distension (gaseous); Z90.710 Acquired absence of both cervix and uterus; Z91.19 Patient's noncompliance with other medical treatment and regimen; Z83.3 Family history of diabetes mellitus; Z82.49 Family history of ischemic heart disease and other diseases of the circulatory system; Z80.3 Family history of malignant neoplasm of breast

== ENCOUNTER 2020-01-30 17:25 | Observation (INO) ==
--- NOTE | 2020-01-30 18:31 | XRay Report ---
XR chest 1V portable CLINICAL HISTORY: SEPSIS COMPARISON STUDY: Chest radiograph December 19, 2016. FINDINGS: Lung volumes are normal. Lungs are clear. There is no pneumothorax or pleural effusion. Car diomegaly is unchanged. Mediastinal contours are normal. There is no evidence for pulmonary edema. IMPRESSION: No acute cardiopulmonary findings. No change in appearance of the chest. Cardiomegaly. ACT 112: Negative or not required by law. Electronically signed by: Roosevelt Munoz M.D. 01/30/2020 6:30 PM
[2020-01-30 18:49] LABS: Basophils # (auto) 0.01 K/uL (0-0.2); Basophils % (auto) 0.1 %; Eosinophils # (auto) 0.03 K/uL (0-0.5); Eosinophils % (auto) 0.3 %; Hematocrit (blood only) 42.1 % (37-47); Hemoglobin 14.2 g/dL (12.0-16.0); Immature Granulocytes # (auto) 0.04 K/uL (0.00-0.02); Immature Granulocytes % (auto) 0.4 %; Lymphocytes # (auto) 2.25 K/uL (1.2-3.4); Lymphocytes % (auto) 20.4 %; Mean Corpuscular Hgb Conc 33.7 g/dL (32-36); Mean Platelet Volume 9.9 fL (7.4-10.4); Monocytes # (auto) 0.76 K/uL (0.11-0.59); Monocytes % (auto) 6.9 %; Neutrophils # (auto) 7.95 K/uL (1.4-6.5); Neutrophils % (auto) 71.9 %; Platelet Count 257 K/uL (130-400); RDW Coefficient of Variation 12.8 % (11.5-14.5); RDW Standard Deviation 41.4 fL (36.4-46.3); Red Blood Count 4.73 M/uL (4.2-5.4); White Blood Count 11.04 K/uL (4.8-10.8)
[2020-01-30 19:03] LABS: Partial Thromboplastin Ratio 0.8; Partial Thromboplastin Time 22.6 Seconds (21.0-31.0); Prothrombin Time 10.4 Seconds (9.0-12.0)
[2020-01-30 19:09] LABS: Albumin Level 3.4 gm/dl (3.4-5.0); BUN Creatinine Ratio 9.1 (10-20); Calcium 9.2 mg/dl (8.5-10.1); Creatinine Clr Calc Pharmacy 61.7 ml/min; Est GFR (African American) 76.7; Est GFR (Non-African American) 66.2; Potassium 3.1 mmol/L (3.5-5.1)
[2020-01-30 19:14] LABS: D Dimer 630 ug/L FEU (0-500)
[2020-01-30] MEDS ORDERED: POTASSIUM CHLORIDE 10 MEQ TABCR PO STA (19:16)
[2020-01-30] MEDS ORDERED: OPTIRAY 320 125ml IV ONE (19:20)
[2020-01-30 19:25] LABS: Bilirubin,Total 0.8 mg/dl (0.2-1); Total Protein 8.6 gm/dl (6.4-8.2); Troponin I 0.125 ng/ml (0-0.045)
[2020-01-30 19:26] LABS: Albumin Globulin Ratio 0.7 (0.9-2); Globulin 5.2 gm/dl (2.5-4.0)
[2020-01-30 20:02] LABS: Appearance Urine Clear (Clear); Bilirubin Urine Negative (Negative); Blood Urine 1+ (Negative); Color Urine Yellow; Glucose Urine UA Negative (Negative); Ketones Urine Negative (Negative); Leukocyte Esterase Urine 3+ (Negative); Nitrite Urine Negative (Negative); Protein Urine 1+ (Negative); Urobilinogen Urine Negative (Negative)
--- NOTE | 2020-01-30 20:07 | CT Scan Report ---
CT ANGIOGRAPHY OF THE CHEST, PULMONARY EMBOLUS PROTOCOL CLINICAL HISTORY: Shortness of breath and chest pain. Evaluate for pulmonary embolus. COMPARISON STUDY: Chest radiograph December 19, 2016 and January 30, 2020. TECHNIQUE: Following IV administration of 118 mL of Optiray-320, helical axial images of the chest we re obtained utilizing the pulmonary embolus protocol. Maximal intensity projections and sagittal and coronal reformats were viewed on an independent 3D workstation. IV contrast was administered withou t complication. Automated exposure control was utilized for the study. A dose lowering technique wa s utilized adhering to the principles of ALARA. CT DOSE: 1039.71 mGy.cm FINDINGS: No pulmonary embolus is identified. There is moderate dilatation of the main pulmonary art anjali, measuring 3.8 cm in caliber. Moderate cardiomegaly is noted. No thoracic aortic dissection is pr esent. There is no pericardial effusion. No enlarged thoracic lymph nodes are present. A left lobe th yroid nodule measures approximately 2.1 cm. There is no consolidation to suggest pneumonia. No pneumo thorax or pleural effusion is noted. Mild subpleural opacities reflect atelectasis. Abdomen and pelvi s will be reported separately. IMPRESSION: 1. No pulmonary embolus identified. 2. No acute process within the chest. 3. Dilatation of the central pulmonary arteries which raises the possibility of pulmonary arterial hy pertension. Moderate cardiomegaly. 4. Left lobe thyroid nodule which measures approximately 2.1 cm. Nonemergent thyroid ultrasound is re commended. ACT 112: Negative or not required by law. Electronically signed by: Roosevelt Munoz M.D. 01/30/2020 8:06 PM
--- NOTE | 2020-01-30 20:22 | CT Scan Report ---
CT ANGIOGRAPHY OF THE ABDOMEN AND PELVIS CLINICAL HISTORY: Left lower quadrant pain. COMPARISON STUDY: CT of the abdomen and pelvis March 17, 2019. TECHNIQUE: Helical axial images of the abdomen and pelvis were obtained during arterial phase followi ng intravenous injection 119 cc Optiray 320 IV. Sagittal and coronal reconstructions were viewed as w ell as maximal intensity projections on an independent 3-D workstation. Automated exposure control wa s utilized for the study. A dose lowering technique was utilized adhering to the principles of ALARA . FINDINGS: Please note that the chest CT will be reported separately. No pneumatosis, free air or port al venous gas is present. The caliber of the abdominal aorta is normal. There is no dissection within the abdominal aorta. There is moderate atherosclerotic plaque. Major branch vessels are patent. Ther e are multiple subcapsular hypervascular hepatic foci that measure up to 9 mm. There is fatty infiltr ation of the liver. Caliber of the pancreatic duct is at the upper limits of normal. There is no bili bobby ductal dilatation. There is probable adenomyomatosis of the gallbladder fundus. This is unchanged . The spleen and adrenal glands are unremarkable. A 4.7 x 3.7 cm cystic focus within the upper pole o f the left kidney with apparent mild wall thickening is unchanged since prior exam. There is multifoc al scarring within both kidneys. In addition, there are ill-defined hypoenhancing foci within the low er pole of the left kidney with minimal adjacent infiltration. No ureteral calculi are present. There may be mild left-sided urothelial thickening. An angiomyolipoma within the left kidney is noted. The re is colonic diverticulosis without evidence for acute diverticulitis. There is no evidence for a robel wel obstruction. No suspicious osseous lesions are present. Bladder is mildly distended. IMPRESSION: 1. Multiple ill-defined hypoenhancing foci within the lower pole of the left kidney with mild adjacen t infiltration. Suspected mild left urothelial thickening. This suggests pyelonephritis. A follow-up CT in 2 months is recommended to ensure resolution. 2. Normal caliber abdominal aorta with moderate plaque. No dissection. Patent major branch vessels. 3. No change in a 4.7 x 3.7 cm cystic focus within the upper pole of the left kidney with apparent wa ll thickening. This could reflect chronic dilatation of the upper collecting system. A stable cystic lesion could appear similar. Multifocal renal scarring. 4. Colonic diverticulosis without evidence for acute diverticulitis. No bowel obstruction. 5. Fatty infiltration of the liver. Multiple subcapsular hypervascular foci which are suboptimally as sessed on this exam but likely reflect shunts. ACT 112: Negative or not required by law. Electronically signed by: Roosevelt Munoz M.D. 01/30/2020 8:21 PM
[2020-01-30 20:27] LABS: Epithelial Cell Urine 0-5 /lpf (0-5)
[2020-01-30 20:28] LABS: Bacteria Urine 1+ (Negative); RBC Urine 0-4 /hpf (0-4)
[2020-01-30] MEDS ORDERED: cefTRIAXone SODIUM 1,000 MG/50 ML BAG IV STA (20:31)
--- NOTE | 2020-01-30 20:46 | Emergency Department Note ---
History of Present Illness General Chief complaint: Fever Stated complaint: FEVER, COVID TESTING Time Seen by Provider: 01/30/20 17:43 History of Present Illness Provider complaint: Fever Onset (ago): day(s) 3 Location: abdomen Maximum Pain Intensity: 6 Associated symptoms: + cough, + fever/chills, + loss of appetite, + malaise, + nausea/vomiting, + shortness of breath and + weakness; no chest pain 69-year-old female presents emergency department for fever. Patient reports that she was sent in by her PCP Dr. Mccormick from [facility] for COVID-19 testing. Patient reports for the last 3 days she has been feeling feverish. She reports chills. She reports loss of taste and appetite yesterday. She also reports some cough and difficulty breathing. She also reports abdominal pain. Home Medications Home Medications Medication Instructions Recorded Confirmed Type amlodipine [Norvasc] 10 mg PO QAM 03/17/19 01/30/20 History cetirizine [Zyrtec] 5 mg PO DAILY PRN 03/17/19 01/30/20 History cholecalciferol (vitamin D3) 1,000 unit PO QAM 03/17/19 01/30/20 History [Vitamin D3] cholestyramine (with sugar) 4 g PO BID 03/17/19 01/30/20 History [Questran] coenzyme Q10 [CoQ-10] 100 mg PO QAM 03/17/19 01/30/20 History conjugated estrogens [Premarin] 0.625 mg VAGINAL DAILY 03/17/19 01/30/20 History cyanocobalamin (vitamin B-12) 100 mcg PO QAM 03/17/19 01/30/20 History [Vitamin B-12] glucos sul [id number]-Mn 1 cap PO QAM 03/17/19 01/30/20 History [Glucosamine Chondroitin] losartan [Cozaar] 50 mg PO BID 03/17/19 01/30/20 History metoprolol succinate 25 mg PO QAM 03/17/19 01/30/20 History omega 0-yab-kbh-fish oil [Fish Oil] 1 cap PO QAM 03/17/19 01/30/20 History omeprazole 20 mg PO BID 03/17/19 01/30/20 History Lactobacillus acidophilus 10,000 mmu cells PO DAILY 01/30/20 01/30/20 History [Probiotic] olopatadine [Patanol] 1 drp OPHTHALMIC (EYE) BID 01/30/20 01/30/20 History Allergies Allergy/AdvReac Type Severity Reaction Status Date / Time enalapril AdvReac Mild H/A Verified 01/30/20 19:23 Past Med/Surg History Medical History Fatty liver Frequent UTI GERD (gastroesophageal reflux disease) History of migraine HTN (hypertension) Hx of Clostridium difficile infection 03/2019 s/p treatment, recurrence 09/2019- on vanco taper Kidney stones LBBB (left bundle branch block) longstanding, listed as indication for 2018 echo Renal cyst Surgical History H/O colonoscopy H/O esophagogastroduodenoscopy H/O total hysterectomy History of cystoscopy History of dilatation and curettage History of tooth extraction Family History Sister Diabetes Family/Other Throat cancer Other No family history of adverse response to anesthesia Social History Smoking Status: Never smoker Second Hand Exposure: Yes (as a child); Hx Alcohol Use: Yes Hx Substance Use: No Preferred Language: Thai Communication Ability: Effective Bank Reconciliator Required: No Beliefs That Will Affect Care: None Current Living Situation: Spouse Feels Safe at Home: Yes Assistive Devices: Glasses Review of Systems A total of 10 systems reviewed and were otherwise negative Physical Exam Vital Signs Vital Signs - 24 hr 01/30/20 17:39 01/30/20 18:18 01/30/20 18:37 Temperature 36.6 C Temperature Source Oral Pulse Rate 87 80 Respiratory Rate 17 17 Respiratory Effort / Characteristics Non-Labored Spontaneous Blood Pressure 131/77 142/89 H Blood Pressure Mean 95 97 Pulse Oximetry 97 97 Oxygen Delivery Method Room Air Room Air Sepsis Recent Fever Within 48 Hours No Sepsis New/Unexplained Change in Mental Status N/A Sepsis Action Taken by Nursing No Action Required 01/30/20 18:45 01/30/20 19:00 01/30/20 19:51 Temperature Temperature Source Pulse Rate 79 78 76 Respiratory Rate 18 23 29 H Respiratory Effort / Characteristics Blood Pressure 144/87 H 152/86 H Blood Pressure Mean 115 107 Pulse Oximetry 97 Oxygen Delivery Method Room Air Sepsis Recent Fever Within 48 Hours Sepsis New/Unexplained Change in Mental Status Sepsis Action Taken by Nursing 01/30/20 19:52 01/30/20 20:00 01/30/20 20:45 Temperature Temperature Source Pulse Rate 76 75 Respiratory Rate 25 H 28 H 18 Respiratory Effort / Characteristics Non-Labored Blood Pressure 156/89 H Blood Pressure Mean 111 Pulse Oximetry 95 Oxygen Delivery Method Room Air Sepsis Recent Fever Within 48 Hours Sepsis New/Unexplained Change in Mental Status Sepsis Action Taken by Nursing Physical Exam GENERAL: She is oriented to person, place, and time. She appears well-developed and well-nourished. She does not appear distressed. HENT: Exam performed. -Head: Normocephalic and atraumatic. -Right Ear: External ear normal. No mastoid tenderness. -Left Ear: External ear normal. No mastoid tenderness. -Mouth/Throat: The oropharynx is clear and moist. No trismus in the jaw. No dental abscesses or uvula swelling. No oropharyngeal exudate or tonsillar abscesses. EYES: Conjunctivae and EOM are normal. Pupils are equal, round, and reactive to light. Right eye exhibits no discharge. Left eye exhibits no discharge. No scleral icterus. NECK: Normal range of motion. Neck supple. No JVD present. No spinous process tenderness present. No carotid bruit present. No rigidity. No tracheal deviation and normal range of motion present. No Brudzinski's sign and no Kernig's sign noted. CV: Normal rate, regular rhythm, normal heart sounds and intact distal pulses. There is no peripheral edema. Palpable radial pulses bue. PULM/CHEST: Effort normal and breath sounds normal. No respiratory distress. No stridor. She has no wheezes. She has no rales. -Chest Wall: She exhibits no tenderness. ABD: The abdomen is soft. Bowel sounds are normal. She has no distension. No mass is present. There is tenderness to palpation of the left lower quadrant. There is no rebound, no guarding, no Decker's sign and no tenderness at McBurney's point. Rovsig negative MUSC/SKEL: Normal range of motion. There is no peripheral edema, tenderness or deformity. LYMPH: No cervical adenopathy. NEURO: She is alert and oriented to person, place, and time. She has normal strength. No cranial nerve deficit or sensory deficit. Coordination and gait normal. GCS eye subscore is 4. GCS verbal subscore is 5. GCS motor subscore is 6. Cerebellar tests wnl. SKIN: Skin is warm and dry. She is not diaphoretic. PSYCH: She has a normal mood and affect. Behavior is normal. Judgment and thought content normal. Course Course 174: The patient was evaluated in room A3. A complete history and physical exam was performed. Cardiac monitoring: An order was placed for continuous cardiac monitoring. The monitor shows a rate of 80 with sinus rhythm Patient was seen in full airborne precautions. N95, gown, gloves and face shield were worn by myself and staff. 1800: [employer] was able to obtain the note from Dr. Mccormick which stated that she was concerned that the patient might be septic with UTI and wants her to be ruled out for diverticulitis. Patient was given Tylenol prior to discharge from the outpatient clinic. Patient also be checked for COVID-19. 2058: Vital signs stable. Labs show an elevated D-dimer. CTA of the chest and abdomen were conducted. Imaging shows no PE. It does show pulmonary artery hypertension. Troponin is also elevated at 0.125. Patient's creatinine is with in normal limits. Patient does not have a history of an elevated troponin at this level. Patient will be treated pyelonephritis with Rocephin 1 g IV piggyback. Rapid COVID-19 test was done and that was negative. Discussed with Dr. Sagar Constantino cardiology. He states no need for anticoagulation at this time, trend troponins. [facility]. Administered Medications Ceftriaxone Sodium (Rocephin) 1,000 mg in 50 mls @ 100 mls/hr IV NOW STA Stop: 01/30/20 21:00 Last Admin: 01/30/20 20:51 Dose: 100 mls/hr Documented by: Discontinued Medications Ioversol (Optiray 320 125ml) 118 ml IV ONCE ONE Stop: 01/30/20 19:21 Last Admin: 01/30/20 19:20 Dose: 1 ml Documented by: [id number] Potassium Chloride (Potassium Chloride 10 Meq Tabcr) 40 meq PO NOW STA Stop: 01/30/20 19:17 Last Admin: 01/30/20 20:51 Dose: 40 meq Documented by: Medical Decision Making Laboratory Data Result diagrams: 01/30/20 18:38 01/30/20 18:38 Lab Results 01/30/20 01/30/20 01/30/20 Range/Units 18:38 18:38 18:38 WBC 11.04 H (4.8-10.8) K/uL RBC 4.73 (4.2-5.4) M/uL Hgb 14.2 (12.0-16.0) g/dL Hct 42.1 (37-47) % MCV 89.0 (80-100) fL MCH 30.0 (25-34) pg MCHC 33.7 (32-36) g/dL RDW Std Deviation 41.4 (36.4-46.3) fL RDW Coeff of Darius 12.8 (11.5-14.5) % Plt Count 257 (130-400) K/uL MPV 9.9 (7.4-10.4) fL Immature Gran % (Auto) 0.4 % Neut % (Auto) 71.9 % Lymph % (Auto) 20.4 % [place] % (Auto) 6.9 % Eos % (Auto) 0.3 % Baso % (Auto) 0.1 % Neut # (Auto) 7.95 H (1.4-6.5) K/uL Lymph # (Auto) 2.25 (1.2-3.4) K/uL [place] # (Auto) 0.76 H (0.11-0.59) K/uL Eos # (Auto) 0.03 (0-0.5) K/uL Baso # (Auto) 0.01 (0-0.2) K/uL Immature Gran # (Auto) 0.04 H (0.00-0.02) K/uL PT 10.4 (9.0-12.0) Seconds INR 1.0 (0.9-1.1) APTT 22.6 (21.0-31.0) Seconds PTT Ratio 0.8 D-Dimer 630 H* (0-500) ug/L FEU Sodium 139 (136-145) mmol/L Potassium 3.1 L (3.5-5.1) mmol/L Chloride 106 (98-107) mmol/L Carbon Dioxide 24 (21-32) mmol/L Anion Gap 9.0 (3-11) BUN 8 (7-18) mg/dl Creatinine 0.90 (0.6-1.2) mg/dl Est Cr Clr Drug Dosing 61.7 ml/min Est GFR ( Amer) 76.7 Est GFR (Non-Af Amer) 66.2 BUN/Creatinine Ratio 9.1 L (10-20) Glucose 115 H (70-99) mg/dl Lactate (0.4-2.0) mmol/L Calcium 9.2 (8.5-10.1) mg/dl Magnesium 2.0 (1.8-2.4) mg/dl Total Bilirubin 0.8 (0.2-1) mg/dl AST 38 H (15-37) U/L ALT 81 H (12-78) U/L Alkaline Phosphatase 109 (45-117) U/L Troponin I 0.125 H* (0-0.045) ng/ml Total Protein 8.6 H (6.4-8.2) gm/dl Albumin 3.4 (3.4-5.0) gm/dl Globulin 5.2 H (2.5-4.0) gm/dl Albumin/Globulin Ratio 0.7 L (0.9-2) Procalcitonin (0-0.5) ng/ml Urine Color Urine Appearance (Clear) Urine pH (4.5-7.5) Ur Specific [place] (1.000-1.030) Urine Protein (Negative) Urine Glucose (UA) (Negative) Urine Ketones (Negative) Urine Blood (Negative) Urine Nitrite (Negative) Urine Bilirubin (Negative) Urine Urobilinogen (Negative) Ur Leukocyte Esterase (Negative) Urine RBC (0-4) /hpf Urine WBC (0-5) /hpf Ur Epithelial Cells (0-5) /lpf Urine Bacteria (Negative) COVID-19 Eval Order COVID-19 PCR (Negative) Nasopharyn COVID-19 PCR 01/30/20 01/30/20 01/30/20 Range/Units 18:38 18:38 18:38 WBC (4.8-10.8) K/uL RBC (4.2-5.4) M/uL Hgb (12.0-16.0) g/dL Hct (37-47) % MCV (80-100) fL MCH (25-34) pg MCHC (32-36) g/dL RDW Std Deviation (36.4-46.3) fL RDW Coeff of Darius (11.5-14.5) % Plt Count (130-400) K/uL MPV (7.4-10.4) fL Immature Gran % (Auto) % Neut % (Auto) % Lymph % (Auto) % [place] % (Auto) % Eos % (Auto) % Baso % (Auto) % Neut # (Auto) (1.4-6.5) K/uL Lymph # (Auto) (1.2-3.4) K/uL [place] # (Auto) (0.11-0.59) K/uL Eos # (Auto) (0-0.5) K/uL Baso # (Auto) (0-0.2) K/uL Immature Gran # (Auto) (0.00-0.02) K/uL PT (9.0-12.0) Seconds INR (0.9-1.1) APTT (21.0-31.0) Seconds PTT Ratio D-Dimer (0-500) ug/L FEU Sodium (136-145) mmol/L Potassium (3.5-5.1) mmol/L Chloride (98-107) mmol/L Carbon Dioxide (21-32) mmol/L Anion Gap (3-11) BUN (7-18) mg/dl Creatinine (0.6-1.2) mg/dl Est Cr Clr Drug Dosing ml/min Est GFR ( Amer) Est GFR (Non-Af Amer) BUN/Creatinine Ratio (10-20) Glucose (70-99) mg/dl Lactate 1.4 (0.4-2.0) mmol/L Calcium (8.5-10.1) mg/dl Magnesium (1.8-2.4) mg/dl Total Bilirubin (0.2-1) mg/dl AST (15-37) U/L ALT (12-78) U/L Alkaline Phosphatase (45-117) U/L Troponin I (0-0.045) ng/ml Total Protein (6.4-8.2) gm/dl Albumin (3.4-5.0) gm/dl Globulin (2.5-4.0) gm/dl Albumin/Globulin Ratio (0.9-2) Procalcitonin 0.44 (0-0.5) ng/ml Urine Color Urine Appearance (Clear) Urine pH (4.5-7.5) Ur Specific [place] (1.000-1.030) Urine Protein (Negative) Urine Glucose (UA) (Negative) Urine Ketones (Negative) Urine Blood (Negative) Urine Nitrite (Negative) Urine Bilirubin (Negative) Urine Urobilinogen (Negative) Ur Leukocyte Esterase (Negative) Urine RBC (0-4) /hpf Urine WBC (0-5) /hpf Ur Epithelial Cells (0-5) /lpf Urine Bacteria (Negative) COVID-19 Eval Order Covid19 Done at [facility] COVID-19 PCR (Negative) Nasopharyn COVID-19 PCR 01/30/20 01/30/20 01/30/20 Range/Units 18:38 18:38 19:50 WBC (4.8-10.8) K/uL RBC (4.2-5.4) M/uL Hgb (12.0-16.0) g/dL Hct (37-47) % MCV (80-100) fL MCH (25-34) pg MCHC (32-36) g/dL RDW Std Deviation (36.4-46.3) fL RDW Coeff of Darius (11.5-14.5) % Plt Count (130-400) K/uL MPV (7.4-10.4) fL Immature Gran % (Auto) % Neut % (Auto) % Lymph % (Auto) % [place] % (Auto) % Eos % (Auto) % Baso % (Auto) % Neut # (Auto) (1.4-6.5) K/uL Lymph # (Auto) (1.2-3.4) K/uL [place] # (Auto) (0.11-0.59) K/uL Eos # (Auto) (0-0.5) K/uL Baso # (Auto) (0-0.2) K/uL Immature Gran # (Auto) (0.00-0.02) K/uL PT (9.0-12.0) Seconds INR (0.9-1.1) APTT (21.0-31.0) Seconds PTT Ratio D-Dimer (0-500) ug/L FEU Sodium (136-145) mmol/L Potassium (3.5-5.1) mmol/L Chloride (98-107) mmol/L Carbon Dioxide (21-32) mmol/L Anion Gap (3-11) BUN (7-18) mg/dl Creatinine (0.6-1.2) mg/dl Est Cr Clr Drug Dosing ml/min Est GFR ( Amer) Est GFR (Non-Af Amer) BUN/Creatinine Ratio (10-20) Glucose (70-99) mg/dl Lactate (0.4-2.0) mmol/L Calcium (8.5-10.1) mg/dl Magnesium (1.8-2.4) mg/dl Total Bilirubin (0.2-1) mg/dl AST (15-37) U/L ALT (12-78) U/L Alkaline Phosphatase (45-117) U/L Troponin I (0-0.045) ng/ml Total Protein (6.4-8.2) gm/dl Albumin (3.4-5.0) gm/dl Globulin (2.5-4.0) gm/dl Albumin/Globulin Ratio (0.9-2) Procalcitonin (0-0.5) ng/ml Urine Color Yellow Urine Appearance Clear (Clear) Urine pH 7.0 (4.5-7.5) Ur Specific [place] 1.010 (1.000-1.030) Urine Protein 1+ H (Negative) Urine Glucose (UA) Negative (Negative) Urine Ketones Negative (Negative) Urine Blood 1+ H (Negative) Urine Nitrite Negative (Negative) Urine Bilirubin Negative (Negative) Urine Urobilinogen Negative (Negative) Ur Leukocyte Esterase 3+ H (Negative) Urine RBC 0-4 (0-4) /hpf Urine WBC 10-30 H (0-5) /hpf Ur Epithelial Cells 0-5 (0-5) /lpf Urine Bacteria 1+ H (Negative) COVID-19 Eval Order COVID-19 PCR NEGATIVE (Negative) Nasopharyn COVID-19 PCR Cancelled Imaging Data Radiologist's Impression: CT ANGIOGRAPHY OF THE CHEST, PULMONARY EMBOLUS PROTOCOL CLINICAL HISTORY: Shortness of breath and chest pain. Evaluate for pulmonary embolus. COMPARISON STUDY: Chest radiograph December 19, 2016 and January 30, 2020. TECHNIQUE: Following IV administration of 118 mL of Optiray-320, helical axial images of the chest were obtained utilizing the pulmonary embolus protocol. M aximal intensity projections and sagittal and coronal reformats were viewed on an independent 3D workstation. IV contrast was administered without complication. Automated exposure control was utilized for the study. A dose lowering technique was utilized adhering to the principles of ALARA. CT DOSE: 1039.71 mGy.cm FINDINGS: No pulmonary embolus is identified. There is moderate dilatation of the main pulmonary artery, measuring 3.8 cm in caliber. Moderate cardiomegaly is noted. No thoracic aortic dissection is present. There is no pericardial effusion. No enlarged thoracic lymph nodes are present. A left lobe thyroid nodule measures approximately 2.1 cm. There is no consolidation to suggest pneumonia. No pneumothorax or pleural effusion is noted. Mild subpleural opacities reflect atelectasis. Abdomen and pelvis will be reported separately. IMPRESSION: 1. No pulmonary embolus identified. 2. No acute process within the chest. 3. Dilatation of the central pulmonary arteries which raises the possibility of pulmonary arterial hypertension. Moderate cardiomegaly. 4. Left lobe thyroid nodule which measures approximately 2.1 cm. Nonemergent thyroid ultrasound is recommended. ACT 112: Negative or not required by law. Electronically signed by: Roosevelt Munoz M.D. 01/30/2020 8:06 PM Dictated: 01/30/201957 Transcribed: 01/30/201957 CT ANGIOGRAPHY OF THE ABDOMEN AND PELVIS CLINICAL HISTORY: Left lower quadrant pain. COMPARISON STUDY: CT of the abdomen and pelvis March 17, 2019. TECHNIQUE: Helical axial images of the abdomen and pelvis were obtained during arterial phase following intravenous injection 119 cc Optiray 320 IV. Sagittal and coronal reconstructions were viewed as well as maximal intensity projections on an independent 3-D workstation. Automated exposure control was utilized for the study. A dose lowering technique was utilized adhering to the principles of ALARA. FINDINGS: Please note that the chest CT will be reported separately. No pneumatosis, free air or portal venous gas is present. The caliber of the abdominal aorta is normal. There is no dissection within the abdominal aorta. There is moderate atherosclerotic plaque. Major branch vessels are patent. There are multiple subcapsular hypervascular hepatic foci that measure up to 9 mm. There is fatty infiltration of the liver. Caliber of the pancreatic duct is at the upper limits of normal. There is no biliary ductal dilatation. There is probable adenomyomatosis of the gallbladder fundus. This is unchanged. The spleen and adrenal glands are unremarkable. A 4.7 x 3.7 cm cystic focus within the upper pole of the left kidney with apparent mild wall thickening is unchanged since prior exam. There is multifocal scarring within both kidneys. In addition, there are ill-defined hypoenhancing foci within the lower pole of the left kidney with minimal adjacent infiltration. No ureteral calculi are present. There may be mild left-sided urothelial thickening. An angiomyolipoma within the left kidney is noted. There is colonic diverticulosis without evidence for acute diverticulitis. There is no evidence for a bowel obstruction. No suspicious osseous lesions are present. Bladder is mildly distended. IMPRESSION: 1. Multiple ill-defined hypoenhancing foci within the lower pole of the left kidney with mild adjacent infiltration. Suspected mild left urothelial thickening. This suggests pyelonephritis. A follow-up CT in 2 months is recommended to ensure resolution. 2. Normal caliber abdominal aorta with moderate plaque. No dissection. Patent major branch vessels. 3. No change in a 4.7 x 3.7 cm cystic focus within the upper pole of the left kidney with apparent wall thickening. This could reflect chronic dilatation of the upper collecting system. A stable cystic lesion could appear similar. Multifocal renal scarring. 4. Colonic diverticulosis without evidence for acute diverticulitis. No bowel obstruction. 5. Fatty infiltration of the liver. Multiple subcapsular hypervascular foci which are suboptimally assessed on this exam but likely reflect shunts. ACT 112: Negative or not required by law. XR chest 1V portable CLINICAL HISTORY: SEPSIS COMPARISON STUDY: Chest radiograph December 19, 2016. FINDINGS: Lung volumes are normal. Lungs are clear. There is no pneumothorax or pleural effusion. Cardiomegaly is unchanged. Mediastinal contours are normal. There is no evidence for pulmonary edema. IMPRESSION: No acute cardiopulmonary findings. No change in appearance of the chest. Cardiomegaly. ACT 112: Negative or not required by law. Electronically signed by: Roosevelt Munoz M.D. 01/30/2020 6:30 PM Dictated: 01/30/201828 Transcribed: 01/30/201828 ECG Data Indication: + SOB/dyspnea Rate (beats per minute): 80 Rhythm: + normal sinus ECG Intervals/blocks: + Left bundle branch block Additional Comments: NC interval within normal limits. QRS 156. QTc 507. Left bundle branch block present. Sgarboasa negative MDM Narrative 1743: The patient was evaluated in room A3. A complete history and physical exam was performed. Cardiac monitoring: An order was placed for continuous cardiac monitoring. The monitor shows a rate of 80 with sinus rhythm Patient was seen in full airborne precautions. N95, gown, gloves and face shield were worn by myself and staff. 1800: [employer] was able to obtain the note from Dr. Mccormick which stated that she was concerned that the patient might be septic with UTI and wants her to be r uled out for diverticulitis. Patient was given Tylenol prior to discharge from the outpatient clinic. Patient also be checked for COVID-19. 2058: Vital signs stable. Labs show an elevated D-dimer. CTA of the chest and abdomen were conducted. Imaging shows no PE. It does show pulmonary artery hypertension. Troponin is also elevated at 0.125. Patient's creatinine is within normal limits. Patient does not have a history of an elevated troponin at this level. Patient will be treated pyelonephritis with Rocephin 1 g IV piggyback. Rapid COVID-19 test was done and that was negative. Discussed with Dr. Sagar Constantino cardiology. He states no need for anticoagulation at this time, trend troponins. [facility]. Impression & Plan Pyelonephritis, Elevated troponin Discharge Plan Visit Data Chief Complaint: Fever Stated Complaint: FEVER, COVID TESTING ED Provider: Mitch Nuñez Discharge Problem: Pyelonephritis, Elevated troponin Patient Disposition: Admitted As Inpatient Forms Stand Alone Forms: [facility] Prescriptions Prescriptions: No Action losartan [Cozaar] 50 mg tablet 50 mg PO BID RF: 0 cyanocobalamin (vitamin B-12) [Vitamin B-12] 100 mcg Tablet 100 mcg PO QAM RF: 0 cetirizine [Zyrtec] 10 mg Tablet 5 mg PO DAILY PRN (Reason: ALLERGIES) RF: 0 amlodipine [Norvasc] 10 mg tablet 10 mg PO QAM RF: 0 Premarin 0.625 mg/gram Cream 0.625 mg VAGINAL DAILY RF: 0 omeprazole 20 mg capsule,delayed release(DR/EC) 20 mg PO BID RF: 0 metoprolol succinate 25 mg tablet extended release 24 hr 25 mg PO QAM RF: 0 coenzyme Q10 [CoQ-10] 100 mg Capsule 100 mg PO QAM RF: 0 cholestyramine (with sugar) [Questran] 4 gram Powder 4 g PO BID RF: 0 cholecalciferol (vitamin D3) [Vitamin D3] 1,000 unit Tablet,Chewable 1,000 unit PO QAM RF: 0 omega 3-nyb-wwp-fish oil [Fish Oil] 1,000 mg (120 mg-180 mg) Capsule 1 cap PO QAM RF: 0 Glucosamine Chondroitin 550-30-1 mg Capsule 1 cap PO QAM RF: 0 olopatadine [Patanol] 0.1 % Drops 1 drp OPHTHALMIC (EYE) BID RF: 0 Probiotic 10 billion cell Capsule 10,000 mmu cells PO DAILY RF: 0 Referrals Referrals: Amy Macias MD [Primary Care Provider] -
[2020-01-30 23:09] LABS: Adenovirus PCR Not Detected (NotDetected); Bordetella parapertussis PCR Not Detected (NotDetected); Bordetella pertussis PCR Not Detected (NotDetected); Chlamydia pneumoniae PCR Not Detected (NotDetected); Coronavirus 229E PCR Not Detected (NotDetected); Coronavirus CoV-2 (COVID19)PCR Not Detected (NotDetected); Coronavirus HKU1 PCR Not Detected (NotDetected); Coronavirus NL63 PCR Not Detected (NotDetected); Coronavirus OC43PCR Not Detected (NotDetected); Human Metapneumovirus PCR Not Detected (NotDetected); Influenza A PCR Not Detected (NotDetected); Influenza B PCR Not Detected (NotDetected); Mycoplasma pneumoniae PCR Not Detected (NotDetected); Parainfluenza Virus 1 PCR Not Detected (NotDetected); Parainfluenza Virus 2 PCR Not Detected (NotDetected); Parainfluenza Virus 3 PCR Not Detected (NotDetected); Parainfluenza Virus 4 PCR Not Detected (NotDetected); Respiratory Syncytial VirusPCR Not Detected (NotDetected); Rhinovirus/Enterovirus PCR Not Detected (NotDetected)
--- NOTE | 2020-01-31 01:00 | History and Physical Report ---
DATE OF ADMISSION: 01/30/2020 CHIEF COMPLAINT: Fever and abdominal pain. HISTORY OF PRESENT ILLNESS: This is a 69-year-old female with past medical history significant for chronic seasonal allergic rhinitis, laryngopharyngeal reflux disease, hypertension, chronic left bundle branch block, aortic valve regurgitation, benign neoplasm of colon, calculus of gallbladder, nonalcoholic fatty liver disease, cyst of kidney, osteopenia of lumbar spine, history of asthma, history of C. diff colitis, history of recurrent UTIs, who comes because of fever and chills, left flank and left lower abdominal pain. The patient since last Thursday when she was taking shower, she felt chills and she laid down and at that time she also had left lower quadrant abdominal pain, and left flank pain. She has history of recurrent UTI. She thought coming of UTI, but she slept and she felt fine. Next day she went to her work. 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 At work again symptoms came back and she came back and got an appointment with the family doctor today. She is feeling weak and has some burning micturition, decreased appetite since Thursday, says she lost to taste food, she could not taste anything, sense of smell is ok. Has some headache. No dizziness, no earache, no runny nose, no sore throat, no dysphagia. She says she has some lump in her throat and she has a followup appointment for that. Denies any chest pain. She says she gets short of breath climbing steps up and down in her house, but that is nothing new. Denies any cough, no nausea, no vomiting, no diarrhea or constipation, no blood in the stool or black stools. No swelling in the legs, no rash. Currently resting comfortably and hemodynamically stable. ALLERGIES: ENALAPRIL. PAST MEDICAL HISTORY: As mentioned above. PAST SURGICAL HISTORY: Colonoscopy with biopsy, cystourethroscopy, EGDs, EGD with endoscopic ultrasound, total hysterectomy with bladder sling, reconstruction of the nose, removal of the pelvic structure. MEDICATIONS: The patient is on amlodipine 10 mg p.o. daily, cetirizine 5 mg p.o. daily p.r.n., vitamin D 1000 units p.o. daily, cholestyramine 4 grams p.o. b.i.d., Coenzyme Q 100 mg p.o. a.m., Premarin 0.5 mg vaginally daily, vitamin B12 100 mcg daily, glucosamine chondroitin 1 capsule p.o. daily, lactobacillus 1 capsule daily, Cozaar 50 mg p.o. b.i.d., metoprolol succinate 25 mg p.o. a.m., Patanol ophthalmic drops 5 days b.i.d., Kenvir 3 fish oil 1 capsule daily, omeprazole 20 mg p.o. b.i.d., Zetia 10 mg p.o. daily. FAMILY HISTORY: Significant for sister has breast cancer, diabetes, and heart disorder. Father has hypertension, CVA, heart disorder. SOCIAL HISTORY: . No smoking history. Alcohol occasional. No drug use. REVIEW OF SYMPTOMS: As per HPI. Rest of review of symptoms negative. PHYSICAL EXAMINATION: GENERAL: The patient is of moderate build, not in acute distress. VITAL SIGNS: Temperature 36.6, pulse 75, respiratory rate 18, blood pressure 156/89, oxygen 95% on room air. HEENT: Pupils equal, round, and reactive to light. Oral mucosa moist. NECK: Supple. No carotid bruits. No JVD seen. CARDIOVASCULAR: S1, S2 heard, regular rate and rhythm, no murmur, no gallop. RESPIRATORY SYSTEM: Normal AP diameter. No accessory muscle use. No wheezing, no crackles. ABDOMEN: Soft, bowel sounds present, nontender. No distention. Mild left CVA tenderness present, no guarding, no rigidity. CENTRAL NERVOUS SYSTEM: Cranial nerves II-XII grossly intact. Nonfocal. EXTREMITIES: No edema, no erythema. LABORATORY DATA: WBC 11, hemoglobin 14.2, hematocrit 42.1, platelets 257. PT 10.4, INR 1, APTT 23.6. D-dimer 630. Sodium 139, potassium 3.0, chloride 106, bicarb 24, BUN 8, creatinine 0.9, serum glucose 115, lactate 1.4, calcium 9.2, magnesium 2, total bilirubin 0.8, AST 38, ALT 81, alkaline phosphatase 109. Troponin I 0.125. Procalcitonin 0.44. Urinalysis positive for leukocyte esterase and bacteria. COVID-19 PCR negative. CTA of the chest, no PE, no acute process in the chest, dilatation of central pulmonary arteries which raises a possibility of pulmonary arterial hypertension, moderate cardiomegaly, left lobe thyroid nodule, which measures approximately 2.1 cm. Nonemergent thyroid ultrasound is recommended. CT of the abdomen and pelvis, multiple ill-defined hypo enhancing foci within the lower pole of left kidney and mild adjacent infiltration, suspected mild left urothelial thickening, this suggest pyelonephritis. A followup CT scan in 2 months is recommended to ensure resolution. Normal caliber abdominal aorta with moderate plaque, no dissection, patent major branch vessels. No change in 4.7 x 3.7 cystic focus within the upper pole of left kidney with apparent wall thickening. This could reflect chronic dilatation of the upper collecting system, stable cystic lesion could appear similar, multifocal renal scarring. Colonic diverticulosis without evidence of acute diverticulitis. No bowel obstruction. Fatty infiltration of the liver, multiple subcapsular hypervascular foci which is suboptimally assessed on this exam, but likely reflects shunts. Chest x-ray, no acute findings, cardiomegaly. EKG: Normal sinus rhythm, rate of 80, left bundle branch block seen. ASSESSMENT AND PLAN: A 69-year-old female who presents with chills and left flank pain and found to have a urinary tract infection. 1. Chills, left flank pain, left lower abdominal pain, mostly secondary to Pyelonephritis and urinary tract infection, the patient has history of recurrent UTI with cultures growing in the past with E. coli and also group B Streptococcus sensitive to vancomycin. Received Rocephin in the ER. We will continue with Rocephin and vancomycin based on previous cultures. Follow the cultures. Gentle fluids. Continue probiotic as the patient has history of clostridium difficile. 2. History of clostridium difficile: Continue probiotics. The patient currently has no diarrhea. 3. Mild elevation of troponin: The patient is asymptomatic. EKG shows chronic left bundle branch block, was notified to cardiology by the ER. Advised to follow the repeat troponin, we will follow repeat troponin and echo and consult cardiology in the a.m. 4. Loss of sense of taste and also fever at home. The patient's COVID-19 is negative. We will recheck it with biofire, CAT scan does not show any pneumonia.( Biofire negative for covid) 5. Gastroesophageal reflux disease. Continue Prilosec. 6. Hypertension. Continue amlodipine, losartan and Toprol-XL. We will monitor the blood pressure. 7. Hyperlipidemia. Continue statin. 8. Thyroid nodule: Has followup appointment as per patient..Followup with PCP 9. Deep venous thrombosis prophylaxis, sequential compression devices for now. 10. Disposition: Closely monitor in the med/tele. Expect discharge home and follow with family doctor. MARCELL
[2020-01-31] MEDS ORDERED: ACETAMINOPHEN 325 MG TAB PO PRN (04:39)
[2020-01-31] MEDS ORDERED: ONDANSETRON INJ 2 MG/ML 2 ML VIAL IV PRN (04:39)
[2020-01-31] MEDS ORDERED: VANCOMYCIN CONSULT ACTIVE PRN (04:39)
[2020-01-31] MEDS ORDERED: CETIRIZINE HCL 10 MG TABLET PO PRN (04:39)
[2020-01-31] MEDS: SODIUM CHLORIDE 0.9% 1000ML 1,000 ML IV SCH ×3 (04:46→23:56)
[2020-01-31] MEDS ORDERED: VANCOMYCIN HCL 2,000 MG in SODIUM CHLORIDE 0.9% 500 ML IV STA (05:24)
[2020-01-31 07:51] LABS: Basophils # (auto) 0.01 K/uL (0-0.2); Basophils % (auto) 0.1 %; Eosinophils # (auto) 0.04 K/uL (0-0.5); Eosinophils % (auto) 0.4 %; Hematocrit (blood only) 41.2 % (37-47); Hemoglobin 14.3 g/dL (12.0-16.0); Immature Granulocytes # (auto) 0.03 K/uL (0.00-0.02); Immature Granulocytes % (auto) 0.3 %; Lymphocytes # (auto) 2.27 K/uL (1.2-3.4); Lymphocytes % (auto) 22.8 %; Mean Corpuscular Hemoglobin 30.8 pg (25-34); Mean Corpuscular Hgb Conc 34.7 g/dL (32-36); Mean Corpuscular Volume 88.8 fL (80-100); Mean Platelet Volume 9.8 fL (7.4-10.4); Monocytes # (auto) 0.96 K/uL (0.11-0.59); Monocytes % (auto) 9.6 %; Neutrophils # (auto) 6.64 K/uL (1.4-6.5); Neutrophils % (auto) 66.8 %; Platelet Count 228 K/uL (130-400); RDW Coefficient of Variation 12.9 % (11.5-14.5); RDW Standard Deviation 41.5 fL (36.4-46.3); Red Blood Count 4.64 M/uL (4.2-5.4); White Blood Count 9.95 K/uL (4.8-10.8)
[2020-01-31 08:22] LABS: BUN Creatinine Ratio 9.3 (10-20); Creatinine Clr Calc Pharmacy 60.6 ml/min; Est GFR (African American) 76.7; Est GFR (Non-African American) 66.2; Magnesium 2.2 mg/dl (1.8-2.4); Potassium 3.4 mmol/L (3.5-5.1)
[2020-01-31] MEDS ORDERED: NON-FORMULARY MEDICATION (Coenzyme Q10 [Coq-10] 100 mg Capsule) PO SCH (09:00)
[2020-01-31] MEDS ORDERED: NON-FORMULARY MEDICATION (Glucos Sul 2kcl-Msm-Chond-C-Mn [Glucosamine Chondroitin] 550-30- PO SCH (09:00)
[2020-01-31] MEDS: amLODIPine BESYLATE 5 MG TAB PO SCH (09:08)
[2020-01-31] MEDS: LOSARTAN POTASSIUM 50 MG TAB PO SCH ×2 (09:08→20:47)
[2020-01-31] MEDS: LACTOBACILLUS ACIDOPHILUS 1 GM PACK PO SCH ×2 (09:08→11:34)
[2020-01-31] MEDS: PANTOprazole 40 MG TAB PO SCH ×2 (09:09→20:47)
[2020-01-31] MEDS: CYANOCOBALAMIN (VITAMIN B-12) 100 MCG TABLET PO SCH (09:09)
[2020-01-31] MEDS: CHOLECALCIFEROL 1,000 UNITS 25 MCG TAB PO SCH (09:09)
[2020-01-31] MEDS: METOPROLOL SUCC 25MG EXT REL TAB PO SCH (09:09)
[2020-01-31] MEDS: EZETIMIBE 10 MG TABLET PO SCH (09:09)
--- NOTE | 2020-01-31 10:03 | Hospitalist Progress Note ---
Date of Service January 31, 2020 Assessment & Plan (1) Pyelonephritis: Chills,fever, urinary symptoms UA suggest UTI CT Abd/P suggest Left pyelonephritis Reported history of recurrent UTI and E.coli and GBS in the past Continue current vanco and ceftriaxone and deescalate as soon as urine culture results (2) LBBB (left bundle branch block): (3) Elevated troponin: LBBB is old Elevated trops likely demand Trop trends down. No chest pain, SOB Tele monitor Resume diet Get Echo (4) HTN (hypertension): Continue home BP meds Monitor (5) DVT prophylaxis: SCD for now Ambulate Admission and Anticipated Discharge Date Admission Date: January 30, 2020 Subjective Patient seen and examined Still has left flank and lower back pain Denied any fevers, chills, abd pain right now. No dysuria, frequency, urgency Denied any nausea, vomiting Denied any chest pain, cough, SOB, AARON Reports anorexia Physical Exam Constitutional: + well hydrated; no acute distress Eyes: PERRL, conjunctivae normal, anicteric sclerae ENMT: external ear and nose normal, oropharynx normal Respiratory: normal respiratory effort, lungs clear to auscultation Cardiovascular: RRR, no murmur, no edema Gastrointestinal (Abdomen): normal bowel sounds, soft, nontender, no hepatosplenomegaly Musculoskeletal: no cyanosis or clubbing, extremities motor strength 5/5 Neurologic: PERRL, EOMI, accommodation nl, no face palsy, no dysarthria Psychiatric: A+Ox3, euthymic affect Genitourinary: + CVA tenderness (Left) Results & Data Results & Data ([facility]) Vital Signs (Past 12 Hours) Vital Signs Temp Pulse Pulse Pulse Resp BP BP 01/31/20 07:43 36.4 C L 74 18 132/76 01/31/20 07:07 60 01/31/20 04:39 37.4 C 72 18 01/31/20 04:18 72 01/31/20 04:00 70 16 140/83 01/31/20 02:00 73 16 01/31/20 00:20 84 16 01/30/20 22:00 79 18 BP Pulse Ox Pulse Ox 01/31/20 07:43 97 01/31/20 07:07 01/31/20 04:39 147/83 H 97 97 01/31/20 04:18 01/31/20 04:00 99 01/31/20 02:00 145/86 H 100 01/31/20 00:20 140/71 96 01/30/20 22:00 150/76 H 96 Laboratory Results Laboratory Results - last 24 hr 01/30/20 01/30/20 01/30/20 18:38 18:38 18:38 WBC 11.04 H RBC 4.73 Hgb 14.2 Hct 42.1 MCV 89.0 MCH 30.0 MCHC 33.7 RDW Std Deviation 41.4 RDW Coeff of Darius 12.8 Plt Count 257 MPV 9.9 Immature Gran % (Auto) 0.4 Neut % (Auto) 71.9 Lymph % (Auto) 20.4 [place] % (Auto) 6.9 Eos % (Auto) 0.3 Baso % (Auto) 0.1 Neut # (Auto) 7.95 H Lymph # (Auto) 2.25 [place] # (Auto) 0.76 H Eos # (Auto) 0.03 Baso # (Auto) 0.01 Immature Gran # (Auto) 0.04 H PT 10.4 INR 1.0 APTT 22.6 PTT Ratio 0.8 D-Dimer 630 H* Sodium 139 Potassium 3.1 L Chloride 106 Carbon Dioxide 24 Anion Gap 9.0 BUN 8 Creatinine 0.90 Est Cr Clr Drug Dosing 61.7 Est GFR ( Amer) 76.7 Est GFR (Non-Af Amer) 66.2 BUN/Creatinine Ratio 9.1 L Glucose 115 H Lactate Calcium 9.2 Magnesium 2.0 Total Bilirubin 0.8 AST 38 H ALT 81 H Alkaline Phosphatase 109 Troponin I 0.125 H* Total Protein 8.6 H Albumin 3.4 Globulin 5.2 H Albumin/Globulin Ratio 0.7 L Procalcitonin Urine Color Urine Appearance Urine pH Ur Specific [place] Urine Protein Urine Glucose (UA) Urine Ketones Urine Blood Urine Nitrite Urine Bilirubin Urine Urobilinogen Ur Leukocyte Esterase Urine RBC Urine WBC Ur Epithelial Cells Urine Bacteria Adenovirus (PCR) B. pertussis DNA (PCR) B.parapertussis DNA PCR C. pneumoniae DNA (PCR) Coronavirus OC43 (PCR) Coronavirus HKU1 (PCR) Coronavirus 229E (PCR) COVID-19 Eval Order COVID-19 PCR Nasopharyn COVID-19 PCR Coronavirus NL63 (PCR) Hepatitis C Ab Screen Human Metapneumovir PCR Influenza Type A (PCR) Influenza Type B (PCR) M. pneumoniae (PCR) Parainfluenza 1 (PCR) Parainfluenza 2 (PCR) Parainfluenza 3 (PCR) Parainfluenza 4 (PCR) RSV (PCR) Entero/Rhino (PCR) 01/30/20 01/30/20 01/30/20 18:38 18:38 18:38 WBC RBC Hgb Hct MCV MCH MCHC RDW Std Deviation RDW Coeff of Darius Plt Count MPV Immature Gran % (Auto) Neut % (Auto) Lymph % (Auto) [place] % (Auto) Eos % (Auto) Baso % (Auto) Neut # (Auto) Lymph # (Auto) [place] # (Auto) Eos # (Auto) Baso # (Auto) Immature Gran # (Auto) PT INR APTT PTT Ratio D-Dimer Sodium Potassium Chloride Carbon Dioxide Anion Gap BUN Creatinine Est Cr Clr Drug Dosing Est GFR ( Amer) Est GFR (Non-Af Amer) BUN/Creatinine Ratio Glucose Lactate 1.4 Calcium Magnesium Total Bilirubin AST ALT Alkaline Phosphatase Troponin I Total Protein Albumin Globulin Albumin/Globulin Ratio Procalcitonin 0.44 Urine Color Urine Appearance Urine pH Ur Specific [place] Urine Protein Urine Glucose (UA) Urine Ketones Urine Blood Urine Nitrite Urine Bilirubin Urine Urobilinogen Ur Leukocyte Esterase Urine RBC Urine WBC Ur Epithelial Cells Urine Bacteria Adenovirus (PCR) B. pertussis DNA (PCR) B.parapertussis DNA PCR C. pneumoniae DNA (PCR) Coronavirus OC43 (PCR) Coronavirus HKU1 (PCR) Coronavirus 229E (PCR) COVID-19 Eval Order Covid19 Done at [facility] COVID-19 PCR Nasopharyn COVID-19 PCR Coronavirus NL63 (PCR) Hepatitis C Ab Screen Human Metapneumovir PCR Influenza Type A (PCR) Influenza Type B (PCR) M. pneumoniae (PCR) Parainfluenza 1 (PCR) Parainfluenza 2 (PCR) Parainfluenza 3 (PCR) Parainfluenza 4 (PCR) RSV (PCR) Entero/Rhino (PCR) 01/30/20 01/30/20 01/30/20 18:38 18:38 18:38 WBC RBC Hgb Hct MCV MCH MCHC RDW Std Deviation RDW Coeff of Darius Plt Count MPV Immature Gran % (Auto) Neut % (Auto) Lymph % (Auto) [place] % (Auto) Eos % (Auto) Baso % (Auto) Neut # (Auto) Lymph # (Auto) [place] # (Auto) Eos # (Auto) Baso # (Auto) Immature Gran # (Auto) PT INR APTT PTT Ratio D-Dimer Sodium Potassium Chloride Carbon Dioxide Anion Gap BUN Creatinine Est Cr Clr Drug Dosing Est GFR ( Amer) Est GFR (Non-Af Amer) BUN/Creatinine Ratio Glucose Lactate Calcium Magnesium Total Bilirubin AST ALT Alkaline Phosphatase Troponin I Total Protein Albumin Globulin Albumin/Globulin Ratio Procalcitonin Urine Color Urine Appearance Urine pH Ur Specific [place] Urine Protein Urine Glucose (UA) Urine Ketones Urine Blood Urine Nitrite Urine Bilirubin Urine Urobilinogen Ur Leukocyte Esterase Urine RBC Urine WBC Ur Epithelial Cells Urine Bacteria Adenovirus (PCR) B. pertussis DNA (PCR) B.parapertussis DNA PCR C. pneumoniae DNA (PCR) Coronavirus OC43 (PCR) Coronavirus HKU1 (PCR) Coronavirus 229E (PCR) COVID-19 Eval Order COVID-19 PCR NEGATIVE Nasopharyn COVID-19 PCR Cancelled Coronavirus NL63 (PCR) Hepatitis C Ab Screen Neg Human Metapneumovir PCR Influenza Type A (PCR) Influenza Type B (PCR) M. pneumoniae (PCR) Parainfluenza 1 (PCR) Parainfluenza 2 (PCR) Parainfluenza 3 (PCR) Parainfluenza 4 (PCR) RSV (PCR) Entero/Rhino (PCR) 01/30/20 01/30/20 01/31/20 19:50 Unknown 07:22 WBC RBC Hgb Hct MCV MCH MCHC RDW Std Deviation RDW Coeff of Darius Plt Count MPV Immature Gran % (Auto) Neut % (Auto) Lymph % (Auto) [place] % (Auto) Eos % (Auto) Baso % (Auto) Neut # (Auto) Lymph # (Auto) [place] # (Auto) Eos # (Auto) Baso # (Auto) Immature Gran # (Auto) PT INR APTT PTT Ratio D-Dimer Sodium Potassium Chloride Carbon Dioxide Anion Gap BUN Creatinine Est Cr Clr Drug Dosing Est GFR ( Amer) Est GFR (Non-Af Amer) BUN/Creatinine Ratio Glucose Lactate Calcium Magnesium Total Bilirubin AST ALT Alkaline Phosphatase Troponin I 0.107 H* Total Protein Albumin Globulin Albumin/Globulin Ratio Procalcitonin Urine Color Yellow Urine Appearance Clear Urine pH 7.0 Ur Specific [place] 1.010 Urine Protein 1+ H Urine Glucose (UA) Negative Urine Ketones Negative Urine Blood 1+ H Urine Nitrite Negative Urine Bilirubin Negative Urine Urobilinogen Negative Ur Leukocyte Esterase 3+ H Urine RBC 0-4 Urine WBC 10-30 H Ur Epithelial Cells 0-5 Urine Bacteria 1+ H Adenovirus (PCR) Not Detected B. pertussis DNA (PCR) Not Detected B.parapertussis DNA PCR Not Detected C. pneumoniae DNA (PCR) Not Detected Coronavirus OC43 (PCR) Not Detected Coronavirus HKU1 (PCR) Not Detected Coronavirus 229E (PCR) Not Detected COVID-19 Eval Order COVID-19 PCR Not Detected Nasopharyn COVID-19 PCR Coronavirus NL63 (PCR) Not Detected Hepatitis C Ab Screen Human Metapneumovir PCR Not Detected Influenza Type A (PCR) Not Detected Influenza Type B (PCR) Not Detected M. pneumoniae (PCR) Not Detected Parainfluenza 1 (PCR) Not Detected Parainfluenza 2 (PCR) Not Detected Parainfluenza 3 (PCR) Not Detected Parainfluenza 4 (PCR) Not Detected RSV (PCR) Not Detected Entero/Rhino (PCR) Not Detected 01/31/20 01/31/20 07:22 07:22 WBC 9.95 RBC 4.64 Hgb 14.3 Hct 41.2 MCV 88.8 MCH 30.8 MCHC 34.7 RDW Std Deviation 41.5 RDW Coeff of Darius 12.9 Plt Count 228 MPV 9.8 Immature Gran % (Auto) 0.3 Neut % (Auto) 66.8 Lymph % (Auto) 22.8 [place] % (Auto) 9.6 Eos % (Auto) 0.4 Baso % (Auto) 0.1 Neut # (Auto) 6.64 H Lymph # (Auto) 2.27 [place] # (Auto) 0.96 H Eos # (Auto) 0.04 Baso # (Auto) 0.01 Immature Gran # (Auto) 0.03 H PT INR APTT PTT Ratio D-Dimer Sodium 138 Potassium 3.4 L Chloride 108 H Carbon Dioxide 24 Anion Gap 6.0 BUN 8 Creatinine 0.90 Est Cr Clr Drug Dosing 60.6 Est GFR ( Amer) 76.7 Est GFR (Non-Af Amer) 66.2 BUN/Creatinine Ratio 9.3 L Glucose 122 H Lactate Calcium 9.0 Magnesium 2.2 Total Bilirubin AST ALT Alkaline Phosphatase Troponin I Total Protein Albumin Globulin Albumin/Globulin Ratio Procalcitonin Urine Color Urine Appearance Urine pH Ur Specific [place] Urine Protein Urine Glucose (UA) Urine Ketones Urine Blood Urine Nitrite Urine Bilirubin Urine Urobilinogen Ur Leukocyte Esterase Urine RBC Urine WBC Ur Epithelial Cells Urine Bacteria Adenovirus (PCR) B. pertussis DNA (PCR) B.parapertussis DNA PCR C. pneumoniae DNA (PCR) Coronavirus OC43 (PCR) Coronavirus HKU1 (PCR) Coronavirus 229E (PCR) COVID-19 Eval Order COVID-19 PCR Nasopharyn COVID-19 PCR Coronavirus NL63 (PCR) Hepatitis C Ab Screen Human Metapneumovir PCR Influenza Type A (PCR) Influenza Type B (PCR) M. pneumoniae (PCR) Parainfluenza 1 (PCR) Parainfluenza 2 (PCR) Parainfluenza 3 (PCR) Parainfluenza 4 (PCR) RSV (PCR) Entero/Rhino (PCR)
--- NOTE | 2020-01-31 11:18 | Cardiology Consultation ---
Date of Consultation January 31, 2020 Assessment & Plan (1) Elevated troponin: (2) LBBB (left bundle branch block): (3) HTN (hypertension): (4) Pyelonephritis: The patient is chest pain-free and EKG is unchanged. Minimal troponin elevation emergency department is already declined. No new wall motion abnormalities on echocardiogram. Previous LVOT obstruction has resolved. No further cardiac testing or intervention is necessary at this time. Will defer further care to the primary team. History of Present Illness Reason for Consultation: elevated troponin level Requesting Physician: Dr. Diana Attending Physician: Kavitha Dodd MD History of Present Illness Ms. Okeefe is a very pleasant 69-year-old woman who was remotely seen in the cardiology clinic with Dr. Keith in the past for history of nonischemic left bundle branch block and aortic stenosis. She presents to [facility] on 01/30/2020 with complaints of nausea and vomiting. Patient states that this is similar to previous episodes of urinary tract infections in the past. Denies experiencing any cardiac complaints of chest pain, shortness of breath, palpitations, lightheadedness, dizziness or syncope. In the emergency department a troponin level was drawn and elevated. She was admitted to telemetry and a echocardiogram along with cardiology consult was ordered to evaluate for the troponin elevation. Currently she states that she is feeling much better and is currently tolerating breakfast. Allergies Allergy/AdvReac Type Severity Reaction Status Date / Time enalapril AdvReac Mild H/A Verified 01/30/20 19:23 Home Medications Home Medications Medication Instructions Recorded Confirmed Type amlodipine [Norvasc] 10 mg PO QAM 03/17/19 01/30/20 History cetirizine [Zyrtec] 5 mg PO DAILY PRN 03/17/19 01/30/20 History cholecalciferol (vitamin D3) 1,000 unit PO QAM 03/17/19 01/30/20 History [Vitamin D3] cholestyramine (with sugar) 4 g PO BID 03/17/19 01/30/20 History [Questran] coenzyme Q10 [CoQ-10] 100 mg PO QAM 03/17/19 01/30/20 History conjugated estrogens [Premarin] 0.625 mg VAGINAL DAILY 03/17/19 01/30/20 History cyanocobalamin (vitamin B-12) 100 mcg PO QAM 03/17/19 01/30/20 History [Vitamin B-12] glucos sul [id number] 1 cap PO QAM 03/17/19 01/30/20 History [Glucosamine Chondroitin] losartan [Cozaar] 50 mg PO BID 03/17/19 01/30/20 History metoprolol succinate 25 mg PO QAM 03/17/19 01/30/20 History omega [id number] oil [Fish Oil] 1 cap PO QAM 03/17/19 01/30/20 History omeprazole 20 mg PO BID 03/17/19 01/30/20 History Lactobacillus acidophilus 10,000 mmu cells PO DAILY 01/30/20 01/30/20 History [Probiotic] Zetia 10 mg PO DAILY 01/30/20 01/30/20 History olopatadine [Patanol] 1 drp OPHTHALMIC (EYE) BID 01/30/20 01/30/20 History Patient History Medical History Fatty liver Frequent UTI GERD (gastroesophageal reflux disease) History of migraine HTN (hypertension) Hx of Clostridium difficile infection 03/2019 s/p treatment, recurrence 09/2019- on vanco taper Kidney stones LBBB (left bundle branch block) longstanding, listed as indication for 2018 echo Renal cyst Surgical History H/O colonoscopy H/O esophagogastroduodenoscopy H/O total hysterectomy History of cystoscopy History of dilatation and curettage History of tooth extraction Family History Sister Diabetes Family/Other Throat cancer Other No family history of adverse response to anesthesia Social History Smoking Status: Never smoker Second Hand Exposure: No; Do You Dip or Chew Tobacco: No; Tobacco Cessation Education Requested by Patient: No Hx Alcohol Use: No Hx Substance Use: No Preferred Language: Welsh Communication Ability: Effective Print Line Feeder Required: No Beliefs That Will Affect Care: None Current Living Situation: Spouse Current Living Situation Comment: Lives w/ Other Information That Helps Us Care for You: No Feels Safe at Home: Yes Safety Concerns: Feels Safe At This Time Assistive Devices: Glasses Review of Systems Review of Systems: All systems reviewed & are unremarkable except as noted in HPI & below Physical Exam Physical Exam: General: Awake, alert and oriented x 3. No acute distress. HEENT: Normocephalic, atraumatic. Pupils equal, round and reactive to light and accommodation. Extraocular muscles are intact. Anicteric sclera. Moist mucous membranes. Neck: No JVD. No bruit. Cardiovascular: Regular. Positive S-4. Normal S-1 and S-2. No S-3. 3/6 mid to late systolic ejection murmur, greatest at the right sternal border, second intercostal space with radiation to the bilateral carotids. No rubs. Pulmonary: Clear to auscultation bilaterally. No rales, rhonchi, or wheezing. Abdomen: Bowel sounds x 4, soft. No rebound, guarding or tenderness. No organomegaly. Extremities: No clubbing, cyanosis or edema. +2 pedal pulses bilaterally. Skin: Warm and dry. Results & Data ([facility]) Vital Signs (Past 12 Hours) Vital Signs Temp Pulse Pulse Pulse Resp BP BP 01/31/20 07:43 36.4 C L 74 18 132/76 01/31/20 07:07 60 01/31/20 04:39 37.4 C 72 18 01/31/20 04:18 72 01/31/20 04:00 70 16 140/83 01/31/20 02:00 73 16 01/31/20 00:20 84 16 BP Pulse Ox Pulse Ox 01/31/20 07:43 97 01/31/20 07:07 01/31/20 04:39 147/83 H 97 97 01/31/20 04:18 01/31/20 04:00 99 01/31/20 02:00 145/86 H 100 01/31/20 00:20 140/71 96 Laboratory Results Laboratory Results - last 24 hr 01/30/20 01/30/20 01/30/20 18:38 18:38 18:38 WBC 11.04 H RBC 4.73 Hgb 14.2 Hct 42.1 MCV 89.0 MCH 30.0 MCHC 33.7 RDW Std Deviation 41.4 RDW Coeff of Darius 12.8 Plt Count 257 MPV 9.9 Immature Gran % (Auto) 0.4 Neut % (Auto) 71.9 Lymph % (Auto) 20.4 Stearns % (Auto) 6.9 Eos % (Auto) 0.3 Baso % (Auto) 0.1 Neut # (Auto) 7.95 H Lymph # (Auto) 2.25 Stearns # (Auto) 0.76 H Eos # (Auto) 0.03 Baso # (Auto) 0.01 Immature Gran # (Auto) 0.04 H PT 10.4 INR 1.0 APTT 22.6 PTT Ratio 0.8 D-Dimer 630 H* Sodium 139 Potassium 3.1 L Chloride 106 Carbon Dioxide 24 Anion Gap 9.0 BUN 8 Creatinine 0.90 Est Cr Clr Drug Dosing 61.7 Est GFR ( Amer) 76.7 Est GFR (Non-Af Amer) 66.2 BUN/Creatinine Ratio 9.1 L Glucose 115 H Lactate Calcium 9.2 Magnesium 2.0 Total Bilirubin 0.8 AST 38 H ALT 81 H Alkaline Phosphatase 109 Troponin I 0.125 H* Total Protein 8.6 H Albumin 3.4 Globulin 5.2 H Albumin/Globulin Ratio 0.7 L Procalcitonin Urine Color Urine Appearance Urine pH Ur Specific [place] Urine Protein Urine Glucose (UA) Urine Ketones Urine Blood Urine Nitrite Urine Bilirubin Urine Urobilinogen Ur Leukocyte Esterase Urine RBC Urine WBC Ur Epithelial Cells Urine Bacteria Adenovirus (PCR) B. pertussis DNA (PCR) B.parapertussis DNA PCR C. pneumoniae DNA (PCR) Coronavirus OC43 (PCR) Coronavirus HKU1 (PCR) Coronavirus 229E (PCR) COVID-19 Eval Order COVID-19 PCR Nasopharyn COVID-19 PCR Coronavirus NL63 (PCR) Hepatitis C Ab Screen Human Metapneumovir PCR Influenza Type A (PCR) Influenza Type B (PCR) M. pneumoniae (PCR) Parainfluenza 1 (PCR) Parainfluenza 2 (PCR) Parainfluenza 3 (PCR) Parainfluenza 4 (PCR) RSV (PCR) Entero/Rhino (PCR) 01/30/20 01/30/20 01/30/20 18:38 18:38 18:38 WBC RBC Hgb Hct MCV MCH MCHC RDW Std Deviation RDW Coeff of Darius Plt Count MPV Immature Gran % (Auto) Neut % (Auto) Lymph % (Auto) Stearns % (Auto) Eos % (Auto) Baso % (Auto) Neut # (Auto) Lymph # (Auto) Stearns # (Auto) Eos # (Auto) Baso # (Auto) Immature Gran # (Auto) PT INR APTT PTT Ratio D-Dimer Sodium Potassium Chloride Carbon Dioxide Anion Gap BUN Creatinine Est Cr Clr Drug Dosing Est GFR ( Amer) Est GFR (Non-Af Amer) BUN/Creatinine Ratio Glucose Lactate 1.4 Calcium Magnesium Total Bilirubin AST ALT Alkaline Phosphatase Troponin I Total Protein Albumin Globulin Albumin/Globulin Ratio Procalcitonin 0.44 Urine Color Urine Appearance Urine pH Ur Specific [place] Urine Protein Urine Glucose (UA) Urine Ketones Urine Blood Urine Nitrite Urine Bilirubin Urine Urobilinogen Ur Leukocyte Esterase Urine RBC Urine WBC Ur Epithelial Cells Urine Bacteria Adenovirus (PCR) B. pertussis DNA (PCR) B.parapertussis DNA PCR C. pneumoniae DNA (PCR) Coronavirus OC43 (PCR) Coronavirus HKU1 (PCR) Coronavirus 229E (PCR) COVID-19 Eval Order Covid19 Done at [facility] COVID-19 PCR Nasopharyn COVID-19 PCR Coronavirus NL63 (PCR) Hepatitis C Ab Screen Human Metapneumovir PCR Influenza Type A (PCR) Influenza Type B (PCR) M. pneumoniae (PCR) Parainfluenza 1 (PCR) Parainfluenza 2 (PCR) Parainfluenza 3 (PCR) Parainfluenza 4 (PCR) RSV (PCR) Entero/Rhino (PCR) 01/30/20 01/30/20 01/30/20 18:38 18:38 18:38 WBC RBC Hgb Hct MCV MCH MCHC RDW Std Deviation RDW Coeff of Darius Plt Count MPV Immature Gran % (Auto) Neut % (Auto) Lymph % (Auto) Stearns % (Auto) Eos % (Auto) Baso % (Auto) Neut # (Auto) Lymph # (Auto) Stearns # (Auto) Eos # (Auto) Baso # (Auto) Immature Gran # (Auto) PT INR APTT PTT Ratio D-Dimer Sodium Potassium Chloride Carbon Dioxide Anion Gap BUN Creatinine Est Cr Clr Drug Dosing Est GFR ( Amer) Est GFR (Non-Af Amer) BUN/Creatinine Ratio Glucose Lactate Calcium Magnesium Total Bilirubin AST ALT Alkaline Phosphatase Troponin I Total Protein Albumin Globulin Albumin/Globulin Ratio Procalcitonin Urine Color Urine Appearance Urine pH Ur Specific [place] Urine Protein Urine Glucose (UA) Urine Ketones Urine Blood Urine Nitrite Urine Bilirubin Urine Urobilinogen Ur Leukocyte Esterase Urine RBC Urine WBC Ur Epithelial Cells Urine Bacteria Adenovirus (PCR) B. pertussis DNA (PCR) B.parapertussis DNA PCR C. pneumoniae DNA (PCR) Coronavirus OC43 (PCR) Coronavirus HKU1 (PCR) Coronavirus 229E (PCR) COVID-19 Eval Order COVID-19 PCR NEGATIVE Nasopharyn COVID-19 PCR Cancelled Coronavirus NL63 (PCR) Hepatitis C Ab Screen Neg Human Metapneumovir PCR Influenza Type A (PCR) Influenza Type B (PCR) M. pneumoniae (PCR) Parainfluenza 1 (PCR) Parainfluenza 2 (PCR) Parainfluenza 3 (PCR) Parainfluenza 4 (PCR) RSV (PCR) Entero/Rhino (PCR) 01/30/20 01/30/20 01/31/20 19:50 Unknown 07:22 WBC RBC Hgb Hct MCV MCH MCHC RDW Std Deviation RDW Coeff of Darius Plt Count MPV Immature Gran % (Auto) Neut % (Auto) Lymph % (Auto) Stearns % (Auto) Eos % (Auto) Baso % (Auto) Neut # (Auto) Lymph # (Auto) Stearns # (Auto) Eos # (Auto) Baso # (Auto) Immature Gran # (Auto) PT INR APTT PTT Ratio D-Dimer Sodium Potassium Chloride Carbon Dioxide Anion Gap BUN Creatinine Est Cr Clr Drug Dosing Est GFR ( Amer) Est GFR (Non-Af Amer) BUN/Creatinine Ratio Glucose Lactate Calcium Magnesium Total Bilirubin AST ALT Alkaline Phosphatase Troponin I 0.107 H* Total Protein Albumin Globulin Albumin/Globulin Ratio Procalcitonin Urine Color Yellow Urine Appearance Clear Urine pH 7.0 Ur Specific [place] 1.010 Urine Protein 1+ H Urine Glucose (UA) Negative Urine Ketones Negative Urine Blood 1+ H Urine Nitrite Negative Urine Bilirubin Negative Urine Urobilinogen Negative Ur Leukocyte Esterase 3+ H Urine RBC 0-4 Urine WBC 10-30 H Ur Epithelial Cells 0-5 Urine Bacteria 1+ H Adenovirus (PCR) Not Detected B. pertussis DNA (PCR) Not Detected B.parapertussis DNA PCR Not Detected C. pneumoniae DNA (PCR) Not Detected Coronavirus OC43 (PCR) Not Detected Coronavirus HKU1 (PCR) Not Detected Coronavirus 229E (PCR) Not Detected COVID-19 Eval Order COVID-19 PCR Not Detected Nasopharyn COVID-19 PCR Coronavirus NL63 (PCR) Not Detected Hepatitis C Ab Screen Human Metapneumovir PCR Not Detected Influenza Type A (PCR) Not Detected Influenza Type B (PCR) Not Detected M. pneumoniae (PCR) Not Detected Parainfluenza 1 (PCR) Not Detected Parainfluenza 2 (PCR) Not Detected Parainfluenza 3 (PCR) Not Detected Parainfluenza 4 (PCR) Not Detected RSV (PCR) Not Detected Entero/Rhino (PCR) Not Detected 01/31/20 01/31/20 07:22 07:22 WBC 9.95 RBC 4.64 Hgb 14.3 Hct 41.2 MCV 88.8 MCH 30.8 MCHC 34.7 RDW Std Deviation 41.5 RDW Coeff of Darius 12.9 Plt Count 228 MPV 9.8 Immature Gran % (Auto) 0.3 Neut % (Auto) 66.8 Lymph % (Auto) 22.8 Stearns % (Auto) 9.6 Eos % (Auto) 0.4 Baso % (Auto) 0.1 Neut # (Auto) 6.64 H Lymph # (Auto) 2.27 Stearns # (Auto) 0.96 H Eos # (Auto) 0.04 Baso # (Auto) 0.01 Immature Gran # (Auto) 0.03 H PT INR APTT PTT Ratio D-Dimer Sodium 138 Potassium 3.4 L Chloride 108 H Carbon Dioxide 24 Anion Gap 6.0 BUN 8 Creatinine 0.90 Est Cr Clr Drug Dosing 60.6 Est GFR ( Amer) 76.7 Est GFR (Non-Af Amer) 66.2 BUN/Creatinine Ratio 9.3 L Glucose 122 H Lactate Calcium 9.0 Magnesium 2.2 Total Bilirubin AST ALT Alkaline Phosphatase Troponin I Total Protein Albumin Globulin Albumin/Globulin Ratio Procalcitonin Urine Color Urine Appearance Urine pH Ur Specific [place] Urine Protein Urine Glucose (UA) Urine Ketones Urine Blood Urine Nitrite Urine Bilirubin Urine Urobilinogen Ur Leukocyte Esterase Urine RBC Urine WBC Ur Epithelial Cells Urine Bacteria Adenovirus (PCR) B. pertussis DNA (PCR) B.parapertussis DNA PCR C. pneumoniae DNA (PCR) Coronavirus OC43 (PCR) Coronavirus HKU1 (PCR) Coronavirus 229E (PCR) COVID-19 Eval Order COVID-19 PCR Nasopharyn COVID-19 PCR Coronavirus NL63 (PCR) Hepatitis C Ab Screen Human Metapneumovir PCR Influenza Type A (PCR) Influenza Type B (PCR) M. pneumoniae (PCR) Parainfluenza 1 (PCR) Parainfluenza 2 (PCR) Parainfluenza 3 (PCR) Parainfluenza 4 (PCR) RSV (PCR) Entero/Rhino (PCR) Medications Administered Current Inpatient Medications Acetaminophen (Acetaminophen 325 Mg Tab) 650 mg PO Q4H PRN PRN Reason: pain/fever Stop: 03/01/20 04:38 Last Admin: 01/31/20 05:01 Dose: 650 mg Documented by: Amlodipine Besylate (Amlodipine Besylate 5 Mg Tab) 10 mg PO QAM [facility] Stop: 03/01/20 08:59 Last Admin: 01/31/20 09:08 Dose: 10 mg Documented by: Cetirizine HCl (Cetirizine Hcl 10 Mg Tablet) 5 mg PO DAILY PRN PRN Reason: ALLERGIES Stop: 03/01/20 04:38 Cholestyramine Resin (Cholestyramine Light 4 Gm Pkt) 4 gm PO BID@1000,2200 [facility] Stop: 03/01/20 09:59 Cyanocobalamin (Cyanocobalamin (Vitamin B-12) 100 Mcg Tablet) 100 mcg PO QAM [facility] Stop: 03/01/20 08:59 Last Admin: 01/31/20 09:09 Dose: 100 mcg Documented by: Ezetimibe (Ezetimibe 10 Mg Tablet) 10 mg PO DAILY [facility] Stop: 03/01/20 08:59 Last Admin: 01/31/20 09:09 Dose: 10 mg Documented by: Ceftriaxone Sodium 1,000 mg/ (Dextrose) 60 mls @ 100 mls/hr IV Q24H [facility]; Protocol Stop: 02/09/20 19:59 Sodium Chloride (Nss 1000ml) 1,000 mls @ 100 mls/hr IV .Q10H [facility] Stop: 03/01/20 04:38 Last Admin: 01/31/20 04:46 Dose: 100 mls/hr Documented by: Vancomycin HCl 1,000 mg/ (Sodium Chloride) 270 mls @ 200 mls/hr IV Q12H [facility] Stop: 02/10/20 17:59 Lactobacillus Acidophilus (Lactobacillus Acidophilus 1 Gm Pack) 1 gm PO TIDM [facility] Stop: 03/01/20 07:59 Last Admin: 01/31/20 09:08 Dose: 1 gm Documented by: Losartan Potassium (Losartan Potassium 50 Mg Tab) 50 mg PO BID [facility] Stop: 03/01/20 08:59 Last Admin: 01/31/20 09:08 Dose: 50 mg Documented by: Metoprolol Succinate (Metoprolol Succ 25mg Ext Rel Tab) 25 mg PO QAM [facility] Stop: 03/01/20 08:59 Last Admin: 01/31/20 09:09 Dose: 25 mg Documented by: Miscellaneous (Olopatadine Gtts: Order Awaiting Action) 1 ea N/A QS [facility] Stop: 03/01/20 07:59 Last Admin: 01/31/20 09:23 Dose: Not Given Documented by: Miscellaneous Information (Vancomycin Consult Active) 1 ea N/A UD PRN PRN Reason: Consult Stop: 03/01/20 04:38 Ondansetron HCl (Ondansetron Inj 2 Mg/Ml 2 Ml Vial) 4 mg IV Q6H PRN PRN Reason: Nausea Stop: 03/01/20 04:38 Pantoprazole Sodium (Pantoprazole 40 Mg Tab) 40 mg PO BID [facility] Stop: 03/01/20 08:59 Last Admin: 01/31/20 09:09 Dose: 40 mg Documented by: Vitamin D (Cholecalciferol 1,000 Units 25 Mcg Tab) 1,000 units PO QAM [facility] Stop: 03/01/20 08:59 Last Admin: 01/31/20 09:09 Dose: 1,000 units Documented by:
[2020-01-31] MEDS: CHOLESTYRAMINE LIGHT 4 GM PKT PO SCH ×2 (11:31→20:48)
[2020-01-31] MEDS ORDERED: PIPERACILL/TAZOBAC CONSULT ACTIVE PRN (11:57)
[2020-01-31] MEDS ORDERED: PIPERACILLIN/TAZOBACTAM 3.375 GM in DEXTROSE 5% 100 ML IV ONE (12:00)
--- NOTE | 2020-01-31 12:47 | Electrocardiogram Report ---
Test Reason : Blood Pressure : / mmHG Vent. Rate : 080 BPM Atrial Rate : 080 BPM P-R Int : 166 ms QRS Dur : 156 ms QT Int : 440 ms P-R-T Axes : -06 048 -08 degrees QTc Int : 507 ms Normal sinus rhythm Left bundle branch block Abnormal ECG When compared with ECG of 19-DEC-2016 18:15, [place] interval has decreased Confirmed by Yg Zimmerman ([id number]) on 01/31/2020 12:47:01 PM Referred By: REFERRED SELF Confirmed By:Rj Zimmerman
[2020-01-31] MEDS ORDERED: POTASSIUM CHLORIDE 20 MEQ/15 ML UDC PO STA (13:53)
[2020-01-31] MEDS ORDERED: VANCOMYCIN HCL 1,000 MG in SODIUM CHLORIDE 0.9% 250 ML IV SCH (18:00)
[2020-01-31] MEDS: PIPERACILLIN/TAZOBACTAM 3.375 GM in DEXTROSE 5% 100 ML IV SCH (19:15)
[2020-01-31] MEDS ORDERED: cefTRIAXone SODIUM 1,000 MG in DEXTROSE 5% 50 ML IV SCH (20:00)
[2020-02-01] MEDS: PIPERACILLIN/TAZOBACTAM 3.375 GM in DEXTROSE 5% 100 ML IV SCH ×2 (01:49→10:39)
[2020-02-01 06:34] VITALS: TEMP 97.3; O2SAT 98
[2020-02-01 06:53] LABS: Hemoglobin 13.7 g/dL (12.0-16.0); Mean Corpuscular Hemoglobin 30.6 pg (25-34); Mean Corpuscular Hgb Conc 34.3 g/dL (32-36); Mean Corpuscular Volume 89.3 fL (80-100); Mean Platelet Volume 10.2 fL (7.4-10.4); Platelet Count 263 K/uL (130-400); RDW Coefficient of Variation 12.8 % (11.5-14.5); RDW Standard Deviation 41.3 fL (36.4-46.3); Red Blood Count 4.48 M/uL (4.2-5.4); White Blood Count 7.64 K/uL (4.8-10.8)
[2020-02-01 07:18] LABS: BUN Creatinine Ratio 9.8 (10-20); Calcium 9.1 mg/dl (8.5-10.1); Creatinine Clr Calc Pharmacy 58.2 ml/min; Est GFR (African American) 72.8; Est GFR (Non-African American) 62.8; Potassium 3.6 mmol/L (3.5-5.1)
[2020-02-01] MEDS: amLODIPine BESYLATE 5 MG TAB PO SCH (08:08)
[2020-02-01] MEDS: PANTOprazole 40 MG TAB PO SCH (08:08)
[2020-02-01] MEDS: EZETIMIBE 10 MG TABLET PO SCH (08:08)
[2020-02-01] MEDS: METOPROLOL SUCC 25MG EXT REL TAB PO SCH (08:08)
[2020-02-01] MEDS: CYANOCOBALAMIN (VITAMIN B-12) 100 MCG TABLET PO SCH (08:08)
[2020-02-01] MEDS: LOSARTAN POTASSIUM 50 MG TAB PO SCH (08:08)
[2020-02-01] MEDS: CHOLECALCIFEROL 1,000 UNITS 25 MCG TAB PO SCH (08:08)
[2020-02-01 08:14] VITALS: BP 163/81
[2020-02-01] MEDS ORDERED: ADVANCED PROBIOTIC 1250 MG CAPSULE PO SCH (09:00)
--- NOTE | 2020-02-01 09:22 | Hospitalist Progress Note ---
Date of Service February 01, 2020 Assessment & Plan (1) Pyelonephritis: Chills,fever, urinary symptoms UA suggest UTI CT Abd/P suggest Left pyelonephritis Reported history of recurrent UTI and E.coli and GBS in the past Initially on vanco and ceftriaxone Urine cultx positive for E.coli pansensitive, was switched to zosyn Now plan to d/c home on ciprofloxacin (2) LBBB (left bundle branch block): (3) Elevated troponin: LBBB is old Elevated trops likely demand Trop trends down. No chest pain, SOB Tele monitor Resume diet Echo obtained - unremarkable Consulted with cardiology - no further testing or intervention indicated (4) HTN (hypertension): Continue home BP meds Monitor (5) DVT prophylaxis: SCD for now Ambulate Admission and Anticipated Discharge Date Admission Date: January 30, 2020 Subjective Pt is feeling well. No acute events overnight. Denies fever, chills, chest pain, shortness of breath, abd. pain. Left flank pain much improved. Appetite good. Review of Systems Review of Systems: All systems reviewed & are unremarkable except as noted in HPI & below Constitutional: no fever and no chills Respiratory: no cough and no dyspnea Cardiovascular: no chest pain and no palpitations Gastrointestinal: no abdominal pain, no nausea and no vomiting Genitourinary: + flank pain (Left, much improved) Physical Exam Physical Exam: Constitutional: WD/WN, in no acute distress Eyes: PERRL, EOMI, conjunctivae normal, anicteric sclerae ENMT: external ear and nose normal, oropharynx normal Respiratory: normal respiratory effort, lungs clear to auscultation Cardiovascular: RRR, no murmur, no edema Gastrointestinal (Abdomen): normal bowel sounds, soft, nontender Musculoskeletal: no cyanosis or clubbing, extremities motor strength 5/5 Neurologic: PERRL, EOMI, no face palsy, no dysarthria, moves extremities spontaneously Psychiatric: A+Ox3, euthymic affect Genitourinary: + CVA tenderness (Left, much improved) Skin: warm, dry, well perfused Results & Data Results & Data ([facility]) Vital Signs (Past 12 Hours) Vital Signs Temp Pulse Pulse Pulse Resp BP Pulse Ox 02/01/20 08:12 66 163/81 H 02/01/20 06:33 36.3 C L 59 L 18 149/92 H 98 02/01/20 03:58 66 02/01/20 03:24 37.1 C 63 16 130/72 97 01/31/20 23:54 36.6 C 64 64 H 143/70 H 99 01/31/20 22:20 68 Laboratory Results 02/01/20 02/01/20 Range/Units 06:12 06:12 WBC 7.64 (4.8-10.8) K/uL RBC 4.48 (4.2-5.4) M/uL Hgb 13.7 (12.0-16.0) g/dL Hct 40.0 (37-47) % MCV 89.3 (80-100) fL MCH 30.6 (25-34) pg MCHC 34.3 (32-36) g/dL RDW Std Deviation 41.3 (36.4-46.3) fL RDW Coeff of Darius 12.8 (11.5-14.5) % Plt Count 263 (130-400) K/uL MPV 10.2 (7.4-10.4) fL Sodium 141 (136-145) mmol/L Potassium 3.6 (3.5-5.1) mmol/L Chloride 110 H (98-107) mmol/L Carbon Dioxide 23 (21-32) mmol/L Anion Gap 8.0 (3-11) BUN 9 (7-18) mg/dl Creatinine 0.94 (0.6-1.2) mg/dl Est Cr Clr Drug Dosing 58.2 ml/min Est GFR ( Amer) 72.8 Est GFR (Non-Af Amer) 62.8 BUN/Creatinine Ratio 9.8 L (10-20) Glucose 129 H (70-99) mg/dl Calcium 9.1 (8.5-10.1) mg/dl Medications Administered Current Inpatient Medications Acetaminophen (Acetaminophen 325 Mg Tab) 650 mg PO Q4H PRN PRN Reason: pain/fever Stop: 03/01/20 04:38 Last Admin: 01/31/20 05:01 Dose: 650 mg Documented by: Amlodipine Besylate (Amlodipine Besylate 5 Mg Tab) [facility] [place] Stop: 03/01/20 08:59 Last Admin: 02/01/20 08:08 Dose: 10 mg Documented by: Cetirizine HCl (Cetirizine Hcl 10 Mg Tablet) 5 mg PO DAILY PRN PRN Reason: ALLERGIES Stop: 03/01/20 04:38 Cholestyramine Resin (Cholestyramine Light 4 Gm Pkt) 4 gm PO BID@1000,2200 [facility] Stop: 03/01/20 09:59 Last Admin: 01/31/20 20:48 Dose: 4 gm Documented by: Cyanocobalamin (Cyanocobalamin (Vitamin B-12) 100 Mcg Tablet) 100 mcg PO QAM [facility] Stop: 03/01/20 08:59 Last Admin: 02/01/20 08:08 Dose: 100 mcg Documented by: Ezetimibe (Ezetimibe 10 Mg Tablet) 10 mg PO DAILY [facility] Stop: 03/01/20 08:59 Last Admin: 02/01/20 08:08 Dose: 10 mg Documented by: Sodium Chloride (Nss 1000ml) 1,000 mls @ 100 mls/hr IV .Q10H [facility] Stop: 03/01/20 04:38 Last Infusion: 02/01/20 08:16 Dose: 100 mls/hr Documented by: Piperacillin Sod/Tazobactam (Sod 3.375 gm/ Dextrose) 115 mls @ 28.75 mls/hr IV Q8H [facility]; Protocol Stop: 02/10/20 17:59 Last Infusion: 02/01/20 05:49 Dose: Infused Documented by: Lactobacillus Acidoph/Casei/Rhamnos (Advanced Probiotic 1250 Mg Capsule) 2 cap PO DAILY [facility]; Protocol Stop: 03/02/20 08:59 Last Admin: 02/01/20 08:08 Dose: 2 cap Documented by: Losartan Potassium (Losartan Potassium 50 Mg Tab) 50 mg PO BID [facility] Stop: 03/01/20 08:59 Last Admin: 02/01/20 08:08 Dose: 50 mg Documented by: Metoprolol Succinate (Metoprolol Succ 25mg Ext Rel Tab) 25 mg PO QAM [facility] Stop: 03/01/20 08:59 Last Admin: 02/01/20 08:08 Dose: 25 mg Documented by: Miscellaneous (Olopatadine Gtts: Order Awaiting Action) 1 ea N/A QS [facility] Stop: 03/01/20 07:59 Last Admin: 02/01/20 08:09 Dose: Not Given Documented by: Miscellaneous Information (Piperacill/Tazobac Consult Active) 1 ea N/A UD PRN PRN Reason: Consult Stop: 03/01/20 11:56 Ondansetron HCl (Ondansetron Inj 2 Mg/Ml 2 Ml Vial) 4 mg IV Q6H PRN PRN Reason: Nausea Stop: 03/01/20 04:38 Last Admin: 01/31/20 11:24 Dose: 4 mg Documented by: Pantoprazole Sodium (Pantoprazole 40 Mg Tab) 40 mg PO BID [facility] Stop: 03/01/20 08:59 Last Admin: 02/01/20 08:08 Dose: 40 mg Documented by: Vitamin D (Cholecalciferol 1,000 Units 25 Mcg Tab) 1,000 units PO QAM [facility] Stop: 03/01/20 08:59 Last Admin: 02/01/20 08:08 Dose: 1,000 units Documented by:
[2020-02-01 09:27] VITALS: PULSE 59
[2020-02-01] MEDS: CHOLESTYRAMINE LIGHT 4 GM PKT PO SCH (10:39)
[2020-02-01] MEDS: SODIUM CHLORIDE 0.9% 1000ML 1,000 ML IV SCH (10:39)
--- NOTE | 2020-02-01 10:44 | Discharge Summary ---
Date of Service February 01, 2020 Admission HPI Per Admitting Provider This is a 69-year-old female with past medical history significant for chronic seasonal allergic rhinitis, laryngopharyngeal reflux disease, hypertension, chronic left bundle branch block, aortic valve regurgitation, benign neoplasm of colon, calculus of gallbladder, nonalcoholic fatty liver disease, cyst of kidney, osteopenia of lumbar spine, history of asthma, history of C. diff colitis, history of recurrent UTIs, who comes because of fever and chills, left flank and left lower abdominal pain. The patient since last Thursday when she was taking shower, she felt chills and she laid down and at that time she also had left lower quadrant abdominal pain, and left flank pain. She has history of recurrent UTI. She thought coming of UTI, but she slept and she felt fine. Next day she went to her work. 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 At work again symptoms came back and she came back and got an appointment with the family doctor today. She is feeling weak and has some burning micturition, decreased appetite since Thursday, says she lost to taste food, she could not taste anything, sense of smell is ok. Has some headache. No dizziness, no earache, no runny nose, no sore throat, no dysphagia. She says she has some lump in her throat and she has a followup appointment for that. Denies any chest pain. She says she gets short of breath climbing steps up and down in her house, but that is nothing new. Denies any cough, no nausea, no vomiting, no diarrhea or constipation, no blood in the stool or black stools. No swelling in the legs, no rash. Currently resting comfortably and hemodynamically stable. Admission Exam Per Admitting Provider GENERAL: The patient is of moderate build, not in acute distress. VITAL SIGNS: Temperature 36.6, pulse 75, respiratory rate 18, blood pressure 156/89, oxygen 95% on room air. HEENT: Pupils equal, round, and reactive to light. Oral mucosa moist. NECK: Supple. No carotid bruits. No JVD seen. CARDIOVASCULAR: S1, S2 heard, regular rate and rhythm, no murmur, no gallop. RESPIRATORY SYSTEM: Normal AP diameter. No accessory muscle use. No wheezing, no crackles. ABDOMEN: Soft, bowel sounds present, nontender. No distention. Mild left CVA tenderness present, no guarding, no rigidity. CENTRAL NERVOUS SYSTEM: Cranial nerves II-XII grossly intact. Nonfocal. EXTREMITIES: No edema, no erythema. Principal Diagnosis Pyelonephritis Discharge Exam Constitutional: WD/WN, in no acute distress Eyes: PERRL, EOMI, conjunctivae normal, anicteric sclerae ENMT: external ear and nose normal, oropharynx normal Respiratory: normal respiratory effort, lungs clear to auscultation Cardiovascular: RRR, no murmur, no edema Gastrointestinal (Abdomen): normal bowel sounds, soft, nontender Musculoskeletal: no cyanosis or clubbing, extremities motor strength 5/5 Neurologic: PERRL, EOMI, no face palsy, no dysarthria, moves extremities spontaneously Psychiatric: A+Ox3, euthymic affect Genitourinary: + CVA tenderness (Left, much improved) Skin: warm, dry, well perfused Discharge Data Allergies Allergy/AdvReac Type Severity Reaction Status Date / Time enalapril AdvReac Mild H/A Verified 01/30/20 19:23 Consultations 01/30/20 20:49 ED Decision to Admit Stat 01/31/20 04:39 Consult Case Management - Discharge Planning Routine 01/31/20 08:00 Consult Cardiology Routine Ordered Studies 01/30/20 17:59 CT angio abdomen pelvis w con Stat IMPRESSION: 1. Multiple ill-defined hypoenhancing foci within the lower pole of the left kidney with mild adjacent infiltration. Suspected mild left urothelial thickening. This suggests pyelonephritis. A follow-up CT in 2 months is recommended to ensure resolution. 2. Normal caliber abdominal aorta with moderate plaque. No dissection. Patent major branch vessels. 3. No change in a 4.7 x 3.7 cm cystic focus within the upper pole of the left kidney with apparent wall thickening. This could reflect chronic dilatation of the upper collecting system. A stable cystic lesion could appear similar. Multifocal renal scarring. 4. Colonic diverticulosis without evidence for acute diverticulitis. No bowel obstruction. 5. Fatty infiltration of the liver. Multiple subcapsular hypervascular foci which are suboptimally assessed on this exam but likely reflect shunts. 01/30/20 19:16 CT angio chest PE protocol Stat IMPRESSION: 1. No pulmonary embolus identified. 2. No acute process within the chest. 3. Dilatation of the central pulmonary arteries which raises the possibility of pulmonary arterial hypertension. Moderate cardiomegaly. 4. Left lobe thyroid nodule which measures approximately 2.1 cm. Nonemergent thyroid ultrasound is recommended. Hospital Course (1) Pyelonephritis: Chills,fever, urinary symptoms UA suggest UTI CT Abd/P suggest Left pyelonephritis, follow up CT in 2 months recommended to ensure resolution Reported history of recurrent UTI and E.coli and GBS in the past Initially on vanco and ceftriaxone Urine cultx positive for E.coli pansensitive, was switched to zosyn Now plan to d/c home on ciprofloxacin (2) LBBB (left bundle branch block): (3) Elevated troponin: LBBB is old Elevated trops likely demand ischemia Trop trends down. No chest pain, SOB Tele monitor Resume diet Echo obtained - No new wall motion abnormalities on echocardiogram. Consulted with cardiology - no further testing or intervention indicated (4) HTN (hypertension): Continue home BP meds Monitor Left lobe thyroid nodule which measures approximately 2.1 cm. Nonemergent thyroid ultrasound is recommended. Dilatation of the central pulmonary arteries which raises the possibility of pulmonary arterial hypertension. Follow up as outpt Total Time Total Time Spent Total Time Spent (In Minutes): 40 Total Time Includes: Examination of the Patient, Discharge Planning, Medication Reconciliation and Communication With Other Providers Discharge Plan Discharge Items Patient Disposition: Home - Self-Care Reason For Visit: FEVER, LEFT FLANK PAIN, LOSS OF TASTE Discharge Diagnosis: Pyelonephritis Activity: Per Instructions section Non-emergency contact: Primary Care Provider Call non-emergency contact if: you have any medication questions and your symptoms worsen Follow-up/Referrals: Amy Macias MD [Primary Care Provider] - (Date & Time 02/06/2020 10:20 AM Provider Amy Mccormick MD Department General Internal Medicine [facility] ) Diet: Heart Healthy Addtl Attending Provider Instructions: Please follow up with your primary care doctor. Appointment was scheduled for you for 02/05. Take ciprofloxacin twice a day as prescribed. Pending Studies at Discharge: No Stand-Alone Forms: [facility], Smoking Cessation Medications and DC Order Prescriptions: New ciprofloxacin HCl 500 mg Tablet 500 mg PO BID 8 Days Qty: 16 RF: 0 Continued losartan [Cozaar] 50 mg tablet 50 mg PO BID RF: 0 cyanocobalamin (vitamin B-12) [Vitamin B-12] 100 mcg Tablet 100 mcg PO QAM RF: 0 cetirizine [Zyrtec] 10 mg Tablet 5 mg PO DAILY PRN (Reason: ALLERGIES) RF: 0 amlodipine [Norvasc] 10 mg tablet 10 mg PO QAM RF: 0 Premarin 0.625 mg/gram Cream 0.625 mg VAGINAL DAILY RF: 0 omeprazole 20 mg capsule,delayed release(DR/EC) 20 mg PO BID RF: 0 metoprolol succinate 25 mg tablet extended release 24 hr 25 mg PO QAM RF: 0 coenzyme Q10 [CoQ-10] 100 mg Capsule 100 mg PO QAM RF: 0 cholestyramine (with sugar) [Questran] 4 gram Powder 4 g PO BID RF: 0 cholecalciferol (vitamin D3) [Vitamin D3] 1,000 unit Tablet,Chewable 1,000 unit PO QAM RF: 0 omega 5-nra-oji-fish oil [Fish Oil] 1,000 mg (120 mg-180 mg) Capsule 1 cap PO QAM RF: 0 Glucosamine Chondroitin 550-30-1 mg Capsule 1 cap PO QAM RF: 0 olopatadine [Patanol] 0.1 % Drops 1 drp OPHTHALMIC (EYE) BID RF: 0 Probiotic 10 billion cell Capsule 10,000 mmu cells PO DAILY RF: 0 Zetia 10 mg 10 mg PO DAILY RF: 0 Discharge Orders: Discharge Order (Routine); Ordered 02/01/20 Ordered By: Demario Bal Admission Data Admit Date/Time: 01/30/20 21:55 Attending Provider: Demario Bal Admit Provider: Kj Diana Primary Care Provider: Amy Macias Other Providers: Kj Diana ; Graeme Keith ; Kavitha Dodd I.
[2020-02-01] MEDS ORDERED: CIPROFLOXACIN 500 MG TAB PO SCH (10:45)
== END 2020-02-01 12:00 | disposition home or self-care (01) ==
LOC: 2N 17:25 → ED 17:25 → EDINP 17:25 → SUATTDRO 21:55 → 2N 01-31